=== PATIENT | male | born 1945 | race Caucasian/White ===

== ENCOUNTER → 2018-02-03 08:57 | Outpatient (CLI) | payer MEDICARE, OTHER, SELFPAY | PROVIDERS: PCP Family Medicine; Visit Provider Otolaryngology Facial Plastic Surgery | DX: H90.5 Unspecified sensorineural hearing loss (principal) ==

== ENCOUNTER → 2018-02-03 09:09 | Outpatient (CLI) | payer MEDICARE, OTHER, SELFPAY ==
[2018-02-03 10:28] LABS: Estimated Glomerular Filt Rate > 60.0 mL/min (>60)
== END ==
PROVIDERS: PCP Family Medicine; Visit Provider Otolaryngology Facial Plastic Surgery
DX: H90.5 Unspecified sensorineural hearing loss (principal); H93.13 Tinnitus, bilateral
CPT/HCPCS: 36415; 82565

== ENCOUNTER → 2018-02-14 11:40 | Outpatient (CLI) | payer MEDICARE, OTHER, SELFPAY ==
--- NOTE | 2018-02-14 | DI.MRI.S_ITS ---
PROCEDURE: MR BRAIN (IAC) WWO CON INDICATIONS: ASYMMETRICAL SENORINEURAL HEARING LOSS TECHNIQUE: Noncontrast sagittal T1 spin echo, axial FLAIR, axial gradient echo, axial diffusion and ADC through the brain. Axial thin-slice 3D CISS, coronal TruFISP, axial T1 spin echo with fat saturation through the internal auditory canals. After the administration of contrast, thin slice axial and coronal T1 spin echo with fat saturation through the internal auditory canals, and axial T1 spin echo with fat saturation through the brain. COMPARISON: None. FINDINGS: Image quality: Excellent. Cerebellopontine angles: No cerebellopontine angle masses. Inner ear structures appear normally formed. No suspicious enhancement in the internal auditory canal or along the course of the 7th cranial nerve. CSF spaces: Ventricles are normal in size and shape. No extra-axial fluid collections. Basal cisterns are patent. Brain: No intracranial bleeds or mass effects. Mcdaniel-white matter interface is intact. No abnormal intracranial enhancement. There is moderate diffuse cerebral volume loss. Diffusion weighted images demonstrate no acute ischemic insults. Brainstem appears normal. Normal intravascular flow voids are present. Skull and face: Calvarial marrow signal is normal. Orbits appear normal. Sinuses: Mucosal thickening causes near-complete opacification of the maxillary sinuses bilaterally. Mild mucosal thickening noted in the ethmoid air cells bilaterally. mastoids are clear. IMPRESSION: 1. No evidence of vestibular schwannoma. 2. Moderate, diffuse cerebral volume loss. 3. Severe bilateral maxillary sinus mucosal thickening and mild bilateral ethmoid air cell mucosal thickening. Dictated by: María Carpenter MD, PhD on 02/14/2018 at 16:09 Approved by: María Carpenter MD, PhD on 02/14/2018 at 16:14
== END ==
PROVIDERS: PCP Family Medicine; Visit Provider Otolaryngology Facial Plastic Surgery
DX: H90.3 Sensorineural hearing loss, bilateral (principal)
CPT/HCPCS: 70553; A9579

== ENCOUNTER → 2018-10-20 10:07 | Outpatient (CLI) | payer MEDICARE, OTHER, SELFPAY ==
[2018-10-20 11:58] LABS: Alanine Aminotransferase 38 IU/L (21-72); Albumin 4.4 g/dL (3.5-5.0); Albumin Globulin Ratio 1.6 (1.0-2.8); Alkaline Phosphatase 78 U/L (38-126); Aspartate Aminotransferase 32 IU/L (17-59); Bilirubin Total 0.9 mg/dL (0.2-1.3); Blood Urea Nitrogen 22 mg/dL (9-20); Calcium 9.2 mg/dL (8.4-10.2); Carbon Dioxide 28 mmol/L (22-32); Chloride 102 mmol/L (98-107); Cholesterol 195 mg/dL (140-199); Estimated Glomerular Filt Rate > 60.0 mL/min (>60); Globulin 2.8 g/dL (1.7-4.1); Glucose 94 mg/dL (80-110); HDL Cholesterol 66 mg/dL (40-60); HEMOLYSIS < 15 (0-50); LDL Cholesterol Calculated 112 mg/dL (<100); Potassium 4.7 mmol/L (3.4-5.1); Sodium 139 mmol/L (137-145); Total Protein 7.2 g/dL (6.3-8.2); Triglycerides 83 mg/dL (35-150)
[2018-10-23 17:33] LABS: Prostate Specific Antigen Scrn 0.965 ng/mL (0.1-4.0)
== END ==
PROVIDERS: PCP Family Medicine; Visit Provider Family Medicine
DX: Z00.00 Encounter for general adult medical examination without abnormal findings (principal); Z13.220 Encounter for screening for lipoid disorders; Z12.5 Encounter for screening for malignant neoplasm of prostate
CPT/HCPCS: 36415; 80053; 80061; G0103

== ENCOUNTER → 2019-01-16 09:03 | Outpatient (CLI) | payer MEDICARE, OTHER, SELFPAY ==
--- NOTE | 2019-01-16 09:10 | DI.CT.S_ITS ---
PROCEDURE: CT SINUS SCREEN WO CON INDICATIONS: chronic sinusitis TECHNIQUE: Noncontrast 3.0 mm axial images acquired from the frontal sinuses to the mid-sella, with coronal and sagittal reformats. For radiation dose reduction, the following was used: automated exposure control, adjustment of mA and/or kV according to patient size. COMPARISON: [facility], MR, MR BRAIN (IAC) WWO CON, 02/14/2018, 12:07. FINDINGS: Image quality: Excellent. Maxillary Sinuses: No bony remodeling or destruction. Mild mucosal thickening is seen within the maxillary sinuses. Ethmoid Air Cells: No bony remodeling or destruction. Minimal to mild mucosal thickening is seen within the ethmoid air cells. Sphenoid Sinuses: No bony remodeling or destruction. Sinuses are clear. Frontal Sinuses: No bony remodeling or destruction. Sinuses are clear. Ostiomeatal Complexes: Ostiomeatal complexes are patent. No Jose Elias cells. Miscellaneous: Visualized intra-orbital contents are normal. No shruthi bullosa or paradoxical turbinate curvature. There is mild rightward nasal septal deviation. IMPRESSION: Paranasal sinus disease is seen, which is most prominent within the maxillary sinuses. The degree of paranasal sinus disease has clearly improved compared to the prior MRI. Dictated by: Miguel Duckworth M.D. on 01/16/2019 at 8:56 Approved by: Miguel Duckworth M.D. on 01/16/2019 at 8:59
== END ==
PROVIDERS: PCP Family Medicine; Visit Provider Otolaryngology
DX: J32.8 Other chronic sinusitis (principal)
CPT/HCPCS: 70486

== ENCOUNTER → 2019-03-20 11:04 | Outpatient (CLI) | payer MEDICARE, OTHER, SELFPAY ==
--- NOTE | 2019-03-20 11:07 | DI.RAD.S_ITS ---
PROCEDURE: XR KNEE RT 3V INDICATIONS: pain, exam suggests DJD TECHNIQUE: 3 views of the knee were acquired. COMPARISON: [facility], , KNEE 3V RIGHT, 09/22/2015, 9:23. FINDINGS: Bones: No fractures or dislocations. No suspicious bony lesions. There is degenerative joint disease, moderate at the patellofemoral joint and medial femorotibial joint. Compared to the last exam, there is increased knee joint degeneration. Soft tissues: No joint effusion. No suspicious soft tissue calcifications. IMPRESSION: Moderate degenerative joint disease, slightly increased. Dictated by: Carlos Velasquez M.D. on 03/20/2019 at 17:11 Approved by: Carlos Velasquez M.D. on 03/20/2019 at 17:38
--- NOTE | 2019-03-20 11:07 | DI.RAD.S_ITS ---
PROCEDURE: XR KNEE LT 3V INDICATIONS: pain, exam suggests DJD with bakers cyst TECHNIQUE: 3 views of the knee were acquired. COMPARISON: [facility], , KNEE 3V LEFT, 09/22/2015, 9:23. FINDINGS: Bones: No fractures or dislocations. No suspicious bony lesions. There is increased knee joint degeneration, most pronounced in the patellofemoral joint and medial femorotibial joint. Soft tissues: No joint effusion. No suspicious soft tissue calcifications. IMPRESSION: Increased knee joint degeneration. Dictated by: Carlos Velasquez M.D. on 03/20/2019 at 17:38 Approved by: Carlos Velasquez M.D. on 03/20/2019 at 17:39
== END ==
PROVIDERS: PCP Family Medicine; Visit Provider Family Medicine
DX: M17.0 Bilateral primary osteoarthritis of knee (principal)
CPT/HCPCS: 73562

== ENCOUNTER 2019-06-21 13:29 | Outpatient (RCR) | payer MEDICARE, OTHER, SELFPAY ==
--- NOTE | 2019-06-21 15:12 | PT.OIE ---
Current Diagnoses Weakness (06/21/19) Strain of muscle and tendon of unspecified wall of thorax, initial encounter (06/21/19) Past Medical History (Last Reviewed 06/14/19 @ 09:54 by Dolores Pozo MD) Bilateral primary osteoarthritis of knee (Chronic) Visit Care Team Role Provider Type Sonia Lugo MD Attending Provider Physician Primary Care Provider Specialty: Family Practice Address: [address] [place] [address], [facility] Email: [email or web address] Physical Therapy Initial Evaluation PT-OP-A Visit Information Start: 06/21/19 08:10 Freq: Status: Active Protocol: Document 06/21/19 13:45 [facility] (Rec: 06/21/19 14:50 [facility] [id number]) Out-Patient Physical Therapy Visit Information Visit Information Visit Type Initial Evaluation Visit Start Time 13:48 Visit Stop Time 14:28 Total Visit Minutes 40 Visit Number 1 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 Pt reports his post knees have been giving him trouble since then. He has history of knee pain where he had PT and injections in the past which that helped but that was all ant. Pt reports this happened about 1 month ago and by the time he saw the MD 05/29, pain was better but still limiting Prior Treatments and Tests PT for knees but no treatment for back Treatment Goals Patient/Caregiver Goals improve stiffness, be directed on exercises; be able to get up/down from ground PT-OP-C Subjective Start: 06/21/19 08:10 Freq: Status: Active Protocol: Document 06/21/19 13:45 [facility] (Rec: 06/21/19 14:50 [facility] [id number]) OP-PT Pain Assessment Location back Pain Location Details mostly thoracolumbar junction & some lower lumber Pain Aggravating Factors Standing,Sitting,Walking Other Pain Aggravating Factors sitting and standing ext Pain Alleviating Factors Cold,Heat Other Pain Alleviating Factors yoga exercises PT-OP-F Manual Assessment Start: 06/21/19 08:10 Freq: Status: Active Protocol: Document 06/21/19 13:45 [facility] (Rec: 06/21/19 14:50 [facility] [id number]) Manual Assessments Soft Tissue Assessment Soft Tissue Mobility Assessment tightness in ES R>L thoracic and lumbar PT-OP-J Posture/Palpation/Skin Start: 06/21/19 08:10 Freq: Status: Active Protocol: Document 06/21/19 13:45 [facility] (Rec: 06/21/19 14:50 [facility] [id number]) Posture Evaluation [facility] Postural Classification System [place] Postural Classifications Posterior/Anterior Vertebral Compression Test 0 Elbow Flexion Test 4 Lumbar Protective Mechanism Left AP 2 Lumbar Protective Mechanism Right AP 1 Lumbar Protective Mechanism Left PA 0 Lumbar Protective Mechanism Right PA 0 PT-OP-K Range of Motion Start: 06/21/19 08:10 Freq: Status: Active Protocol: Document 06/21/19 13:45 [facility] (Rec: 06/21/19 14:50 [facility] [id number]) Lumbar Spine Range of Motion Lumbar Spine Active Degrees Flexion 39 Extension 20 Rotation Left 58 Rotation Right 45 Lateral Flexion Left 18 Lateral Flexion Right 8 ROM Limitations Soft Tissue Tightness PT-OP-L Special Tests Start: 06/21/19 08:10 Freq: Status: Active Protocol: Document 06/21/19 13:45 [facility] (Rec: 06/21/19 14:50 [facility] [id number]) Special Tests Lumbar Spine Special Tests Slump Test Results neg; pull in calf B Straight Leg Raise Test Results 55 deg L; 58 R Comments HS tightness PT-OP-Q Treatments Start: 06/21/19 08:10 Freq: Status: Active Protocol: Document 06/21/19 13:45 [facility] (Rec: 06/21/19 14:50 [facility] [id number]) Therapeutic Exercises Sidelying Exercises roll & reach Sidelying Exercise Name thoracic rotation Side bilateral Reps/Minutes 10 Standing Exercises gerardo pose Standing Exercise Name fwd & to sides Equipment Used sink Reps/Minutes 30 sec wall posture Standing Exercise Name w/90/90 shoulder rotation ER Side bilateral Reps/Minutes 10 Other Exercises thread the needle Side bilateral Reps/Minutes 30 sec tail wags Side bilateral Reps/Minutes 10 cat/camel Reps/Minutes 10 Manual Therapy Treatment Soft Tissue Mobilization ES Body Location B Mobilization Type Strumming Intensity/Depth Moderate Body Position Sidelying PT-OP-T Assessment and Plan Start: 06/21/19 08:10 Freq: Status: Active Protocol: Document 06/21/19 13:45 [facility] (Rec: 06/21/19 14:50 [facility] [id number]) Physical Therapy Assessment Rehab Potential Rehabilitation Potential Good Evaluation Complexity Number of Personal Factors/Comorbidities 3 or More Number of Body Systems Impaired 4 or More Clinical Presentation at Evaluation Stable Impairments Impairments Activity Tolerance,Functional Activities,Functional Mobility ,Pain,Posture,ROM,Soft Tissue Mobility,Strength Goals functional ability Penitentiary Goal (LTG) Pt will be able to get up/down from ground without pain. LTG Duration 08/21/19 mobility Short Term Goal (STG) Pt will be indep with HEP. STG Duration 07/22/19 Penitentiary Goal (LTG) Pt will have full back ROM to allow him to do typical daily activities. LTG Duration 08/21/19 Assessment Summary Assessment Pt presents with thoracic and lumbar pain after injury getting hit with door and falling to ground. His upper thoracic pain is better but still has lower thoracic and lumbar pain that is exasterbated at this time. He would benefit from skilled PT to work on his ROM, core stability, posture & overall mobility. Physical Therapy Plan Frequency and Duration Frequency of Treatment 1-2x/week Duration of Treatment 2 months Plan of Care Start Date 06/21/19 Plan of Care End Date 08/21/19 Therapeutic Interventions Therapeutic Interventions Aquatic Therapy,Balance Training,Gait Training,Home Exercise Program,Joint Mobilizations,Manual Therapy, Neuromuscular Re-education, Patient/Caregiver Education, Self-Care/Home Management,Soft Tissue Mobilization,Taping, Therapeutic Activities, Therapeutic Exercises Modalities Cold Pack/Ice Massage,Electric Stimulation,Hot Packs, Infrared Therapy,Traction- Mechanical,Ultrasound
--- NOTE | 2019-06-21 15:12 | PT.OPPOC ---
Current Diagnoses Weakness (06/21/19) Strain of muscle and tendon of unspecified wall of thorax, initial encounter (06/21/19) Visit Care Team Role Provider Type Sonia Lugo MD Attending Provider Physician Primary Care Provider Specialty: Family Practice Address: [address] [place] [address], [place], [address] Email: [email or web address] Plan Of Care PT-OP-T Assessment and Plan Start: 06/21/19 08:10 Freq: Status: Active Protocol: Document 06/21/19 13:45 [facility] (Rec: 06/21/19 14:50 [facility] [id number]) Physical Therapy Assessment Rehab Potential Rehabilitation Potential Good Evaluation Complexity Number of Personal Factors/Comorbidities 3 or More Number of Body Systems Impaired 4 or More Clinical Presentation at Evaluation Stable Impairments Impairments Activity Tolerance,Functional Activities,Functional Mobility ,Pain,Posture,ROM,Soft Tissue Mobility,Strength Goals functional ability Shelter Goal (LTG) Pt will be able to get up/down from ground without pain. LTG Duration 08/21/19 mobility Short Term Goal (STG) Pt will be indep with HEP. STG Duration 07/22/19 Shelter Goal (LTG) Pt will have full back ROM to allow him to do typical daily activities. LTG Duration 08/21/19 Assessment Summary Assessment Pt presents with thoracic and lumbar pain after injury getting hit with door and falling to ground. His upper thoracic pain is better but still has lower thoracic and lumbar pain that is exasterbated at this time. He would benefit from skilled PT to work on his ROM, core stability, posture & overall mobility. Physical Therapy Plan Frequency and Duration Frequency of Treatment 1-2x/week Duration of Treatment 2 months Plan of Care Start Date 06/21/19 Plan of Care End Date 08/21/19 Therapeutic Interventions Therapeutic Interventions Aquatic Therapy,Balance Training,Gait Training,Home Exercise Program,Joint Mobilizations,Manual Therapy, Neuromuscular Re-education, Patient/Caregiver Education, Self-Care/Home Management,Soft Tissue Mobilization,Taping, Therapeutic Activities, Therapeutic Exercises Modalities Cold Pack/Ice Massage,Electric Stimulation,Hot Packs, Infrared Therapy,Traction- Mechanical,Ultrasound Plan of Care Dates Plan of Care Start Date 06/21/19 Plan of Care End Date 08/21/19
--- NOTE | 2019-07-04 08:50 | PT.OPDS ---
Current Diagnoses Weakness (06/21/19) Strain of muscle and tendon of unspecified wall of thorax, initial encounter (06/21/19) Visit Care Team Role Provider Type Sonia Lugo MD Attending Provider Physician Primary Care Provider Specialty: Family Practice Address: [address] [place] [address], [facility] Email: [email or web address] Visit Number Visit Number 1 Discharge Summary PT-OP-B Current Condition Start: 06/21/19 08:10 Freq: Status: Active Protocol: Document 06/21/19 13:45 [facility] (Rec: 06/21/19 14:50 [facility] [id number]) Current Condition History of Current Condition Onset Date about 1 month ago Current Complaints thoracic & LBP & stiffness History of Current Condition Pt reports the door closed onto him which smashed his head against the door frame and it caused him to drop the floor and caused him to twist and injure upper back and inc LBP. Pt reports his post knees have been giving him trouble since then. He has history of knee pain where he had PT and injections in the past which that helped but that was all ant. Pt reports this happened about 1 month ago and by the time he saw the MD 05/29, pain was better but still limiting Prior Treatments and Tests PT for knees but no treatment for back Treatment Goals Patient/Caregiver Goals improve stiffness, be directed on exercises; be able to get up/down from ground PT-OP-C Subjective Start: 06/21/19 08:10 Freq: Status: Active Protocol: Document 06/21/19 13:45 [facility] (Rec: 06/21/19 14:50 [facility] [id number]) OP-PT Pain Assessment Location back Pain Location Details mostly thoracolumbar junction & some lower lumber Pain Aggravating Factors Standing,Sitting,Walking Other Pain Aggravating Factors sitting and standing ext Pain Alleviating Factors Cold,Heat Other Pain Alleviating Factors yoga exercises PT-OP-F Manual Assessment Start: 06/21/19 08:10 Freq: Status: Active Protocol: Document 06/21/19 13:45 [facility] (Rec: 06/21/19 14:50 [facility] [id number]) Manual Assessments Soft Tissue Assessment Soft Tissue Mobility Assessment tightness in ES R>L thoracic and lumbar PT-OP-J Posture/Palpation/Skin Start: 06/21/19 08:10 Freq: Status: Active Protocol: Document 06/21/19 13:45 [facility] (Rec: 06/21/19 14:50 [facility] [id number]) Posture Evaluation [place] Postural Classification System [place] Postural Classifications Posterior/Anterior Vertebral Compression Test 0 Elbow Flexion Test 4 Lumbar Protective Mechanism Left AP 2 Lumbar Protective Mechanism Right AP 1 Lumbar Protective Mechanism Left PA 0 Lumbar Protective Mechanism Right PA 0 PT-OP-K Range of Motion Start: 06/21/19 08:10 Freq: Status: Active Protocol: Document 06/21/19 13:45 [facility] (Rec: 06/21/19 14:50 [facility] [id number]) Lumbar Spine Range of Motion Lumbar Spine Active Degrees Flexion 39 Extension 20 Rotation Left 58 Rotation Right 45 Lateral Flexion Left 18 Lateral Flexion Right 8 ROM Limitations Soft Tissue Tightness PT-OP-L Special Tests Start: 06/21/19 08:10 Freq: Status: Active Protocol: Document 06/21/19 13:45 [facility] (Rec: 06/21/19 14:50 [facility] [id number]) Special Tests Lumbar Spine Special Tests Slump Test Results neg; pull in calf B Straight Leg Raise Test Results 55 deg L; 58 R Comments HS tightness PT-OP-T Assessment and Plan Start: 06/21/19 08:10 Freq: Status: Active Protocol: Document 07/04/19 08:47 [facility] (Rec: 07/04/19 08:49 [facility] [id number]) Physical Therapy Assessment Assessment Summary Assessment Pt given HEP for back and feels good with it to address his concerns. He is most concerned about his knee and got a new referal and plans to come for knee pain instead. Physical Therapy Plan Discharge Physical Therapy Discharge Reasons Patient Request Discharge Comments Pt reports he no longer needs back PT per call and has new referal for knee which he wants to pursue instead.
== END 2019-06-21 14:29 ==
LOC: PHYS 13:29
PROVIDERS: PCP Family Medicine; Visit Provider Family Medicine
DX: S29.019A Strain of muscle and tendon of unspecified wall of thorax, initial encounter (principal); R53.1 Weakness
CPT/HCPCS: 97110; 97161

== ENCOUNTER 2019-09-19 14:30 | Outpatient (RCR) | payer MEDICARE, OTHER, SELFPAY ==
--- NOTE | 2019-07-05 14:28 | PT.OIE ---
Current Diagnoses Bilateral primary osteoarthritis of knee (07/05/19) Other specified enthesopathies of unspecified lower limb, excluding foot (07/05/19) Difficulty in walking, not elsewhere classified (07/05/19) Weakness (07/05/19) Past Medical History (Last Reviewed 06/14/19 @ 09:54 by Dolores Pozo MD) Bilateral primary osteoarthritis of knee (Chronic) Visit Care Team Role Provider Type Sonia Lugo MD Primary Care Provider Physician Specialty: Family Practice Address: [address] [place] [address], [place], [address] Email: [email or web address] Danny Michael MD Attending Provider Physician Specialty: Orthopedic Surgery Address: [address] [place] [address], [id number] Email: [email or web address] Initial Evaluation PT-OP-A Visit Information Start: 07/05/19 13:03 Freq: Status: Active Protocol: Document 07/05/19 13:03 [facility] (Rec: 07/05/19 14:28 [facility] [id number]) Out-Patient Physical Therapy Visit Information Visit Information Visit Type Initial Evaluation Visit Start Time 13:05 Visit Stop Time 14:05 Total Visit Minutes 60 Visit Number 1 Number of CLINICAL DATA MANAGER Visits 0 PT-OP-B Current Condition Start: 07/05/19 13:03 Freq: Status: Active Protocol: Document 07/05/19 13:03 [facility] (Rec: 07/05/19 14:28 [facility] [id number]) Current Condition History of Current Condition Onset Date 1.5 months ago Current Complaints B post knee pain History of Current Condition Pt reports the door closed onto him which smashed his head against the door frame and it caused him to drop the floor and caused him to twist and injure upper back and inc LBP. Pt reports his post knees have been giving him trouble since then. He has history of knee pain where he had PT and injections in the past which that helped but that was all ant. Pt reports this happened about 1 month ago and by the time he saw the MD 05/29, pain was better but still limiting. Thorax pain improved but knee pain still limiting. Pt reports sitting is hard to get comfortable and is uncomfortable when getting up. Pt reports he has been done fine with dump runs. Pt reports it is sore getting up/ down from the ground. He can do his squat exercises without issue. Pt reports he had this issue earlier this year and he was doing well before this fall where it had stopped. Prior Treatments and Tests PT (1-2 years ago) and cortizone shots (3 months ago) Treatment Goals Patient/Caregiver Goals Get up/down from ground & from chair; inc walking distance again PT-OP-C Subjective Start: 07/05/19 13:03 Freq: Status: Active Protocol: Document 07/05/19 13:03 [facility] (Rec: 07/05/19 14:28 [facility] [id number]) Patient Questionnaires Lower Extremity Functional Scale LEFS Score 37 LEFS Impairment 40 to 59% Impaired (Score 32- 47) OP-PT Pain Assessment Location post knees Pain Location Details L>R post knees Intensity 7 Scale Used Numeric (1 - 10) Description Sharp,Tightness Description- Other weakness Frequency Daily Pain Duration lasts about 5-10 min after exasterbation Pain Aggravating Factors Sitting,Walking,Bending Other Pain Aggravating Factors getting up from sitting, bending knee to get socks on Pain Alleviating Factors Heat PT-OP-D Balance Start: 07/05/19 13:03 Freq: Status: Active Protocol: Document 07/05/19 13:03 [facility] (Rec: 07/05/19 14:28 [facility] [id number]) Balance Tests Single Limb Standing Single Limb- Right 16 sec Single Limb- Left 17 sec PT-OP-F Manual Assessment Start: 07/05/19 13:03 Freq: Status: Active Protocol: Document 07/05/19 13:03 [facility] (Rec: 07/05/19 14:28 [facility] [id number]) Manual Assessments Soft Tissue Assessment Soft Tissue Mobility Assessment tightness in calf and HS mm & ITB PT-OP-G Mobility & Gait Start: 07/05/19 13:03 Freq: Status: Active Protocol: Document 07/05/19 13:03 [facility] (Rec: 07/05/19 14:28 [facility] [id number]) OP Gait Assessment Comments Gait Comments Dec push off and inc lat lean PT-OP-K Range of Motion Start: 07/05/19 13:03 Freq: Status: Active Protocol: Document 07/05/19 13:03 [facility] (Rec: 07/05/19 14:28 [facility] [id number]) Knee Goniometric Range of Motion Knee Left Flexion Active (degrees) 107 Extension Active (degrees) 8 Right Flexion Active (degrees) 104 Extension Active (degrees) 10 PT-OP-L Special Tests Start: 07/05/19 13:03 Freq: Status: Active Protocol: Document 07/05/19 13:03 [facility] (Rec: 07/05/19 14:28 [facility] [id number]) Special Tests Knee Special Tests Evette's Test Results positive for tightness B Jeff Test Test Results positive L post drawer Test Results neg B vagus/valgus Test Results B neg ea lachmans Test Results positive L; R neg caryl test Test Results mild tightness B hamstring Test Results R 40 deg hip flex, L 41 deg PT-OP-M Strength Start: 07/05/19 13:03 Freq: Status: Active Protocol: Document 07/05/19 13:03 [facility] (Rec: 07/05/19 14:28 [facility] [id number]) Hip Strength Hip Manual Muscle Testing Left Flexion (L2) 4 Good Extension (S1) 4- Good- Abduction 4 Good Adduction 3+ Fair+ External Rotation 4- Good- Internal Rotation 3+ Fair+ Right Flexion (L2) 4+ Good+ Extension (S1) 4- Good- Abduction 4 Good Adduction 4 Good External Rotation 4- Good- Internal Rotation 3+ Fair+ Comments pain w/ER Knee Strength Knee Manual Muscle Testing Left Flexion (S2) 4 Good Extension (L3) 4 Good Right Flexion (S2) 4 Good Extension (L3) 4 Good Ankle/Foot Strength Ankle and Foot Manual Muscle Testing Left Dorsiflexion (L4) 5 Normal Plantarflexion (S1) 5 Normal Right Dorsiflexion (L4) 5 Normal Plantarflexion (S1) 5 Normal PT-OP-Q Treatments Start: 07/05/19 13:03 Freq: Status: Active Protocol: Document 07/05/19 13:03 [facility] (Rec: 07/05/19 14:28 [facility] [id number]) Therapeutic Exercises Supine Exercises heel slides Supine Exercise Name w/quad set Side bilateral Reps/Minutes 10 Prone Exercises hip ext Prone Exercise Name alt Side bilateral Reps/Minutes 12 Sitting Exercises HS stretch Side bilateral Reps/Minutes 30 sec Standing Exercises bottoms up stretch Standing Exercise Name forearms on knees with knee ext Side bilateral Reps/Minutes 10 calf stretch Standing Exercise Name stairs Side bilateral Reps/Minutes 30 sec PT-OP-R Modalities Start: 07/05/19 13:03 Freq: Status: Active Protocol: Document 07/05/19 13:03 [facility] (Rec: 07/05/19 14:28 [facility] [id number]) Hot Pack/Cold Pack Treatment Hot Pack Location post knees B Patient Position Supine Treatment Duration (minutes) 15 PT-OP-T Assessment and Plan Start: 07/05/19 13:03 Freq: Status: Active Protocol: Document 07/05/19 13:03 [facility] (Rec: 07/05/19 14:28 [facility] [id number]) Physical Therapy Assessment Rehab Potential Rehabilitation Potential Excellent Evaluation Complexity Number of Personal Factors/Comorbidities 1-2 Number of Body Systems Impaired 4 or More Clinical Presentation at Evaluation Stable Impairments Impairments Activity Tolerance,Functional Activities,Functional Mobility ,Gait,Pain,Posture,ROM,Soft Tissue Mobility,Strength, Transfers Goals walking V Belt Curer Goal (LTG) Pt will be able to return to walking 1 mile or more as needed without inc pain. LTG Duration 09/04/19 functional ability Short Term Goal (STG) Pt will be able to stand and sit down into chair without inc pain. STG Duration 08/04/19 Residential Goal (LTG) Pt will score 5/5 on LE strength B in order to allow him to return to all typical activities without pain LTG Duration 09/04/19 mobility Short Term Goal (STG) Pt will have 5-120 deg knee ROM B STG Duration 08/04/19 Residential Goal (LTG) Pt will be able to get up/down from the ground without inc pain. LTG Duration 09/04/19 Assessment Summary Assessment Pt presents with B post knee pain that is exasterbated with knee flex activities after falling d/t an incident about 1.5 months ago. He is typically quite active and since having injections in knees has not had issues with B knees until this incident. Pt has significant tightness of HS & calves and does have weakness of hip stabilizers and would benefit from PT to address these issues and return pt to his typical active lifestyle. Physical Therapy Plan Frequency and Duration Frequency of Treatment 2x/Week Duration of Treatment 2 months Plan of Care Start Date 07/05/19 Plan of Care End Date 09/04/19 Therapeutic Interventions Therapeutic Interventions Aquatic Therapy,Balance Training,Gait Training,Home Exercise Program,Joint Mobilizations,Manual Therapy, Neuromuscular Re-education, Patient/Caregiver Education, Self-Care/Home Management,Soft Tissue Mobilization,Taping, Therapeutic Activities, Therapeutic Exercises Next Visit Focus/Plan Next Note Type Treatment Note Next Visit Plan review stretches, squat & lunge in comfortable range with focus on form, start HS and calf strengthening that does not inc pain, STM to HS, ITB and calves B
--- NOTE | 2019-07-05 14:28 | PT.OPPOC ---
Current Diagnoses Bilateral primary osteoarthritis of knee (07/05/19) Other specified enthesopathies of unspecified lower limb, excluding foot (07/05/19) Difficulty in walking, not elsewhere classified (07/05/19) Weakness (07/05/19) Visit Care Team Role Provider Type Sonia Lugo MD Primary Care Provider Physician Specialty: Family Practice Address: [address] [place] [address], [place], [address] Email: [email or web address] Danny Michael MD Attending Provider Physician Specialty: Orthopedic Surgery Address: [address] [place] [address], [place], [address] Email: [email or web address] Plan Of Care PT-OP-T Assessment and Plan Start: 07/05/19 13:03 Freq: Status: Active Protocol: Document 07/05/19 13:03 [facility] (Rec: 07/05/19 14:28 [facility] [id number]) Physical Therapy Assessment Rehab Potential Rehabilitation Potential Excellent Evaluation Complexity Number of Personal Factors/Comorbidities 1-2 Number of Body Systems Impaired 4 or More Clinical Presentation at Evaluation Stable Impairments Impairments Activity Tolerance,Functional Activities,Functional Mobility ,Gait,Pain,Posture,ROM,Soft Tissue Mobility,Strength, Transfers Goals walking Kick Press Setter Goal (LTG) Pt will be able to return to walking 1 mile or more as needed without inc pain. LTG Duration 09/04/19 functional ability Short Term Goal (STG) Pt will be able to stand and sit down into chair without inc pain. STG Duration 08/04/19 Halfway Goal (LTG) Pt will score 5/5 on LE strength B in order to allow him to return to all typical activities without pain LTG Duration 09/04/19 mobility Short Term Goal (STG) Pt will have 5-120 deg knee ROM B STG Duration 08/04/19 Kick Press Setter Goal (LTG) Pt will be able to get up/down from the ground without inc pain. LTG Duration 09/04/19 Assessment Summary Assessment Pt presents with B post knee pain that is exasterbated with knee flex activities after falling d/t an incident about 1.5 months ago. He is typically quite active and since having injections in knees has not had issues with B knees until this incident. Pt has significant tightness of HS & calves and does have weakness of hip stabilizers and would benefit from PT to address these issues and return pt to his typical active lifestyle. Physical Therapy Plan Frequency and Duration Frequency of Treatment 2x/Week Duration of Treatment 2 months Plan of Care Start Date 07/05/19 Plan of Care End Date 09/04/19 Therapeutic Interventions Therapeutic Interventions Aquatic Therapy,Balance Training,Gait Training,Home Exercise Program,Joint Mobilizations,Manual Therapy, Neuromuscular Re-education, Patient/Caregiver Education, Self-Care/Home Management,Soft Tissue Mobilization,Taping, Therapeutic Activities, Therapeutic Exercises Next Visit Focus/Plan Next Note Type Treatment Note Next Visit Plan review stretches, squat & lunge in comfortable range with focus on form, start HS and calf strengthening that does not inc pain, STM to HS, ITB and calves B Plan of Care Dates Plan of Care Start Date 07/05/19 Plan of Care End Date 09/04/19
--- NOTE | 2019-07-14 13:11 | PT.OTN ---
Current Diagnoses Bilateral primary osteoarthritis of knee (07/12/19) Other specified enthesopathies of unspecified lower limb, excluding foot (07/12/19) Difficulty in walking, not elsewhere classified (07/12/19) Weakness (07/12/19) Physical Therapy Treatment Note PT-OP-A Visit Information Start: 07/05/19 13:03 Freq: Status: Active Protocol: Document 07/12/19 12:49 [facility] (Rec: 07/12/19 12:58 [facility] [id number]) Out-Patient Physical Therapy Visit Information Visit Information Visit Type Treatment Note Visit Start Time 11:15 Visit Stop Time 12:15 Total Visit Minutes 60 Visit Number 2 PT-OP-B Current Condition Start: 07/05/19 13:03 Freq: Status: Active Protocol: Document 07/05/19 13:03 [facility] (Rec: 07/05/19 14:28 [facility] [id number]) Current Condition History of Current Condition Onset Date 1.5 months ago Current Complaints B post knee pain History of Current Condition Pt reports the door closed onto him which smashed his head against the door frame and it caused him to drop the floor and caused him to twist and injure upper back and inc LBP. Pt reports his post knees have been giving him trouble since then. He has history of knee pain where he had PT and injections in the past which that helped but that was all ant. Pt reports this happened about 1 month ago and by the time he saw the MD 05/29, pain was better but still limiting. Thorax pain improved but knee pain still limiting. Pt reports sitting is hard to get comfortable and is uncomfortable when getting up. Pt reports he has been done fine with dump runs. Pt reports it is sore getting up/ down from the ground. He can do his squat exercises without issue. Pt reports he had this issue earlier this year and he was doing well before this fall where it had stopped. Prior Treatments and Tests PT (1-2 years ago) and cortizone shots (3 months ago) Treatment Goals Patient/Caregiver Goals Get up/down from ground & from chair; inc walking distance again PT-OP-C Subjective Start: 07/05/19 13:03 Freq: Status: Active Protocol: Document 07/12/19 12:49 [facility] (Rec: 07/12/19 12:58 [facility] [id number]) OP-PT Subjective Patient Comments Patient Comments pt reports he went to sleep with hot packs on his knees and his knees over a pillow and this helped him at night PT-OP-D Balance Start: 07/05/19 13:03 Freq: Status: Active Protocol: Document 07/05/19 13:03 [facility] (Rec: 07/05/19 14:28 [facility] [id number]) Balance Tests Single Limb Standing Single Limb- Right 16 sec Single Limb- Left 17 sec PT-OP-F Manual Assessment Start: 07/05/19 13:03 Freq: Status: Active Protocol: Document 07/05/19 13:03 [facility] (Rec: 07/05/19 14:28 [facility] [id number]) Manual Assessments Soft Tissue Assessment Soft Tissue Mobility Assessment tightness in calf and HS mm & ITB PT-OP-G Mobility & Gait Start: 07/05/19 13:03 Freq: Status: Active Protocol: Document 07/05/19 13:03 [facility] (Rec: 07/05/19 14:28 [facility] [id number]) OP Gait Assessment Comments Gait Comments Dec push off and inc lat lean PT-OP-K Range of Motion Start: 07/05/19 13:03 Freq: Status: Active Protocol: Document 07/05/19 13:03 [facility] (Rec: 07/05/19 14:28 [facility] [id number]) Knee Goniometric Range of Motion Knee Left Flexion Active (degrees) 107 Extension Active (degrees) 8 Right Flexion Active (degrees) 104 Extension Active (degrees) 10 PT-OP-L Special Tests Start: 07/05/19 13:03 Freq: Status: Active Protocol: Document 07/05/19 13:03 [facility] (Rec: 07/05/19 14:28 [facility] [id number]) Special Tests Knee Special Tests Evette's Test Results positive for tightness B Jeff Test Test Results positive L post drawer Test Results neg B vagus/valgus Test Results B neg ea lachmans Test Results positive L; R neg caryl test Test Results mild tightness B hamstring Test Results R 40 deg hip flex, L 41 deg PT-OP-M Strength Start: 07/05/19 13:03 Freq: Status: Active Protocol: Document 07/05/19 13:03 [facility] (Rec: 07/05/19 14:28 [facility] [id number]) Hip Strength Hip Manual Muscle Testing Left Flexion (L2) 4 Good Extension (S1) 4- Good- Abduction 4 Good Adduction 3+ Fair+ External Rotation 4- Good- Internal Rotation 3+ Fair+ Right Flexion (L2) 4+ Good+ Extension (S1) 4- Good- Abduction 4 Good Adduction 4 Good External Rotation 4- Good- Internal Rotation 3+ Fair+ Comments pain w/ER Knee Strength Knee Manual Muscle Testing Left Flexion (S2) 4 Good Extension (L3) 4 Good Right Flexion (S2) 4 Good Extension (L3) 4 Good Ankle/Foot Strength Ankle and Foot Manual Muscle Testing Left Dorsiflexion (L4) 5 Normal Plantarflexion (S1) 5 Normal Right Dorsiflexion (L4) 5 Normal Plantarflexion (S1) 5 Normal PT-OP-Q Treatments Start: 07/05/19 13:03 Freq: Status: Active Protocol: Document 07/12/19 12:49 [facility] (Rec: 07/12/19 12:58 [facility] [id number]) Cardio Equipment Recumbent Elliptical ([employer]) Duration (Minutes) 6 Gym Equipment Shuttle Recovery Bilateral Squats Details shuttle squats Resistance 75# Reps/Time 3 x 10 reps Therapeutic Exercises Supine Exercises heel slides Supine Exercise Name w/quad set Side bilateral Reps/Minutes 10 Prone Exercises hip ext Prone Exercise Name alt Side bilateral Reps/Minutes 12 Sitting Exercises HS stretch Side bilateral Reps/Minutes 30 sec Standing Exercises 3 Standing Exercise Name standing squat Reps/Minutes x 10 reps 2 Standing Exercise Name standing calf raises with the DEREK 1 Standing Exercise Name standing quad stretch with foot on chair Reps/Minutes 30 sec bottoms up stretch Standing Exercise Name forearms on knees with knee ext Side bilateral Reps/Minutes 10 calf stretch Standing Exercise Name stairs Side bilateral Reps/Minutes 30 sec Manual Therapy Treatment Soft Tissue Mobilization 1 Body Location manual ITB release on the right Body Position Supine Manual Techniques 1 Type prone manual quad stretch Comments bilaterall PT-OP-R Modalities Start: 07/05/19 13:03 Freq: Status: Active Protocol: Document 07/12/19 12:49 [facility] (Rec: 07/12/19 12:58 [facility] [id number]) Hot Pack/Cold Pack Treatment Hot Pack Location post knees B Patient Position Supine Treatment Duration (minutes) 15 PT-OP-T Assessment and Plan Start: 07/05/19 13:03 Freq: Status: Active Protocol: Document 07/12/19 12:49 [facility] (Rec: 07/12/19 12:58 [facility] [email or web address]) Physical Therapy Assessment Assessment Summary Assessment good tolerance for stretches today, hamstrings tight B with ITB tightness greater on the left. He would benefit from adding in lateral hip stabilization. Physical Therapy Plan Frequency and Duration Frequency of Treatment 2x/Week Duration of Treatment 2 months Plan of Care Start Date 07/05/19 Plan of Care End Date 09/04/19 Next Visit Focus/Plan Next Note Type Treatment Note Next Visit Plan Continue with reviewing stretches,Manual work to the ITB and hamstrings, calves, strengthening program including lateral hip stabilizers
--- NOTE | 2019-07-16 15:15 | PT.OTN ---
Current Diagnoses Bilateral primary osteoarthritis of knee (07/16/19) Other specified enthesopathies of unspecified lower limb, excluding foot (07/16/19) Difficulty in walking, not elsewhere classified (07/16/19) Weakness (07/16/19) Physical Therapy Treatment Note PT-OP-A Visit Information Start: 07/05/19 13:03 Freq: Status: Active Protocol: Document 07/16/19 14:31 SP (Rec: 07/16/19 15:37 SP [id number]) Out-Patient Physical Therapy Visit Information Visit Information Visit Type Treatment Note Visit Start Time 14:32 Visit Stop Time 15:15 Total Visit Minutes 43 Visit Number 3 Number of COMPUTER FORENSICS EXAMINER Visits 1 PT-OP-B Current Condition Start: 07/05/19 13:03 Freq: Status: Active Protocol: Document 07/05/19 13:03 [facility] (Rec: 07/05/19 14:28 [facility] [id number]) Current Condition History of Current Condition Onset Date 1.5 months ago Current Complaints B post knee pain History of Current Condition Pt reports the door closed onto him which smashed his head against the door frame and it caused him to drop the floor and caused him to twist and injure upper back and inc LBP. Pt reports his post knees have been giving him trouble since then. He has history of knee pain where he had PT and injections in the past which that helped but that was all ant. Pt reports this happened about 1 month ago and by the time he saw the MD 05/29, pain was better but still limiting. Thorax pain improved but knee pain still limiting. Pt reports sitting is hard to get comfortable and is uncomfortable when getting up. Pt reports he has been done fine with dump runs. Pt reports it is sore getting up/ down from the ground. He can do his squat exercises without issue. Pt reports he had this issue earlier this year and he was doing well before this fall where it had stopped. Prior Treatments and Tests PT (1-2 years ago) and cortizone shots (3 months ago) Treatment Goals Patient/Caregiver Goals Get up/down from ground & from chair; inc walking distance again PT-OP-C Subjective Start: 07/05/19 13:03 Freq: Status: Active Protocol: Document 07/16/19 14:31 SP (Rec: 07/16/19 15:37 SP [id number]) OP-PT Subjective Patient Comments Patient Comments Pt stated felt pretty good, loosened up after last tx until later in the evening, B knees started hurting and had hard time sleeping, lasted through the weekend. Helped to prop legs up while seated in the chair and slept with a heating pad behind his knees. Might adjust exercises today. PT-OP-D Balance Start: 07/05/19 13:03 Freq: Status: Active Protocol: Document 07/05/19 13:03 [facility] (Rec: 07/05/19 14:28 [facility] [id number]) Balance Tests Single Limb Standing Single Limb- Right 16 sec Single Limb- Left 17 sec PT-OP-F Manual Assessment Start: 07/05/19 13:03 Freq: Status: Active Protocol: Document 07/05/19 13:03 [facility] (Rec: 07/05/19 14:28 [facility] [id number]) Manual Assessments Soft Tissue Assessment Soft Tissue Mobility Assessment tightness in calf and HS mm & ITB PT-OP-G Mobility & Gait Start: 07/05/19 13:03 Freq: Status: Active Protocol: Document 07/05/19 13:03 [facility] (Rec: 07/05/19 14:28 [facility] [id number]) OP Gait Assessment Comments Gait Comments Dec push off and inc lat lean PT-OP-K Range of Motion Start: 07/05/19 13:03 Freq: Status: Active Protocol: Document 07/05/19 13:03 [facility] (Rec: 07/05/19 14:28 [facility] [id number]) Knee Goniometric Range of Motion Knee Left Flexion Active (degrees) 107 Extension Active (degrees) 8 Right Flexion Active (degrees) 104 Extension Active (degrees) 10 PT-OP-L Special Tests Start: 07/05/19 13:03 Freq: Status: Active Protocol: Document 07/05/19 13:03 [facility] (Rec: 07/05/19 14:28 [facility] [id number]) Special Tests Knee Special Tests Evette's Test Results positive for tightness B Jeff Test Test Results positive L post drawer Test Results neg B vagus/valgus Test Results B neg ea lachmans Test Results positive L; R neg caryl test Test Results mild tightness B hamstring Test Results R 40 deg hip flex, L 41 deg PT-OP-M Strength Start: 07/05/19 13:03 Freq: Status: Active Protocol: Document 07/05/19 13:03 [facility] (Rec: 07/05/19 14:28 [facility] [id number]) Hip Strength Hip Manual Muscle Testing Left Flexion (L2) 4 Good Extension (S1) 4- Good- Abduction 4 Good Adduction 3+ Fair+ External Rotation 4- Good- Internal Rotation 3+ Fair+ Right Flexion (L2) 4+ Good+ Extension (S1) 4- Good- Abduction 4 Good Adduction 4 Good External Rotation 4- Good- Internal Rotation 3+ Fair+ Comments pain w/ER Knee Strength Knee Manual Muscle Testing Left Flexion (S2) 4 Good Extension (L3) 4 Good Right Flexion (S2) 4 Good Extension (L3) 4 Good Ankle/Foot Strength Ankle and Foot Manual Muscle Testing Left Dorsiflexion (L4) 5 Normal Plantarflexion (S1) 5 Normal Right Dorsiflexion (L4) 5 Normal Plantarflexion (S1) 5 Normal PT-OP-Q Treatments Start: 07/05/19 13:03 Freq: Status: Active Protocol: Document 07/16/19 14:31 SP (Rec: 07/16/19 15:37 SP [id number]) Cardio Equipment Recumbent Elliptical (Biodex) Duration (Minutes) 3 Resistance 2 Seat Position 8 Therapeutic Exercises Supine Exercises SLR Side bilateral Reps/Minutes 3x5 Comments no higher than other leg quad set Side bilateral Reps/Minutes 10 sec x10 bridge Side bilateral Resistance AROM Reps/Minutes 2x10 Comments slow pacing, glut activation with lift Hs stretch strap Side bilateral Equipment Used strap Reps/Minutes 30 x3 Prone Exercises eccentric HS Side bilateral Equipment Used table Reps/Minutes 2x5, 5 sec hold into extension quad set Sitting Exercises HS stretch Side bilateral Reps/Minutes 30 sec Standing Exercises calf stretch Standing Exercise Name stairs Side bilateral Reps/Minutes 30 sec Manual Therapy Treatment Soft Tissue Mobilization HS Mobilization Type Rolling,Strumming Intensity/Depth Moderate Body Position Prone Comments manual and rolling pin mid to distal Joint Mobilizations Tibial femoral Direction AP, PA Grade II Body Position Hooklying Reps/Duration x5 reps Comments assist concave on convex in 50 * knee flexion Femi patella mob Joint PF Direction med/lat/sup/inf Grade II Body Position Supine Reps/Duration x5 each direction Femi PT-OP-R Modalities Start: 07/05/19 13:03 Freq: Status: Active Protocol: Document 07/12/19 12:49 [facility] (Rec: 07/12/19 12:58 [facility] [email or web address]) Hot Pack/Cold Pack Treatment Hot Pack Location post knees B Patient Position Supine Treatment Duration (minutes) 15 PT-OP-T Assessment and Plan Start: 07/05/19 13:03 Freq: Status: Active Protocol: Document 07/16/19 14:31 SP (Rec: 07/16/19 15:37 SP [id number]) Physical Therapy Assessment Goals walking Mcc Goal (LTG) Pt will be able to return to walking 1 mile or more as needed without inc pain. LTG Duration 09/04/19 functional ability Short Term Goal (STG) Pt will be able to stand and sit down into chair without inc pain. STG Duration 08/04/19 Mcc Goal (LTG) Pt will score 5/5 on LE strength B in order to allow him to return to all typical activities without pain LTG Duration 09/04/19 mobility Short Term Goal (STG) Pt will have 5-120 deg knee ROM B STG Duration 08/04/19 Collar Cutter Goal (LTG) Pt will be able to get up/down from the ground without inc pain. LTG Duration 09/04/19 Assessment Summary Assessment Pt reported posterior knee pain during any knee flexion movement, held off on sit back quad stretch due to hurting, modified to eccentric HS curl/ prone hang with positive feedback. Good response to STMs HS manual and rolling pin performs self at home while watching TV. No adverse response to bridge today to work into squats for transfers with less discomfort. Hold off on resistance with Biodex, didnt' responded well, irritated knees with 2-3 resistance. Physical Therapy Plan Frequency and Duration Frequency of Treatment 2x/Week Duration of Treatment 2 months Plan of Care Start Date 07/05/19 Plan of Care End Date 09/04/19 Therapeutic Interventions Therapeutic Interventions Aquatic Therapy,Balance Training,Gait Training,Home Exercise Program,Joint Mobilizations,Manual Therapy, Neuromuscular Re-education, Patient/Caregiver Education, Self-Care/Home Management,Soft Tissue Mobilization,Taping, Therapeutic Activities, Therapeutic Exercises Next Visit Focus/Plan Next Note Type Treatment Note Next Visit Plan Review HEP: stretching: ITB, HS, calves and added bridge, eccentric HS curl, quad set, SLR. Add squat/lunges/HS /calf strengtheningContinue with reviewing stretches,Manual work to the ITB and hamstrings , calves, strengthening program including lateral hip stabilizers.
--- NOTE | 2019-07-19 11:30 | PT.OTN ---
Current Diagnoses Bilateral primary osteoarthritis of knee (07/19/19) Other specified enthesopathies of unspecified lower limb, excluding foot (07/19/19) Difficulty in walking, not elsewhere classified (07/19/19) Weakness (07/19/19) Physical Therapy Treatment Note PT-OP-A Visit Information Start: 07/05/19 13:03 Freq: Status: Active Protocol: Document 07/19/19 11:26 [facility] (Rec: 07/19/19 11:30 [facility] [id number]) Out-Patient Physical Therapy Visit Information Visit Information Visit Type Treatment Note Visit Start Time 09:45 Visit Stop Time 10:30 Total Visit Minutes 45 Visit Number 4 Number of CORPORATE STRATEGIST Visits 0 PT-OP-B Current Condition Start: 07/05/19 13:03 Freq: Status: Active Protocol: Document 07/05/19 13:03 [facility] (Rec: 07/05/19 14:28 [facility] [id number]) Current Condition History of Current Condition Onset Date 1.5 months ago Current Complaints B post knee pain History of Current Condition Pt reports the door closed onto him which smashed his head against the door frame and it caused him to drop the floor and caused him to twist and injure upper back and inc LBP. Pt reports his post knees have been giving him trouble since then. He has history of knee pain where he had PT and injections in the past which that helped but that was all ant. Pt reports this happened about 1 month ago and by the time he saw the MD 05/29, pain was better but still limiting. Thorax pain improved but knee pain still limiting. Pt reports sitting is hard to get comfortable and is uncomfortable when getting up. Pt reports he has been done fine with dump runs. Pt reports it is sore getting up/ down from the ground. He can do his squat exercises without issue. Pt reports he had this issue earlier this year and he was doing well before this fall where it had stopped. Prior Treatments and Tests PT (1-2 years ago) and cortizone shots (3 months ago) Treatment Goals Patient/Caregiver Goals Get up/down from ground & from chair; inc walking distance again PT-OP-C Subjective Start: 07/05/19 13:03 Freq: Status: Active Protocol: Document 07/19/19 11:26 [facility] (Rec: 07/19/19 11:30 [facility] [id number]) OP-PT Subjective Patient Comments Patient Comments pt reports the soft tissue massage is helping and he is feeling looser with his quad stretches PT-OP-D Balance Start: 07/05/19 13:03 Freq: Status: Active Protocol: Document 07/05/19 13:03 [facility] (Rec: 07/05/19 14:28 [facility] [id number]) Balance Tests Single Limb Standing Single Limb- Right 16 sec Single Limb- Left 17 sec PT-OP-F Manual Assessment Start: 07/05/19 13:03 Freq: Status: Active Protocol: Document 07/05/19 13:03 [facility] (Rec: 07/05/19 14:28 [facility] [id number]) Manual Assessments Soft Tissue Assessment Soft Tissue Mobility Assessment tightness in calf and HS mm & ITB PT-OP-G Mobility & Gait Start: 07/05/19 13:03 Freq: Status: Active Protocol: Document 07/05/19 13:03 [facility] (Rec: 07/05/19 14:28 [facility] [id number]) OP Gait Assessment Comments Gait Comments Dec push off and inc lat lean PT-OP-K Range of Motion Start: 07/05/19 13:03 Freq: Status: Active Protocol: Document 07/05/19 13:03 [facility] (Rec: 07/05/19 14:28 [facility] [id number]) Knee Goniometric Range of Motion Knee Left Flexion Active (degrees) 107 Extension Active (degrees) 8 Right Flexion Active (degrees) 104 Extension Active (degrees) 10 PT-OP-L Special Tests Start: 07/05/19 13:03 Freq: Status: Active Protocol: Document 07/05/19 13:03 [facility] (Rec: 07/05/19 14:28 [facility] [id number]) Special Tests Knee Special Tests Evette's Test Results positive for tightness B Jeff Test Test Results positive L post drawer Test Results neg B vagus/valgus Test Results B neg ea lachmans Test Results positive L; R neg caryl test Test Results mild tightness B hamstring Test Results R 40 deg hip flex, L 41 deg PT-OP-M Strength Start: 07/05/19 13:03 Freq: Status: Active Protocol: Document 07/05/19 13:03 [facility] (Rec: 07/05/19 14:28 [facility] [id number]) Hip Strength Hip Manual Muscle Testing Left Flexion (L2) 4 Good Extension (S1) 4- Good- Abduction 4 Good Adduction 3+ Fair+ External Rotation 4- Good- Internal Rotation 3+ Fair+ Right Flexion (L2) 4+ Good+ Extension (S1) 4- Good- Abduction 4 Good Adduction 4 Good External Rotation 4- Good- Internal Rotation 3+ Fair+ Comments pain w/ER Knee Strength Knee Manual Muscle Testing Left Flexion (S2) 4 Good Extension (L3) 4 Good Right Flexion (S2) 4 Good Extension (L3) 4 Good Ankle/Foot Strength Ankle and Foot Manual Muscle Testing Left Dorsiflexion (L4) 5 Normal Plantarflexion (S1) 5 Normal Right Dorsiflexion (L4) 5 Normal Plantarflexion (S1) 5 Normal PT-OP-Q Treatments Start: 07/05/19 13:03 Freq: Status: Active Protocol: Document 07/19/19 11:26 [facility] (Rec: 07/19/19 11:30 [facility] [email or web address]) Cardio Equipment Recumbent Bicycle Duration (Minutes) 7 Resistance 1 Seat Position 5 Gym Equipment Shuttle Recovery Bilateral Squats Details shuttle squats Resistance 50# Reps/Time 3 x 10 reps Therapeutic Exercises Supine Exercises Hs stretch strap Side bilateral Equipment Used strap Reps/Minutes 30 x3 Sitting Exercises HS stretch Side bilateral Reps/Minutes 30 sec Standing Exercises 1 Standing Exercise Name standing quad stretch with foot on ball Reps/Minutes 30 sec Comments active ball roll for knee flexion ROM and quad stretch bottoms up stretch Standing Exercise Name forearms on knees with knee ext Side bilateral Reps/Minutes 10 calf stretch Standing Exercise Name stairs Side bilateral Reps/Minutes 30 sec Manual Therapy Treatment Soft Tissue Mobilization HS Mobilization Type Rolling,Strumming Intensity/Depth Moderate Body Position Prone Comments manual and rolling pin mid to distal 1 Body Location manual ITB release on the right Body Position Supine Manual Techniques 1 Type prone manual quad stretch Comments bilaterall PT-OP-R Modalities Start: 07/05/19 13:03 Freq: Status: Active Protocol: Document 07/12/19 12:49 [facility] (Rec: 07/12/19 12:58 [facility] [email or web address]) Hot Pack/Cold Pack Treatment Hot Pack Location post knees B Patient Position Supine Treatment Duration (minutes) 15 PT-OP-T Assessment and Plan Start: 07/05/19 13:03 Freq: Status: Active Protocol: Document 07/19/19 11:26 [facility] (Rec: 07/19/19 11:30 [facility] [email or web address]) Physical Therapy Assessment Assessment Summary Assessment pt better today and feels as if he has gained ROM in his right knee with flexion. No c /o pain today with treatment. Physical Therapy Plan Frequency and Duration Frequency of Treatment 2x/Week Duration of Treatment 2 months Plan of Care Start Date 07/05/19 Plan of Care End Date 09/04/19 Next Visit Focus/Plan Next Note Type Treatment Note Next Visit Plan continue to focus on hamstring and calf flexibility and manual STM/MFR for the hamstring musculature
--- NOTE | 2019-07-30 15:02 | PT.OTN ---
Current Diagnoses Bilateral primary osteoarthritis of knee (07/30/19) Other specified enthesopathies of unspecified lower limb, excluding foot (07/30/19) Difficulty in walking, not elsewhere classified (07/30/19) Weakness (07/30/19) Physical Therapy Treatment Note PT-OP-A Visit Information Start: 07/05/19 13:03 Freq: Status: Active Protocol: Document 07/30/19 09:51 [facility] (Rec: 07/30/19 15:02 [facility] [id number]) Out-Patient Physical Therapy Visit Information Visit Information Visit Type Treatment Note Visit Start Time 09:47 Visit Stop Time 10:37 Total Visit Minutes 50 Visit Number 5 Number of FOUR SLIDE MACHINE SETTER Visits 0 PT-OP-B Current Condition Start: 07/05/19 13:03 Freq: Status: Active Protocol: Document 07/05/19 13:03 [facility] (Rec: 07/05/19 14:28 [facility] [id number]) Current Condition History of Current Condition Onset Date 1.5 months ago Current Complaints B post knee pain History of Current Condition Pt reports the door closed onto him which smashed his head against the door frame and it caused him to drop the floor and caused him to twist and injure upper back and inc LBP. Pt reports his post knees have been giving him trouble since then. He has history of knee pain where he had PT and injections in the past which that helped but that was all ant. Pt reports this happened about 1 month ago and by the time he saw the MD 05/29, pain was better but still limiting. Thorax pain improved but knee pain still limiting. Pt reports sitting is hard to get comfortable and is uncomfortable when getting up. Pt reports he has been done fine with dump runs. Pt reports it is sore getting up/ down from the ground. He can do his squat exercises without issue. Pt reports he had this issue earlier this year and he was doing well before this fall where it had stopped. Prior Treatments and Tests PT (1-2 years ago) and cortizone shots (3 months ago) Treatment Goals Patient/Caregiver Goals Get up/down from ground & from chair; inc walking distance again PT-OP-C Subjective Start: 07/05/19 13:03 Freq: Status: Active Protocol: Document 07/30/19 09:51 [facility] (Rec: 07/30/19 15:02 [facility] [id number]) OP-PT Subjective Patient Comments Patient Comments Pt unsure what made him feel worse but after this weekend he feels tighter R>L. NOtes he stretched but did a lot of walking and went down some water slides with grandkids this weekend. Patient Reported Progress Worse PT-OP-D Balance Start: 07/05/19 13:03 Freq: Status: Active Protocol: Document 07/05/19 13:03 [facility] (Rec: 07/05/19 14:28 [facility] [id number]) Balance Tests Single Limb Standing Single Limb- Right 16 sec Single Limb- Left 17 sec PT-OP-F Manual Assessment Start: 07/05/19 13:03 Freq: Status: Active Protocol: Document 07/05/19 13:03 [facility] (Rec: 07/05/19 14:28 [facility] [id number]) Manual Assessments Soft Tissue Assessment Soft Tissue Mobility Assessment tightness in calf and HS mm & ITB PT-OP-G Mobility & Gait Start: 07/05/19 13:03 Freq: Status: Active Protocol: Document 07/05/19 13:03 [facility] (Rec: 07/05/19 14:28 [facility] [id number]) OP Gait Assessment Comments Gait Comments Dec push off and inc lat lean PT-OP-K Range of Motion Start: 07/05/19 13:03 Freq: Status: Active Protocol: Document 07/05/19 13:03 [facility] (Rec: 07/05/19 14:28 [facility] [id number]) Knee Goniometric Range of Motion Knee Left Flexion Active (degrees) 107 Extension Active (degrees) 8 Right Flexion Active (degrees) 104 Extension Active (degrees) 10 PT-OP-L Special Tests Start: 07/05/19 13:03 Freq: Status: Active Protocol: Document 07/05/19 13:03 [facility] (Rec: 07/05/19 14:28 [facility] [id number]) Special Tests Knee Special Tests Evette's Test Results positive for tightness B Jeff Test Test Results positive L post drawer Test Results neg B vagus/valgus Test Results B neg ea lachmans Test Results positive L; R neg caryl test Test Results mild tightness B hamstring Test Results R 40 deg hip flex, L 41 deg PT-OP-M Strength Start: 07/05/19 13:03 Freq: Status: Active Protocol: Document 07/05/19 13:03 [facility] (Rec: 07/05/19 14:28 [facility] [id number]) Hip Strength Hip Manual Muscle Testing Left Flexion (L2) 4 Good Extension (S1) 4- Good- Abduction 4 Good Adduction 3+ Fair+ External Rotation 4- Good- Internal Rotation 3+ Fair+ Right Flexion (L2) 4+ Good+ Extension (S1) 4- Good- Abduction 4 Good Adduction 4 Good External Rotation 4- Good- Internal Rotation 3+ Fair+ Comments pain w/ER Knee Strength Knee Manual Muscle Testing Left Flexion (S2) 4 Good Extension (L3) 4 Good Right Flexion (S2) 4 Good Extension (L3) 4 Good Ankle/Foot Strength Ankle and Foot Manual Muscle Testing Left Dorsiflexion (L4) 5 Normal Plantarflexion (S1) 5 Normal Right Dorsiflexion (L4) 5 Normal Plantarflexion (S1) 5 Normal PT-OP-Q Treatments Start: 07/05/19 13:03 Freq: Status: Active Protocol: Document 07/30/19 09:51 [facility] (Rec: 07/30/19 15:02 [facility] [id number]) Cardio Equipment Recumbent Bicycle Duration (Minutes) 6 Resistance 5 Seat Position 8 Therapeutic Exercises Standing Exercises 3 Standing Exercise Name heel raises Side bilateral Reps/Minutes 20 2 Standing Exercise Name lunges Side bilateral Reps/Minutes 15 Comments focus on both knees bending Manual Therapy Treatment Soft Tissue Mobilization calf Body Location L med gastroc Mobilization Type Rolling,Strumming HS Mobilization Type Rolling,Strumming Intensity/Depth Moderate Body Position Prone Comments med HS R & lat L w/FM of knee flex/ext & APs 1 Body Location ITB L Mobilization Type Strumming PT-OP-R Modalities Start: 07/05/19 13:03 Freq: Status: Active Protocol: Document 07/30/19 09:51 [facility] (Rec: 07/30/19 15:02 [facility] [id number]) Hot Pack/Cold Pack Treatment Hot Pack Location B post knees Patient Position Hooklying Treatment Duration (minutes) 10 PT-OP-T Assessment and Plan Start: 07/05/19 13:03 Freq: Status: Active Protocol: Document 07/30/19 09:51 [facility] (Rec: 07/30/19 15:02 [facility] [id number]) Physical Therapy Assessment Goals walking Apprenticeship Representative Goal (LTG) Pt will be able to return to walking 1 mile or more as needed without inc pain. LTG Duration 09/04/19 functional ability Short Term Goal (STG) Pt will be able to stand and sit down into chair without inc pain. STG Duration 08/04/19 Alf Goal (LTG) Pt will score 5/5 on LE strength B in order to allow him to return to all typical activities without pain LTG Duration 09/04/19 mobility Short Term Goal (STG) Pt will have 5-120 deg knee ROM B STG Duration 08/04/19 Alf Goal (LTG) Pt will be able to get up/down from the ground without inc pain. LTG Duration 09/04/19 Assessment Summary Assessment Pt required cueing for lunges in order to improve his ability to lunge with improved mechanics without front knee going past toes. He had significant quad stretch with back leg with lunging activty. Aftter manual therapy, pt improved iwth ability to knee extend. Physical Therapy Plan Frequency and Duration Frequency of Treatment 2x/Week Duration of Treatment 2 months Plan of Care Start Date 07/05/19 Plan of Care End Date 09/04/19 Next Visit Focus/Plan Next Note Type Treatment Note Next Visit Plan manual mobility of HS & Calves & review squat mechanics, work on tib fib & tibfem mobility
--- NOTE | 2019-08-16 16:48 | PT.OTN ---
Current Diagnoses Bilateral primary osteoarthritis of knee (08/16/19) Other specified enthesopathies of unspecified lower limb, excluding foot (08/16/19) Difficulty in walking, not elsewhere classified (08/16/19) Weakness (08/16/19) Physical Therapy Treatment Note PT-OP-A Visit Information Start: 07/05/19 13:03 Freq: Status: Active Protocol: Document 08/16/19 15:58 [facility] (Rec: 08/16/19 16:48 [facility] [id number]) Out-Patient Physical Therapy Visit Information Visit Information Visit Type Treatment Note Visit Start Time 16:00 Visit Stop Time 16:57 Total Visit Minutes 57 Visit Number 6 Number of SPACE BUYER Visits 0 PT-OP-B Current Condition Start: 07/05/19 13:03 Freq: Status: Active Protocol: Document 07/05/19 13:03 [facility] (Rec: 07/05/19 14:28 [facility] [id number]) Current Condition History of Current Condition Onset Date 1.5 months ago Current Complaints B post knee pain History of Current Condition Pt reports the door closed onto him which smashed his head against the door frame and it caused him to drop the floor and caused him to twist and injure upper back and inc LBP. Pt reports his post knees have been giving him trouble since then. He has history of knee pain where he had PT and injections in the past which that helped but that was all ant. Pt reports this happened about 1 month ago and by the time he saw the MD 05/29, pain was better but still limiting. Thorax pain improved but knee pain still limiting. Pt reports sitting is hard to get comfortable and is uncomfortable when getting up. Pt reports he has been done fine with dump runs. Pt reports it is sore getting up/ down from the ground. He can do his squat exercises without issue. Pt reports he had this issue earlier this year and he was doing well before this fall where it had stopped. Prior Treatments and Tests PT (1-2 years ago) and cortizone shots (3 months ago) Treatment Goals Patient/Caregiver Goals Get up/down from ground & from chair; inc walking distance again PT-OP-C Subjective Start: 07/05/19 13:03 Freq: Status: Active Protocol: Document 08/16/19 15:58 [facility] (Rec: 08/16/19 16:48 [facility] [id number]) OP-PT Subjective Patient Comments Patient Comments Pt reports AMs are best and through the day it gets worse. Notes he replaced a toilet seat todaya nd had to get down to the ground and backs of his knees were uncomfortalbe. Reports putting HP on buttock area, dec pain in knees. Patient Reported Progress Improving PT-OP-D Balance Start: 07/05/19 13:03 Freq: Status: Active Protocol: Document 07/05/19 13:03 [facility] (Rec: 07/05/19 14:28 [facility] [id number]) Balance Tests Single Limb Standing Single Limb- Right 16 sec Single Limb- Left 17 sec PT-OP-F Manual Assessment Start: 07/05/19 13:03 Freq: Status: Active Protocol: Document 07/05/19 13:03 [facility] (Rec: 07/05/19 14:28 [facility] [id number]) Manual Assessments Soft Tissue Assessment Soft Tissue Mobility Assessment tightness in calf and HS mm & ITB PT-OP-G Mobility & Gait Start: 07/05/19 13:03 Freq: Status: Active Protocol: Document 07/05/19 13:03 [facility] (Rec: 07/05/19 14:28 [facility] [id number]) OP Gait Assessment Comments Gait Comments Dec push off and inc lat lean PT-OP-K Range of Motion Start: 07/05/19 13:03 Freq: Status: Active Protocol: Document 07/05/19 13:03 [facility] (Rec: 07/05/19 14:28 [facility] [id number]) Knee Goniometric Range of Motion Knee Left Flexion Active (degrees) 107 Extension Active (degrees) 8 Right Flexion Active (degrees) 104 Extension Active (degrees) 10 PT-OP-L Special Tests Start: 07/05/19 13:03 Freq: Status: Active Protocol: Document 07/05/19 13:03 [facility] (Rec: 07/05/19 14:28 [facility] [id number]) Special Tests Knee Special Tests Evette's Test Results positive for tightness B Jeff Test Test Results positive L post drawer Test Results neg B vagus/valgus Test Results B neg ea lachmans Test Results positive L; R neg caryl test Test Results mild tightness B hamstring Test Results R 40 deg hip flex, L 41 deg PT-OP-M Strength Start: 07/05/19 13:03 Freq: Status: Active Protocol: Document 07/05/19 13:03 [facility] (Rec: 07/05/19 14:28 [facility] [id number]) Hip Strength Hip Manual Muscle Testing Left Flexion (L2) 4 Good Extension (S1) 4- Good- Abduction 4 Good Adduction 3+ Fair+ External Rotation 4- Good- Internal Rotation 3+ Fair+ Right Flexion (L2) 4+ Good+ Extension (S1) 4- Good- Abduction 4 Good Adduction 4 Good External Rotation 4- Good- Internal Rotation 3+ Fair+ Comments pain w/ER Knee Strength Knee Manual Muscle Testing Left Flexion (S2) 4 Good Extension (L3) 4 Good Right Flexion (S2) 4 Good Extension (L3) 4 Good Ankle/Foot Strength Ankle and Foot Manual Muscle Testing Left Dorsiflexion (L4) 5 Normal Plantarflexion (S1) 5 Normal Right Dorsiflexion (L4) 5 Normal Plantarflexion (S1) 5 Normal PT-OP-Q Treatments Start: 07/05/19 13:03 Freq: Status: Active Protocol: Document 08/16/19 15:58 [facility] (Rec: 08/16/19 16:48 [facility] [id number]) Cardio Equipment Recumbent Bicycle Duration (Minutes) 6 Resistance 5 Seat Position 8 Therapeutic Exercises Standing Exercises 2 Standing Exercise Name lunges Side bilateral Reps/Minutes 15 Comments focus on both knees bending Manual Therapy Treatment Soft Tissue Mobilization calf Body Location R lat gastroc Mobilization Type Rolling,Strumming HS Mobilization Type Rolling,Strumming Intensity/Depth Moderate Body Position Prone Comments 1. R distal HS FM w/knee flex 2. B proximal HS Joint Mobilizations tibfib Joint proximal R Direction PA FM Tibial femoral Joint R Direction PA FM PT-OP-R Modalities Start: 07/05/19 13:03 Freq: Status: Active Protocol: Document 08/16/19 15:58 [facility] (Rec: 08/16/19 16:48 [facility] [id number]) Hot Pack/Cold Pack Treatment Hot Pack Location B post knees Patient Position Hooklying Treatment Duration (minutes) 15 PT-OP-T Assessment and Plan Start: 07/05/19 13:03 Freq: Status: Active Protocol: Document 08/16/19 15:58 [facility] (Rec: 08/16/19 16:48 [facility] [id number]) Physical Therapy Assessment Goals walking Senior Living Goal (LTG) Pt will be able to return to walking 1 mile or more as needed without inc pain. LTG Duration 09/04/19 functional ability Short Term Goal (STG) Pt will be able to stand and sit down into chair without inc pain. STG Duration 08/04/19 Senior Living Goal (LTG) Pt will score 5/5 on LE strength B in order to allow him to return to all typical activities without pain LTG Duration 09/04/19 mobility Short Term Goal (STG) Pt will have 5-120 deg knee ROM B STG Duration 08/04/19 Head Stock Operator Goal (LTG) Pt will be able to get up/down from the ground without inc pain. LTG Duration 09/04/19 Assessment Summary Assessment Pt cont to require cueing for lunges re: avoiding too far fwd movement of front knee. Pt improved R knee flex with mobilizations and with tibfib mob, pt no longer had pain w/ DF when in knee flexed position Physical Therapy Plan Frequency and Duration Frequency of Treatment 2x/Week Duration of Treatment 2 months Plan of Care Start Date 07/05/19 Plan of Care End Date 09/04/19 Next Visit Focus/Plan Next Note Type Treatment Note Next Visit Plan manual mobility of HS & Calves & review squat mechanics, work on tib fib & tibfem mobility
--- NOTE | 2019-08-21 09:00 | PT.OTN ---
Current Diagnoses Bilateral primary osteoarthritis of knee (08/21/19) Other specified enthesopathies of unspecified lower limb, excluding foot (08/21/19) Difficulty in walking, not elsewhere classified (08/21/19) Weakness (08/21/19) Physical Therapy Treatment Note PT-OP-A Visit Information Start: 07/05/19 13:03 Freq: Status: Active Protocol: Document 08/21/19 08:20 [facility] (Rec: 08/21/19 09:13 [facility] [id number]) Out-Patient Physical Therapy Visit Information Visit Information Visit Type Treatment Note Visit Start Time 08:20 Visit Stop Time 09:00 Total Visit Minutes 40 Visit Number 7 Number of [facility] ASSOCIATE Visits 1 PT-OP-B Current Condition Start: 07/05/19 13:03 Freq: Status: Active Protocol: Document 08/21/19 08:20 [facility] (Rec: 08/21/19 09:13 [facility] [id number]) Current Condition History of Current Condition Onset Date 1.5 months ago Current Complaints B post knee pain History of Current Condition Pt reports the door closed onto him which smashed his head against the door frame and it caused him to drop the floor and caused him to twist and injure upper back and inc LBP. Pt reports his post knees have been giving him trouble since then. He has history of knee pain where he had PT and injections in the past which that helped but that was all ant. Pt reports this happened about 1 month ago and by the time he saw the MD 05/29, pain was better but still limiting. Thorax pain improved but knee pain still limiting. Pt reports sitting is hard to get comfortable and is uncomfortable when getting up. Pt reports he has been done fine with dump runs. Pt reports it is sore getting up/ down from the ground. He can do his squat exercises without issue. Pt reports he had this issue earlier this year and he was doing well before this fall where it had stopped. Prior Treatments and Tests PT (1-2 years ago) and cortizone shots (3 months ago) Treatment Goals Patient/Caregiver Goals Get up/down from ground & from chair; inc walking distance again PT-OP-C Subjective Start: 07/05/19 13:03 Freq: Status: Active Protocol: Document 08/21/19 08:20 [facility] (Rec: 08/21/19 09:13 [facility] [id number]) OP-PT Subjective Patient Comments Patient Comments Pt reports R posterior knee really stiff and anterolateral R allen soreness pre PT and yesterday. He states is compliant with stretching but is worse as day progresses. PT-OP-D Balance Start: 07/05/19 13:03 Freq: Status: Active Protocol: Document 07/05/19 13:03 [facility] (Rec: 07/05/19 14:28 [facility] [id number]) Balance Tests Single Limb Standing Single Limb- Right 16 sec Single Limb- Left 17 sec PT-OP-F Manual Assessment Start: 07/05/19 13:03 Freq: Status: Active Protocol: Document 07/05/19 13:03 [facility] (Rec: 07/05/19 14:28 [facility] [id number]) Manual Assessments Soft Tissue Assessment Soft Tissue Mobility Assessment tightness in calf and HS mm & ITB PT-OP-G Mobility & Gait Start: 07/05/19 13:03 Freq: Status: Active Protocol: Document 07/05/19 13:03 [facility] (Rec: 07/05/19 14:28 [facility] [id number]) OP Gait Assessment Comments Gait Comments Dec push off and inc lat lean PT-OP-K Range of Motion Start: 07/05/19 13:03 Freq: Status: Active Protocol: Document 07/05/19 13:03 [facility] (Rec: 07/05/19 14:28 [facility] [id number]) Knee Goniometric Range of Motion Knee Left Flexion Active (degrees) 107 Extension Active (degrees) 8 Right Flexion Active (degrees) 104 Extension Active (degrees) 10 PT-OP-L Special Tests Start: 07/05/19 13:03 Freq: Status: Active Protocol: Document 07/05/19 13:03 [facility] (Rec: 07/05/19 14:28 [facility] [id number]) Special Tests Knee Special Tests Evette's Test Results positive for tightness B Jeff Test Test Results positive L post drawer Test Results neg B vagus/valgus Test Results B neg ea lachmans Test Results positive L; R neg caryl test Test Results mild tightness B hamstring Test Results R 40 deg hip flex, L 41 deg PT-OP-M Strength Start: 07/05/19 13:03 Freq: Status: Active Protocol: Document 07/05/19 13:03 [facility] (Rec: 07/05/19 14:28 [facility] [id number]) Hip Strength Hip Manual Muscle Testing Left Flexion (L2) 4 Good Extension (S1) 4- Good- Abduction 4 Good Adduction 3+ Fair+ External Rotation 4- Good- Internal Rotation 3+ Fair+ Right Flexion (L2) 4+ Good+ Extension (S1) 4- Good- Abduction 4 Good Adduction 4 Good External Rotation 4- Good- Internal Rotation 3+ Fair+ Comments pain w/ER Knee Strength Knee Manual Muscle Testing Left Flexion (S2) 4 Good Extension (L3) 4 Good Right Flexion (S2) 4 Good Extension (L3) 4 Good Ankle/Foot Strength Ankle and Foot Manual Muscle Testing Left Dorsiflexion (L4) 5 Normal Plantarflexion (S1) 5 Normal Right Dorsiflexion (L4) 5 Normal Plantarflexion (S1) 5 Normal PT-OP-Q Treatments Start: 07/05/19 13:03 Freq: Status: Active Protocol: Document 08/21/19 08:20 [facility] (Rec: 08/21/19 09:13 [facility] [id number]) Cardio Equipment Recumbent Bicycle Duration (Minutes) 6 Resistance 6 Seat Position 8 Therapeutic Exercises Sitting Exercises glut stretch Side bilateral Reps/Minutes 30 HS stretch Sitting Exercise Name whole, med, lat Side bilateral Reps/Minutes 20 sec each position Standing Exercises eccentric step down Side bilateral Equipment Used 6 step Reps/Minutes 2x5 Comments cued for posterior chain (knee behind toe and midline with toes) eccentric calf raise Side bilateral Reps/Minutes 3 sec hold x5 Comments slow controlled movement eccentric squat Equipment Used 18 chair Reps/Minutes 2x5 Comments cued slow descent with good hip hinge 3 Standing Exercise Name eccentric heel raises Side bilateral Equipment Used step Reps/Minutes 20 2 Standing Exercise Name lunges Side bilateral Reps/Minutes 15 Comments focus on both knees bending calf stretch Side bilateral Equipment Used off step Reps/Minutes 3 sec hold x10 Comments foot forward and toe turned out (lateral gastroc) Manual Therapy Treatment Soft Tissue Mobilization Self stick rolling Body Location HS, lateral calf, Tib anterior , distal quad, distal ITB Mobilization Type Instrument Assisted Intensity/Depth Moderate Body Position Sitting PT-OP-R Modalities Start: 07/05/19 13:03 Freq: Status: Active Protocol: Document 08/16/19 15:58 [facility] (Rec: 08/16/19 16:48 [facility] [id number]) Hot Pack/Cold Pack Treatment Hot Pack Location B post knees Patient Position Hooklying Treatment Duration (minutes) 15 PT-OP-T Assessment and Plan Start: 07/05/19 13:03 Freq: Status: Active Protocol: Document 08/21/19 08:20 [facility] (Rec: 08/21/19 09:13 [facility] [id number]) Physical Therapy Assessment Goals walking Upper Marker Goal (LTG) Pt will be able to return to walking 1 mile or more as needed without inc pain. LTG Duration 09/04/19 functional ability Short Term Goal (STG) Pt will be able to stand and sit down into chair without inc pain. STG Duration 08/04/19 Upper Marker Goal (LTG) Pt will score 5/5 on LE strength B in order to allow him to return to all typical activities without pain LTG Duration 09/04/19 mobility Short Term Goal (STG) Pt will have 5-120 deg knee ROM B STG Duration 08/04/19 Mcfp Goal (LTG) Pt will be able to get up/down from the ground without inc pain. LTG Duration 09/04/19 Assessment Summary Assessment Tx focused on self STMs to assist decrease tightness at home using rolling pin to musculature around R>L knee today seated with positive feedback. THer ex eccentric knee flexion to decrease tightness in mobility with report of muscle tiring not pain(squats calf raises), little irritation during step downs R knee but stated helpful and tolerable. Physical Therapy Plan Frequency and Duration Frequency of Treatment 2x/Week Duration of Treatment 2 months Plan of Care Start Date 07/05/19 Plan of Care End Date 09/04/19 Therapeutic Interventions Therapeutic Interventions Aquatic Therapy,Balance Training,Gait Training,Home Exercise Program,Joint Mobilizations,Manual Therapy, Neuromuscular Re-education, Patient/Caregiver Education, Self-Care/Home Management,Soft Tissue Mobilization,Taping, Therapeutic Activities, Therapeutic Exercises Next Visit Focus/Plan Next Note Type Treatment Note Next Visit Plan assess eccentric knee flexion and calf raises and self rolling pin ITB, quad, HS, calves last tx. COntinue per PT POC: manual mobility of HS & Calves & review squat mechanics, work on tib fib & tibfem mobility
--- NOTE | 2019-08-27 14:36 | PT.OTN ---
Current Diagnoses Bilateral primary osteoarthritis of knee (08/27/19) Other specified enthesopathies of unspecified lower limb, excluding foot (08/27/19) Difficulty in walking, not elsewhere classified (08/27/19) Weakness (08/27/19) Physical Therapy Treatment Note PT-OP-A Visit Information Start: 07/05/19 13:03 Freq: Status: Active Protocol: Document 08/27/19 13:51 SP (Rec: 08/27/19 16:30 SP [email or web address]) Out-Patient Physical Therapy Visit Information Visit Information Visit Type Treatment Note Visit Start Time 13:51 Visit Stop Time 14:36 Total Visit Minutes 45 Visit Number 8 Number of FORESTRY AID Visits 2 PT-OP-B Current Condition Start: 07/05/19 13:03 Freq: Status: Active Protocol: Document 08/21/19 08:20 SP (Rec: 08/21/19 09:13 SP [id number]) Current Condition History of Current Condition Onset Date 1.5 months ago Current Complaints B post knee pain History of Current Condition Pt reports the door closed onto him which smashed his head against the door frame and it caused him to drop the floor and caused him to twist and injure upper back and inc LBP. Pt reports his post knees have been giving him trouble since then. He has history of knee pain where he had PT and injections in the past which that helped but that was all ant. Pt reports this happened about 1 month ago and by the time he saw the MD 05/29, pain was better but still limiting. Thorax pain improved but knee pain still limiting. Pt reports sitting is hard to get comfortable and is uncomfortable when getting up. Pt reports he has been done fine with dump runs. Pt reports it is sore getting up/ down from the ground. He can do his squat exercises without issue. Pt reports he had this issue earlier this year and he was doing well before this fall where it had stopped. Prior Treatments and Tests PT (1-2 years ago) and cortizone shots (3 months ago) Treatment Goals Patient/Caregiver Goals Get up/down from ground & from chair; inc walking distance again PT-OP-C Subjective Start: 07/05/19 13:03 Freq: Status: Active Protocol: Document 08/27/19 13:51 SP (Rec: 08/27/19 16:30 SP [id number]) OP-PT Subjective Patient Comments Patient Comments Pt reported he had progressively increased pain behind his R>L knees and R lower allen and ankle after last tx and into the next day . He states putting a heating pad on posterior knees does help feel better but it's not letting up. PT-OP-D Balance Start: 07/05/19 13:03 Freq: Status: Active Protocol: Document 07/05/19 13:03 [facility] (Rec: 07/05/19 14:28 [facility] [id number]) Balance Tests Single Limb Standing Single Limb- Right 16 sec Single Limb- Left 17 sec PT-OP-F Manual Assessment Start: 07/05/19 13:03 Freq: Status: Active Protocol: Document 07/05/19 13:03 [facility] (Rec: 07/05/19 14:28 [facility] [id number]) Manual Assessments Soft Tissue Assessment Soft Tissue Mobility Assessment tightness in calf and HS mm & ITB PT-OP-G Mobility & Gait Start: 07/05/19 13:03 Freq: Status: Active Protocol: Document 07/05/19 13:03 [facility] (Rec: 07/05/19 14:28 [facility] [id number]) OP Gait Assessment Comments Gait Comments Dec push off and inc lat lean PT-OP-K Range of Motion Start: 07/05/19 13:03 Freq: Status: Active Protocol: Document 07/05/19 13:03 [facility] (Rec: 07/05/19 14:28 [facility] [id number]) Knee Goniometric Range of Motion Knee Left Flexion Active (degrees) 107 Extension Active (degrees) 8 Right Flexion Active (degrees) 104 Extension Active (degrees) 10 PT-OP-L Special Tests Start: 07/05/19 13:03 Freq: Status: Active Protocol: Document 07/05/19 13:03 [facility] (Rec: 07/05/19 14:28 [facility] [id number]) Special Tests Knee Special Tests Evette's Test Results positive for tightness B Jeff Test Test Results positive L post drawer Test Results neg B vagus/valgus Test Results B neg ea lachmans Test Results positive L; R neg caryl test Test Results mild tightness B hamstring Test Results R 40 deg hip flex, L 41 deg PT-OP-M Strength Start: 07/05/19 13:03 Freq: Status: Active Protocol: Document 07/05/19 13:03 [facility] (Rec: 07/05/19 14:28 [facility] [id number]) Hip Strength Hip Manual Muscle Testing Left Flexion (L2) 4 Good Extension (S1) 4- Good- Abduction 4 Good Adduction 3+ Fair+ External Rotation 4- Good- Internal Rotation 3+ Fair+ Right Flexion (L2) 4+ Good+ Extension (S1) 4- Good- Abduction 4 Good Adduction 4 Good External Rotation 4- Good- Internal Rotation 3+ Fair+ Comments pain w/ER Knee Strength Knee Manual Muscle Testing Left Flexion (S2) 4 Good Extension (L3) 4 Good Right Flexion (S2) 4 Good Extension (L3) 4 Good Ankle/Foot Strength Ankle and Foot Manual Muscle Testing Left Dorsiflexion (L4) 5 Normal Plantarflexion (S1) 5 Normal Right Dorsiflexion (L4) 5 Normal Plantarflexion (S1) 5 Normal PT-OP-Q Treatments Start: 07/05/19 13:03 Freq: Status: Active Protocol: Document 08/27/19 13:51 SP (Rec: 08/27/19 16:30 SP [id number]) Therapeutic Exercises Sitting Exercises glut stretch Side bilateral Reps/Minutes 30 HS stretch Sitting Exercise Name whole, med, lat Side bilateral Reps/Minutes 20 sec each position Standing Exercises calf stretch Side bilateral Equipment Used off step Reps/Minutes 3 sec hold x10 Comments foot forward and toe turned out (lateral gastroc) Manual Therapy Treatment Soft Tissue Mobilization calf Body Location R lat gastroc Mobilization Type Cross-Friction,Myofascial Release Intensity/Depth Moderate Body Position Prone HS Mobilization Type Cross-Friction,Myofascial Release Intensity/Depth Moderate Body Position Prone Comments 1. R distal HS FM w/knee flex 2. B proximal HS Joint Mobilizations tibfib Joint proximal R Direction PA FM PT-OP-R Modalities Start: 07/05/19 13:03 Freq: Status: Active Protocol: Document 08/27/19 13:51 SP (Rec: 08/27/19 16:30 SP [email or web address]) Hot Pack/Cold Pack Treatment CP Location distal HS/prox calf Patient Position Hooklying Treatment Duration (minutes) 8 Patient Tolerance Fair Comments not as much pain and ankle feels good PT-OP-T Assessment and Plan Start: 07/05/19 13:03 Freq: Status: Active Protocol: Document 08/27/19 13:51 SP (Rec: 08/27/19 16:30 SP [email or web address]) Physical Therapy Assessment Goals walking Fci Goal (LTG) Pt will be able to return to walking 1 mile or more as needed without inc pain. LTG Duration 09/04/19 functional ability Short Term Goal (STG) Pt will be able to stand and sit down into chair without inc pain. STG Duration 08/04/19 Cake Washer Goal (LTG) Pt will score 5/5 on LE strength B in order to allow him to return to all typical activities without pain LTG Duration 09/04/19 mobility Short Term Goal (STG) Pt will have 5-120 deg knee ROM B STG Duration 08/04/19 Fci Goal (LTG) Pt will be able to get up/down from the ground without inc pain. LTG Duration 09/04/19 Assessment Summary Assessment Tx focused on manual STMs to proximal R calf and distal R HS lat> med and tibialis ant reporting more pain pre PT. Adjusted pressure to tolerance and mobs then followed up with review stretching and applied CP due to report of looser muscles but little irritated swollen bump with positive results end of tx, ankle feels better than when arrived, R knee little stiff from cold,usually uses heat at home which works well. FORESTRY AID instructed patient to told off on lunges until next tx to see if helps posterior knee, verbally reviewed continue HEP : bridges, sit to stands, SLR, prone hip ext, heel slides until next tx. Physical Therapy Plan Frequency and Duration Frequency of Treatment 2x/Week Duration of Treatment 2 months Plan of Care Start Date 07/05/19 Plan of Care End Date 09/04/19 Therapeutic Interventions Therapeutic Interventions Aquatic Therapy,Balance Training,Gait Training,Home Exercise Program,Joint Mobilizations,Manual Therapy, Neuromuscular Re-education, Patient/Caregiver Education, Self-Care/Home Management,Soft Tissue Mobilization,Taping, Therapeutic Activities, Therapeutic Exercises Next Visit Focus/Plan Next Note Type Treatment Note Next Visit Plan Assess ROM, goals, for PT to update POC next tx. Assess response to more manual tx last visit. Continue per PT POC: manual mobility of HS & Calves & review squat mechanics, work on tib fib & tibfem mobility
--- NOTE | 2019-09-05 18:16 | PT.OTN ---
Current Diagnoses Bilateral primary osteoarthritis of knee (08/27/19) Other specified enthesopathies of unspecified lower limb, excluding foot (08/27/19) Difficulty in walking, not elsewhere classified (08/27/19) Weakness (08/27/19) Physical Therapy Treatment Note PT-OP-A Visit Information Start: 07/05/19 13:03 Freq: Status: Active Protocol: Document 09/05/19 16:49 [facility] (Rec: 09/05/19 18:16 [facility] [id number]) Out-Patient Physical Therapy Visit Information Visit Information Visit Type Treatment Note Visit Start Time 16:49 Visit Stop Time 17:30 Total Visit Minutes 41 Visit Number 9 Number of SHEET METAL ROOFER Visits 0 PT-OP-B Current Condition Start: 07/05/19 13:03 Freq: Status: Active Protocol: Document 08/21/19 08:20 SP (Rec: 08/21/19 09:13 SP [id number]) Current Condition History of Current Condition Onset Date 1.5 months ago Current Complaints B post knee pain History of Current Condition Pt reports the door closed onto him which smashed his head against the door frame and it caused him to drop the floor and caused him to twist and injure upper back and inc LBP. Pt reports his post knees have been giving him trouble since then. He has history of knee pain where he had PT and injections in the past which that helped but that was all ant. Pt reports this happened about 1 month ago and by the time he saw the MD 05/29, pain was better but still limiting. Thorax pain improved but knee pain still limiting. Pt reports sitting is hard to get comfortable and is uncomfortable when getting up. Pt reports he has been done fine with dump runs. Pt reports it is sore getting up/ down from the ground. He can do his squat exercises without issue. Pt reports he had this issue earlier this year and he was doing well before this fall where it had stopped. Prior Treatments and Tests PT (1-2 years ago) and cortizone shots (3 months ago) Treatment Goals Patient/Caregiver Goals Get up/down from ground & from chair; inc walking distance again PT-OP-C Subjective Start: 07/05/19 13:03 Freq: Status: Active Protocol: Document 09/05/19 16:49 [facility] (Rec: 09/05/19 18:16 [facility] [id number]) OP-PT Subjective Patient Comments Patient Comments Today was a good day but is sore even with just STM. Pt reports he has been having some pain in lat thigh and into lower leg. Reports he had a fall several months ago where he tripped on a toy by the pool and feel in. It was bruised. Pt reports feelin of tight sock on R side, but its not where his sock is. Pt reports about 2 weeks ago he started methocarbonol & heating pad & ibuprofen at night. PT-OP-D Balance Start: 07/05/19 13:03 Freq: Status: Active Protocol: Document 07/05/19 13:03 [facility] (Rec: 07/05/19 14:28 [facility] [id number]) Balance Tests Single Limb Standing Single Limb- Right 16 sec Single Limb- Left 17 sec PT-OP-F Manual Assessment Start: 07/05/19 13:03 Freq: Status: Active Protocol: Document 07/05/19 13:03 [facility] (Rec: 07/05/19 14:28 [facility] [id number]) Manual Assessments Soft Tissue Assessment Soft Tissue Mobility Assessment tightness in calf and HS mm & ITB PT-OP-G Mobility & Gait Start: 07/05/19 13:03 Freq: Status: Active Protocol: Document 07/05/19 13:03 [facility] (Rec: 07/05/19 14:28 [facility] [id number]) OP Gait Assessment Comments Gait Comments Dec push off and inc lat lean PT-OP-K Range of Motion Start: 07/05/19 13:03 Freq: Status: Active Protocol: Document 09/05/19 16:49 [facility] (Rec: 09/05/19 18:16 [facility] [id number]) Knee Goniometric Range of Motion Knee Left Flexion Active (degrees) 100 Extension Active (degrees) 15 Right Flexion Active (degrees) 87 Extension Active (degrees) 12 PT-OP-L Special Tests Start: 07/05/19 13:03 Freq: Status: Active Protocol: Document 07/05/19 13:03 [facility] (Rec: 07/05/19 14:28 [facility] [id number]) Special Tests Knee Special Tests Evette's Test Results positive for tightness B Jeff Test Test Results positive L post drawer Test Results neg B vagus/valgus Test Results B neg ea lachmans Test Results positive L; R neg caryl test Test Results mild tightness B hamstring Test Results R 40 deg hip flex, L 41 deg PT-OP-M Strength Start: 07/05/19 13:03 Freq: Status: Active Protocol: Document 09/05/19 16:49 [facility] (Rec: 09/05/19 18:16 [facility] [id number]) Hip Strength Hip Manual Muscle Testing Left Flexion (L2) 5 Normal Extension (S1) 4- Good- Abduction 4+ Good+ Adduction 5 Normal External Rotation 4+ Good+ Internal Rotation 4 Good Right Flexion (L2) 5 Normal Extension (S1) 4- Good- Abduction 4+ Good+ Adduction 5 Normal External Rotation 4+ Good+ Internal Rotation 4 Good Comments pain w/ER Knee Strength Knee Manual Muscle Testing Left Flexion (S2) 5 Normal Extension (L3) 5 Normal Right Flexion (S2) 4+ Good+ Extension (L3) 5 Normal Ankle/Foot Strength Ankle and Foot Manual Muscle Testing Left Dorsiflexion (L4) 5 Normal Plantarflexion (S1) 5 Normal Right Dorsiflexion (L4) 5 Normal Plantarflexion (S1) 5 Normal PT-OP-Q Treatments Start: 07/05/19 13:03 Freq: Status: Active Protocol: Document 09/05/19 16:49 [facility] (Rec: 09/05/19 18:16 [facility] [id number]) Therapeutic Exercises Standing Exercises eccentric squat Standing Exercise Name squat at counter Reps/Minutes 10 3 Standing Exercise Name calf stretch Side bilateral Reps/Minutes 30 sec 2 Standing Exercise Name hs stretch on stairs Side bilateral Reps/Minutes 30 sec bottoms up stretch Standing Exercise Name forearms on knees with knee ext Side bilateral Reps/Minutes 10 Manual Therapy Treatment Soft Tissue Mobilization calf Mobilization Type Myofascial Release Intensity/Depth Superficial Comments circumfrential MFR to B lower leg R>L w/APs HS Intensity/Depth Superficial Body Position Hooklying Comments circumfrential MFR to B thigh R>L w/APs PT-OP-R Modalities Start: 07/05/19 13:03 Freq: Status: Active Protocol: Document 08/27/19 13:51 SP (Rec: 08/27/19 16:30 SP [id number]) Hot Pack/Cold Pack Treatment CP Location distal HS/prox calf Patient Position Hooklying Treatment Duration (minutes) 8 Patient Tolerance Fair Comments not as much pain and ankle feels good PT-OP-T Assessment and Plan Start: 07/05/19 13:03 Freq: Status: Active Protocol: Document 09/05/19 16:49 [facility] (Rec: 09/05/19 18:16 [facility] [id number]) Physical Therapy Assessment Goals walking Fpc Goal (LTG) Pt will be able to return to walking 1 mile or more as needed without inc pain. 09/05-good and bad days LTG Duration 11/04/19 functional ability Short Term Goal (STG) Pt will be able to stand and sit down into chair without inc pain. 09/05-L improving, R still a problem STG Duration 10/06/19 Soil Science Teacher Goal (LTG) Pt will score 5/5 on LE strength B in order to allow him to return to all typical activities without pain 09/05-improved signfiicantly LTG Duration 11/04/19 mobility Short Term Goal (STG) Pt will have 5-120 deg knee ROM B STG Duration 10/06/19 Soil Science Teacher Goal (LTG) Pt will be able to get up/down from the ground without inc pain. 09/05-able to get up/down but R knee still bothers him LTG Duration 11/04/19 Assessment Summary Assessment Pt has improved significantly with his strength, but cont to be limited with his ROM and flexiblity which limits his functional ability. He has significant superficial fascial tightness which was found today when pt was asked to put on shorts. w/ circumfrential MFR of R thigh, pt had pull into lower leg. He reported no inc pain after session today. Physical Therapy Plan Frequency and Duration Frequency of Treatment 2x/Week Duration of Treatment 2 months Plan of Care Start Date 09/05/19 Plan of Care End Date 11/04/19 Therapeutic Interventions Therapeutic Interventions Aquatic Therapy,Balance Training,Gait Training,Home Exercise Program,Joint Mobilizations,Manual Therapy, Neuromuscular Re-education, Patient/Caregiver Education, Self-Care/Home Management,Soft Tissue Mobilization,Taping, Therapeutic Activities, Therapeutic Exercises Modalities Cold Pack/Ice Massage,Electric Stimulation,Hot Packs, Infrared Therapy,Traction- Mechanical,Ultrasound Next Visit Focus/Plan Next Note Type Treatment Note Next Visit Plan Try superficial MRF and assess patients response to last treatment. Progress quad strength and HS flexibility
--- NOTE | 2019-09-05 18:17 | PT.OPPOC ---
Physical, Occupational & Speech Therapy At [facility] Current Diagnoses Bilateral primary osteoarthritis of knee (08/27/19) Other specified enthesopathies of unspecified lower limb, excluding foot (08/27/19) Difficulty in walking, not elsewhere classified (08/27/19) Weakness (08/27/19) Visit Care Team Role Provider Type Sonia Lugo MD Primary Care Provider Physician Specialty: Family Practice Address: [address] [place] [address], [facility] [place], [address] Email: [email or web address] Danny Michael MD Attending Provider Physician Specialty: Orthopedic Surgery Address: [address] [place] [address], [id number] Email: [email or web address] Plan Of Care PT-OP-T Assessment and Plan Start: 07/05/19 13:03 Freq: Status: Active Protocol: Document 09/05/19 16:49 [facility] (Rec: 09/05/19 18:16 [facility] [id number]) Physical Therapy Assessment Goals walking Correction Goal (LTG) Pt will be able to return to walking 1 mile or more as needed without inc pain. 09/05-good and bad days LTG Duration 11/04/19 functional ability Short Term Goal (STG) Pt will be able to stand and sit down into chair without inc pain. 09/05-L improving, R still a problem STG Duration 10/06/19 Correction Goal (LTG) Pt will score 5/5 on LE strength B in order to allow him to return to all typical activities without pain 09/05-improved signfiicantly LTG Duration 11/04/19 mobility Short Term Goal (STG) Pt will have 5-120 deg knee ROM B STG Duration 10/06/19 Correction Goal (LTG) Pt will be able to get up/down from the ground without inc pain. 09/05-able to get up/down but R knee still bothers him LTG Duration 11/04/19 Assessment Summary Assessment Pt has improved significantly with his strength, but cont to be limited with his ROM and flexiblity which limits his functional ability. He has significant superficial fascial tightness which was found today when pt was asked to put on shorts. w/ circumfrential MFR of R thigh, pt had pull into lower leg. He reported no inc pain after session today. Physical Therapy Plan Frequency and Duration Frequency of Treatment 2x/Week Duration of Treatment 2 months Plan of Care Start Date 09/05/19 Plan of Care End Date 11/04/19 Therapeutic Interventions Therapeutic Interventions Aquatic Therapy,Balance Training,Gait Training,Home Exercise Program,Joint Mobilizations,Manual Therapy, Neuromuscular Re-education, Patient/Caregiver Education, Self-Care/Home Management,Soft Tissue Mobilization,Taping, Therapeutic Activities, Therapeutic Exercises Modalities Cold Pack/Ice Massage,Electric Stimulation,Hot Packs, Infrared Therapy,Traction- Mechanical,Ultrasound Next Visit Focus/Plan Next Note Type Treatment Note Next Visit Plan Try superficial MRF and assess patients response to last treatment. Progress quad strength and HS flexibility Plan of Care Dates Plan of Care Start Date 09/05/19 Plan of Care End Date 11/04/19 Electronically Signed by: Sonia Rodarte, PT 09/05/19 1989 Please Sign and Return: I have reviewed this Plan of Care and certify that the skilled therapy services above are required to meet the patient?s needs. Physician Signature Date Printed Name and Credentials Clinical Instructor Signature Printed Name and Credentials
--- NOTE | 2019-09-19 16:05 | PT.OTN ---
Current Diagnoses Bilateral primary osteoarthritis of knee (09/19/19) Other specified enthesopathies of unspecified lower limb, excluding foot (09/19/19) Difficulty in walking, not elsewhere classified (09/19/19) Weakness (09/19/19) Physical Therapy Treatment Note PT-OP-A Visit Information Start: 07/05/19 13:03 Freq: Status: Active Protocol: Document 09/19/19 14:30 [facility] (Rec: 09/19/19 15:15 [facility] [id number]) Out-Patient Physical Therapy Visit Information Visit Information Visit Type Treatment Note Visit Note 10/08 Visit Start Time 14:30 Visit Stop Time 15:10 Total Visit Minutes 40 Visit Number 10 Number of BRAKE RELINER Visits 0 PT-OP-B Current Condition Start: 07/05/19 13:03 Freq: Status: Active Protocol: Document 08/21/19 08:20 SP (Rec: 08/21/19 09:13 SP [id number]) Current Condition History of Current Condition Onset Date 1.5 months ago Current Complaints B post knee pain History of Current Condition Pt reports the door closed onto him which smashed his head against the door frame and it caused him to drop the floor and caused him to twist and injure upper back and inc LBP. Pt reports his post knees have been giving him trouble since then. He has history of knee pain where he had PT and injections in the past which that helped but that was all ant. Pt reports this happened about 1 month ago and by the time he saw the MD 05/29, pain was better but still limiting. Thorax pain improved but knee pain still limiting. Pt reports sitting is hard to get comfortable and is uncomfortable when getting up. Pt reports he has been done fine with dump runs. Pt reports it is sore getting up/ down from the ground. He can do his squat exercises without issue. Pt reports he had this issue earlier this year and he was doing well before this fall where it had stopped. Prior Treatments and Tests PT (1-2 years ago) and cortizone shots (3 months ago) Treatment Goals Patient/Caregiver Goals Get up/down from ground & from chair; inc walking distance again PT-OP-C Subjective Start: 07/05/19 13:03 Freq: Status: Active Protocol: Document 09/19/19 14:30 [facility] (Rec: 09/19/19 15:15 [facility] [id number]) OP-PT Subjective Patient Comments Patient Comments Pt reports post knees are improving but his R ant lat ankle has bothered him some. PT-OP-D Balance Start: 07/05/19 13:03 Freq: Status: Active Protocol: Document 07/05/19 13:03 [facility] (Rec: 07/05/19 14:28 [facility] [id number]) Balance Tests Single Limb Standing Single Limb- Right 16 sec Single Limb- Left 17 sec PT-OP-F Manual Assessment Start: 07/05/19 13:03 Freq: Status: Active Protocol: Document 07/05/19 13:03 [facility] (Rec: 07/05/19 14:28 [facility] [id number]) Manual Assessments Soft Tissue Assessment Soft Tissue Mobility Assessment tightness in calf and HS mm & ITB PT-OP-G Mobility & Gait Start: 07/05/19 13:03 Freq: Status: Active Protocol: Document 07/05/19 13:03 [facility] (Rec: 07/05/19 14:28 [facility] [id number]) OP Gait Assessment Comments Gait Comments Dec push off and inc lat lean PT-OP-K Range of Motion Start: 07/05/19 13:03 Freq: Status: Active Protocol: Document 09/05/19 16:49 [facility] (Rec: 09/05/19 18:16 [facility] [id number]) Knee Goniometric Range of Motion Knee Left Flexion Active (degrees) 100 Extension Active (degrees) 15 Right Flexion Active (degrees) 87 Extension Active (degrees) 12 PT-OP-L Special Tests Start: 07/05/19 13:03 Freq: Status: Active Protocol: Document 07/05/19 13:03 [facility] (Rec: 07/05/19 14:28 [facility] [id number]) Special Tests Knee Special Tests Evette's Test Results positive for tightness B Jeff Test Test Results positive L post drawer Test Results neg B vagus/valgus Test Results B neg ea lachmans Test Results positive L; R neg caryl test Test Results mild tightness B hamstring Test Results R 40 deg hip flex, L 41 deg PT-OP-M Strength Start: 07/05/19 13:03 Freq: Status: Active Protocol: Document 09/05/19 16:49 [facility] (Rec: 09/05/19 18:16 [facility] [id number]) Hip Strength Hip Manual Muscle Testing Left Flexion (L2) 5 Normal Extension (S1) 4- Good- Abduction 4+ Good+ Adduction 5 Normal External Rotation 4+ Good+ Internal Rotation 4 Good Right Flexion (L2) 5 Normal Extension (S1) 4- Good- Abduction 4+ Good+ Adduction 5 Normal External Rotation 4+ Good+ Internal Rotation 4 Good Comments pain w/ER Knee Strength Knee Manual Muscle Testing Left Flexion (S2) 5 Normal Extension (L3) 5 Normal Right Flexion (S2) 4+ Good+ Extension (L3) 5 Normal Ankle/Foot Strength Ankle and Foot Manual Muscle Testing Left Dorsiflexion (L4) 5 Normal Plantarflexion (S1) 5 Normal Right Dorsiflexion (L4) 5 Normal Plantarflexion (S1) 5 Normal PT-OP-Q Treatments Start: 07/05/19 13:03 Freq: Status: Active Protocol: Document 09/19/19 14:30 [facility] (Rec: 09/19/19 15:15 [facility] [id number]) Manual Therapy Treatment Soft Tissue Mobilization calf Mobilization Type Myofascial Release Intensity/Depth Superficial Comments circumfrential MFR to R lower leg HS Body Location HS & knee Intensity/Depth Superficial Body Position Hooklying Comments circumfrential MFR to R thigh 1 Body Location proximal peroneals R Mobilization Type Rolling,Strumming Intensity/Depth Moderate Body Position Hooklying Joint Mobilizations tibfib Joint R Direction PA PT-OP-R Modalities Start: 07/05/19 13:03 Freq: Status: Active Protocol: Document 08/27/19 13:51 SP (Rec: 08/27/19 16:30 SP [id number]) Hot Pack/Cold Pack Treatment CP Location distal HS/prox calf Patient Position Hooklying Treatment Duration (minutes) 8 Patient Tolerance Fair Comments not as much pain and ankle feels good PT-OP-T Assessment and Plan Start: 07/05/19 13:03 Freq: Status: Active Protocol: Document 09/19/19 14:30 [facility] (Rec: 09/19/19 15:15 [facility] [id number]) Physical Therapy Assessment Goals walking Fci Goal (LTG) Pt will be able to return to walking 1 mile or more as needed without inc pain. 09/05-good and bad days LTG Duration 11/04/19 functional ability Short Term Goal (STG) Pt will be able to stand and sit down into chair without inc pain. 09/05-L improving, R still a problem STG Duration 10/06/19 [employer]ding [employer] Operator Goal (LTG) Pt will score 5/5 on LE strength B in order to allow him to return to all typical activities without pain 09/05-improved signfiicantly LTG Duration 11/04/19 mobility Short Term Goal (STG) Pt will have 5-120 deg knee ROM B STG Duration 10/06/19 [employer]ding [employer] Operator Goal (LTG) Pt will be able to get up/down from the ground without inc pain. 09/05-able to get up/down but R knee still bothers him LTG Duration 11/04/19 Assessment Summary Assessment Pt felt MFR at knee and STM to peroneals proximally, distally by ankle. He had improved circumfrential mobility of femur today but still has significant restriction that improved with MFR. Physical Therapy Plan Frequency and Duration Frequency of Treatment 2x/Week Duration of Treatment 2 months Plan of Care Start Date 09/05/19 Plan of Care End Date 11/04/19 Next Visit Focus/Plan Next Note Type Treatment Note Next Visit Plan cont to work on superficial fascia release &progress quad strength as tolerated
--- NOTE | 2019-09-28 09:15 | PT-OP ANOTE ---
Pt did not show for today's appt, called and left a message regarding missing today's appt and stated no further appts scheduled at this time. Please call back to set up more appts with PT Sonia or Love HENDRICKS 2x/wk for 2 months and if considering not continuing PT to let us know so we may complete discharge.
--- NOTE | 2020-02-20 11:03 | PT.OPDS ---
Current Diagnoses Bilateral primary osteoarthritis of knee (09/19/19) Other specified enthesopathies of unspecified lower limb, excluding foot (09/19/19) Difficulty in walking, not elsewhere classified (09/19/19) Weakness (09/19/19) Visit Care Team Role Provider Type Sonia Lugo MD Primary Care Provider Physician Specialty: Family Practice Address: [address] [place] [address], [id number] Email: [email or web address] Danny Michael MD Attending Provider Physician Specialty: Orthopedic Surgery Address: [address] [place] [address], [id number] Email: [email or web address] Visit Number Visit Number 10 Discharge Summary PT-OP-T Assessment and Plan Start: 07/05/19 13:03 Freq: Status: Active Protocol: Document 02/20/20 11:02 [facility] (Rec: 02/20/20 11:03 [facility] [id number]) Physical Therapy Plan Discharge Physical Therapy Discharge Reasons No Longer Attending PT Discharge Comments Pt did not schedule further visits when called or when given slip to give to front. Pt has not been seen for 5 months so dc at this time
== END 2020-02-21 07:39 ==
LOC: PHYS 14:30
PROVIDERS: PCP Family Medicine; Visit Provider Orthopaedic Surgery
DX: M17.0 Bilateral primary osteoarthritis of knee (principal); M76.899 Other specified enthesopathies of unspecified lower limb, excluding foot; R53.1 Weakness; R26.2 Difficulty in walking, not elsewhere classified
CPT/HCPCS: 97010; 97110; 97140; 97161

== ENCOUNTER → 2020-02-20 08:48 | Outpatient (CLI) | payer MEDICARE, OTHER, SELFPAY ==
[2020-02-22 21:36] LABS: COVID19 Sendout Not Detected (Not Detected)
== END ==
PROVIDERS: PCP Family Medicine; Visit Provider Physician Assistant
DX: Z11.59 Encounter for screening for other viral diseases (principal)
CPT/HCPCS: 87635

== ENCOUNTER → 2020-07-18 08:38 | Outpatient (CLI) | payer MEDICARE, OTHER, SELFPAY ==
[2020-07-18 09:50] LABS: Alanine Aminotransferase 19 IU/L (<50); Albumin Globulin Ratio 1.4 (1.0-2.8); Alkaline Phosphatase 65 U/L (38-126); Aspartate Aminotransferase 27 IU/L (17-59); BUN Creatinine Ratio 18.8 (6-22); Bilirubin Total 0.7 mg/dL (0.2-1.3); Blood Urea Nitrogen 19 mg/dL (9-20); Carbon Dioxide 31 mmol/L (22-32); Chloride 107 mmol/L (98-107); Cholesterol 181 mg/dL (140-199); Estimated Glomerular Filt Rate > 60.0 mL/min (>60); Globulin 2.8 g/dL (1.7-4.1); Glucose 102 mg/dL (80-110); HDL Cholesterol 65 mg/dL (40-60); HEMOLYSIS < 15 (0-50); LDL Cholesterol Calculated 105 mg/dL (<100); Potassium 4.5 mmol/L (3.4-5.1); Sodium 140 mmol/L (137-145); Total Protein 6.8 g/dL (6.3-8.2); Triglycerides 53 mg/dL (35-150)
[2020-07-19 07:49] LABS: PSA, Total 0.8 ng/mL (0.0-4.0)
== END ==
PROVIDERS: PCP Internal Medicine; Referring Provider Internal Medicine; Visit Provider Internal Medicine
DX: M85.80 Other specified disorders of bone density and structure, unspecified site (principal); Z13.220 Encounter for screening for lipoid disorders; Z12.5 Encounter for screening for malignant neoplasm of prostate
CPT/HCPCS: 36415; 80053; 80061; 84153; 84154

== ENCOUNTER → 2020-09-19 09:15 | Outpatient (CLI) | payer MEDICARE, OTHER, SELFPAY ==
--- NOTE | 2020-09-19 | DI.RAD.S_ITS ---
PROCEDURE: XR CHEST 2V INDICATIONS: COUGH TECHNIQUE: 2 views of the chest were acquired. COMPARISON: [facility], , CHEST 2 VIEW, 07/15/2017, 12:16. FINDINGS: Surgical changes and devices: None. Lungs and pleura: Minimal platelike hazy opacity at the left costophrenic angle. No consolidation identified. No pleural effusions or pneumothorax. Mediastinum: Mediastinal contours are normal. Heart size is normal. Bones and chest wall: No suspicious bony abnormalities. Soft tissues appear unremarkable. IMPRESSION: Suspect minimal left lung base atelectasis. No consolidative opacity. Dictated by: César Cross M.D. on 09/19/2020 at 10:02 Approved by: César Cross M.D. on 09/19/2020 at 10:04
== END ==
PROVIDERS: PCP Internal Medicine; Referring Provider Internal Medicine; Visit Provider Internal Medicine
DX: R05 Cough (principal)
CPT/HCPCS: 71046

== ENCOUNTER → 2021-02-02 13:12 | Outpatient (CLI) | payer MEDICARE, OTHER, SELFPAY ==
--- NOTE | 2021-02-02 13:16 | DI.RAD.S_ITS ---
PROCEDURE: XR KNEE LT 3V INDICATIONS: PAIN TECHNIQUE: 3 views of the knee were acquired. COMPARISON: [facility], , XR KNEE LT 3V, 03/20/2019, 11:09. [facility], , KNEE 3V LEFT, 09/22/2015, 9:23. FINDINGS: Bones: Three views of the left knee demonstrate tricompartmental degenerative changes with medial joint space narrowing. No focal osseous lesions. There are tricompartmental osteophytes. Soft tissues: No joint effusion. No suspicious soft tissue calcifications. IMPRESSION: Tricompartmental degenerative changes consistent with osteoarthritis. Dictated by: Ellis Puckett M.D. on 02/02/2021 at 14:55 Approved by: Ellis Puckett M.D. on 02/02/2021 at 14:56
--- NOTE | 2021-02-02 13:16 | DI.RAD.S_ITS ---
PROCEDURE: XR HIP W PEL IF DONE FARZAD MIN 4V INDICATIONS: PAIN TECHNIQUE: AP pelvis with lateral view(s) of the bilateral hip(s). COMPARISON: None. FINDINGS: Bones: No fractures or dislocations. Pelvic ring appears intact. No suspicious bony lesions. There are degenerative changes of both hips. The symphysis pubis has degenerative changes. Soft tissues: The visualized bowel gas pattern is normal. No suspicious soft tissue calcifications. 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 Dictated by: Ellis Puckett M.D. on 02/02/2021 at 14:50 Approved by: Ellis Puckett M.D. on 02/02/2021 at 14:52
--- NOTE | 2021-02-02 13:16 | DI.RAD.S_ITS ---
PROCEDURE: XR KNEE RT 3V INDICATIONS: PAIN TECHNIQUE: 3 views of the knee were acquired. COMPARISON: [facility], , XR KNEE LT 3V, 03/20/2019, 11:09. [facility], , KNEE 3V LEFT, 09/22/2015, 9:23. FINDINGS: Bones: No fracture or dislocation. There is medial joint space narrowing. The patella has degenerative changes. There are tricompartmental osteophytes. Chondrocalcinosis is seen in the lateral joint space. Soft tissues: No joint effusion. No suspicious soft tissue calcifications. IMPRESSION: Tricompartmental degenerative changes consistent with osteoarthritis. Dictated by: Ellis Puckett M.D. on 02/02/2021 at 14:49 Approved by: Ellis Puckett M.D. on 02/02/2021 at 14:50
== END ==
PROVIDERS: PCP Internal Medicine; Referring Provider Internal Medicine; Visit Provider Internal Medicine
DX: M25.552 Pain in left hip (principal); M25.551 Pain in right hip; M25.562 Pain in left knee; M25.561 Pain in right knee
CPT/HCPCS: 73522; 73562

== ENCOUNTER → 2021-11-09 15:41 | Outpatient (CLI) | payer MEDICARE, OTHER, SELFPAY ==
--- NOTE | 2021-11-09 15:44 | DI.MRI.S_ITS ---
PROCEDURE: MR LUMBAR SPINE WO CON INDICATIONS: Strain of muscle, fascia and tendon of lower back TECHNIQUE: Noncontrast sagittal T1 spin echo and T2 fast echo, sagittal STIR, axial T1 and T2 fast spin echo through the lumbar spine. In cases with scoliosis, additional coronal T2 fast spin echo may be performed. COMPARISON: [facility], CR, XR LUMBAR SPINE WITH FLEXION EXTENSION 5 VIEWS, 10/09/2021, 16:09. FINDINGS: Image quality: Excellent. Alignment and Curvature: 5 lumbar type vertebral bodies are present by plain film. There is loss of normal lumbar lordosis. Mild grade 1 retrolisthesis of L2 on L3, L3 on L4, L4 on L5, and L5 on S1. Bone Marrow: Marrow is of normal overall signal. No acute vertebral body compression fractures. Mild reactive signal throughout the endplates of the lumbar and lower thoracic spine. Spinal Cord: Conus medullaris terminates at the lower L2 level. Visualized cord demonstrates normal signal and size. Paraspinous Soft Tissues: No paravertebral masses. T12-L1: Mild disc height loss and desiccation. Mild diffuse disc bulge. Mild facet and ligamentum flavum hypertrophy. Mild canal stenosis. No foraminal stenosis. L1-L2: Severe disc height loss and desiccation. Mild diffuse disc bulge/osteophyte. Mild facet and ligamentum flavum hypertrophy. Mild canal stenosis. Mild bilateral foraminal stenosis. L2-L3: Severe disc height loss and desiccation. Mild diffuse disc bulge/osteophyte. Mild bilateral facet and ligamentum flavum hypertrophy. Mild canal stenosis. Mild bilateral foraminal stenosis. L3-L4: Moderate disc height loss and desiccation. Mild diffuse disc bulge. Mild facet and ligamentum flavum hypertrophy. Mild epidural lipomatosis. Mild canal stenosis. Moderate right and moderate to severe left foraminal stenosis. Mild left L3 nerve root compression. L4-L5: Moderate disc height loss and desiccation. Mild diffuse disc bulge/osteophyte. Mild facet and ligamentum flavum hypertrophy. Mild epidural lipomatosis. Moderate canal stenosis. Moderate to severe bilateral foraminal stenosis with bilateral mild L4 nerve root compression. L5-S1: Mild disc height loss. Moderate disc desiccation. Mild diffuse disc bulge with superimposed left posterolateral disc extrusion, which extends superiorly within the left lateral recess. Mild bilateral facet hypertrophy. Mild canal stenosis. Moderate to severe right and severe left foraminal stenosis. Left L5 intraforaminal nerve root compression. There is compression of the left L5 nerve root within the lateral recess as well. IMPRESSION: 1. Multilevel degenerative disc and facet disease, as well as ligamentum flavum hypertrophy and epidural lipomatosis. 2. Multilevel canal stenoses, worst at L4-L5, where there is moderate canal stenosis. 3. Multilevel foraminal stenoses, worst at L3-L4, L4-L5, and L5-S1, where there is associated intraforaminal nerve root compression. 4. L5-S1 disc extrusion, causing left L5 nerve root compression within the lateral recess. Dictated by: Margaret Rodríguez M.D. on 11/09/2021 at 16:31 Approved by: Margaret Rodríguez M.D. on 11/09/2021 at 16:36
== END ==
PROVIDERS: PCP Internal Medicine; Referring Provider Physician Assistant Surgical; Visit Provider Physician Assistant Surgical
DX: M51.16 Intervertebral disc disorders with radiculopathy, lumbar region (principal); S39.012A Strain of muscle, fascia and tendon of lower back, initial encounter; M51.17 Intervertebral disc disorders with radiculopathy, lumbosacral region; M47.26 Other spondylosis with radiculopathy, lumbar region; M47.27 Other spondylosis with radiculopathy, lumbosacral region
CPT/HCPCS: 72148

== ENCOUNTER → 2021-12-18 09:13 | Outpatient (CLI) | payer MEDICARE, OTHER, SELFPAY ==
--- NOTE | 2021-12-18 | DI.RAD.S_ITS ---
PROCEDURE: XR CHEST 2V INDICATIONS: cough, chest congestion, wheezing TECHNIQUE: 2 views of the chest were acquired. COMPARISON: [facility], CR, XR CHEST 2V, 09/19/2020, 9:19. FINDINGS: Surgical changes and devices: None. Lungs and pleura: No consolidation, pleural effusions or pneumothorax. Mediastinum: Mediastinal contours are normal. Heart size is normal. Bones and chest wall: No suspicious bony abnormalities. Soft tissues appear unremarkable. IMPRESSION: No acute cardiopulmonary abnormality. Dictated by: Torres Prieto M.D. on 12/18/2021 at 9:57 Approved by: Torres Prieto M.D. on 12/18/2021 at 9:57
== END ==
PROVIDERS: PCP Internal Medicine; Referring Provider Internal Medicine; Visit Provider Internal Medicine
DX: R05.9 Cough, unspecified (principal); R09.89 Other specified symptoms and signs involving the circulatory and respiratory systems; R06.2 Wheezing
CPT/HCPCS: 71046

== ENCOUNTER 2023-12-05 11:15 | Outpatient (RCR) | payer MEDICARE, OTHER, SELFPAY ==
--- NOTE | 2023-09-08 16:14 | PT.OIE ---
Current Diagnoses Other chronic pain (09/08/23) Pain in right shoulder (09/08/23) Past Medical History (Last Updated 12/14/21 @ 17:14 by Shaq Gross DO) Bilateral primary osteoarthritis of knee Herniated nucleus pulposus, L5-S1, left Visit Care Team Role Provider Type Lili Pozo MD Attending Provider Physician Family Provider Primary Care Provider Referring Provider Specialty: Internal Medicine Address: [place], [place], [facility] Email: Physical Therapy Initial Evaluation PT-OP-A Visit Information Start: 09/08/23 08:14 Freq: Status: Active Protocol: Document 09/08/23 08:15 NM (Rec: 09/08/23 09:05 NM [id number]) Out-Patient Physical Therapy Visit Information Visit Information Visit Type Initial Evaluation Visit Start Time 08:15 Visit Stop Time 09:00 Total Visit Minutes 45 Visit Number 1 Evaluation Information Evaluation Date 09/08/23 PT-OP-B Current Condition Start: 09/08/23 08:14 Freq: Status: Active Protocol: Document 09/08/23 08:15 NM (Rec: 09/08/23 09:05 NM [id number]) Current Condition History of Current Condition Onset Date several years History of Current Condition Pt presents with R shoulder pain. He reports that he has difficulty with sleeping on R shoulder, unable to sleep on it. He reports no known SOCO. He reports tingling at the R neck near upper trapezius, resulting in sore muscles. No numbness/tingling to fingers. Pain feels like it is deep inside the joint. No imaging has been performed. Pt reports that he has difficulty with lifting (about a gallon of milk) and reaching to the side (abd/ER) is painful. No difficulty with dressing of ADLs. No falls but reports that he thinks his balance is worse which he attributes to his sinus. No hx of shoulder injuries, no surgeries. No joint catching or clicking. 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 Pain is worse in morning. 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 Current Functional Impairments (Reported) Functional Limitations- Recreation/ Reports difficulty with Hobbies holding a hammer PT-OP-C Subjective Start: 09/08/23 08:14 Freq: Status: Active Protocol: Document 09/08/23 08:15 NM (Rec: 09/08/23 09:05 NM [id number]) OP-PT Subjective Patient Comments Patient Comments see hx above for pt report Patient Questionnaires Quick Dash- Upper Extremity Quick Dash UE Score 22, 25% OP-PT Pain Assessment Location R shoulder Pain Location Details lateral humerus muscles, deep within joint Intensity 5 Scale Used Numeric (0 - 10) Description Dull Description- Other worst 5-7, best-4 Frequency night>day, daily Pain Aggravating Factors Activity,Lifting Pain Alleviating Factors Medication,Position,Rest Other Pain Alleviating Factors Heat not helpful Home Pain Medication Use Pain Medications Used Yes: tylenol Home Pain Medication Frequency at night PT-OP-E Functional Tests Start: 09/08/23 08:14 Freq: Status: Active Protocol: Document 09/08/23 08:15 NM (Rec: 09/08/23 09:05 NM [id number]) Functional Tests Apley's Scratch Test Action 1- Left posterior scapula Action 1- Right L clavicle, painful Action 2- Left T4 Action 2- Right C7, painful Action 3- Left T7 Action 3- Right T12, painful PT-OP-F Manual Assessment Start: 09/08/23 08:14 Freq: Status: Active Protocol: Document 09/08/23 08:15 NM (Rec: 09/08/23 09:05 NM [id number]) Manual Assessments Soft Tissue Assessment Soft Tissue Mobility Assessment Soft tissue restrictions of cervical spine paraspinals, especially R upper trapezius and levator scapula. Tenderness to palpation along superlateral humerus near rotator cuff muscle insertion. Pt has a lump on his posterior neck (he reports has been there for years and he gets tests on them every year) Joint Mobility Assessment Joint Mobility Assessment R shoulder AROM more limited in standing and supine. R shoulder AROM more limited than PROM, with nearly full PROM for ER. PROM is still limited for R flex and abd. No clicking or popping of joint with PROM. PT-OP-H Neuro Start: 09/08/23 08:14 Freq: Status: Active Protocol: Document 09/08/23 08:15 NM (Rec: 09/08/23 09:05 NM [id number]) Sensation Evaluation Gross Sensation Gross Sensation WNL Comments Summary Comments BUE dermatomes intact to light touch sensation PT-OP-J Posture/Palpation/Skin Start: 09/08/23 08:14 Freq: Status: Active Protocol: Document 09/08/23 08:15 NM (Rec: 09/08/23 12:13 NM [id number]) Posture Evaluation Position Standing Evaluation View Lateral Head/C-Spine Posture Forward Head T-Spine Posture Increased Kyphosis Shoulder Posture (L) Rounded,(R) Rounded,(L) Elevated Scapula Posture (L) Protracted,(R) Protracted, (L) Elevated,(R) Depressed Arm Posture (L) Internally Rotated,(R) Internally Rotated Pelvis Posture Anteriorly Tilted Weight Distribution Balanced Palpation Assessment Location R shoulder Palpation Location lateral shoulder, AC joint, clavicle, rotator cuff, trapezius Palpation Findings Tenderness Palpation Details Tenderness at lateral R shoulder near rotator cuff insertions and R upper trapezius. No tenderness at LH biceps tendon, AC joint, clavicle. PT-OP-K Range of Motion Start: 09/08/23 08:14 Freq: Status: Active Protocol: Document 09/08/23 08:15 NM (Rec: 09/08/23 09:05 NM [id number]) Shoulder Goniometric Range of Motion Shoulder R PROM Testing Position Supine Flexion 140 Abduction 135 External Rotation at 90 degrees 80 Abduction External Rotation at 45 degrees 80 Abduction External Rotation at 0 degrees Abduction 70 L AROM Testing Position Sitting Flexion 156 Extension 60 Abduction 160 External Rotation at 0 degrees Abduction 55 Internal Rotation 80 Internal Rotation Behind Back (text) T7 R AROM Flexion 127 Extension 60 Abduction 100 External Rotation at 0 degrees Abduction 30 Internal Rotation 65 Internal Rotation Behind Back (text) T12 Comments pain with flex (end range), ext, abd, ER (worse, tingle in upper trap), IR at end range PT-OP-L Special Tests Start: 09/08/23 08:14 Freq: Status: Active Protocol: Document 09/08/23 08:15 NM (Rec: 09/08/23 09:05 NM [id number]) Special Tests Cervical Spine Special Tests Spurling's Test Test Results negative Shoulder Special Tests IR/Horizontal ADD Impingement Test Results positive Lift-Off Rotator Cuff Test Results painful but able to lift off completely Isaacs Jovani Impingement Test Results positive Neer Impingement Test Results positive [place] Test Test Results positive Comments reports worse pain with IR than ER Yergason's Biceps Test Results negative Empty Can Test Results positive Comments reports worse pain with IR than ER External Rotation Lag Sign Test Results negative Elevation Impingement Test Results positive Drop Arm Rotator Cuff Test Results negative Clunk Test Test Results negative Biceps Load II Test Test Results negative AC Joint Compression Test Results negative PT-OP-M Strength Start: 09/08/23 08:14 Freq: Status: Active Protocol: Document 09/08/23 08:15 NM (Rec: 09/08/23 09:05 NM [id number]) Scapula Strength Scapula Manual Muscle Testing Left Elevation (C4) 5 Normal Adduction 5 Normal Abduction 5 Normal Depression 5 Normal Right Elevation (C4) 4 Good Adduction 4 Good Abduction 4 Good Depression 4 Good Comments Serratus anterior 4/5, but painful resisted motion Shoulder Strength Shoulder Manual Muscle Testing Left Flexion 5 Normal Extension 5 Normal Abduction (C5) 5 Normal Adduction 5 Normal External Rotation 5 Normal Internal Rotation 5 Normal Horizontal Abduction 5 Normal Horizontal Adduction 5 Normal Right Flexion 4+ Good+ Extension 4 Good Abduction (C5) 4- Good- Adduction 5 Normal External Rotation 4- Good- Internal Rotation 4 Good Horizontal Abduction 4 Good Horizontal Adduction 4 Good Comments Pain with ER and abduction Elbow/Forearm Strength Elbow and Forearm Manual Muscle Testing Left Flexion (C6) 5 Normal Extension (C7) 5 Normal Right Flexion (C6) 4+ Good+ Extension (C7) 4+ Good+ PT-OP-T Assessment and Plan Start: 09/08/23 08:14 Freq: Status: Active Protocol: Document 09/08/23 08:15 NM (Rec: 09/08/23 09:05 NM [id number]) Physical Therapy Assessment Goals Six Impairment ROM Impairment R flex AROM 127 deg, R abd AROM 100 deg Short Term Goal (STG) Pt will improve R flex and abd AROM by at least 10 deg without compensation for improved reaching during ADLs. STG Duration 4 weeks Hoop Coiling Machine Operator Goal (LTG) Pt will improve R flex and abd AROM by at least 20 deg without compensation for improved reaching during ADLs. LTG Duration 8 weeks Five Impairment function Impairment Pt reports pain with sleeping Senior Care Goal (LTG) Pt will report that he is able to sleep at least 60% of the night without waking due to R shoulder pain. LTG Duration 8 weeks Four Impairment ROM Impairment R apley scratch IR T12 Hoop Coiling Machine Operator Goal (LTG) Pt will improve R shoulder apley scratch test IR to at least T8 in order to demonstrate improved ability to reach backward during dressing and grooming. LTG Duration 8 weeks Three Impairment strength Short Term Goal (STG) Pt will improve R shoulder abd /ER/IR strength to at least 4/ 5 within available ROM in order to demonstrate improved strength required for lifting objects. Hoop Coiling Machine Operator Goal (LTG) Pt will improve R shoulder abd /ER/IR strength to at least 4+ /5 within available ROM in order to demonstrate improved strength required for lifting objects. LTG Duration 8 weeks Two Impairment ROM Impairment R apley scratch ER C7 Senior Care Goal (LTG) Pt will improve R apley scratch test ER to at least T3 in order to demonstrate improved ability to reach and for dressing. LTG Duration 8 weeks One Impairment function Impairment Quickdash 22 or 25% Senior Care Goal (LTG) Pt will decrease quickdash score by at least 11.2% (1MCD) in order to demonstrate improved activity tolerance. LTG Duration 8 weeks Assessment Summary Assessment Pt is a 78 y.o. male presenting with chronic R shoulder pain. Pt reports most pain with active R shoulder abduction and external rotation; however, he also has pain with cross-body adduction and internal rotation. Pt has pain with active resisted flexion, abduction, internal, and external rotation. R shoulder PROM is greater than R shoulder AROM, but still limited except in external rotation, which has full PROM. He demonstrates positive impingement signs with some AC joint involvement, possibly due to pt's arthritis. Although pt is not positive for a rotator cuff tear, there is likely rotator cuff involvement as all resisted motions are painful and due to differences in PROM/AROM. Pt' s chief complaint is waking at night due to R shoulder pain, which is also a sign of rotator cuff involvement. Pt also reports tingling at R upper trapezius but not in his neck or radiating down his R arm that does not worsen and is not replicated with cervical spine compression. If symptoms change or worsen, pt will be referred back to PCP. Pt would benefit from skilled PT to improve R shoulder strength and ROM, periscapular strengthening and scapular retraining, postural education /body mechanics education in order to improve symptom management, improve activity tolerance, and return to PLOF. Physical Therapy Plan Frequency and Duration Frequency of Treatment 2x/Week Duration of treatment (weeks) 8 Plan of Care Start Date 09/08/23 Plan of Care End Date 11/04/23 Therapeutic Interventions Therapeutic Interventions Balance Training,Coordination Training,Gait Training,Home Exercise Program,Joint Mobilizations,Manual Therapy, Neuromuscular Re-education, Orthotic/Prosthetic Management ,Patient/Caregiver Education, Self-Care/Home Management, Sensory Integration,Soft Tissue Mobilization,Taping, Therapeutic Activities, Therapeutic Exercises Modalities Biofeedback,Cold Pack/Ice Massage,Electric Stimulation, Hot Packs,Infrared Therapy, Traction- Mechanical, Ultrasound,Vasopneumatic Devices Next Visit Focus/Plan Next Note Type Treatment Note Next Visit Plan prone periscapular strengthening, gentle RTC strengthening, AAROM into ER
--- NOTE | 2023-09-08 16:16 | PT.OPPOC ---
Physical, Occupational & Speech Therapy At [facility] Current Diagnoses Other chronic pain (09/08/23) Pain in right shoulder (09/08/23) Visit Care Team Role Provider Type Lili Pozo MD Attending Provider Physician Family Provider Primary Care Provider Referring Provider Specialty: Internal Medicine Address: [place], [place], [facility] Email: Plan Of Care PT-OP-T Assessment and Plan Start: 09/08/23 08:14 Freq: Status: Active Protocol: Document 09/08/23 08:15 NM (Rec: 09/08/23 09:05 NM [id number]) Physical Therapy Assessment Goals Six Impairment ROM Impairment R flex AROM 127 deg, R abd AROM 100 deg Short Term Goal (STG) Pt will improve R flex and abd AROM by at least 10 deg without compensation for improved reaching during ADLs. STG Duration 4 weeks Mcc Goal (LTG) Pt will improve R flex and abd AROM by at least 20 deg without compensation for improved reaching during ADLs. LTG Duration 8 weeks Five Impairment function Impairment Pt reports pain with sleeping Director Of Nursing Goal (LTG) Pt will report that he is able to sleep at least 60% of the night without waking due to R shoulder pain. LTG Duration 8 weeks Four Impairment ROM Impairment R apley scratch IR T12 Mcc Goal (LTG) Pt will improve R shoulder apley scratch test IR to at least T8 in order to demonstrate improved ability to reach backward during dressing and grooming. LTG Duration 8 weeks Three Impairment strength Short Term Goal (STG) Pt will improve R shoulder abd /ER/IR strength to at least 4/ 5 within available ROM in order to demonstrate improved strength required for lifting objects. Mcc Goal (LTG) Pt will improve R shoulder abd /ER/IR strength to at least 4+ /5 within available ROM in order to demonstrate improved strength required for lifting objects. LTG Duration 8 weeks Two Impairment ROM Impairment R apley scratch ER C7 Director Of Nursing Goal (LTG) Pt will improve R apley scratch test ER to at least T3 in order to demonstrate improved ability to reach and for dressing. LTG Duration 8 weeks One Impairment function Impairment Quickdash 22 or 25% Director Of Nursing Goal (LTG) Pt will decrease quickdash score by at least 11.2% (1MCD) in order to demonstrate improved activity tolerance. LTG Duration 8 weeks Assessment Summary Assessment Pt is a 78 y.o. male presenting with chronic R shoulder pain. Pt reports most pain with active R shoulder abduction and external rotation; however, he also has pain with cross-body adduction and internal rotation. Pt has pain with active resisted flexion, abduction, internal, and external rotation. R shoulder PROM is greater than R shoulder AROM, but still limited except in external rotation, which has full PROM. He demonstrates positive impingement signs with some AC joint involvement, possibly due to pt's arthritis. Although pt is not positive for a rotator cuff tear, there is likely rotator cuff involvement as all resisted motions are painful and due to differences in PROM/AROM. Pt' s chief complaint is waking at night due to R shoulder pain, which is also a sign of rotator cuff involvement. Pt also reports tingling at R upper trapezius but not in his neck or radiating down his R arm that does not worsen and is not replicated with cervical spine compression. If symptoms change or worsen, pt will be referred back to PCP. Pt would benefit from skilled PT to improve R shoulder strength and ROM, periscapular strengthening and scapular retraining, postural education /body mechanics education in order to improve symptom management, improve activity tolerance, and return to PLOF. Physical Therapy Plan Frequency and Duration Frequency of Treatment 2x/Week Duration of treatment (weeks) 8 Plan of Care Start Date 09/08/23 Plan of Care End Date 11/04/23 Therapeutic Interventions Therapeutic Interventions Balance Training,Coordination Training,Gait Training,Home Exercise Program,Joint Mobilizations,Manual Therapy, Neuromuscular Re-education, Orthotic/Prosthetic Management ,Patient/Caregiver Education, Self-Care/Home Management, Sensory Integration,Soft Tissue Mobilization,Taping, Therapeutic Activities, Therapeutic Exercises Modalities Biofeedback,Cold Pack/Ice Massage,Electric Stimulation, Hot Packs,Infrared Therapy, Traction- Mechanical, Ultrasound,Vasopneumatic Devices Next Visit Focus/Plan Next Note Type Treatment Note Next Visit Plan prone periscapular strengthening, gentle RTC strengthening, AAROM into ER Plan of Care Dates Plan of Care Start Date 09/08/23 Plan of Care End Date 11/04/23 Electronically Signed by: Lynn Bonilla, PT 09/08/23 4017 If you are in agreement with this Plan of Care, please return a signed and dated copy. I have reviewed this Plan of Care and certify that the skilled therapy services above are required to meet the patient?s needs. Physician Signature Date Printed Name and Credentials Clinical Instructor Signature Printed Name and Credentials
--- NOTE | 2023-09-21 15:45 | PT.OTN ---
Current Diagnoses Other chronic pain (09/21/23) Pain in right shoulder (09/21/23) Physical Therapy Treatment Note PT-OP-A Visit Information Start: 09/08/23 08:14 Freq: Status: Active Protocol: Document 09/21/23 14:33 NM (Rec: 09/21/23 15:45 NM [id number]) Out-Patient Physical Therapy Visit Information Visit Information Visit Type Treatment Note Visit Start Time 14:33 Visit Stop Time 15:15 Visit Number 2 Evaluation Information Evaluation Date 09/08/23 PT-OP-B Current Condition Start: 09/08/23 08:14 Freq: Status: Active Protocol: Document 09/08/23 08:15 NM (Rec: 09/08/23 09:05 NM [id number]) Current Condition History of Current Condition Onset Date several years History of Current Condition Pt presents with R shoulder pain. He reports that he has difficulty with sleeping on R shoulder, unable to sleep on it. He reports no known SOCO. He reports tingling at the R neck near upper trapezius, resulting in sore muscles. No numbness/tingling to fingers. Pain feels like it is deep inside the joint. No imaging has been performed. Pt reports that he has difficulty with lifting (about a gallon of milk) and reaching to the side (abd/ER) is painful. No difficulty with dressing of ADLs. No falls but reports that he thinks his balance is worse which he attributes to his sinus. No hx of shoulder injuries, no surgeries. No joint catching or clicking. 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 Pain is worse in morning. 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 Current Functional Impairments (Reported) Functional Limitations- Recreation/ Reports difficulty with Hobbies holding a hammer PT-OP-C Subjective Start: 09/08/23 08:14 Freq: Status: Active Protocol: Document 09/21/23 14:33 NM (Rec: 09/21/23 15:45 NM [id number]) OP-PT Subjective Patient Comments Patient Comments Pt reports no change in R shoulder pain since IE, currently 5/10. He also reports 5/10 neck pain near his upper trap, worse with driving. PT-OP-E Functional Tests Start: 09/08/23 08:14 Freq: Status: Active Protocol: Document 09/08/23 08:15 NM (Rec: 09/08/23 09:05 NM [id number]) Functional Tests Apley's Scratch Test Action 1- Left posterior scapula Action 1- Right L clavicle, painful Action 2- Left T4 Action 2- Right C7, painful Action 3- Left T7 Action 3- Right T12, painful PT-OP-F Manual Assessment Start: 09/08/23 08:14 Freq: Status: Active Protocol: Document 09/08/23 08:15 NM (Rec: 09/08/23 09:05 NM [id number]) Manual Assessments Soft Tissue Assessment Soft Tissue Mobility Assessment Soft tissue restrictions of cervical spine paraspinals, especially R upper trapezius and levator scapula. Tenderness to palpation along superlateral humerus near rotator cuff muscle insertion. Pt has a lump on his posterior neck (he reports has been there for years and he gets tests on them every year) Joint Mobility Assessment Joint Mobility Assessment R shoulder AROM more limited in standing and supine. R shoulder AROM more limited than PROM, with nearly full PROM for ER. PROM is still limited for R flex and abd. No clicking or popping of joint with PROM. PT-OP-H Neuro Start: 09/08/23 08:14 Freq: Status: Active Protocol: Document 09/08/23 08:15 NM (Rec: 09/08/23 09:05 NM [id number]) Sensation Evaluation Gross Sensation Gross Sensation WNL Comments Summary Comments BUE dermatomes intact to light touch sensation PT-OP-J Posture/Palpation/Skin Start: 09/08/23 08:14 Freq: Status: Active Protocol: Document 09/08/23 08:15 NM (Rec: 09/08/23 12:13 NM [id number]) Posture Evaluation Position Standing Evaluation View Lateral Head/C-Spine Posture Forward Head T-Spine Posture Increased Kyphosis Shoulder Posture (L) Rounded,(R) Rounded,(L) Elevated Scapula Posture (L) Protracted,(R) Protracted, (L) Elevated,(R) Depressed Arm Posture (L) Internally Rotated,(R) Internally Rotated Pelvis Posture Anteriorly Tilted Weight Distribution Balanced Palpation Assessment Location R shoulder Palpation Location lateral shoulder, AC joint, clavicle, rotator cuff, trapezius Palpation Findings Tenderness Palpation Details Tenderness at lateral R shoulder near rotator cuff insertions and R upper trapezius. No tenderness at LH biceps tendon, AC joint, clavicle. PT-OP-K Range of Motion Start: 09/08/23 08:14 Freq: Status: Active Protocol: Document 09/08/23 08:15 NM (Rec: 09/08/23 09:05 NM [id number]) Shoulder Goniometric Range of Motion Shoulder R PROM Testing Position Supine Flexion 140 Abduction 135 External Rotation at 90 degrees 80 Abduction External Rotation at 45 degrees 80 Abduction External Rotation at 0 degrees Abduction 70 L AROM Testing Position Sitting Flexion 156 Extension 60 Abduction 160 External Rotation at 0 degrees Abduction 55 Internal Rotation 80 Internal Rotation Behind Back (text) T7 R AROM Flexion 127 Extension 60 Abduction 100 External Rotation at 0 degrees Abduction 30 Internal Rotation 65 Internal Rotation Behind Back (text) T12 Comments pain with flex (end range), ext, abd, ER (worse, tingle in upper trap), IR at end range PT-OP-L Special Tests Start: 09/08/23 08:14 Freq: Status: Active Protocol: Document 09/08/23 08:15 NM (Rec: 09/08/23 09:05 NM [id number]) Special Tests Cervical Spine Special Tests Spurling's Test Test Results negative Shoulder Special Tests IR/Horizontal ADD Impingement Test Results positive Lift-Off Rotator Cuff Test Results painful but able to lift off completely Isaacs Jovani Impingement Test Results positive Neer Impingement Test Results positive Haywood Test Test Results positive Comments reports worse pain with IR than ER Yergason's Biceps Test Results negative Empty Can Test Results positive Comments reports worse pain with IR than ER External Rotation Lag Sign Test Results negative Elevation Impingement Test Results positive Drop Arm Rotator Cuff Test Results negative Clunk Test Test Results negative Biceps Load II Test Test Results negative AC Joint Compression Test Results negative PT-OP-M Strength Start: 09/08/23 08:14 Freq: Status: Active Protocol: Document 09/08/23 08:15 NM (Rec: 09/08/23 09:05 NM [id number]) Scapula Strength Scapula Manual Muscle Testing Left Elevation (C4) 5 Normal Adduction 5 Normal Abduction 5 Normal Depression 5 Normal Right Elevation (C4) 4 Good Adduction 4 Good Abduction 4 Good Depression 4 Good Comments Serratus anterior 4/5, but painful resisted motion Shoulder Strength Shoulder Manual Muscle Testing Left Flexion 5 Normal Extension 5 Normal Abduction (C5) 5 Normal Adduction 5 Normal External Rotation 5 Normal Internal Rotation 5 Normal Horizontal Abduction 5 Normal Horizontal Adduction 5 Normal Right Flexion 4+ Good+ Extension 4 Good Abduction (C5) 4- Good- Adduction 5 Normal External Rotation 4- Good- Internal Rotation 4 Good Horizontal Abduction 4 Good Horizontal Adduction 4 Good Comments Pain with ER and abduction Elbow/Forearm Strength Elbow and Forearm Manual Muscle Testing Left Flexion (C6) 5 Normal Extension (C7) 5 Normal Right Flexion (C6) 4+ Good+ Extension (C7) 4+ Good+ PT-OP-Q Treatments Start: 09/08/23 08:14 Freq: Status: Active Protocol: Document 09/21/23 14:33 NM (Rec: 09/21/23 15:45 NM [id number]) Therapeutic Exercises Supine Exercises shldr flexion Supine Exercise Name AROM>AAROM Side bilateral Equipment Used AductionsE assisting R at end ROM Reps/Minutes 1x12 with brief hold at top Comments cue to remain in pain free ROM , eyes to follow hands for mobilization Pectoralis stretch Supine Exercise Name to open chest- arms to side Side bilateral Reps/Minutes 1x60 Comments reports good stretch, no pain in shoulder or neck Sidelying Exercises abduction Side right Resistance AROM Equipment Used manual assist with scap rotation, control Reps/Minutes 1x10 Comments reports no neck or shldr pain with activity, no UT compensation; 115 deg fwd flexion Side right Resistance AROM Equipment Used up to 120 deg flex AROM Reps/Minutes 1x10 Comments reports no neck or shldr pain with activity, minimal UT compensation Sitting Exercises Cervical spine stretches Sitting Exercise Name UT, LS Side bilateral Equipment Used no hand over pressure Reps/Minutes 2x30 ea Comments R>L; reports LS stretch very helpful, feels more worked out Scapular retraction Side bilateral Resistance AROM Reps/Minutes 1x10 Comments reports upper trap pain with retraction, no shoulder pain; good retract Standing Exercises self mobilization Standing Exercise Name LS/UT muscle mobilization Side right Equipment Used ball in pillow case Reps/Minutes 60 Comments reports feeling a ball at LS Manual Therapy Treatment Soft Tissue Mobilization cervical spine Body Location R paraspinals Mobilization Type Rolling Intensity/Depth Superficial Body Position Supine Comments Rolling of R paraspinals to decrease R neck tightness Periscapular Body Location UT, LS, rhomboids, RTC Mobilization Type Rolling,Strumming,Sustained Pressure,Trigger Point Release Intensity/Depth Moderate Body Position Hooklying Comments Trigger point and spasms at R LS at superior angle of scapula, reported tenderness. Rolling, trigger point release and sustained pressure. Reports some relief following STM. Followed by self mobilization using small ball in pillow case, reports more relief afterward. Additional less sensitive trigger point at R UT Joint Mobilizations R scapulothoracic Direction upwd/dwd rotation Grade II Body Position Sidelying Reps/Duration 1x10 Comments PT supporting arm and facilitating scapular upward and downward rotation during arm elevation (fwd flex and abd) into pt end range Manual Techniques Mobilization with Movement Type shrug with elevation and depression Body Location R UT Body Position Sidelying Reps/Duration 1x5 with brief hold Comments MWM with contract/relax into PT hand to create greater muscle relaxation of R UT, LS Self-Care/Home Management Treatment Education Patient Education Home Exercise Program Other Education HEP: rhomboid/trap/LS mobilization, upper trap/LS stretches, sidelying shoulder flex and abd PT-OP-T Assessment and Plan Start: 09/08/23 08:14 Freq: Status: Active Protocol: Document 09/21/23 14:33 NM (Rec: 09/21/23 15:45 NM [id number]) Physical Therapy Assessment Goals Six Impairment ROM Impairment R flex AROM 127 deg, R abd AROM 100 deg Short Term Goal (STG) Pt will improve R flex and abd AROM by at least 10 deg without compensation for improved reaching during ADLs. STG Duration 4 weeks Touch Up Carver Goal (LTG) Pt will improve R flex and abd AROM by at least 20 deg without compensation for improved reaching during ADLs. LTG Duration 8 weeks Five Impairment function Impairment Pt reports pain with sleeping Touch Up Carver Goal (LTG) Pt will report that he is able to sleep at least 60% of the night without waking due to R shoulder pain. LTG Duration 8 weeks Four Impairment ROM Impairment R apley scratch IR T12 Jail Goal (LTG) Pt will improve R shoulder apley scratch test IR to at least T8 in order to demonstrate improved ability to reach backward during dressing and grooming. LTG Duration 8 weeks Three Impairment strength Short Term Goal (STG) Pt will improve R shoulder abd /ER/IR strength to at least 4/ 5 within available ROM in order to demonstrate improved strength required for lifting objects. Touch Up Carver Goal (LTG) Pt will improve R shoulder abd /ER/IR strength to at least 4+ /5 within available ROM in order to demonstrate improved strength required for lifting objects. LTG Duration 8 weeks Two Impairment ROM Impairment R apley scratch ER C7 Touch Up Carver Goal (LTG) Pt will improve R apley scratch test ER to at least T3 in order to demonstrate improved ability to reach and for dressing. LTG Duration 8 weeks One Impairment function Impairment Quickdash 22 or 25% Jail Goal (LTG) Pt will decrease quickdash score by at least 11.2% (1MCD) in order to demonstrate improved activity tolerance. LTG Duration 8 weeks Assessment Summary Assessment Pt continues to have R shoulder pain; however, reports increased pain and tightness in the R neck muscles. Treatment focus on initiating R shoulder ROM within pain free range, scapular mechanics, and periscapular/cervical spine muscle tightness. Due to reports of pt stiffness in neck muscles, performed soft tissue mobilization and scapulothoracic mobilization first to promote muscle relaxation and increase mobility along the kinetic chain. Pt has spasming and trigger point at R levator scapula and upper trap; able to promote relaxation with soft tissue mobilization and stretching. Educated pt on self soft tissue mobilization and initating upper trap/ levator scap stretches, which pt reports relief. Initiated sidelying shoulder flex and abd to begin retraining R scapular movement during elevation. Demos decreased upper trap compensation in sidelying and cued to remain within pain free range. HEP issued. Pt would benefit from skilled PT to address R shoulder mobility and periscapular strength in order to retrain scapular mechanics for improved pain management and ADL tolerance. Physical Therapy Plan Frequency and Duration Frequency of Treatment 2x/Week Duration of treatment (weeks) 8 Plan of Care Start Date 09/08/23 Plan of Care End Date 11/04/23 Therapeutic Interventions Therapeutic Interventions Balance Training,Coordination Training,Gait Training,Home Exercise Program,Joint Mobilizations,Manual Therapy, Neuromuscular Re-education, Orthotic/Prosthetic Management ,Patient/Caregiver Education, Self-Care/Home Management, Sensory Integration,Soft Tissue Mobilization,Taping, Therapeutic Activities, Therapeutic Exercises Modalities Biofeedback,Cold Pack/Ice Massage,Electric Stimulation, Hot Packs,Infrared Therapy, Traction- Mechanical, Ultrasound,Vasopneumatic Devices Next Visit Focus/Plan Next Note Type Treatment Note Next Visit Plan Check tolerance to CS stretching, HEP Trial prone periscapular strengthening; sidelying flex/ abd/ER; AAROM Manual: CS STM, scapthoracic, MWM
--- NOTE | 2023-09-23 15:03 | PT.OTN ---
Current Diagnoses Other chronic pain (09/23/23) Pain in right shoulder (09/23/23) Physical Therapy Treatment Note PT-OP-A Visit Information Start: 09/08/23 08:14 Freq: Status: Active Protocol: Document 09/23/23 13:51 NM (Rec: 09/23/23 15:03 NM [id number]) Out-Patient Physical Therapy Visit Information Visit Information Visit Type Treatment Note Visit Start Time 13:50 Visit Stop Time 14:30 Visit Number 3 Evaluation Information Evaluation Date 09/08/23 PT-OP-B Current Condition Start: 09/08/23 08:14 Freq: Status: Active Protocol: Document 09/08/23 08:15 NM (Rec: 09/08/23 09:05 NM [id number]) Current Condition History of Current Condition Onset Date several years History of Current Condition Pt presents with R shoulder pain. He reports that he has difficulty with sleeping on R shoulder, unable to sleep on it. He reports no known SOCO. He reports tingling at the R neck near upper trapezius, resulting in sore muscles. No numbness/tingling to fingers. Pain feels like it is deep inside the joint. No imaging has been performed. Pt reports that he has difficulty with lifting (about a gallon of milk) and reaching to the side (abd/ER) is painful. No difficulty with dressing of ADLs. No falls but reports that he thinks his balance is worse which he attributes to his sinus. No hx of shoulder injuries, no surgeries. No joint catching or clicking. 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 Pain is worse in morning. 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 Current Functional Impairments (Reported) Functional Limitations- Recreation/ Reports difficulty with Hobbies holding a hammer PT-OP-C Subjective Start: 09/08/23 08:14 Freq: Status: Active Protocol: Document 09/23/23 13:51 NM (Rec: 09/23/23 15:03 NM [id number]) OP-PT Subjective Patient Comments Patient Comments Pt reports 4/10 neck pain, an improvement. Same with shoulder pain. He is having decreased nervy symptom in R upper trap. He reports that the self mobilization and cervical spine stretches are the most helpful. PT-OP-E Functional Tests Start: 09/08/23 08:14 Freq: Status: Active Protocol: Document 09/08/23 08:15 NM (Rec: 09/08/23 09:05 NM [id number]) Functional Tests Apley's Scratch Test Action 1- Left posterior scapula Action 1- Right L clavicle, painful Action 2- Left T4 Action 2- Right C7, painful Action 3- Left T7 Action 3- Right T12, painful PT-OP-F Manual Assessment Start: 09/08/23 08:14 Freq: Status: Active Protocol: Document 09/08/23 08:15 NM (Rec: 09/08/23 09:05 NM [id number]) Manual Assessments Soft Tissue Assessment Soft Tissue Mobility Assessment Soft tissue restrictions of cervical spine paraspinals, especially R upper trapezius and levator scapula. Tenderness to palpation along superlateral humerus near rotator cuff muscle insertion. Pt has a lump on his posterior neck (he reports has been there for years and he gets tests on them every year) Joint Mobility Assessment Joint Mobility Assessment R shoulder AROM more limited in standing and supine. R shoulder AROM more limited than PROM, with nearly full PROM for ER. PROM is still limited for R flex and abd. No clicking or popping of joint with PROM. PT-OP-H Neuro Start: 09/08/23 08:14 Freq: Status: Active Protocol: Document 09/08/23 08:15 NM (Rec: 09/08/23 09:05 NM [id number]) Sensation Evaluation Gross Sensation Gross Sensation WNL Comments Summary Comments BUE dermatomes intact to light touch sensation PT-OP-J Posture/Palpation/Skin Start: 09/08/23 08:14 Freq: Status: Active Protocol: Document 09/08/23 08:15 NM (Rec: 09/08/23 12:13 NM [id number]) Posture Evaluation Position Standing Evaluation View Lateral Head/C-Spine Posture Forward Head T-Spine Posture Increased Kyphosis Shoulder Posture (L) Rounded,(R) Rounded,(L) Elevated Scapula Posture (L) Protracted,(R) Protracted, (L) Elevated,(R) Depressed Arm Posture (L) Internally Rotated,(R) Internally Rotated Pelvis Posture Anteriorly Tilted Weight Distribution Balanced Palpation Assessment Location R shoulder Palpation Location lateral shoulder, AC joint, clavicle, rotator cuff, trapezius Palpation Findings Tenderness Palpation Details Tenderness at lateral R shoulder near rotator cuff insertions and R upper trapezius. No tenderness at LH biceps tendon, AC joint, clavicle. PT-OP-K Range of Motion Start: 09/08/23 08:14 Freq: Status: Active Protocol: Document 09/08/23 08:15 NM (Rec: 09/08/23 09:05 NM [id number]) Shoulder Goniometric Range of Motion Shoulder R PROM Testing Position Supine Flexion 140 Abduction 135 External Rotation at 90 degrees 80 Abduction External Rotation at 45 degrees 80 Abduction External Rotation at 0 degrees Abduction 70 L AROM Testing Position Sitting Flexion 156 Extension 60 Abduction 160 External Rotation at 0 degrees Abduction 55 Internal Rotation 80 Internal Rotation Behind Back (text) T7 R AROM Flexion 127 Extension 60 Abduction 100 External Rotation at 0 degrees Abduction 30 Internal Rotation 65 Internal Rotation Behind Back (text) T12 Comments pain with flex (end range), ext, abd, ER (worse, tingle in upper trap), IR at end range PT-OP-L Special Tests Start: 09/08/23 08:14 Freq: Status: Active Protocol: Document 09/08/23 08:15 NM (Rec: 09/08/23 09:05 NM [id number]) Special Tests Cervical Spine Special Tests Spurling's Test Test Results negative Shoulder Special Tests IR/Horizontal ADD Impingement Test Results positive Lift-Off Rotator Cuff Test Results painful but able to lift off completely Isaacs Jovani Impingement Test Results positive Neer Impingement Test Results positive Mayes Test Test Results positive Comments reports worse pain with IR than ER Yergason's Biceps Test Results negative Empty Can Test Results positive Comments reports worse pain with IR than ER External Rotation Lag Sign Test Results negative Elevation Impingement Test Results positive Drop Arm Rotator Cuff Test Results negative Clunk Test Test Results negative Biceps Load II Test Test Results negative AC Joint Compression Test Results negative PT-OP-M Strength Start: 09/08/23 08:14 Freq: Status: Active Protocol: Document 09/08/23 08:15 NM (Rec: 09/08/23 09:05 NM [id number]) Scapula Strength Scapula Manual Muscle Testing Left Elevation (C4) 5 Normal Adduction 5 Normal Abduction 5 Normal Depression 5 Normal Right Elevation (C4) 4 Good Adduction 4 Good Abduction 4 Good Depression 4 Good Comments Serratus anterior 4/5, but painful resisted motion Shoulder Strength Shoulder Manual Muscle Testing Left Flexion 5 Normal Extension 5 Normal Abduction (C5) 5 Normal Adduction 5 Normal External Rotation 5 Normal Internal Rotation 5 Normal Horizontal Abduction 5 Normal Horizontal Adduction 5 Normal Right Flexion 4+ Good+ Extension 4 Good Abduction (C5) 4- Good- Adduction 5 Normal External Rotation 4- Good- Internal Rotation 4 Good Horizontal Abduction 4 Good Horizontal Adduction 4 Good Comments Pain with ER and abduction Elbow/Forearm Strength Elbow and Forearm Manual Muscle Testing Left Flexion (C6) 5 Normal Extension (C7) 5 Normal Right Flexion (C6) 4+ Good+ Extension (C7) 4+ Good+ PT-OP-Q Treatments Start: 09/08/23 08:14 Freq: Status: Active Protocol: Document 09/23/23 13:51 NM (Rec: 09/23/23 15:03 NM [id number]) Therapeutic Exercises Prone Exercises I, Y, W, T Prone Exercise Name T palm down (trial thumb up) Side bilateral Resistance AROM Equipment Used large green surinamese ball; prn tactile cues at scap for movement/control Reps/Minutes 1x10 ea Comments cue for scap retract/set 1st then lift; reports no pain, feels good Sidelying Exercises open book Side bilateral Resistance AROM Reps/Minutes 1x10 with brief hold Comments cue eyes follow hands; no pain abduction Side right Resistance AROM Equipment Used PT perform inf glide Reps/Minutes 1x10 Comments reports no neck or shldr pain with activity, no UT compensation; 140 deg fwd flexion Side right Resistance AROM Equipment Used up to 130 deg flex AROM; manual scap upwd rotation Reps/Minutes 1x10 Comments reports no neck or shldr pain with activity, minimal UT comp Sitting Exercises shldr inferior glide Side right Equipment Used L hand mobilizing at humerus, R hand supported on blue ball on table Reps/Minutes 10x2 Comments reports small mobilization, not painful Cervical spine stretches Sitting Exercise Name UT, LS (reviewed HEP) Side bilateral Equipment Used no hand over pressure Reps/Minutes 2x30 ea Comments reports best relief Scapular retraction Side bilateral Resistance AROM Reps/Minutes 1x10 Comments reports upper trap pain with retraction, no shoulder pain; good retract Manual Therapy Treatment Soft Tissue Mobilization cervical spine Body Location R paraspinals Mobilization Type Rolling Intensity/Depth Superficial Body Position Supine Comments Rolling of R paraspinals to decrease R neck tightness. Improved since last session Periscapular Body Location UT, LS, rhomboids, RTC Mobilization Type Rolling,Strumming,Sustained Pressure,Trigger Point Release Intensity/Depth Moderate Body Position Hooklying Comments Trigger point and spasms at R LS at superior angle of scapula, reported tenderness. Rolling, trigger point release and sustained pressure. Additional less sensitive trigger point at R UT. Decreases tension since last session Joint Mobilizations R glenohumeral Direction Inf, post glides Grade II Body Position Supine Reps/Duration 4x30 Comments Began grade II glides then progressed to grade III mobilizations to increase R shoulder flex, abd ROM. Shldr elevated on towel. Tolerates well. up to 145 deg abd, 140 deg flex before pt reports pain Self-Care/Home Management Treatment Education Patient Education Home Exercise Program Other Education HEP: Reissued last HEP at pt request. Added prone T, Y, W, Y, I PT-OP-T Assessment and Plan Start: 09/08/23 08:14 Freq: Status: Active Protocol: Document 09/23/23 13:51 NM (Rec: 09/23/23 15:03 NM [id number]) Physical Therapy Assessment Goals Six Impairment ROM Impairment R flex AROM 127 deg, R abd AROM 100 deg Short Term Goal (STG) Pt will improve R flex and abd AROM by at least 10 deg without compensation for improved reaching during ADLs. STG Duration 4 weeks Care Home Goal (LTG) Pt will improve R flex and abd AROM by at least 20 deg without compensation for improved reaching during ADLs. LTG Duration 8 weeks Five Impairment function Impairment Pt reports pain with sleeping Care Home Goal (LTG) Pt will report that he is able to sleep at least 60% of the night without waking due to R shoulder pain. LTG Duration 8 weeks Four Impairment ROM Impairment R apley scratch IR T12 Electrical Installer Goal (LTG) Pt will improve R shoulder apley scratch test IR to at least T8 in order to demonstrate improved ability to reach backward during dressing and grooming. LTG Duration 8 weeks Three Impairment strength Short Term Goal (STG) Pt will improve R shoulder abd /ER/IR strength to at least 4/ 5 within available ROM in order to demonstrate improved strength required for lifting objects. Electrical Installer Goal (LTG) Pt will improve R shoulder abd /ER/IR strength to at least 4+ /5 within available ROM in order to demonstrate improved strength required for lifting objects. LTG Duration 8 weeks Two Impairment ROM Impairment R apley scratch ER C7 Electrical Installer Goal (LTG) Pt will improve R apley scratch test ER to at least T3 in order to demonstrate improved ability to reach and for dressing. LTG Duration 8 weeks One Impairment function Impairment Quickdash 22 or 25% Electrical Installer Goal (LTG) Pt will decrease quickdash score by at least 11.2% (1MCD) in order to demonstrate improved activity tolerance. LTG Duration 8 weeks Assessment Summary Assessment Pt tolerated session well and reports decreased R shoulder/ neck pain post session (10/08). Trialed open books to improve spinal and shoulder mobility along the kinetic chain, pt has good feedback. Initiated sitting self-inferior glide to increase R shoulder abd ROM, which performs well and with good feedback for glide; increased ROM up to 140 deg abd before painful, shldr fwd flex up to 130 deg. Initiated prone periscapular strengthening and control exercises on surinamese ball; added to HEP. Pt verbally and prn tactilely cued for scapular retraction/setting prior to arm movement in order to promote better activation and offload stress on rotator cuff . During manual tx, pt demos fewer muscles spasms and tender points along the cervical paraspinals and periscapular muscles. Trialed grade II glenohumeral mobilizations for pain relief, then progressed to grade III as pt tolerated well in order to increase R shoulder ROM. Pt would benefit from skilled PT for progressive periscapular and rotator cuff strengthening , increased shoulder and spine mobility activities in order to decrease pain symptoms, improve QOL, and return to PLOF. Physical Therapy Plan Frequency and Duration Frequency of Treatment 2x/Week Duration of treatment (weeks) 8 Plan of Care Start Date 09/08/23 Plan of Care End Date 11/04/23 Therapeutic Interventions Therapeutic Interventions Balance Training,Coordination Training,Gait Training,Home Exercise Program,Joint Mobilizations,Manual Therapy, Neuromuscular Re-education, Orthotic/Prosthetic Management ,Patient/Caregiver Education, Self-Care/Home Management, Sensory Integration,Soft Tissue Mobilization,Taping, Therapeutic Activities, Therapeutic Exercises Modalities Biofeedback,Cold Pack/Ice Massage,Electric Stimulation, Hot Packs,Infrared Therapy, Traction- Mechanical, Ultrasound,Vasopneumatic Devices Next Visit Focus/Plan Next Note Type Treatment Note Next Visit Plan Progress prone periscapular strengthening as tolerated; sidelying flex/abd/ER; Trial AAROM flex/abd with dowel supine vs standing, eccentric abd/add and eccentric flex/ext for ROM Manual: CS STM, scapthoracic, MWM, GHJ negar abd/flex
--- NOTE | 2023-09-27 18:08 | PT.OTN ---
Current Diagnoses Other chronic pain (09/27/23) Pain in right shoulder (09/27/23) Physical Therapy Treatment Note PT-OP-A Visit Information Start: 09/08/23 08:14 Freq: Status: Active Protocol: Document 09/27/23 13:53 NBM (Rec: 09/27/23 14:35 [facility] [id number]) Out-Patient Physical Therapy Visit Information Visit Information Visit Type Treatment Note Visit Start Time 13:53 Visit Stop Time 14:33 Visit Number 4 Number of [place]OWN [facility] Visits 1 PT-OP-B Current Condition Start: 09/08/23 08:14 Freq: Status: Active Protocol: Document 09/08/23 08:15 NM (Rec: 09/08/23 09:05 NM [id number]) Current Condition History of Current Condition Onset Date several years History of Current Condition Pt presents with R shoulder pain. He reports that he has difficulty with sleeping on R shoulder, unable to sleep on it. He reports no known SOCO. He reports tingling at the R neck near upper trapezius, resulting in sore muscles. No numbness/tingling to fingers. Pain feels like it is deep inside the joint. No imaging has been performed. Pt reports that he has difficulty with lifting (about a gallon of milk) and reaching to the side (abd/ER) is painful. No difficulty with dressing of ADLs. No falls but reports that he thinks his balance is worse which he attributes to his sinus. No hx of shoulder injuries, no surgeries. No joint catching or clicking. 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 Pain is worse in morning. 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 Current Functional Impairments (Reported) Functional Limitations- Recreation/ Reports difficulty with Hobbies holding a hammer PT-OP-C Subjective Start: 09/08/23 08:14 Freq: Status: Active Protocol: Document 09/27/23 13:53 NBM (Rec: 09/27/23 14:35 [facility] [id number]) OP-PT Subjective Patient Comments Patient Comments Clive reports feeling improvement since last visit. Patient Reported Progress Improving PT-OP-E Functional Tests Start: 09/08/23 08:14 Freq: Status: Active Protocol: Document 09/08/23 08:15 NM (Rec: 09/08/23 09:05 NM [id number]) Functional Tests Apley's Scratch Test Action 1- Left posterior scapula Action 1- Right L clavicle, painful Action 2- Left T4 Action 2- Right C7, painful Action 3- Left T7 Action 3- Right T12, painful PT-OP-F Manual Assessment Start: 09/08/23 08:14 Freq: Status: Active Protocol: Document 09/08/23 08:15 NM (Rec: 09/08/23 09:05 NM [id number]) Manual Assessments Soft Tissue Assessment Soft Tissue Mobility Assessment Soft tissue restrictions of cervical spine paraspinals, especially R upper trapezius and levator scapula. Tenderness to palpation along superlateral humerus near rotator cuff muscle insertion. Pt has a lump on his posterior neck (he reports has been there for years and he gets tests on them every year) Joint Mobility Assessment Joint Mobility Assessment R shoulder AROM more limited in standing and supine. R shoulder AROM more limited than PROM, with nearly full PROM for ER. PROM is still limited for R flex and abd. No clicking or popping of joint with PROM. PT-OP-H Neuro Start: 09/08/23 08:14 Freq: Status: Active Protocol: Document 09/08/23 08:15 NM (Rec: 09/08/23 09:05 NM [id number]) Sensation Evaluation Gross Sensation Gross Sensation WNL Comments Summary Comments BUE dermatomes intact to light touch sensation PT-OP-J Posture/Palpation/Skin Start: 09/08/23 08:14 Freq: Status: Active Protocol: Document 09/08/23 08:15 NM (Rec: 09/08/23 12:13 NM [id number]) Posture Evaluation Position Standing Evaluation View Lateral Head/C-Spine Posture Forward Head T-Spine Posture Increased Kyphosis Shoulder Posture (L) Rounded,(R) Rounded,(L) Elevated Scapula Posture (L) Protracted,(R) Protracted, (L) Elevated,(R) Depressed Arm Posture (L) Internally Rotated,(R) Internally Rotated Pelvis Posture Anteriorly Tilted Weight Distribution Balanced Palpation Assessment Location R shoulder Palpation Location lateral shoulder, AC joint, clavicle, rotator cuff, trapezius Palpation Findings Tenderness Palpation Details Tenderness at lateral R shoulder near rotator cuff insertions and R upper trapezius. No tenderness at LH biceps tendon, AC joint, clavicle. PT-OP-K Range of Motion Start: 09/08/23 08:14 Freq: Status: Active Protocol: Document 09/08/23 08:15 NM (Rec: 09/08/23 09:05 NM [id number]) Shoulder Goniometric Range of Motion Shoulder R PROM Testing Position Supine Flexion 140 Abduction 135 External Rotation at 90 degrees 80 Abduction External Rotation at 45 degrees 80 Abduction External Rotation at 0 degrees Abduction 70 L AROM Testing Position Sitting Flexion 156 Extension 60 Abduction 160 External Rotation at 0 degrees Abduction 55 Internal Rotation 80 Internal Rotation Behind Back (text) T7 R AROM Flexion 127 Extension 60 Abduction 100 External Rotation at 0 degrees Abduction 30 Internal Rotation 65 Internal Rotation Behind Back (text) T12 Comments pain with flex (end range), ext, abd, ER (worse, tingle in upper trap), IR at end range PT-OP-L Special Tests Start: 09/08/23 08:14 Freq: Status: Active Protocol: Document 09/08/23 08:15 NM (Rec: 09/08/23 09:05 NM [id number]) Special Tests Cervical Spine Special Tests Spurling's Test Test Results negative Shoulder Special Tests IR/Horizontal ADD Impingement Test Results positive Lift-Off Rotator Cuff Test Results painful but able to lift off completely Isaacs Jovani Impingement Test Results positive Neer Impingement Test Results positive [place] Test Test Results positive Comments reports worse pain with IR than ER Yergason's Biceps Test Results negative Empty Can Test Results positive Comments reports worse pain with IR than ER External Rotation Lag Sign Test Results negative Elevation Impingement Test Results positive Drop Arm Rotator Cuff Test Results negative Clunk Test Test Results negative Biceps Load II Test Test Results negative AC Joint Compression Test Results negative PT-OP-M Strength Start: 09/08/23 08:14 Freq: Status: Active Protocol: Document 09/08/23 08:15 NM (Rec: 09/08/23 09:05 NM [id number]) Scapula Strength Scapula Manual Muscle Testing Left Elevation (C4) 5 Normal Adduction 5 Normal Abduction 5 Normal Depression 5 Normal Right Elevation (C4) 4 Good Adduction 4 Good Abduction 4 Good Depression 4 Good Comments Serratus anterior 4/5, but painful resisted motion Shoulder Strength Shoulder Manual Muscle Testing Left Flexion 5 Normal Extension 5 Normal Abduction (C5) 5 Normal Adduction 5 Normal External Rotation 5 Normal Internal Rotation 5 Normal Horizontal Abduction 5 Normal Horizontal Adduction 5 Normal Right Flexion 4+ Good+ Extension 4 Good Abduction (C5) 4- Good- Adduction 5 Normal External Rotation 4- Good- Internal Rotation 4 Good Horizontal Abduction 4 Good Horizontal Adduction 4 Good Comments Pain with ER and abduction Elbow/Forearm Strength Elbow and Forearm Manual Muscle Testing Left Flexion (C6) 5 Normal Extension (C7) 5 Normal Right Flexion (C6) 4+ Good+ Extension (C7) 4+ Good+ PT-OP-Q Treatments Start: 09/08/23 08:14 Freq: Status: Active Protocol: Document 09/27/23 13:53 NBM (Rec: 09/27/23 14:35 NBM [id number]) Therapeutic Exercises Supine Exercises shldr flexion Supine Exercise Name AROM>AAROM Side bilateral Equipment Used dowel- LUE assisting R at end ROM Reps/Minutes 1x12 with brief hold at top Comments cue to remain in pain free ROM , eyes to follow hands for mobilization Sidelying Exercises open book Side bilateral Resistance AROM Reps/Minutes 1x10 with brief hold Comments cue scapular setting, eyes follow hands; no pain abduction Side right Resistance AROM Equipment Used PT perform inf glide Reps/Minutes 1x10 Comments reports no neck or shldr pain with activity, no UT compensation; 140 deg fwd flexion Side right Resistance AROM Reps/Minutes 1x10 Comments pain-free range improves post manual Sitting Exercises AAROM Sitting Exercise Name 1.flexion 2.abduction Side right Equipment Used christy Reps/Minutes x10 ea Comments 0 deg abduction Cervical spine stretches Sitting Exercise Name UT, LS (reviewed HEP) Side bilateral Equipment Used hand stabilizing opp eloise Reps/Minutes 2x30 ea Comments correction to UT form to sidebending vs rotation Scapular retraction Side bilateral Resistance AROM Reps/Minutes 1x10 Comments reports upper trap pain with retraction, no shoulder pain; good retract Manual Therapy Treatment Soft Tissue Mobilization cervical spine Body Location R paraspinals Mobilization Type Rolling Intensity/Depth Superficial Body Position Supine Comments Rolling of R paraspinals to decrease R neck tightness. Periscapular Body Location UT, LS, rhomboids, RTC, lateral border (Lat and Teres minor insertion focus Mobilization Type Rolling,Strumming,Sustained Pressure,Trigger Point Release Intensity/Depth Moderate Body Position Hooklying Comments Trigger point and spasms at R LS at superior angle of scapula, reported tenderness. Rolling, trigger point release and sustained pressure. Additional less sensitive trigger point at R UT and along lateral edge of scapula. Joint Mobilizations R glenohumeral Direction Inf, post glides Grade II Body Position Supine Reps/Duration 2x30 Comments positive feeback response. R scapulothoracic Direction upwd/dwd rotation, elevation/ depression, pro/retraction Grade II Body Position Sidelying Reps/Duration 1x10 PT-OP-T Assessment and Plan Start: 09/08/23 08:14 Freq: Status: Active Protocol: Document 09/27/23 13:53 NBM (Rec: 09/27/23 14:35 NBM [id number]) Physical Therapy Assessment Goals Six Impairment ROM Impairment R flex AROM 127 deg, R abd AROM 100 deg Short Term Goal (STG) Pt will improve R flex and abd AROM by at least 10 deg without compensation for improved reaching during ADLs. STG Duration 4 weeks Chair Maker Goal (LTG) Pt will improve R flex and abd AROM by at least 20 deg without compensation for improved reaching during ADLs. LTG Duration 8 weeks Five Impairment function Impairment Pt reports pain with sleeping Chair Maker Goal (LTG) Pt will report that he is able to sleep at least 60% of the night without waking due to R shoulder pain. LTG Duration 8 weeks Four Impairment ROM Impairment R apley scratch IR T12 [facility] Goal (LTG) Pt will improve R shoulder apley scratch test IR to at least T8 in order to demonstrate improved ability to reach backward during dressing and grooming. LTG Duration 8 weeks Three Impairment strength Short Term Goal (STG) Pt will improve R shoulder abd /ER/IR strength to at least 4/ 5 within available ROM in order to demonstrate improved strength required for lifting objects. [facility] Goal (LTG) Pt will improve R shoulder abd /ER/IR strength to at least 4+ /5 within available ROM in order to demonstrate improved strength required for lifting objects. LTG Duration 8 weeks Two Impairment ROM Impairment R apley scratch ER C7 [facility] Goal (LTG) Pt will improve R apley scratch test ER to at least T3 in order to demonstrate improved ability to reach and for dressing. LTG Duration 8 weeks One Impairment function Impairment Quickdash 22 or 25% Chair Maker Goal (LTG) Pt will decrease quickdash score by at least 11.2% (1MCD) in order to demonstrate improved activity tolerance. LTG Duration 8 weeks Assessment Summary Assessment Clive requires cues for correct form with cervical stretches; various shoulder stabilzing techniques trialed w/ good demo using opposite hand across chest to stabilize shoulder for UT and LS stretches. Cues needed for UT stretch sidebending instead of cervical rotation. Decreaesd palpable tension and RUE nerve symptoms after manual therapy , as well as improved pain- free range of motion with sidelying R shoulder flexion. Pt requires cues for UT overactivation and scapular setting prior to initiating ex 's and w/ fatigue. He tolerates seated AAROM R shoulder flexion and abduction without pain or increase in baseline symptoms. Physical Therapy Plan Frequency and Duration Frequency of Treatment 2x/Week Duration of treatment (weeks) 8 Plan of Care Start Date 09/08/23 Plan of Care End Date 11/04/23 Therapeutic Interventions Therapeutic Interventions Balance Training,Coordination Training,Gait Training,Home Exercise Program,Joint Mobilizations,Manual Therapy, Neuromuscular Re-education, Orthotic/Prosthetic Management ,Patient/Caregiver Education, Self-Care/Home Management, Sensory Integration,Soft Tissue Mobilization,Taping, Therapeutic Activities, Therapeutic Exercises Modalities Biofeedback,Cold Pack/Ice Massage,Electric Stimulation, Hot Packs,Infrared Therapy, Traction- Mechanical, Ultrasound,Vasopneumatic Devices Next Visit Focus/Plan Next Note Type Treatment Note Next Visit Plan Progress prone periscapular strengthening as tolerated; sidelying flex/abd/ER; Trial AAROM flex/abd with dowel supine vs standing, eccentric abd/add and eccentric flex/ext for ROM Manual: CS STM, scapthoracic, MWM, GHJ negar abd/flex
--- NOTE | 2023-10-03 14:30 | PT.OTN ---
Current Diagnoses Other chronic pain (10/03/23) Pain in right shoulder (10/03/23) Physical Therapy Treatment Note PT-OP-A Visit Information Start: 09/08/23 08:14 Freq: Status: Active Protocol: Document 10/03/23 13:50 SP (Rec: 10/03/23 14:33 SP [id number]) Out-Patient Physical Therapy Visit Information Visit Information Visit Type Treatment Note Visit Start Time 13:50 Visit Stop Time 14:30 Visit Number 5 Number of PHYSICAL THERAPY ASSISTANT Visits 2 Evaluation Information Evaluation Date 09/08/23 PT-OP-B Current Condition Start: 09/08/23 08:14 Freq: Status: Active Protocol: Document 09/08/23 08:15 NM (Rec: 09/08/23 09:05 NM [id number]) Current Condition History of Current Condition Onset Date several years History of Current Condition Pt presents with R shoulder pain. He reports that he has difficulty with sleeping on R shoulder, unable to sleep on it. He reports no known SOCO. He reports tingling at the R neck near upper trapezius, resulting in sore muscles. No numbness/tingling to fingers. Pain feels like it is deep inside the joint. No imaging has been performed. Pt reports that he has difficulty with lifting (about a gallon of milk) and reaching to the side (abd/ER) is painful. No difficulty with dressing of ADLs. No falls but reports that he thinks his balance is worse which he attributes to his sinus. No hx of shoulder injuries, no surgeries. No joint catching or clicking. 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 Pain is worse in morning. 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 Current Functional Impairments (Reported) Functional Limitations- Recreation/ Reports difficulty with Hobbies holding a hammer PT-OP-C Subjective Start: 09/08/23 08:14 Freq: Status: Active Protocol: Document 10/03/23 13:50 SP (Rec: 10/03/23 14:33 SP [id number]) OP-PT Subjective Patient Comments Patient Comments Pt PT-OP-E Functional Tests Start: 09/08/23 08:14 Freq: Status: Active Protocol: Document 09/08/23 08:15 NM (Rec: 09/08/23 09:05 NM [id number]) Functional Tests Apley's Scratch Test Action 1- Left posterior scapula Action 1- Right L clavicle, painful Action 2- Left T4 Action 2- Right C7, painful Action 3- Left T7 Action 3- Right T12, painful PT-OP-F Manual Assessment Start: 09/08/23 08:14 Freq: Status: Active Protocol: Document 09/08/23 08:15 NM (Rec: 09/08/23 09:05 NM [id number]) Manual Assessments Soft Tissue Assessment Soft Tissue Mobility Assessment Soft tissue restrictions of cervical spine paraspinals, especially R upper trapezius and levator scapula. Tenderness to palpation along superlateral humerus near rotator cuff muscle insertion. Pt has a lump on his posterior neck (he reports has been there for years and he gets tests on them every year) Joint Mobility Assessment Joint Mobility Assessment R shoulder AROM more limited in standing and supine. R shoulder AROM more limited than PROM, with nearly full PROM for ER. PROM is still limited for R flex and abd. No clicking or popping of joint with PROM. PT-OP-H Neuro Start: 09/08/23 08:14 Freq: Status: Active Protocol: Document 09/08/23 08:15 NM (Rec: 09/08/23 09:05 NM [id number]) Sensation Evaluation Gross Sensation Gross Sensation WNL Comments Summary Comments BUE dermatomes intact to light touch sensation PT-OP-J Posture/Palpation/Skin Start: 09/08/23 08:14 Freq: Status: Active Protocol: Document 09/08/23 08:15 NM (Rec: 09/08/23 12:13 NM [id number]) Posture Evaluation Position Standing Evaluation View Lateral Head/C-Spine Posture Forward Head T-Spine Posture Increased Kyphosis Shoulder Posture (L) Rounded,(R) Rounded,(L) Elevated Scapula Posture (L) Protracted,(R) Protracted, (L) Elevated,(R) Depressed Arm Posture (L) Internally Rotated,(R) Internally Rotated Pelvis Posture Anteriorly Tilted Weight Distribution Balanced Palpation Assessment Location R shoulder Palpation Location lateral shoulder, AC joint, clavicle, rotator cuff, trapezius Palpation Findings Tenderness Palpation Details Tenderness at lateral R shoulder near rotator cuff insertions and R upper trapezius. No tenderness at LH biceps tendon, AC joint, clavicle. PT-OP-K Range of Motion Start: 09/08/23 08:14 Freq: Status: Active Protocol: Document 09/08/23 08:15 NM (Rec: 09/08/23 09:05 NM [id number]) Shoulder Goniometric Range of Motion Shoulder R PROM Testing Position Supine Flexion 140 Abduction 135 External Rotation at 90 degrees 80 Abduction External Rotation at 45 degrees 80 Abduction External Rotation at 0 degrees Abduction 70 L AROM Testing Position Sitting Flexion 156 Extension 60 Abduction 160 External Rotation at 0 degrees Abduction 55 Internal Rotation 80 Internal Rotation Behind Back (text) T7 R AROM Flexion 127 Extension 60 Abduction 100 External Rotation at 0 degrees Abduction 30 Internal Rotation 65 Internal Rotation Behind Back (text) T12 Comments pain with flex (end range), ext, abd, ER (worse, tingle in upper trap), IR at end range PT-OP-L Special Tests Start: 09/08/23 08:14 Freq: Status: Active Protocol: Document 09/08/23 08:15 NM (Rec: 09/08/23 09:05 NM [id number]) Special Tests Cervical Spine Special Tests Spurling's Test Test Results negative Shoulder Special Tests IR/Horizontal ADD Impingement Test Results positive Lift-Off Rotator Cuff Test Results painful but able to lift off completely Isaacs Jovani Impingement Test Results positive Neer Impingement Test Results positive Emanuel Test Test Results positive Comments reports worse pain with IR than ER Yergason's Biceps Test Results negative Empty Can Test Results positive Comments reports worse pain with IR than ER External Rotation Lag Sign Test Results negative Elevation Impingement Test Results positive Drop Arm Rotator Cuff Test Results negative Clunk Test Test Results negative Biceps Load II Test Test Results negative AC Joint Compression Test Results negative PT-OP-M Strength Start: 09/08/23 08:14 Freq: Status: Active Protocol: Document 09/08/23 08:15 NM (Rec: 09/08/23 09:05 NM [id number]) Scapula Strength Scapula Manual Muscle Testing Left Elevation (C4) 5 Normal Adduction 5 Normal Abduction 5 Normal Depression 5 Normal Right Elevation (C4) 4 Good Adduction 4 Good Abduction 4 Good Depression 4 Good Comments Serratus anterior 4/5, but painful resisted motion Shoulder Strength Shoulder Manual Muscle Testing Left Flexion 5 Normal Extension 5 Normal Abduction (C5) 5 Normal Adduction 5 Normal External Rotation 5 Normal Internal Rotation 5 Normal Horizontal Abduction 5 Normal Horizontal Adduction 5 Normal Right Flexion 4+ Good+ Extension 4 Good Abduction (C5) 4- Good- Adduction 5 Normal External Rotation 4- Good- Internal Rotation 4 Good Horizontal Abduction 4 Good Horizontal Adduction 4 Good Comments Pain with ER and abduction Elbow/Forearm Strength Elbow and Forearm Manual Muscle Testing Left Flexion (C6) 5 Normal Extension (C7) 5 Normal Right Flexion (C6) 4+ Good+ Extension (C7) 4+ Good+ PT-OP-Q Treatments Start: 09/08/23 08:14 Freq: Status: Active Protocol: Document 10/03/23 13:50 SP (Rec: 10/03/23 14:33 SP [id number]) Therapeutic Exercises Sidelying Exercises ER Sidelying Exercise Name trialed Side right Resistance AROM Equipment Used towel roll under arm Reps/Minutes 10 reps Comments cued painfree range open book Side bilateral Resistance AROM Reps/Minutes 1x6 with brief hold Comments cue scapular setting, eyes follow hands; no pain abduction Side right Resistance AROM Equipment Used PT perform inf glide Reps/Minutes 1x10 Comments reports no neck or shldr pain with activity, no UT compensation; 140 deg fwd flexion Sidelying Exercise Name approx 120 deg FF Side right Resistance AROM Reps/Minutes 1x10 Comments pain-free range improves cue long axis ER into FF oH Sitting Exercises AAROM Sitting Exercise Name 1.flexion 2.abduction Side right Equipment Used AAROM dowel & single arm AROM x5 reps Reps/Minutes x10 ea Comments 0 deg abduction, states painfree just sore/tiring Scapular retraction Side bilateral Resistance AROM Reps/Minutes 1x10 Comments no pain today Standing Exercises RTC TB Standing Exercise Name 1. ext 2. IR 3. ER- added to HEP Equipment Used 2-3.towel roll under arm Reps/Minutes 10 reps each Comments cued elongated head/ retract neutral, painfree range, scap set rhomboid& LT self mobilization Standing Exercise Name LS/UT muscle mobilization Side right Equipment Used arm on table scaption positioning Reps/Minutes 1 min- seated in chair Comments reports good weird feeling lessening tension in shld jt Manual Therapy Treatment Soft Tissue Mobilization cervical spine Body Location R paraspinals Mobilization Type Rolling Intensity/Depth Superficial Body Position Supine Comments Rolling of R paraspinals to decrease R neck tightness. Periscapular Body Location UT, LS, rhomboids, RTC, lateral border (Lat and Teres minor insertion focus Mobilization Type Rolling,Strumming,Sustained Pressure,Trigger Point Release Intensity/Depth Moderate Body Position Sidelying Comments R UT, LS distal. Joint Mobilizations R scapulothoracic Direction upwd/dwd rotation, elevation/ depression, pro/retraction, UR Grade II Body Position Sidelying Reps/Duration 1x10 Comments Good feedback manual, MWM abd, ff, habd, cued long axis ER decrease deltoid region strain more post scap tiring. PT-OP-T Assessment and Plan Start: 09/08/23 08:14 Freq: Status: Active Protocol: Document 10/03/23 13:50 SP (Rec: 10/03/23 14:33 SP [id number]) Physical Therapy Assessment Goals Six Impairment ROM Impairment R flex AROM 127 deg, R abd AROM 100 deg Short Term Goal (STG) Pt will improve R flex and abd AROM by at least 10 deg without compensation for improved reaching during ADLs. STG Duration 4 weeks Core Composer Machine Tender Goal (LTG) Pt will improve R flex and abd AROM by at least 20 deg without compensation for improved reaching during ADLs. LTG Duration 8 weeks Five Impairment function Impairment Pt reports pain with sleeping Core Composer Machine Tender Goal (LTG) Pt will report that he is able to sleep at least 60% of the night without waking due to R shoulder pain. LTG Duration 8 weeks Four Impairment ROM Impairment R apley scratch IR T12 Core Composer Machine Tender Goal (LTG) Pt will improve R shoulder apley scratch test IR to at least T8 in order to demonstrate improved ability to reach backward during dressing and grooming. LTG Duration 8 weeks Three Impairment strength Short Term Goal (STG) Pt will improve R shoulder abd /ER/IR strength to at least 4/ 5 within available ROM in order to demonstrate improved strength required for lifting objects. Mcfp Goal (LTG) Pt will improve R shoulder abd /ER/IR strength to at least 4+ /5 within available ROM in order to demonstrate improved strength required for lifting objects. LTG Duration 8 weeks Two Impairment ROM Impairment R apley scratch ER C7 Mcfp Goal (LTG) Pt will improve R apley scratch test ER to at least T3 in order to demonstrate improved ability to reach and for dressing. LTG Duration 8 weeks One Impairment function Impairment Quickdash 22 or 25% Mcfp Goal (LTG) Pt will decrease quickdash score by at least 11.2% (1MCD) in order to demonstrate improved activity tolerance. LTG Duration 8 weeks Assessment Summary Assessment Pt improved decrease superior GH pinch/strain feeling post inferior glide manual and ed self, then carryover tactile cue during shld ABD, FF /c ER, HABD. Good response to added resisted shld ext and IR& ER no pain just muscle tiring with cues for rhomboid and CS retraction postural corrections for HEP. Physical Therapy Plan Frequency and Duration Frequency of Treatment 2x/Week Duration of treatment (weeks) 8 Plan of Care Start Date 09/08/23 Plan of Care End Date 11/04/23 Next Visit Focus/Plan Next Note Type Treatment Note Next Visit Plan Assess response added TB standing. POC: Progress prone periscapular strengthening as tolerated; sidelying flex/abd/ ER; Trial AAROM flex/abd with dowel supine vs standing, eccentric abd/add and eccentric flex/ext for ROM Manual: CS STM, scapthoracic, MWM, GHJ negar abd/flex
--- NOTE | 2023-10-06 13:45 | PT.OTN ---
Current Diagnoses Other chronic pain (10/06/23) Pain in right shoulder (10/06/23) Physical Therapy Treatment Note PT-OP-A Visit Information Start: 09/08/23 08:14 Freq: Status: Active Protocol: Document 10/06/23 13:03 SP (Rec: 10/06/23 13:49 SP [id number]) Out-Patient Physical Therapy Visit Information Visit Information Visit Type Treatment Note Visit Start Time 13:03 Visit Stop Time 13:45 Visit Number 6 Number of BODY LINER Visits 3 Evaluation Information Evaluation Date 09/08/23 PT-OP-B Current Condition Start: 09/08/23 08:14 Freq: Status: Active Protocol: Document 09/08/23 08:15 NM (Rec: 09/08/23 09:05 NM [id number]) Current Condition History of Current Condition Onset Date several years History of Current Condition Pt presents with R shoulder pain. He reports that he has difficulty with sleeping on R shoulder, unable to sleep on it. He reports no known SOCO. He reports tingling at the R neck near upper trapezius, resulting in sore muscles. No numbness/tingling to fingers. Pain feels like it is deep inside the joint. No imaging has been performed. Pt reports that he has difficulty with lifting (about a gallon of milk) and reaching to the side (abd/ER) is painful. No difficulty with dressing of ADLs. No falls but reports that he thinks his balance is worse which he attributes to his sinus. No hx of shoulder injuries, no surgeries. No joint catching or clicking. 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 Pain is worse in morning. 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 Current Functional Impairments (Reported) Functional Limitations- Recreation/ Reports difficulty with Hobbies holding a hammer PT-OP-C Subjective Start: 09/08/23 08:14 Freq: Status: Active Protocol: Document 10/06/23 13:03 SP (Rec: 10/06/23 13:49 SP [id number]) OP-PT Subjective Patient Comments Patient Comments Pt reports did ok after last tx. PT-OP-E Functional Tests Start: 09/08/23 08:14 Freq: Status: Active Protocol: Document 09/08/23 08:15 NM (Rec: 09/08/23 09:05 NM [id number]) Functional Tests Apley's Scratch Test Action 1- Left posterior scapula Action 1- Right L clavicle, painful Action 2- Left T4 Action 2- Right C7, painful Action 3- Left T7 Action 3- Right T12, painful PT-OP-F Manual Assessment Start: 09/08/23 08:14 Freq: Status: Active Protocol: Document 09/08/23 08:15 NM (Rec: 09/08/23 09:05 NM [id number]) Manual Assessments Soft Tissue Assessment Soft Tissue Mobility Assessment Soft tissue restrictions of cervical spine paraspinals, especially R upper trapezius and levator scapula. Tenderness to palpation along superlateral humerus near rotator cuff muscle insertion. Pt has a lump on his posterior neck (he reports has been there for years and he gets tests on them every year) Joint Mobility Assessment Joint Mobility Assessment R shoulder AROM more limited in standing and supine. R shoulder AROM more limited than PROM, with nearly full PROM for ER. PROM is still limited for R flex and abd. No clicking or popping of joint with PROM. PT-OP-H Neuro Start: 09/08/23 08:14 Freq: Status: Active Protocol: Document 09/08/23 08:15 NM (Rec: 09/08/23 09:05 NM [id number]) Sensation Evaluation Gross Sensation Gross Sensation WNL Comments Summary Comments BUE dermatomes intact to light touch sensation PT-OP-J Posture/Palpation/Skin Start: 09/08/23 08:14 Freq: Status: Active Protocol: Document 09/08/23 08:15 NM (Rec: 09/08/23 12:13 NM [id number]) Posture Evaluation Position Standing Evaluation View Lateral Head/C-Spine Posture Forward Head T-Spine Posture Increased Kyphosis Shoulder Posture (L) Rounded,(R) Rounded,(L) Elevated Scapula Posture (L) Protracted,(R) Protracted, (L) Elevated,(R) Depressed Arm Posture (L) Internally Rotated,(R) Internally Rotated Pelvis Posture Anteriorly Tilted Weight Distribution Balanced Palpation Assessment Location R shoulder Palpation Location lateral shoulder, AC joint, clavicle, rotator cuff, trapezius Palpation Findings Tenderness Palpation Details Tenderness at lateral R shoulder near rotator cuff insertions and R upper trapezius. No tenderness at LH biceps tendon, AC joint, clavicle. PT-OP-K Range of Motion Start: 09/08/23 08:14 Freq: Status: Active Protocol: Document 09/08/23 08:15 NM (Rec: 09/08/23 09:05 NM [id number]) Shoulder Goniometric Range of Motion Shoulder R PROM Testing Position Supine Flexion 140 Abduction 135 External Rotation at 90 degrees 80 Abduction External Rotation at 45 degrees 80 Abduction External Rotation at 0 degrees Abduction 70 L AROM Testing Position Sitting Flexion 156 Extension 60 Abduction 160 External Rotation at 0 degrees Abduction 55 Internal Rotation 80 Internal Rotation Behind Back (text) T7 R AROM Flexion 127 Extension 60 Abduction 100 External Rotation at 0 degrees Abduction 30 Internal Rotation 65 Internal Rotation Behind Back (text) T12 Comments pain with flex (end range), ext, abd, ER (worse, tingle in upper trap), IR at end range PT-OP-L Special Tests Start: 09/08/23 08:14 Freq: Status: Active Protocol: Document 09/08/23 08:15 NM (Rec: 09/08/23 09:05 NM [id number]) Special Tests Cervical Spine Special Tests Spurling's Test Test Results negative Shoulder Special Tests IR/Horizontal ADD Impingement Test Results positive Lift-Off Rotator Cuff Test Results painful but able to lift off completely Isaacs Jovani Impingement Test Results positive Neer Impingement Test Results positive [place] Test Test Results positive Comments reports worse pain with IR than ER Yergason's Biceps Test Results negative Empty Can Test Results positive Comments reports worse pain with IR than ER External Rotation Lag Sign Test Results negative Elevation Impingement Test Results positive Drop Arm Rotator Cuff Test Results negative Clunk Test Test Results negative Biceps Load II Test Test Results negative AC Joint Compression Test Results negative PT-OP-M Strength Start: 09/08/23 08:14 Freq: Status: Active Protocol: Document 09/08/23 08:15 NM (Rec: 09/08/23 09:05 NM [id number]) Scapula Strength Scapula Manual Muscle Testing Left Elevation (C4) 5 Normal Adduction 5 Normal Abduction 5 Normal Depression 5 Normal Right Elevation (C4) 4 Good Adduction 4 Good Abduction 4 Good Depression 4 Good Comments Serratus anterior 4/5, but painful resisted motion Shoulder Strength Shoulder Manual Muscle Testing Left Flexion 5 Normal Extension 5 Normal Abduction (C5) 5 Normal Adduction 5 Normal External Rotation 5 Normal Internal Rotation 5 Normal Horizontal Abduction 5 Normal Horizontal Adduction 5 Normal Right Flexion 4+ Good+ Extension 4 Good Abduction (C5) 4- Good- Adduction 5 Normal External Rotation 4- Good- Internal Rotation 4 Good Horizontal Abduction 4 Good Horizontal Adduction 4 Good Comments Pain with ER and abduction Elbow/Forearm Strength Elbow and Forearm Manual Muscle Testing Left Flexion (C6) 5 Normal Extension (C7) 5 Normal Right Flexion (C6) 4+ Good+ Extension (C7) 4+ Good+ PT-OP-Q Treatments Start: 09/08/23 08:14 Freq: Status: Active Protocol: Document 10/06/23 13:03 SP (Rec: 10/06/23 13:49 SP [id number]) Therapeutic Exercises Supine Exercises over noodle Supine Exercise Name trailed in PT/ added to HEP: serratus press, Ts, FF, Side bilateral Resistance AROM Reps/Minutes 10 reps each Comments reports better ROM, doesn't hurt more stretch front R shld Prone Exercises I, Y, W, T Prone Exercise Name T, I Ys palm down (trial thumb up) Side bilateral Resistance AROM Equipment Used over 55cm tball- inPT Reps/Minutes 1x10 ea Comments cue for scap retract/set 1st then lift; reports no pain/ neck tired Sidelying Exercises ER Side right Resistance AROM> 1# DB>2# DB Equipment Used towel roll under arm Reps/Minutes 10 reps each Comments cued painfree range, reports post shld muscle tiring open book Side bilateral Resistance AROM Reps/Minutes 1x6 with brief hold Comments cue scapular setting, eyes follow hands; no pain abduction Side right Resistance AROM Equipment Used PT perform inf glide Reps/Minutes 1x10 Comments reports no neck or shldr pain with activity, no UT compensation; 140 deg fwd flexion Sidelying Exercise Name approx 120 deg FF Side right Resistance AROM Reps/Minutes 1x10 Comments pain-free range improves cue long axis ER into FF oH Standing Exercises AROM Standing Exercise Name trialed inPT: FF, ABD Side right Resistance AROM Reps/Minutes x10 each Comments Reports L UT, deltoid tension tiring last 3 reps Manual Therapy Treatment Soft Tissue Mobilization Periscapular Body Location UT, LS, rhomboids, RTC, Teres Min, DIstal lat, SA, Mobilization Type Rolling,Strumming,Sustained Pressure,Trigger Point Release Intensity/Depth Moderate Body Position Sidelying Comments R MWM humeral IR/ ER pec, prox bicep supine R periscap during MWM abd, FF, HABD, ER Joint Mobilizations R glenohumeral Direction Inf, post glides Grade II Body Position Supine Reps/Duration 2x30 Comments during FF R scapulothoracic Direction upwd/dwd rotation, elevation/ depression, pro/retraction, UR Grade II Body Position Sidelying Reps/Duration 1x10 Comments Good feedback manual, MWM abd, ff, habd, cued long axis ER decrease deltoid region strain more post scap tiring. PT-OP-T Assessment and Plan Start: 09/08/23 08:14 Freq: Status: Active Protocol: Document 10/06/23 13:03 SP (Rec: 10/06/23 13:49 SP [id number]) Physical Therapy Assessment Goals Six Impairment ROM Impairment R flex AROM 127 deg, R abd AROM 100 deg Short Term Goal (STG) Pt will improve R flex and abd AROM by at least 10 deg without compensation for improved reaching during ADLs. STG Duration 4 weeks [facility] Goal (LTG) Pt will improve R flex and abd AROM by at least 20 deg without compensation for improved reaching during ADLs. LTG Duration 8 weeks Five Impairment function Impairment Pt reports pain with sleeping [facility] Goal (LTG) Pt will report that he is able to sleep at least 60% of the night without waking due to R shoulder pain. LTG Duration 8 weeks Four Impairment ROM Impairment R apley scratch IR T12 Pattern Hand Goal (LTG) Pt will improve R shoulder apley scratch test IR to at least T8 in order to demonstrate improved ability to reach backward during dressing and grooming. LTG Duration 8 weeks Three Impairment strength Short Term Goal (STG) Pt will improve R shoulder abd /ER/IR strength to at least 4/ 5 within available ROM in order to demonstrate improved strength required for lifting objects. Pattern Hand Goal (LTG) Pt will improve R shoulder abd /ER/IR strength to at least 4+ /5 within available ROM in order to demonstrate improved strength required for lifting objects. LTG Duration 8 weeks Two Impairment ROM Impairment R apley scratch ER C7 [facility] Goal (LTG) Pt will improve R apley scratch test ER to at least T3 in order to demonstrate improved ability to reach and for dressing. LTG Duration 8 weeks One Impairment function Impairment Quickdash 22 or 25% [facility] Goal (LTG) Pt will decrease quickdash score by at least 11.2% (1MCD) in order to demonstrate improved activity tolerance. LTG Duration 8 weeks Assessment Summary Assessment Pt good feedback response to manual MWM decreased tensoin over anterior R shld. Improved scapualar and R GH ROM post manual and initated over noodle this tx, cues for slow AROM. It doesn't hurt, shoudler is back little more. Tactile cues as needed for no UT recruitment during ther ex . Physical Therapy Plan Frequency and Duration Frequency of Treatment 2x/Week Duration of treatment (weeks) 8 Plan of Care Start Date 09/08/23 Plan of Care End Date 11/04/23 Therapeutic Interventions Therapeutic Interventions Balance Training,Coordination Training,Gait Training,Home Exercise Program,Joint Mobilizations,Manual Therapy, Neuromuscular Re-education, Orthotic/Prosthetic Management ,Patient/Caregiver Education, Self-Care/Home Management, Sensory Integration,Soft Tissue Mobilization,Taping, Therapeutic Activities, Therapeutic Exercises Modalities Biofeedback,Cold Pack/Ice Massage,Electric Stimulation, Hot Packs,Infrared Therapy, Traction- Mechanical, Ultrasound,Vasopneumatic Devices Next Visit Focus/Plan Next Note Type Treatment Note Next Visit Plan check AROM over noodle. Assess response added TB standing. POC: Progress prone periscapular strengthening as tolerated; sidelying flex/abd/ ER; Trial AAROM flex/abd with dowel supine vs standing, eccentric abd/add and eccentric flex/ext for ROM Manual: CS STM, scapthoracic, MWM, GHJ negar abd/flex
--- NOTE | 2023-10-10 16:32 | PT.OTN ---
Current Diagnoses Other chronic pain (10/10/23) Pain in right shoulder (10/10/23) Physical Therapy Treatment Note PT-OP-A Visit Information Start: 09/08/23 08:14 Freq: Status: Active Protocol: Document 10/10/23 09:56 NM (Rec: 10/10/23 10:31 NM [id number]) Out-Patient Physical Therapy Visit Information Visit Information Visit Type Progress Note Visit Start Time 09:52 Visit Stop Time 10:30 Visit Number 7 Evaluation Information Evaluation Date 09/08/23 PT-OP-B Current Condition Start: 09/08/23 08:14 Freq: Status: Active Protocol: Document 09/08/23 08:15 NM (Rec: 09/08/23 09:05 NM [id number]) Current Condition History of Current Condition Onset Date several years History of Current Condition Pt presents with R shoulder pain. He reports that he has difficulty with sleeping on R shoulder, unable to sleep on it. He reports no known SOCO. He reports tingling at the R neck near upper trapezius, resulting in sore muscles. No numbness/tingling to fingers. Pain feels like it is deep inside the joint. No imaging has been performed. Pt reports that he has difficulty with lifting (about a gallon of milk) and reaching to the side (abd/ER) is painful. No difficulty with dressing of ADLs. No falls but reports that he thinks his balance is worse which he attributes to his sinus. No hx of shoulder injuries, no surgeries. No joint catching or clicking. 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 Pain is worse in morning. 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 Current Functional Impairments (Reported) Functional Limitations- Recreation/ Reports difficulty with Hobbies holding a hammer PT-OP-C Subjective Start: 09/08/23 08:14 Freq: Status: Active Protocol: Document 10/10/23 09:56 NM (Rec: 10/10/23 10:31 NM [id number]) OP-PT Subjective Patient Comments Patient Comments Pt 11/05 R shoulder pain, still a little neck tightness. He states he feels improvement after ea session. Reports improvement with stretching. He believes that his R shoulder pain has improved since beginning PT. States that not only are his pain levels improving, but he was able to sleep on his R side last night without waking up and states that he has slept better without waking up due to pain PT-OP-E Functional Tests Start: 09/08/23 08:14 Freq: Status: Active Protocol: Document 09/08/23 08:15 NM (Rec: 09/08/23 09:05 NM [id number]) Functional Tests Apley's Scratch Test Action 1- Left posterior scapula Action 1- Right L clavicle, painful Action 2- Left T4 Action 2- Right C7, painful Action 3- Left T7 Action 3- Right T12, painful PT-OP-F Manual Assessment Start: 09/08/23 08:14 Freq: Status: Active Protocol: Document 09/08/23 08:15 NM (Rec: 09/08/23 09:05 NM [id number]) Manual Assessments Soft Tissue Assessment Soft Tissue Mobility Assessment Soft tissue restrictions of cervical spine paraspinals, especially R upper trapezius and levator scapula. Tenderness to palpation along superlateral humerus near rotator cuff muscle insertion. Pt has a lump on his posterior neck (he reports has been there for years and he gets tests on them every year) Joint Mobility Assessment Joint Mobility Assessment R shoulder AROM more limited in standing and supine. R shoulder AROM more limited than PROM, with nearly full PROM for ER. PROM is still limited for R flex and abd. No clicking or popping of joint with PROM. PT-OP-H Neuro Start: 09/08/23 08:14 Freq: Status: Active Protocol: Document 09/08/23 08:15 NM (Rec: 09/08/23 09:05 NM [id number]) Sensation Evaluation Gross Sensation Gross Sensation WNL Comments Summary Comments BUE dermatomes intact to light touch sensation PT-OP-J Posture/Palpation/Skin Start: 09/08/23 08:14 Freq: Status: Active Protocol: Document 09/08/23 08:15 NM (Rec: 09/08/23 12:13 NM [id number]) Posture Evaluation Position Standing Evaluation View Lateral Head/C-Spine Posture Forward Head T-Spine Posture Increased Kyphosis Shoulder Posture (L) Rounded,(R) Rounded,(L) Elevated Scapula Posture (L) Protracted,(R) Protracted, (L) Elevated,(R) Depressed Arm Posture (L) Internally Rotated,(R) Internally Rotated Pelvis Posture Anteriorly Tilted Weight Distribution Balanced Palpation Assessment Location R shoulder Palpation Location lateral shoulder, AC joint, clavicle, rotator cuff, trapezius Palpation Findings Tenderness Palpation Details Tenderness at lateral R shoulder near rotator cuff insertions and R upper trapezius. No tenderness at LH biceps tendon, AC joint, clavicle. PT-OP-K Range of Motion Start: 09/08/23 08:14 Freq: Status: Active Protocol: Document 10/10/23 09:56 NM (Rec: 10/10/23 10:31 NM [id number]) Shoulder Goniometric Range of Motion Shoulder R PROM Testing Position Supine Flexion 140 Abduction 135 External Rotation at 90 degrees 80 Abduction External Rotation at 45 degrees 80 Abduction External Rotation at 0 degrees Abduction 70 R AROM Flexion 127 Extension 60 Abduction 100 External Rotation at 0 degrees Abduction 30 Internal Rotation 65 Internal Rotation Behind Back (text) T12 Comments pain with flex (end range), ext, abd, ER (worse, tingle in upper trap), IR at end range 10/10/23: flexion 127 deg (no change), abd 125 deg ( improvement) before painful PT-OP-L Special Tests Start: 09/08/23 08:14 Freq: Status: Active Protocol: Document 09/08/23 08:15 NM (Rec: 09/08/23 09:05 NM [id number]) Special Tests Cervical Spine Special Tests Spurling's Test Test Results negative Shoulder Special Tests IR/Horizontal ADD Impingement Test Results positive Lift-Off Rotator Cuff Test Results painful but able to lift off completely Isaacs Jovani Impingement Test Results positive Neer Impingement Test Results positive [place] Test Test Results positive Comments reports worse pain with IR than ER Yergason's Biceps Test Results negative Empty Can Test Results positive Comments reports worse pain with IR than ER External Rotation Lag Sign Test Results negative Elevation Impingement Test Results positive Drop Arm Rotator Cuff Test Results negative Clunk Test Test Results negative Biceps Load II Test Test Results negative AC Joint Compression Test Results negative PT-OP-M Strength Start: 09/08/23 08:14 Freq: Status: Active Protocol: Document 10/10/23 09:56 NM (Rec: 10/10/23 10:31 NM [id number]) Shoulder Strength Shoulder Manual Muscle Testing Right Flexion 4+ Good+ Extension 4 Good Abduction (C5) 4- Good- Adduction 5 Normal External Rotation 4- Good- Internal Rotation 4 Good Horizontal Abduction 4 Good Horizontal Adduction 4 Good Comments Pain with ER and abduction 10/10/23: 4/5 for ER/IR, 4-/5 abd MMT; no pain reported PT-OP-Q Treatments Start: 09/08/23 08:14 Freq: Status: Active Protocol: Document 10/10/23 09:56 NM (Rec: 10/10/23 10:31 NM [id number]) Therapeutic Exercises Supine Exercises over noodle Supine Exercise Name cont next session Prone Exercises I, Y, W, T Prone Exercise Name cont next session Sidelying Exercises ER Side right Resistance AROM>2# DB Equipment Used towel roll under arm Reps/Minutes 1x10 ea Comments reports neck pain with ER toward end range abduction Side right Resistance AROM Equipment Used PT perform inf glide Reps/Minutes 1x10 Comments reports min neck pain toward end range; 120 deg Sitting Exercises Cervical spine stretches Sitting Exercise Name UT, LS (reviewed HEP) Side bilateral Equipment Used hand stabilizing opp eloise Reps/Minutes 2x30 ea Comments correction to UT form to sidebending vs rotation Scapular retraction Sitting Exercise Name with chin tuck Side bilateral Resistance AROM Reps/Minutes 1x5 Comments no pain; difficulty with coordinating chin tuck Standing Exercises wall posture Standing Exercise Name standing with shldrs and head against wall Side bilateral Resistance performing small chin tuck, with slight scap retraction Equipment Used wall for form, BLE slightly out to prevent low back strain Reps/Minutes 1x10 with 1 sec hold for chin tuck Comments cued for form, B shldr relaxation to prevent UT activation rows Standing Exercise Name trialed: scapular rows, mid row Side bilateral Resistance [place] green tb lvl 3 Reps/Minutes 1x10 ea Comments cued scap retraction, shldr relaxation AROM Standing Exercise Name cont next session RTC TB Standing Exercise Name 1. ext 2. IR 3. ER Side bilateral Resistance [place] green Equipment Used 2-3.towel roll under arm; cued for form, decreased UT activation Reps/Minutes 2x10 ea Comments cued elongated head/ retract neutral, painfree range, scap set rhomboid& LT self mobilization Standing Exercise Name re-educated on use at home Manual Therapy Treatment Soft Tissue Mobilization cervical spine Body Location R paraspinals Mobilization Type Rolling Intensity/Depth Superficial Body Position Supine Comments Rolling of R paraspinals to decrease R neck tightness. Added passive stretching into cervical side bend and rotation Periscapular Body Location UT, LS, rhomboids, RTC Mobilization Type Rolling,Strumming Intensity/Depth Moderate Body Position Sidelying Comments R rolling and strumming for pain relief, no MWM Joint Mobilizations R glenohumeral Direction Inf, post glides Grade III Body Position Supine Reps/Duration 4x30 ea Comments Full passive ER. Limited flexion, 127 deg prior to glides, only 130 deg flex after due to pain. 125 deg abd prior to mob, 140 deg abd after mobilization. Limited by pain with elevation Self-Care/Home Management Treatment Education Patient Education Home Exercise Program Other Education HEP: rows added. Instructed to continue with cervical spine stretches at home as pt reports most help with those. Educated on trialing heat with soft tissue mobilization for further muscle relaxation. PT-OP-T Assessment and Plan Start: 09/08/23 08:14 Freq: Status: Active Protocol: Document 10/10/23 09:56 NM (Rec: 10/10/23 10:31 NM [id number]) Physical Therapy Assessment Goals Six Impairment ROM Impairment R flex AROM 127 deg, R abd AROM 100 deg Short Term Goal (STG) Pt will improve R flex and abd AROM by at least 10 deg without compensation for improved reaching during ADLs. 10/10/23: 127 deg flex, 125 deg abd (pain at end range, 3/4) STG Duration 4 weeks PARTIALLY MET Tap Grinder Goal (LTG) Pt will improve R flex and abd AROM by at least 20 deg without compensation for improved reaching during ADLs. LTG Duration 8 weeks Five Impairment function Impairment Pt reports pain with sleeping Tap Grinder Goal (LTG) Pt will report that he is able to sleep at least 60% of the night without waking due to R shoulder pain. 10/10/23: Reports able to sleep throughout last night without waking due to R shoulder pain LTG Duration 8 weeks MET Four Impairment ROM Impairment R apley scratch IR T12 [facility] Goal (LTG) Pt will improve R shoulder apley scratch test IR to at least T8 in order to demonstrate improved ability to reach backward during dressing and grooming. 10/10/23: T10, painful LTG Duration 8 weeks MET, PROGRESSING Three Impairment strength Short Term Goal (STG) Pt will improve R shoulder abd /ER/IR strength to at least 4/ 5 within available ROM in order to demonstrate improved strength required for lifting objects. 10/10/23: 4/5 IR/ER, 4-/5 abd STG Duration 4 weeks, PARTIALLY MET, PROGRESSING Tap Grinder Goal (LTG) Pt will improve R shoulder abd /ER/IR strength to at least 4+ /5 within available ROM in order to demonstrate improved strength required for lifting objects. LTG Duration 8 weeks Two Impairment ROM Impairment R apley scratch ER C7 [facility] Goal (LTG) Pt will improve R apley scratch test ER to at least T3 in order to demonstrate improved ability to reach and for dressing. 10/10/23: T3, reports 4/10 pain LTG Duration 8 weeks MET, PROGRESSING One Impairment function Impairment Quickdash 22 or 25% Tap Grinder Goal (LTG) Pt will decrease quickdash score by at least 11.2% (1MCD) in order to demonstrate improved activity tolerance. 10/10/23: 19, 18.18% LTG Duration 8 weeks Progress Towards Goals Progress Towards Goals Progressing Toward Goals,Goals Met Progress Comments Met sleep goal. Progressing toward AROM and strength goals Assessment Summary Assessment Pt took his 's appt time, so there was a mix up in session attendance therefore decreased session time. He tolerated activity well but reports increased neck pain with any overhead arm elevation. Neck pain improved after stretching; will perform at beginning of future sessions. Currently, pt shoulder flexion AROM is 127 deg (same as IE) but R shoulder abduction has improved to 120 deg before painful. He has tendency to overactivate B upper trapezius and demonstrates forward head posture which limits his ability to reach overhead. Initiated wall posture to address pt fwd head, improve posterior capsule length and decrease strain on shoulders. Pt improving with tolerance and strength. Initiated rows with cues for scapular retraction and shoulder depression for both postural re-education and periscapular strengthening; added to HEP. Continued with rotator cuff and other periscapular strengthening exercises. Progressed to grade III R shoulder mobilizations to improve pt ROM. Flexion limited even after posterior glide. Up to 140 deg abd after mobilization, only 130 deg flex due to pain. Pt has been seen x6 treatment session since IE in August 2023. He reports more consistent reduction in pain since IE, (3/10) now. Pt also reports that he can sleep more consistently without waking due to pain. Pt is progressing toward goals. He contineues to be limited in R flexion, abduction, and internal rotation. Pt is now 4- for abd and 4/5 ER/IR MMT for shoulder strength; however, he would benefit from further rotator cuff and periscapular strengthening, in addition to scapular control exercises. He also reports improvements in activity tolerance per quickdash score, but pt continues to be limited in ability to participate without pain in ADLs and IADLs. Pt would benefit from skilled PT for R shoulder mobility, rotator cuff and periscapular strengthening within pain free ROM, and to decrease pain symptoms for improved activity tolerance and QOL. Physical Therapy Plan Frequency and Duration Frequency of Treatment 2x/Week Duration of treatment (weeks) 8 Plan of Care Start Date 09/08/23 Plan of Care End Date 11/04/23 Therapeutic Interventions Therapeutic Interventions Balance Training,Coordination Training,Gait Training,Home Exercise Program,Joint Mobilizations,Manual Therapy, Neuromuscular Re-education, Orthotic/Prosthetic Management ,Patient/Caregiver Education, Self-Care/Home Management, Sensory Integration,Soft Tissue Mobilization,Taping, Therapeutic Activities, Therapeutic Exercises Modalities Biofeedback,Cold Pack/Ice Massage,Electric Stimulation, Hot Packs,Infrared Therapy, Traction- Mechanical, Ultrasound,Vasopneumatic Devices Next Visit Focus/Plan Next Note Type Treatment Note Next Visit Plan Perform CS stretching first. check AROM over noodle. Assess response added TB standing. Trial over head flexion/flex AAROM or stretch; IR stretch POC: Progress prone periscapular strengthening as tolerated; sidelying flex/abd/ ER; Trial AAROM flex/abd with dowel supine vs standing, eccentric abd/add and eccentric flex/ext for ROM Manual: CS STM, scapthoracic, MWM, GHJ negar abd/flex
--- NOTE | 2023-10-19 16:27 | PT.OTN ---
Current Diagnoses Other chronic pain (10/19/23) Pain in right shoulder (10/19/23) Physical Therapy Treatment Note PT-OP-A Visit Information Start: 09/08/23 08:14 Freq: Status: Active Protocol: Document 10/19/23 13:55 NM (Rec: 10/19/23 14:30 NM [id number]) Out-Patient Physical Therapy Visit Information Visit Information Visit Type Treatment Note Visit Note pt late Visit Start Time 13:55 Visit Stop Time 14:30 Visit Number 8 Evaluation Information Evaluation Date 09/08/23 PT-OP-B Current Condition Start: 09/08/23 08:14 Freq: Status: Active Protocol: Document 09/08/23 08:15 NM (Rec: 09/08/23 09:05 NM [id number]) Current Condition History of Current Condition Onset Date several years History of Current Condition Pt presents with R shoulder pain. He reports that he has difficulty with sleeping on R shoulder, unable to sleep on it. He reports no known SOCO. He reports tingling at the R neck near upper trapezius, resulting in sore muscles. No numbness/tingling to fingers. Pain feels like it is deep inside the joint. No imaging has been performed. Pt reports that he has difficulty with lifting (about a gallon of milk) and reaching to the side (abd/ER) is painful. No difficulty with dressing of ADLs. No falls but reports that he thinks his balance is worse which he attributes to his sinus. No hx of shoulder injuries, no surgeries. No joint catching or clicking. 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 Pain is worse in morning. Before retired, he worked in the [employer] and [employer]. Current Functional Impairments (Reported) Functional Limitations- Recreation/ Reports difficulty with Hobbies holding a hammer PT-OP-C Subjective Start: 09/08/23 08:14 Freq: Status: Active Protocol: Document 10/19/23 13:55 NM (Rec: 10/19/23 14:30 NM [id number]) OP-PT Subjective Patient Comments Patient Comments Pt reports 3/4 neck tightness, none in shoulder. States he has been stretching in the shower with the hot water, but not using heat or other STM. When he was sitting at a basketball game last night in bleachers, reports increased neck discomfort due to position. PT-OP-E Functional Tests Start: 09/08/23 08:14 Freq: Status: Active Protocol: Document 09/08/23 08:15 NM (Rec: 09/08/23 09:05 NM [id number]) Functional Tests Apley's Scratch Test Action 1- Left posterior scapula Action 1- Right L clavicle, painful Action 2- Left T4 Action 2- Right C7, painful Action 3- Left T7 Action 3- Right T12, painful PT-OP-F Manual Assessment Start: 09/08/23 08:14 Freq: Status: Active Protocol: Document 09/08/23 08:15 NM (Rec: 09/08/23 09:05 NM [id number]) Manual Assessments Soft Tissue Assessment Soft Tissue Mobility Assessment Soft tissue restrictions of cervical spine paraspinals, especially R upper trapezius and levator scapula. Tenderness to palpation along superlateral humerus near rotator cuff muscle insertion. Pt has a lump on his posterior neck (he reports has been there for years and he gets tests on them every year) Joint Mobility Assessment Joint Mobility Assessment R shoulder AROM more limited in standing and supine. R shoulder AROM more limited than PROM, with nearly full PROM for ER. PROM is still limited for R flex and abd. No clicking or popping of joint with PROM. PT-OP-H Neuro Start: 09/08/23 08:14 Freq: Status: Active Protocol: Document 09/08/23 08:15 NM (Rec: 09/08/23 09:05 NM [id number]) Sensation Evaluation Gross Sensation Gross Sensation WNL Comments Summary Comments BUE dermatomes intact to light touch sensation PT-OP-J Posture/Palpation/Skin Start: 09/08/23 08:14 Freq: Status: Active Protocol: Document 09/08/23 08:15 NM (Rec: 09/08/23 12:13 NM [id number]) Posture Evaluation Position Standing Evaluation View Lateral Head/C-Spine Posture Forward Head T-Spine Posture Increased Kyphosis Shoulder Posture (L) Rounded,(R) Rounded,(L) Elevated Scapula Posture (L) Protracted,(R) Protracted, (L) Elevated,(R) Depressed Arm Posture (L) Internally Rotated,(R) Internally Rotated Pelvis Posture Anteriorly Tilted Weight Distribution Balanced Palpation Assessment Location R shoulder Palpation Location lateral shoulder, AC joint, clavicle, rotator cuff, trapezius Palpation Findings Tenderness Palpation Details Tenderness at lateral R shoulder near rotator cuff insertions and R upper trapezius. No tenderness at LH biceps tendon, AC joint, clavicle. PT-OP-K Range of Motion Start: 09/08/23 08:14 Freq: Status: Active Protocol: Document 10/10/23 09:56 NM (Rec: 10/10/23 10:31 NM [id number]) Shoulder Goniometric Range of Motion Shoulder R PROM Testing Position Supine Flexion 140 Abduction 135 External Rotation at 90 degrees 80 Abduction External Rotation at 45 degrees 80 Abduction External Rotation at 0 degrees Abduction 70 R AROM Flexion 127 Extension 60 Abduction 100 External Rotation at 0 degrees Abduction 30 Internal Rotation 65 Internal Rotation Behind Back (text) T12 Comments pain with flex (end range), ext, abd, ER (worse, tingle in upper trap), IR at end range 10/10/23: flexion 127 deg (no change), abd 125 deg ( improvement) before painful PT-OP-L Special Tests Start: 09/08/23 08:14 Freq: Status: Active Protocol: Document 09/08/23 08:15 NM (Rec: 09/08/23 09:05 NM [id number]) Special Tests Cervical Spine Special Tests Spurling's Test Test Results negative Shoulder Special Tests IR/Horizontal ADD Impingement Test Results positive Lift-Off Rotator Cuff Test Results painful but able to lift off completely Isaacs Jovani Impingement Test Results positive Neer Impingement Test Results positive Brazos Test Test Results positive Comments reports worse pain with IR than ER Yergason's Biceps Test Results negative Empty Can Test Results positive Comments reports worse pain with IR than ER External Rotation Lag Sign Test Results negative Elevation Impingement Test Results positive Drop Arm Rotator Cuff Test Results negative Clunk Test Test Results negative Biceps Load II Test Test Results negative AC Joint Compression Test Results negative PT-OP-M Strength Start: 09/08/23 08:14 Freq: Status: Active Protocol: Document 10/10/23 09:56 NM (Rec: 10/10/23 10:31 NM [id number]) Shoulder Strength Shoulder Manual Muscle Testing Right Flexion 4+ Good+ Extension 4 Good Abduction (C5) 4- Good- Adduction 5 Normal External Rotation 4- Good- Internal Rotation 4 Good Horizontal Abduction 4 Good Horizontal Adduction 4 Good Comments Pain with ER and abduction 10/10/23: 4/5 for ER/IR, 4-/5 abd MMT; no pain reported PT-OP-Q Treatments Start: 09/08/23 08:14 Freq: Status: Active Protocol: Document 10/19/23 13:55 NM (Rec: 10/19/23 14:30 NM [id number]) Therapeutic Exercises Prone Exercises I, Y, W, T Prone Exercise Name T with thumb up Side bilateral Resistance AROM Equipment Used over 55 cm tball Reps/Minutes 2x10 Comments cued for scap retraction, thumb up in ER Sitting Exercises Cervical spine stretches Sitting Exercise Name UT, LS- beginning of session for improved STM Side bilateral Equipment Used hand stabilizing opp eloise Reps/Minutes 2x30 ea Comments correction to UT form to sidebending vs rotation Standing Exercises Y lift off Standing Exercise Name trialed: lower trap activation Side bilateral Resistance AROM Equipment Used towel against wall for head Reps/Minutes 2x10 Comments cued for Y, execution; no pain with movement wall posture Standing Exercise Name standing with shldrs and head against wall Side bilateral Resistance performing small chin tuck, with slight scap retraction Equipment Used wall for form, BLE slightly out to prevent low back strain Reps/Minutes 1 min with 2x10 B shldr ER Comments cued B shldr relaxation to prevent UT activation rows Standing Exercise Name next session RTC TB Standing Exercise Name 1. IR, 2. ER, 3. ext Side bilateral Resistance lvl 3 [place] green for ER/IR, lvl 4 blue for ext Equipment Used towel roll under arm Reps/Minutes 3x10 ea Comments cued elongated posture, no trunk rot; reports working but no pain self mobilization Standing Exercise Name UT, LS, rhomboids Side bilateral Equipment Used theracane Reps/Minutes 2 minutes Comments due to time Other Exercises thoracic extension Other Exercise Name over hungarian ball with lat stretch Side bilateral Equipment Used large green hungarian ball Reps/Minutes 1x20 with brief 1-2 into end range ext Comments cued for correct form, PT tactile cue at trunk for end range ext PT-OP-T Assessment and Plan Start: 09/08/23 08:14 Freq: Status: Active Protocol: Document 10/19/23 13:55 NM (Rec: 10/19/23 14:30 NM [id number]) Physical Therapy Assessment Goals Six Impairment ROM Impairment R flex AROM 127 deg, R abd AROM 100 deg Short Term Goal (STG) Pt will improve R flex and abd AROM by at least 10 deg without compensation for improved reaching during ADLs. 10/19/23: 145 deg flex, 150 deg abd 10/10/23: 127 deg flex, 125 deg abd (pain at end range, 3/4) STG Duration 4 weeks MET Tin Pourer Goal (LTG) Pt will improve R flex and abd AROM by at least 20 deg without compensation for improved reaching during ADLs. 10/19/23: 145 deg flex, 150 deg abd LTG Duration 8 weeks Five Impairment function Impairment Pt reports pain with sleeping Tin Pourer Goal (LTG) Pt will report that he is able to sleep at least 60% of the night without waking due to R shoulder pain. 10/10/23: Reports able to sleep throughout last night without waking due to R shoulder pain LTG Duration 8 weeks MET Four Impairment ROM Impairment R apley scratch IR T12 Long-Term Goal (LTG) Pt will improve R shoulder apley scratch test IR to at least T8 in order to demonstrate improved ability to reach backward during dressing and grooming. 10/10/23: T10, painful LTG Duration 8 weeks MET, PROGRESSING Three Impairment strength Short Term Goal (STG) Pt will improve R shoulder abd /ER/IR strength to at least 4/ 5 within available ROM in order to demonstrate improved strength required for lifting objects. 10/10/23: 4/5 IR/ER, 4-/5 abd STG Duration 4 weeks, PARTIALLY MET, PROGRESSING Tin Pourer Goal (LTG) Pt will improve R shoulder abd /ER/IR strength to at least 4+ /5 within available ROM in order to demonstrate improved strength required for lifting objects. LTG Duration 8 weeks Two Impairment ROM Impairment R apley scratch ER C7 Tin Pourer Goal (LTG) Pt will improve R apley scratch test ER to at least T3 in order to demonstrate improved ability to reach and for dressing. 10/10/23: T3, reports 4/10 pain LTG Duration 8 weeks MET, PROGRESSING One Impairment function Impairment Quickdash 22 or 25% Tin Pourer Goal (LTG) Pt will decrease quickdash score by at least 11.2% (1MCD) in order to demonstrate improved activity tolerance. 10/10/23: 19, 18.18% LTG Duration 8 weeks Assessment Summary Assessment Pt late to appt so decreased time. Initiated treatment with cervical spine stretches to improve soft tissue extensibility prior to exercise. Pt demos improved tolerance for exercise after stretching. Continued with periscapular strengthening, particularly middle and lower trap strengthening to minimize upper trap overactivation and decrease neck pain. Progressed to standing Y lift off for lower trapezius, but continued with prone T for middle trap due to discomfort at R shoulder with standing middle trap activation. PT cueing pt for correct execution with tactile cues to limit upper trapezius involvement and for B shoulder relaxation. Pt with 145 deg R shoulder flex AROM, 150 deg abd today; pt limited by pain and bony end feel, but demos improved AROM since IE. PT educated pt on performing HEP outside of PT to maximize gains made during session, encouraged use of heat and soft tissue mobilization at home for further pain relief. Pt would benefit from skilled PT to address R shoulder rotator cuff and periscapular strengthening, in addition to R shoulder and cervical spine mobility in order to decrease pain symptoms and improve activity tolerance. Physical Therapy Plan Frequency and Duration Frequency of Treatment 2x/Week Duration of treatment (weeks) 8 Plan of Care Start Date 09/08/23 Plan of Care End Date 11/04/23 Therapeutic Interventions Therapeutic Interventions Balance Training,Coordination Training,Gait Training,Home Exercise Program,Joint Mobilizations,Manual Therapy, Neuromuscular Re-education, Orthotic/Prosthetic Management ,Patient/Caregiver Education, Self-Care/Home Management, Sensory Integration,Soft Tissue Mobilization,Taping, Therapeutic Activities, Therapeutic Exercises Modalities Biofeedback,Cold Pack/Ice Massage,Electric Stimulation, Hot Packs,Infrared Therapy, Traction- Mechanical, Ultrasound,Vasopneumatic Devices Next Visit Focus/Plan Next Note Type Treatment Note Next Visit Plan Perform CS stretching first, cont LT/MT strength, rows, serratus. check AROM over noodle. Assess response added TB standing, ER. Trial over head flexion/flex AAROM or stretch; IR stretch (sleeper) POC: Progress prone periscapular strengthening as tolerated; sidelying flex/abd/ ER; Trial AAROM flex/abd with dowel supine vs standing, eccentric abd/add and eccentric flex/ext for ROM Manual: CS STM, scapthoracic, MWM, GHJ negar abd/flex
--- NOTE | 2023-10-21 16:38 | PT.OTN ---
Current Diagnoses Other chronic pain (10/21/23) Pain in right shoulder (10/21/23) Physical Therapy Treatment Note PT-OP-A Visit Information Start: 09/08/23 08:14 Freq: Status: Active Protocol: Document 10/21/23 13:47 NM (Rec: 10/21/23 14:33 NM [id number]) Out-Patient Physical Therapy Visit Information Visit Information Visit Type Treatment Note Visit Start Time 13:47 Visit Stop Time 14:30 Visit Number 9 Evaluation Information Evaluation Date 09/08/23 PT-OP-B Current Condition Start: 09/08/23 08:14 Freq: Status: Active Protocol: Document 09/08/23 08:15 NM (Rec: 09/08/23 09:05 NM [id number]) Current Condition History of Current Condition Onset Date several years History of Current Condition Pt presents with R shoulder pain. He reports that he has difficulty with sleeping on R shoulder, unable to sleep on it. He reports no known SOCO. He reports tingling at the R neck near upper trapezius, resulting in sore muscles. No numbness/tingling to fingers. Pain feels like it is deep inside the joint. No imaging has been performed. Pt reports that he has difficulty with lifting (about a gallon of milk) and reaching to the side (abd/ER) is painful. No difficulty with dressing of ADLs. No falls but reports that he thinks his balance is worse which he attributes to his sinus. No hx of shoulder injuries, no surgeries. No joint catching or clicking. 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 Pain is worse in morning. 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 Current Functional Impairments (Reported) Functional Limitations- Recreation/ Reports difficulty with Hobbies holding a hammer PT-OP-C Subjective Start: 09/08/23 08:14 Freq: Status: Active Protocol: Document 10/21/23 13:47 NM (Rec: 10/21/23 14:33 NM [id number]) OP-PT Subjective Patient Comments Patient Comments Pt reports 3/10 neck pain. Reports chaya is doing better, feels like he has more ROM compared to before. States shoulder is much better. He says he has difficulty remembering his HEP , so minimal compliance. Reports knot of R rhomboid. PT-OP-E Functional Tests Start: 09/08/23 08:14 Freq: Status: Active Protocol: Document 09/08/23 08:15 NM (Rec: 09/08/23 09:05 NM [id number]) Functional Tests Apley's Scratch Test Action 1- Left posterior scapula Action 1- Right L clavicle, painful Action 2- Left T4 Action 2- Right C7, painful Action 3- Left T7 Action 3- Right T12, painful PT-OP-F Manual Assessment Start: 09/08/23 08:14 Freq: Status: Active Protocol: Document 09/08/23 08:15 NM (Rec: 09/08/23 09:05 NM [id number]) Manual Assessments Soft Tissue Assessment Soft Tissue Mobility Assessment Soft tissue restrictions of cervical spine paraspinals, especially R upper trapezius and levator scapula. Tenderness to palpation along superlateral humerus near rotator cuff muscle insertion. Pt has a lump on his posterior neck (he reports has been there for years and he gets tests on them every year) Joint Mobility Assessment Joint Mobility Assessment R shoulder AROM more limited in standing and supine. R shoulder AROM more limited than PROM, with nearly full PROM for ER. PROM is still limited for R flex and abd. No clicking or popping of joint with PROM. PT-OP-H Neuro Start: 09/08/23 08:14 Freq: Status: Active Protocol: Document 09/08/23 08:15 NM (Rec: 09/08/23 09:05 NM [id number]) Sensation Evaluation Gross Sensation Gross Sensation WNL Comments Summary Comments BUE dermatomes intact to light touch sensation PT-OP-J Posture/Palpation/Skin Start: 09/08/23 08:14 Freq: Status: Active Protocol: Document 09/08/23 08:15 NM (Rec: 09/08/23 12:13 NM [id number]) Posture Evaluation Position Standing Evaluation View Lateral Head/C-Spine Posture Forward Head T-Spine Posture Increased Kyphosis Shoulder Posture (L) Rounded,(R) Rounded,(L) Elevated Scapula Posture (L) Protracted,(R) Protracted, (L) Elevated,(R) Depressed Arm Posture (L) Internally Rotated,(R) Internally Rotated Pelvis Posture Anteriorly Tilted Weight Distribution Balanced Palpation Assessment Location R shoulder Palpation Location lateral shoulder, AC joint, clavicle, rotator cuff, trapezius Palpation Findings Tenderness Palpation Details Tenderness at lateral R shoulder near rotator cuff insertions and R upper trapezius. No tenderness at LH biceps tendon, AC joint, clavicle. PT-OP-K Range of Motion Start: 09/08/23 08:14 Freq: Status: Active Protocol: Document 10/10/23 09:56 NM (Rec: 10/10/23 10:31 NM [id number]) Shoulder Goniometric Range of Motion Shoulder R PROM Testing Position Supine Flexion 140 Abduction 135 External Rotation at 90 degrees 80 Abduction External Rotation at 45 degrees 80 Abduction External Rotation at 0 degrees Abduction 70 R AROM Flexion 127 Extension 60 Abduction 100 External Rotation at 0 degrees Abduction 30 Internal Rotation 65 Internal Rotation Behind Back (text) T12 Comments pain with flex (end range), ext, abd, ER (worse, tingle in upper trap), IR at end range 10/10/23: flexion 127 deg (no change), abd 125 deg ( improvement) before painful PT-OP-L Special Tests Start: 09/08/23 08:14 Freq: Status: Active Protocol: Document 09/08/23 08:15 NM (Rec: 09/08/23 09:05 NM [id number]) Special Tests Cervical Spine Special Tests Spurling's Test Test Results negative Shoulder Special Tests IR/Horizontal ADD Impingement Test Results positive Lift-Off Rotator Cuff Test Results painful but able to lift off completely Isaacs Jovani Impingement Test Results positive Neer Impingement Test Results positive Pe Ell Test Test Results positive Comments reports worse pain with IR than ER Yergason's Biceps Test Results negative Empty Can Test Results positive Comments reports worse pain with IR than ER External Rotation Lag Sign Test Results negative Elevation Impingement Test Results positive Drop Arm Rotator Cuff Test Results negative Clunk Test Test Results negative Biceps Load II Test Test Results negative AC Joint Compression Test Results negative PT-OP-M Strength Start: 09/08/23 08:14 Freq: Status: Active Protocol: Document 10/10/23 09:56 NM (Rec: 10/10/23 10:31 NM [id number]) Shoulder Strength Shoulder Manual Muscle Testing Right Flexion 4+ Good+ Extension 4 Good Abduction (C5) 4- Good- Adduction 5 Normal External Rotation 4- Good- Internal Rotation 4 Good Horizontal Abduction 4 Good Horizontal Adduction 4 Good Comments Pain with ER and abduction 10/10/23: 4/5 for ER/IR, 4-/5 abd MMT; no pain reported PT-OP-Q Treatments Start: 09/08/23 08:14 Freq: Status: Active Protocol: Document 10/21/23 13:47 NM (Rec: 10/21/23 14:33 NM [id number]) Therapeutic Exercises Sidelying Exercises abduction Sidelying Exercise Name following mobilization Side right Resistance AROM Reps/Minutes 1x10 Comments 150 deg, no pain reported Sitting Exercises shldr inferior glide Sitting Exercise Name added to HEP to use as needed Side right Equipment Used L assisting R Reps/Minutes 1x10 Comments cued for execution, pt then performing Cervical spine stretches Sitting Exercise Name UT, LS- beginning of session for improved STM Side bilateral Equipment Used hand stabilizing opp eloise Reps/Minutes 2x30 ea Comments correction to UT form to sidebending vs rotation Standing Exercises scapular protraction Standing Exercise Name ~push up plus on forearms at wall Side bilateral Resistance AROM Reps/Minutes 2x10 with brief hold Comments PT facilitating protract initially shoulder IR stretch Standing Exercise Name with extension Side right Equipment Used using dowel, L hand assist with ext then IR stretch Reps/Minutes 10x 5 Comments reports no pain Y lift off Standing Exercise Name lower trap activation Side bilateral Resistance AROM Equipment Used towel against wall for head Reps/Minutes 2x12 Comments cued for Y, execution; no pain with movement wall posture Standing Exercise Name standing with shldrs and head against wall Side bilateral Resistance performing small chin tuck, with slight scap retraction Equipment Used wall for form, BLE slightly out to prevent low back strain Reps/Minutes 1 min with 2x10 B shldr ER Comments cued B shldr relaxation to prevent UT activation RTC TB Standing Exercise Name 1. W at 45 deg, 2. B ER with shldr flex Side bilateral Resistance 1. lvl 2 teal tb, 2. lvl 1 tb Reps/Minutes 1. 2x10, 2. 1x10 then 1x5 fatiguing Comments cued elongated posture, reports no pain self mobilization Standing Exercise Name rhomboids Side right Equipment Used theracane Reps/Minutes 1 minute Comments after CS stretching Manual Therapy Treatment Soft Tissue Mobilization cervical spine Body Location R paraspinals, UT Mobilization Type Rolling,Strumming Intensity/Depth Moderate Body Position Supine Comments Rolling and strumming of paraspinals for pain reduction , soft tissue relaxation Periscapular Body Location UT, LS, rhomboids, RTC Mobilization Type Rolling,Strumming Intensity/Depth Moderate Body Position Sidelying Comments R rolling and strumming for pain relief. Increased restriction and tenderness at R teres, rhomboid, UT Mob with movement into scap retract/protract, arm abd/add Joint Mobilizations R glenohumeral Direction Inf, post glides Grade III Body Position Supine Reps/Duration 6x30 ea Comments For improved abd and ER/IR. Monitored for pain, tolerates well. Improved AROM post mobilization, 90 deg abd > 165 deg abd post mobilization R scapulothoracic Direction upwd/dwd rotation, elevation/ depression, pro/retraction, UR Grade II Body Position Sidelying Reps/Duration 1x10 Comments Post STM, using MWM during sidelying ABD PT-OP-T Assessment and Plan Start: 09/08/23 08:14 Freq: Status: Active Protocol: Document 10/21/23 13:47 NM (Rec: 10/21/23 14:33 NM [id number]) Physical Therapy Assessment Goals Six Impairment ROM Impairment R flex AROM 127 deg, R abd AROM 100 deg Short Term Goal (STG) Pt will improve R flex and abd AROM by at least 10 deg without compensation for improved reaching during ADLs. 10/19/23: 145 deg flex, 150 deg abd 10/10/23: 127 deg flex, 125 deg abd (pain at end range, 3/4) STG Duration 4 weeks MET Nursing Home Goal (LTG) Pt will improve R flex and abd AROM by at least 20 deg without compensation for improved reaching during ADLs. 10/19/23: 145 deg flex, 150 deg abd LTG Duration 8 weeks MET Five Impairment function Impairment Pt reports pain with sleeping Rn Surgery Goal (LTG) Pt will report that he is able to sleep at least 60% of the night without waking due to R shoulder pain. 10/10/23: Reports able to sleep throughout last night without waking due to R shoulder pain LTG Duration 8 weeks MET Four Impairment ROM Impairment R apley scratch IR T12 Nursing Home Goal (LTG) Pt will improve R shoulder apley scratch test IR to at least T8 in order to demonstrate improved ability to reach backward during dressing and grooming. 10/10/23: T10, painful LTG Duration 8 weeks MET, PROGRESSING Three Impairment strength Short Term Goal (STG) Pt will improve R shoulder abd /ER/IR strength to at least 4/ 5 within available ROM in order to demonstrate improved strength required for lifting objects. 10/10/23: 4/5 IR/ER, 4-/5 abd STG Duration 4 weeks, PARTIALLY MET, PROGRESSING Rn Surgery Goal (LTG) Pt will improve R shoulder abd /ER/IR strength to at least 4+ /5 within available ROM in order to demonstrate improved strength required for lifting objects. LTG Duration 8 weeks Two Impairment ROM Impairment R apley scratch ER C7 Rn Surgery Goal (LTG) Pt will improve R apley scratch test ER to at least T3 in order to demonstrate improved ability to reach and for dressing. 10/10/23: T3, reports 4/10 pain LTG Duration 8 weeks MET, PROGRESSING One Impairment function Impairment Quickdash 22 or 25% Nursing Home Goal (LTG) Pt will decrease quickdash score by at least 11.2% (1MCD) in order to demonstrate improved activity tolerance. 10/10/23: 19, 18.18% LTG Duration 8 weeks Assessment Summary Assessment Pt tolerated session well. Continued with periscapular strengthening to address middle and lower trapezius activation with Y liftoff. Manual treatment to improve pt R shoulder abduction and external rotation. Pt increased R shoulder abduction from 90 deg to 165 deg post mobilization and inferior glide self mobilization. Added self inferior glide to HEP in addition to bilateral shoudler external rotation. Initiated rotator cuff strengthening with W at 45 deg abd and with shoulder flexion ; pt challenged with activity but without pain. Will continue to address rotator cuff and periscapular strengthening in next session. Overall, pt improving with pain levels and activity tolerance; however, minimal compliance with HEP despite education. Pt would benefit from skilled PT for progressive R shoulder mobilization, rotator cuff and periscapular strengthening in order to decrease pain symptoms and improve activity tolerance for return to PLOF. Physical Therapy Plan Frequency and Duration Frequency of Treatment 2x/Week Duration of treatment (weeks) 8 Plan of Care Start Date 09/08/23 Plan of Care End Date 11/04/23 Therapeutic Interventions Therapeutic Interventions Balance Training,Coordination Training,Gait Training,Home Exercise Program,Joint Mobilizations,Manual Therapy, Neuromuscular Re-education, Orthotic/Prosthetic Management ,Patient/Caregiver Education, Self-Care/Home Management, Sensory Integration,Soft Tissue Mobilization,Taping, Therapeutic Activities, Therapeutic Exercises Modalities Biofeedback,Cold Pack/Ice Massage,Electric Stimulation, Hot Packs,Infrared Therapy, Traction- Mechanical, Ultrasound,Vasopneumatic Devices Next Visit Focus/Plan Next Note Type Treatment Note Next Visit Plan Perform CS stretching first, cont LT/MT strength, rows, serratus. check AROM over noodle. Assess response added TB standing, ER. Trial over head flexion/flex AAROM or stretch; IR stretch (sleeper) POC: Progress prone periscapular strengthening as tolerated; sidelying flex/abd/ ER; Trial AAROM flex/abd with dowel supine vs standing, eccentric abd/add and eccentric flex/ext for ROM Manual: CS STM, scapthoracic, MWM, GHJ negar abd/flex
--- NOTE | 2023-10-24 15:14 | PT.OTN ---
Current Diagnoses Other chronic pain (10/24/23) Pain in right shoulder (10/24/23) Physical Therapy Treatment Note PT-OP-A Visit Information Start: 09/08/23 08:14 Freq: Status: Active Protocol: Document 10/24/23 13:49 NM (Rec: 10/24/23 14:31 NM [id number]) Out-Patient Physical Therapy Visit Information Visit Information Visit Type Treatment Note Visit Start Time 13:49 Visit Stop Time 14:30 Visit Number 10 Evaluation Information Evaluation Date 09/08/23 PT-OP-B Current Condition Start: 09/08/23 08:14 Freq: Status: Active Protocol: Document 09/08/23 08:15 NM (Rec: 09/08/23 09:05 NM [id number]) Current Condition History of Current Condition Onset Date several years History of Current Condition Pt presents with R shoulder pain. He reports that he has difficulty with sleeping on R shoulder, unable to sleep on it. He reports no known SOCO. He reports tingling at the R neck near upper trapezius, resulting in sore muscles. No numbness/tingling to fingers. Pain feels like it is deep inside the joint. No imaging has been performed. Pt reports that he has difficulty with lifting (about a gallon of milk) and reaching to the side (abd/ER) is painful. No difficulty with dressing of ADLs. No falls but reports that he thinks his balance is worse which he attributes to his sinus. No hx of shoulder injuries, no surgeries. No joint catching or clicking. 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 Pain is worse in morning. 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 Current Functional Impairments (Reported) Functional Limitations- Recreation/ Reports difficulty with Hobbies holding a hammer PT-OP-C Subjective Start: 09/08/23 08:14 Freq: Status: Active Protocol: Document 10/24/23 13:49 NM (Rec: 10/24/23 14:31 NM [id number]) OP-PT Subjective Patient Comments Patient Comments Pt reports that he was sore in his shoulder after last treatment session. Reports minimal neck soreness; has not tried. PT-OP-E Functional Tests Start: 09/08/23 08:14 Freq: Status: Active Protocol: Document 09/08/23 08:15 NM (Rec: 09/08/23 09:05 NM [id number]) Functional Tests Apley's Scratch Test Action 1- Left posterior scapula Action 1- Right L clavicle, painful Action 2- Left T4 Action 2- Right C7, painful Action 3- Left T7 Action 3- Right T12, painful PT-OP-F Manual Assessment Start: 09/08/23 08:14 Freq: Status: Active Protocol: Document 09/08/23 08:15 NM (Rec: 09/08/23 09:05 NM [id number]) Manual Assessments Soft Tissue Assessment Soft Tissue Mobility Assessment Soft tissue restrictions of cervical spine paraspinals, especially R upper trapezius and levator scapula. Tenderness to palpation along superlateral humerus near rotator cuff muscle insertion. Pt has a lump on his posterior neck (he reports has been there for years and he gets tests on them every year) Joint Mobility Assessment Joint Mobility Assessment R shoulder AROM more limited in standing and supine. R shoulder AROM more limited than PROM, with nearly full PROM for ER. PROM is still limited for R flex and abd. No clicking or popping of joint with PROM. PT-OP-H Neuro Start: 09/08/23 08:14 Freq: Status: Active Protocol: Document 09/08/23 08:15 NM (Rec: 09/08/23 09:05 NM [id number]) Sensation Evaluation Gross Sensation Gross Sensation WNL Comments Summary Comments BUE dermatomes intact to light touch sensation PT-OP-J Posture/Palpation/Skin Start: 09/08/23 08:14 Freq: Status: Active Protocol: Document 09/08/23 08:15 NM (Rec: 09/08/23 12:13 NM [id number]) Posture Evaluation Position Standing Evaluation View Lateral Head/C-Spine Posture Forward Head T-Spine Posture Increased Kyphosis Shoulder Posture (L) Rounded,(R) Rounded,(L) Elevated Scapula Posture (L) Protracted,(R) Protracted, (L) Elevated,(R) Depressed Arm Posture (L) Internally Rotated,(R) Internally Rotated Pelvis Posture Anteriorly Tilted Weight Distribution Balanced Palpation Assessment Location R shoulder Palpation Location lateral shoulder, AC joint, clavicle, rotator cuff, trapezius Palpation Findings Tenderness Palpation Details Tenderness at lateral R shoulder near rotator cuff insertions and R upper trapezius. No tenderness at LH biceps tendon, AC joint, clavicle. PT-OP-K Range of Motion Start: 09/08/23 08:14 Freq: Status: Active Protocol: Document 10/10/23 09:56 NM (Rec: 10/10/23 10:31 NM [id number]) Shoulder Goniometric Range of Motion Shoulder R PROM Testing Position Supine Flexion 140 Abduction 135 External Rotation at 90 degrees 80 Abduction External Rotation at 45 degrees 80 Abduction External Rotation at 0 degrees Abduction 70 R AROM Flexion 127 Extension 60 Abduction 100 External Rotation at 0 degrees Abduction 30 Internal Rotation 65 Internal Rotation Behind Back (text) T12 Comments pain with flex (end range), ext, abd, ER (worse, tingle in upper trap), IR at end range 10/10/23: flexion 127 deg (no change), abd 125 deg ( improvement) before painful PT-OP-L Special Tests Start: 09/08/23 08:14 Freq: Status: Active Protocol: Document 09/08/23 08:15 NM (Rec: 09/08/23 09:05 NM [id number]) Special Tests Cervical Spine Special Tests Spurling's Test Test Results negative Shoulder Special Tests IR/Horizontal ADD Impingement Test Results positive Lift-Off Rotator Cuff Test Results painful but able to lift off completely Isaacs Jovani Impingement Test Results positive Neer Impingement Test Results positive [place] Test Test Results positive Comments reports worse pain with IR than ER Yergason's Biceps Test Results negative Empty Can Test Results positive Comments reports worse pain with IR than ER External Rotation Lag Sign Test Results negative Elevation Impingement Test Results positive Drop Arm Rotator Cuff Test Results negative Clunk Test Test Results negative Biceps Load II Test Test Results negative AC Joint Compression Test Results negative PT-OP-M Strength Start: 09/08/23 08:14 Freq: Status: Active Protocol: Document 10/10/23 09:56 NM (Rec: 10/10/23 10:31 NM [id number]) Shoulder Strength Shoulder Manual Muscle Testing Right Flexion 4+ Good+ Extension 4 Good Abduction (C5) 4- Good- Adduction 5 Normal External Rotation 4- Good- Internal Rotation 4 Good Horizontal Abduction 4 Good Horizontal Adduction 4 Good Comments Pain with ER and abduction 10/10/23: 4/5 for ER/IR, 4-/5 abd MMT; no pain reported PT-OP-Q Treatments Start: 01/11/24 08:14 Freq: Status: Active Protocol: Document 10/24/23 13:49 NM (Rec: 10/24/23 14:31 NM [id number]) Therapeutic Exercises Sidelying Exercises ER Side right Resistance AROM>1# DB Equipment Used towel roll under arm Reps/Minutes 1x10 ea Comments cued no fwd rotation of shoulder abduction Sidelying Exercise Name 150 deg abd Side right Resistance AROM Equipment Used PT initially facilitate long axis and inf glide at humeral head Reps/Minutes 1x10 Comments 150 deg, no pain reported when cued for inf glide fwd flexion Sidelying Exercise Name full AROM Side right Resistance AROM Reps/Minutes 1x10 Comments pain-free range improves cue long axis ER into FF oH Sitting Exercises shldr inferior glide Sitting Exercise Name review of HEP Side right Equipment Used L assisting R with towel Reps/Minutes 1x10 with brief hold Comments cued for execution, pt then performing Cervical spine stretches Sitting Exercise Name UT, LS- beginning of session for improved STM Side bilateral Equipment Used hand stabilizing opp eloise Reps/Minutes 1x30 ea Comments cued to prevent pushing into cervical flexion during UT stretch Standing Exercises scapular protraction Standing Exercise Name ~push up plus on forearms at wall Side bilateral Resistance AROM Reps/Minutes 2x10 with brief hold Comments PT facilitating protract shoulder IR stretch Standing Exercise Name initiated with towel today; added to hEP Side right Equipment Used using dowel, L hand assist with ext then IR stretch Reps/Minutes 5x5 Comments reports no pain but very stiff/tight Y lift off Standing Exercise Name lower trap activation Side bilateral Resistance AROM Equipment Used towel against wall for head Reps/Minutes 2x12 Comments cued for Y, execution; no pain with movement RTC TB Standing Exercise Name 1. W at 45 deg, 2. B ER with shldr flex Side bilateral Resistance 1. lvl 2 teal tb, 2. lvl 1 tb Reps/Minutes 1. 2x12, 2. 2x10 Comments cued elongated posture, reports no pain Manual Therapy Treatment Soft Tissue Mobilization cervical spine Body Location R paraspinals, UT Mobilization Type Rolling,Strumming Intensity/Depth Moderate Body Position Supine Comments Rolling and strumming of paraspinals for pain reduction , soft tissue relaxation Joint Mobilizations R AC joint Direction A-P on scapula, P-A on clavicle Grade III Body Position Sidelying Reps/Duration 1x15 with brief hold Comments for improved mobility during overhead elevation R glenohumeral Direction Inf, post glides Grade III Body Position Supine Reps/Duration 6x30 ea Comments For improved abd and ER/IR. Monitored for pain, tolerates well. Emphasis on inferior glide to improved mobility. Demos bony block with decreased humeral gliding at 150 deg today. Improved AROM post mobilization, 90 deg abd > 150 deg abd post mobilization R scapulothoracic Direction upwd/dwd rotation, elevation/ depression, pro/retraction, UR Grade II Body Position Sidelying Reps/Duration 1x10 Comments MWM during sidelying ABD, ER Self-Care/Home Management Treatment Education Patient Education Home Exercise Program Other Education HEP: sidelying ER with towel, add small weight as able; towel IR stretch PT-OP-T Assessment and Plan Start: 09/08/23 08:14 Freq: Status: Active Protocol: Document 10/24/23 13:49 NM (Rec: 10/24/23 14:31 NM [id number]) Physical Therapy Assessment Goals Six Impairment ROM Impairment R flex AROM 127 deg, R abd AROM 100 deg Short Term Goal (STG) Pt will improve R flex and abd AROM by at least 10 deg without compensation for improved reaching during ADLs. 10/19/23: 145 deg flex, 150 deg abd 10/10/23: 127 deg flex, 125 deg abd (pain at end range, 3/4) STG Duration 4 weeks MET Alf Goal (LTG) Pt will improve R flex and abd AROM by at least 20 deg without compensation for improved reaching during ADLs. 10/19/23: 145 deg flex, 150 deg abd LTG Duration 8 weeks MET Five Impairment function Impairment Pt reports pain with sleeping Engagement Mgr Goal (LTG) Pt will report that he is able to sleep at least 60% of the night without waking due to R shoulder pain. 10/10/23: Reports able to sleep throughout last night without waking due to R shoulder pain LTG Duration 8 weeks MET Four Impairment ROM Impairment R apley scratch IR T12 Engagement Mgr Goal (LTG) Pt will improve R shoulder apley scratch test IR to at least T8 in order to demonstrate improved ability to reach backward during dressing and grooming. 10/10/23: T10, painful LTG Duration 8 weeks MET, PROGRESSING Three Impairment strength Short Term Goal (STG) Pt will improve R shoulder abd /ER/IR strength to at least 4/ 5 within available ROM in order to demonstrate improved strength required for lifting objects. 10/10/23: 4/5 IR/ER, 4-/5 abd STG Duration 4 weeks, PARTIALLY MET, PROGRESSING Engagement Mgr Goal (LTG) Pt will improve R shoulder abd /ER/IR strength to at least 4+ /5 within available ROM in order to demonstrate improved strength required for lifting objects. LTG Duration 8 weeks Two Impairment ROM Impairment R apley scratch ER C7 Engagement Mgr Goal (LTG) Pt will improve R apley scratch test ER to at least T3 in order to demonstrate improved ability to reach and for dressing. 10/10/23: T3, reports 4/10 pain LTG Duration 8 weeks MET, PROGRESSING One Impairment function Impairment Quickdash 22 or 25% Engagement Mgr Goal (LTG) Pt will decrease quickdash score by at least 11.2% (1MCD) in order to demonstrate improved activity tolerance. 10/10/23: 19, 18.18% LTG Duration 8 weeks Assessment Summary Assessment Pt tolerated session well. However, he has difficulty with facilitating an inferior glide of his R humeral head during abduction, which limits his arm elevation movement occasionally. Improved after mobilization and self mobilization (reviewed for HEP , with performing correctly). Manual treatment to decrease soft tissue restrictions of R shoulder and cervical spine, in addition to improve R humeral mobility. Continued with rotator cuff, periscapular and serratus strengthening to improve pt scapular control. Pt fatigues quickly with rotator cuff exercises, particularly into ER; requires consistent cues for correct execution and to prevent compensation using upper trapezius or forward shoulder compensation. PT also cueing pt on not performing cervical spine stretches with cervical spine flexion with overpressure at head. Pt with poor awareness of scapular position, humeral control; PT educated pt during exercises on purpose of strengthening rotator cuff to assist with improving R shoulder mobility. Pt would benefit from skilled PT for progressive rotator cuff and periscapular strengthening, R shoulder mobility with improved scapulohumeral mechanics, and activity tolerance for improved QOL. Physical Therapy Plan Frequency and Duration Frequency of Treatment 2x/Week Duration of treatment (weeks) 8 Plan of Care Start Date 09/08/23 Plan of Care End Date 11/04/23 Therapeutic Interventions Therapeutic Interventions Balance Training,Coordination Training,Gait Training,Home Exercise Program,Joint Mobilizations,Manual Therapy, Neuromuscular Re-education, Orthotic/Prosthetic Management ,Patient/Caregiver Education, Self-Care/Home Management, Sensory Integration,Soft Tissue Mobilization,Taping, Therapeutic Activities, Therapeutic Exercises Modalities Biofeedback,Cold Pack/Ice Massage,Electric Stimulation, Hot Packs,Infrared Therapy, Traction- Mechanical, Ultrasound,Vasopneumatic Devices Next Visit Focus/Plan Next Note Type Treatment Note Next Visit Plan Perform CS stretching first, cont LT/MT strength, rows, serratus. check AROM over noodle. Assess response added TB standing, ER. Trial over head flexion/flex AAROM or stretch; IR stretch (sleeper) POC: Progress prone periscapular strengthening as tolerated; sidelying flex/abd/ ER; Trial AAROM flex/abd with dowel supine vs standing, eccentric abd/add and eccentric flex/ext for ROM Manual: CS STM, scapthoracic, MWM, GHJ negar abd/flex Update POC vs discharge in 2-3 visits
--- NOTE | 2023-10-27 11:49 | PT.OTN ---
Current Diagnoses Other chronic pain (10/27/23) Pain in right shoulder (10/27/23) Physical Therapy Treatment Note PT-OP-A Visit Information Start: 09/08/23 08:14 Freq: Status: Active Protocol: Document 10/27/23 09:48 NM (Rec: 10/27/23 11:44 NM [id number]) Out-Patient Physical Therapy Visit Information Visit Information Visit Type Treatment Note Visit Start Time 09:48 Visit Stop Time 10:30 Visit Number 11 Evaluation Information Evaluation Date 09/08/23 PT-OP-B Current Condition Start: 09/08/23 08:14 Freq: Status: Active Protocol: Document 09/08/23 08:15 NM (Rec: 09/08/23 09:05 NM [id number]) Current Condition History of Current Condition Onset Date several years History of Current Condition Pt presents with R shoulder pain. He reports that he has difficulty with sleeping on R shoulder, unable to sleep on it. He reports no known SOCO. He reports tingling at the R neck near upper trapezius, resulting in sore muscles. No numbness/tingling to fingers. Pain feels like it is deep inside the joint. No imaging has been performed. Pt reports that he has difficulty with lifting (about a gallon of milk) and reaching to the side (abd/ER) is painful. No difficulty with dressing of ADLs. No falls but reports that he thinks his balance is worse which he attributes to his sinus. No hx of shoulder injuries, no surgeries. No joint catching or clicking. 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 Pain is worse in morning. 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 Current Functional Impairments (Reported) Functional Limitations- Recreation/ Reports difficulty with Hobbies holding a hammer PT-OP-C Subjective Start: 09/08/23 08:14 Freq: Status: Active Protocol: Document 10/27/23 09:48 NM (Rec: 10/27/23 11:44 NM [id number]) OP-PT Subjective Patient Comments Patient Comments Pt reports no shoulder pain except at end range abduction. Reports shoulder is gliding well. He continues to sleep without pain in R shoulder. Pt reports 3-4/10 R neck tightness. Trialed heat without relief. Reports soreness after last session due to exercises but has not tried HEP PT-OP-E Functional Tests Start: 09/08/23 08:14 Freq: Status: Active Protocol: Document 09/08/23 08:15 NM (Rec: 09/08/23 09:05 NM [id number]) Functional Tests Apley's Scratch Test Action 1- Left posterior scapula Action 1- Right L clavicle, painful Action 2- Left T4 Action 2- Right C7, painful Action 3- Left T7 Action 3- Right T12, painful PT-OP-F Manual Assessment Start: 09/08/23 08:14 Freq: Status: Active Protocol: Document 09/08/23 08:15 NM (Rec: 09/08/23 09:05 NM [id number]) Manual Assessments Soft Tissue Assessment Soft Tissue Mobility Assessment Soft tissue restrictions of cervical spine paraspinals, especially R upper trapezius and levator scapula. Tenderness to palpation along superlateral humerus near rotator cuff muscle insertion. Pt has a lump on his posterior neck (he reports has been there for years and he gets tests on them every year) Joint Mobility Assessment Joint Mobility Assessment R shoulder AROM more limited in standing and supine. R shoulder AROM more limited than PROM, with nearly full PROM for ER. PROM is still limited for R flex and abd. No clicking or popping of joint with PROM. PT-OP-H Neuro Start: 09/08/23 08:14 Freq: Status: Active Protocol: Document 09/08/23 08:15 NM (Rec: 09/08/23 09:05 NM [id number]) Sensation Evaluation Gross Sensation Gross Sensation WNL Comments Summary Comments BUE dermatomes intact to light touch sensation PT-OP-J Posture/Palpation/Skin Start: 09/08/23 08:14 Freq: Status: Active Protocol: Document 09/08/23 08:15 NM (Rec: 09/08/23 12:13 NM [id number]) Posture Evaluation Position Standing Evaluation View Lateral Head/C-Spine Posture Forward Head T-Spine Posture Increased Kyphosis Shoulder Posture (L) Rounded,(R) Rounded,(L) Elevated Scapula Posture (L) Protracted,(R) Protracted, (L) Elevated,(R) Depressed Arm Posture (L) Internally Rotated,(R) Internally Rotated Pelvis Posture Anteriorly Tilted Weight Distribution Balanced Palpation Assessment Location R shoulder Palpation Location lateral shoulder, AC joint, clavicle, rotator cuff, trapezius Palpation Findings Tenderness Palpation Details Tenderness at lateral R shoulder near rotator cuff insertions and R upper trapezius. No tenderness at LH biceps tendon, AC joint, clavicle. PT-OP-K Range of Motion Start: 09/08/23 08:14 Freq: Status: Active Protocol: Document 10/10/23 09:56 NM (Rec: 10/10/23 10:31 NM [id number]) Shoulder Goniometric Range of Motion Shoulder R PROM Testing Position Supine Flexion 140 Abduction 135 External Rotation at 90 degrees 80 Abduction External Rotation at 45 degrees 80 Abduction External Rotation at 0 degrees Abduction 70 R AROM Flexion 127 Extension 60 Abduction 100 External Rotation at 0 degrees Abduction 30 Internal Rotation 65 Internal Rotation Behind Back (text) T12 Comments pain with flex (end range), ext, abd, ER (worse, tingle in upper trap), IR at end range 10/10/23: flexion 127 deg (no change), abd 125 deg ( improvement) before painful PT-OP-L Special Tests Start: 09/08/23 08:14 Freq: Status: Active Protocol: Document 09/08/23 08:15 NM (Rec: 09/08/23 09:05 NM [id number]) Special Tests Cervical Spine Special Tests Spurling's Test Test Results negative Shoulder Special Tests IR/Horizontal ADD Impingement Test Results positive Lift-Off Rotator Cuff Test Results painful but able to lift off completely Isaacs Jovani Impingement Test Results positive Neer Impingement Test Results positive [place] Test Test Results positive Comments reports worse pain with IR than ER Yergason's Biceps Test Results negative Empty Can Test Results positive Comments reports worse pain with IR than ER External Rotation Lag Sign Test Results negative Elevation Impingement Test Results positive Drop Arm Rotator Cuff Test Results negative Clunk Test Test Results negative Biceps Load II Test Test Results negative AC Joint Compression Test Results negative PT-OP-M Strength Start: 09/08/23 08:14 Freq: Status: Active Protocol: Document 10/10/23 09:56 NM (Rec: 10/10/23 10:31 NM [id number]) Shoulder Strength Shoulder Manual Muscle Testing Right Flexion 4+ Good+ Extension 4 Good Abduction (C5) 4- Good- Adduction 5 Normal External Rotation 4- Good- Internal Rotation 4 Good Horizontal Abduction 4 Good Horizontal Adduction 4 Good Comments Pain with ER and abduction 10/10/23: 4/5 for ER/IR, 4-/5 abd MMT; no pain reported PT-OP-Q Treatments Start: 09/08/23 08:14 Freq: Status: Active Protocol: Document 10/27/23 09:48 NM (Rec: 10/27/23 11:44 NM [id number]) Therapeutic Exercises Prone Exercises I, Y, W, T Prone Exercise Name T with thumb up, full ABD at 90 deg Side bilateral Resistance 2# for I only, AROM for all other motions Equipment Used over 55 cm tball Reps/Minutes 2x12 ea Comments cued for scap retraction, thumb up in ER Sidelying Exercises sleeper stretch Sidelying Exercise Name trialed today Side right Equipment Used left assisting R Reps/Minutes 5x10 Comments minimal AROM ER Side right Resistance 1# DB Equipment Used towel roll under arm Reps/Minutes 1x10 ea Comments cued no fwd rotation of shoulder abduction Sidelying Exercise Name 145 deg abd Side right Resistance AROM> 1# db Equipment Used PT initially facilitate long axis and inf glide at humeral head Reps/Minutes 1x10 fwd flexion Sidelying Exercise Name 150 deg flex Side right Resistance AROM > 1# db post mob Reps/Minutes 1x10, 1x10 Comments pain-free range improves cue long axis ER into FF oH Standing Exercises rows Standing Exercise Name high row and mid row with scap protraction/retraction Side bilateral Resistance blue tb lvl 4 Reps/Minutes 2x10 ea Comments cued for execution, full scapular motion throughout range; fatigues,no pain Manual Therapy Treatment Soft Tissue Mobilization cervical spine Body Location R paraspinals, UT, LS Mobilization Type Rolling,Strumming,Trigger Point Release Intensity/Depth Moderate Body Position Sitting Comments Rolling and strumming of paraspinals for pain reduction , soft tissue relaxation. Decreased UT restrictions compared to previous session. Trigger point R LS Periscapular Body Location UT, LS, rhomboids, RTC Mobilization Type Rolling,Strumming Intensity/Depth Moderate Body Position Sidelying Comments R rolling and strumming for pain relief. Increased restriction and tenderness at B UT, infraspinatus Mob with movement into scap retract/protract for rhomboid, arm abd/add for middle trap/ lower trap Joint Mobilizations R glenohumeral Direction Inf, post glides Grade III Body Position Supine Reps/Duration 4x30 ea Comments For improved abd and flex/IR to end range. Improved inferior glide, up to 145 deg before block from ACJ. More impingement with end range flexion today, up to 150 deg. Post glides for assistance with GHJ rollling in flexion. Monitored for pain, tolerates well. R scapulothoracic Direction upwd/dwd rotation, elevation/ depression, pro/retraction, UR Grade II Body Position Sidelying Reps/Duration 2x8 ea motion Comments Mobilization with movement during sidelying ABD and flexion Manual Techniques Mobilization with Movement Comments Levator Scap, MWM with soft tissue mobilization,1x5; then followed by arm behind back with shrug, 1x5 ea side PT-OP-T Assessment and Plan Start: 09/08/23 08:14 Freq: Status: Active Protocol: Document 10/27/23 09:48 NM (Rec: 10/27/23 11:44 NM [id number]) Physical Therapy Assessment Goals Six Impairment ROM Impairment R flex AROM 127 deg, R abd AROM 100 deg Short Term Goal (STG) Pt will improve R flex and abd AROM by at least 10 deg without compensation for improved reaching during ADLs. 10/19/23: 145 deg flex, 150 deg abd 10/10/23: 127 deg flex, 125 deg abd (pain at end range, 3/4) STG Duration 4 weeks MET Mcc Goal (LTG) Pt will improve R flex and abd AROM by at least 20 deg without compensation for improved reaching during ADLs. 10/19/23: 145 deg flex, 150 deg abd LTG Duration 8 weeks MET Five Impairment function Impairment Pt reports pain with sleeping It Generalist Goal (LTG) Pt will report that he is able to sleep at least 60% of the night without waking due to R shoulder pain. 10/10/23: Reports able to sleep throughout last night without waking due to R shoulder pain LTG Duration 8 weeks MET Four Impairment ROM Impairment R apley scratch IR T12 Mcc Goal (LTG) Pt will improve R shoulder apley scratch test IR to at least T8 in order to demonstrate improved ability to reach backward during dressing and grooming. 10/10/23: T10, painful LTG Duration 8 weeks MET, PROGRESSING Three Impairment strength Short Term Goal (STG) Pt will improve R shoulder abd /ER/IR strength to at least 4/ 5 within available ROM in order to demonstrate improved strength required for lifting objects. 10/10/23: 4/5 IR/ER, 4-/5 abd STG Duration 4 weeks, PARTIALLY MET, PROGRESSING It Generalist Goal (LTG) Pt will improve R shoulder abd /ER/IR strength to at least 4+ /5 within available ROM in order to demonstrate improved strength required for lifting objects. 10/27/23: 4/5 for all LTG Duration 8 weeks Two Impairment ROM Impairment R apley scratch ER C7 It Generalist Goal (LTG) Pt will improve R apley scratch test ER to at least T3 in order to demonstrate improved ability to reach and for dressing. 10/10/23: T3, reports 4/10 pain LTG Duration 8 weeks MET, PROGRESSING One Impairment function Impairment Quickdash 22 or 25% It Generalist Goal (LTG) Pt will decrease quickdash score by at least 11.2% (1MCD) in order to demonstrate improved activity tolerance. 10/10/23: 19, 18.18% LTG Duration 8 weeks Assessment Summary Assessment Pt tolerated session well. He continues to have occasional impingement signs occuring with R shoulder abduction due to decreased humeral inferior glide and end range flexion. Manual treatment consisting of joint mobilization and soft tissue mobilization for pain reduction. Performed posterior and inferior glides for improved R shoulder mobility. Improved glenohumeral glide and roll post mobilization. Continues to have more soft tissue limitations in cervical spine paraspinals compared to R shoulder. Decreased carryover between sessions; pt with occasional compliance with HEP. Pt continues to lack awareness of scapulur mobility and control without cueing. However, he demonstrates improved strength and tolerance for strengthening exercises. Session emphasis on strengthening periscapular muscles for improved scapular control and strength. PT facilitating at scapula for control during prone periscapular and sidelying R shoulder elevation exercises. Trialed sleeper stretch for increased R shoulder IR; pt tolerates well when cued to remain within pain free range. PT and pt discussed continuing PT vs discharging as POC will be ending soon; PT and pt agreed to continue PT as pt is making progress but has not met all goals. Pt would benefit from skilled PT to address R shoulder mobility and strength within available range in order to return to PLOF Physical Therapy Plan Frequency and Duration Frequency of Treatment 2x/Week Duration of treatment (weeks) 8 Plan of Care Start Date 09/08/23 Plan of Care End Date 11/04/23 Therapeutic Interventions Therapeutic Interventions Balance Training,Coordination Training,Gait Training,Home Exercise Program,Joint Mobilizations,Manual Therapy, Neuromuscular Re-education, Orthotic/Prosthetic Management ,Patient/Caregiver Education, Self-Care/Home Management, Sensory Integration,Soft Tissue Mobilization,Taping, Therapeutic Activities, Therapeutic Exercises Modalities Biofeedback,Cold Pack/Ice Massage,Electric Stimulation, Hot Packs,Infrared Therapy, Traction- Mechanical, Ultrasound,Vasopneumatic Devices Next Visit Focus/Plan Next Note Type Progress Note Next Visit Plan Perform CS stretching first, cont LT/MT strength, rows, serratus. check AROM over noodle. Assess response added TB standing, ER. Trial over head flexion/flex AAROM or stretch; IR stretch (sleeper) POC: Progress prone periscapular strengthening as tolerated; sidelying flex/abd/ ER; Trial AAROM flex/abd with dowel supine vs standing, eccentric abd/add and eccentric flex/ext for ROM Manual: CS STM, scapthoracic, MWM, GHJ negar abd/flex Update POC vs discharge in 2-3 visits
--- NOTE | 2023-10-31 16:40 | PT.OTN ---
Current Diagnoses Other chronic pain (10/31/23) Pain in right shoulder (10/31/23) Physical Therapy Treatment Note PT-OP-A Visit Information Start: 09/08/23 08:14 Freq: Status: Active Protocol: Document 10/31/23 13:46 NM (Rec: 10/31/23 14:30 NM [id number]) Out-Patient Physical Therapy Visit Information Visit Information Visit Type Progress Note Visit Start Time 13:46 Visit Stop Time 14:27 Visit Number 12 Evaluation Information Evaluation Date 09/08/23 PT-OP-B Current Condition Start: 09/08/23 08:14 Freq: Status: Active Protocol: Document 09/08/23 08:15 NM (Rec: 09/08/23 09:05 NM [id number]) Current Condition History of Current Condition Onset Date several years History of Current Condition Pt presents with R shoulder pain. He reports that he has difficulty with sleeping on R shoulder, unable to sleep on it. He reports no known SOCO. He reports tingling at the R neck near upper trapezius, resulting in sore muscles. No numbness/tingling to fingers. Pain feels like it is deep inside the joint. No imaging has been performed. Pt reports that he has difficulty with lifting (about a gallon of milk) and reaching to the side (abd/ER) is painful. No difficulty with dressing of ADLs. No falls but reports that he thinks his balance is worse which he attributes to his sinus. No hx of shoulder injuries, no surgeries. No joint catching or clicking. 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 Pain is worse in morning. 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 Current Functional Impairments (Reported) Functional Limitations- Recreation/ Reports difficulty with Hobbies holding a hammer PT-OP-C Subjective Start: 09/08/23 08:14 Freq: Status: Active Protocol: Document 10/31/23 13:46 NM (Rec: 10/31/23 14:30 NM [id number]) OP-PT Subjective Patient Comments Patient Comments Pt reports no R shoulder pain. 2/10 neck soreness in neck. No difficulty with HEP. He has been using heat, which he reports that been helping. PT-OP-E Functional Tests Start: 09/08/23 08:14 Freq: Status: Active Protocol: Document 09/08/23 08:15 NM (Rec: 09/08/23 09:05 NM [id number]) Functional Tests Apley's Scratch Test Action 1- Left posterior scapula Action 1- Right L clavicle, painful Action 2- Left T4 Action 2- Right C7, painful Action 3- Left T7 Action 3- Right T12, painful PT-OP-F Manual Assessment Start: 09/08/23 08:14 Freq: Status: Active Protocol: Document 09/08/23 08:15 NM (Rec: 09/08/23 09:05 NM [id number]) Manual Assessments Soft Tissue Assessment Soft Tissue Mobility Assessment Soft tissue restrictions of cervical spine paraspinals, especially R upper trapezius and levator scapula. Tenderness to palpation along superlateral humerus near rotator cuff muscle insertion. Pt has a lump on his posterior neck (he reports has been there for years and he gets tests on them every year) Joint Mobility Assessment Joint Mobility Assessment R shoulder AROM more limited in standing and supine. R shoulder AROM more limited than PROM, with nearly full PROM for ER. PROM is still limited for R flex and abd. No clicking or popping of joint with PROM. PT-OP-H Neuro Start: 09/08/23 08:14 Freq: Status: Active Protocol: Document 09/08/23 08:15 NM (Rec: 09/08/23 09:05 NM [id number]) Sensation Evaluation Gross Sensation Gross Sensation WNL Comments Summary Comments BUE dermatomes intact to light touch sensation PT-OP-J Posture/Palpation/Skin Start: 09/08/23 08:14 Freq: Status: Active Protocol: Document 09/08/23 08:15 NM (Rec: 09/08/23 12:13 NM [id number]) Posture Evaluation Position Standing Evaluation View Lateral Head/C-Spine Posture Forward Head T-Spine Posture Increased Kyphosis Shoulder Posture (L) Rounded,(R) Rounded,(L) Elevated Scapula Posture (L) Protracted,(R) Protracted, (L) Elevated,(R) Depressed Arm Posture (L) Internally Rotated,(R) Internally Rotated Pelvis Posture Anteriorly Tilted Weight Distribution Balanced Palpation Assessment Location R shoulder Palpation Location lateral shoulder, AC joint, clavicle, rotator cuff, trapezius Palpation Findings Tenderness Palpation Details Tenderness at lateral R shoulder near rotator cuff insertions and R upper trapezius. No tenderness at LH biceps tendon, AC joint, clavicle. PT-OP-K Range of Motion Start: 09/08/23 08:14 Freq: Status: Active Protocol: Document 10/31/23 13:46 NM (Rec: 10/31/23 14:30 NM [id number]) Shoulder Goniometric Range of Motion Shoulder R AROM Flexion 127 Extension 60 Abduction 100 External Rotation at 0 degrees Abduction 30 Internal Rotation 65 Internal Rotation Behind Back (text) T12 Comments pain with flex (end range), ext, abd, ER (worse, tingle in upper trap), IR at end range 10/10/23: flexion 127 deg (no change), abd 125 deg ( improvement) before painful 10/31/23: 145 deg flex, 140 deg abd PT-OP-L Special Tests Start: 09/08/23 08:14 Freq: Status: Active Protocol: Document 09/08/23 08:15 NM (Rec: 09/08/23 09:05 NM [id number]) Special Tests Cervical Spine Special Tests Spurling's Test Test Results negative Shoulder Special Tests IR/Horizontal ADD Impingement Test Results positive Lift-Off Rotator Cuff Test Results painful but able to lift off completely Isaacs Jovani Impingement Test Results positive Neer Impingement Test Results positive [place] Test Test Results positive Comments reports worse pain with IR than ER Yergason's Biceps Test Results negative Empty Can Test Results positive Comments reports worse pain with IR than ER External Rotation Lag Sign Test Results negative Elevation Impingement Test Results positive Drop Arm Rotator Cuff Test Results negative Clunk Test Test Results negative Biceps Load II Test Test Results negative AC Joint Compression Test Results negative PT-OP-M Strength Start: 09/08/23 08:14 Freq: Status: Active Protocol: Document 10/31/23 13:46 NM (Rec: 10/31/23 16:15 NM [id number]) Shoulder Strength Shoulder Manual Muscle Testing Right Flexion 4+ Good+ Extension 4 Good Abduction (C5) 4- Good- Adduction 5 Normal External Rotation 4- Good- Internal Rotation 4 Good Horizontal Abduction 4 Good Horizontal Adduction 4 Good Comments Pain with ER and abduction 10/10/23: 4/5 for ER/IR, 4-/5 abd MMT; no pain reported 10/31/23: 4/5 for ER/IR/Abd/Flex PT-OP-Q Treatments Start: 09/08/23 08:14 Freq: Status: Active Protocol: Document 10/31/23 13:46 NM (Rec: 10/31/23 14:30 NM [id number]) Therapeutic Exercises Sidelying Exercises ER Side right Resistance 1# DB Equipment Used towel roll under arm Reps/Minutes 1x10 ea Comments cued posterior scap setting abduction Side right Resistance 1# db Equipment Used PT initially facilitate long axis and inf glide at humeral head Reps/Minutes 2x8 Comments cued post scap setting fwd flexion Side right Resistance 1# db post mob Reps/Minutes 2x8 Comments cued post scap setting Standing Exercises middle trapezius Standing Exercise Name B ER/ABD>IR/ADD Side bilateral Reps/Minutes 2x8 with 2 hold Comments cueing with fingers scapular protraction Standing Exercise Name wall slides with forearms and scap protraction Side bilateral Resistance AROM Reps/Minutes 2x8 Comments PT facilitating at scap for protraction RTC TB Standing Exercise Name 1. W at 45 deg, 2. B ER with flex Side bilateral Resistance lvl 2 teal tb Reps/Minutes 2x10 ea Comments cued elongated posture, chin tuck self mobilization Standing Exercise Name upper trapezius Side right Resistance 5# db in R hand Equipment Used head SB twd R hand with shrug, then relax away with SB away Reps/Minutes 1x10 Comments no pain, reports looser after Manual Therapy Treatment Soft Tissue Mobilization cervical spine Body Location R paraspinals, UT, LS, DNF Mobilization Type Rolling Intensity/Depth Moderate Body Position Sitting Comments Rolling paraspinals for soft tissue relaxation after sidelying activities Periscapular Body Location UT, LS, rhomboids, RTC Mobilization Type Rolling,Sustained Pressure Intensity/Depth Moderate Body Position Sidelying Comments R rolling and sustained pressure for pain relief. Increased restriction R upper trap Joint Mobilizations R AC joint Direction A-P on scapula, P-A on clavicle Grade III Body Position Sidelying Reps/Duration 1x15 with brief hold Comments for improved mobility during overhead elevation R glenohumeral Direction Inf, post glides Grade III Body Position Supine Reps/Duration 4x30 ea Comments For improved abd and flex/IR to end range. Post glides for assistance with GHJ rollling in flexion. Monitored for pain , tolerates well. PT-OP-T Assessment and Plan Start: 09/08/23 08:14 Freq: Status: Active Protocol: Document 10/31/23 13:46 NM (Rec: 10/31/23 14:30 NM [id number]) Physical Therapy Assessment Goals Six Impairment ROM Impairment R flex AROM 127 deg, R abd AROM 100 deg Short Term Goal (STG) Pt will improve R flex and abd AROM by at least 10 deg without compensation for improved reaching during ADLs. 10/19/23: 145 deg flex, 150 deg abd 10/10/23: 127 deg flex, 125 deg abd (pain at end range, 10/30) STG Duration 4 weeks MET [facility] Goal (LTG) Pt will improve R flex and abd AROM by at least 20 deg without compensation for improved reaching during ADLs. 10/19/23: 145 deg flex, 150 deg abd 10/31/23: 145 deg flex, 140 deg abd LTG Duration 8 weeks MET Five Impairment function Impairment Pt reports pain with sleeping Dining Manager Goal (LTG) Pt will report that he is able to sleep at least 60% of the night without waking due to R shoulder pain. 10/10/23: Reports able to sleep throughout last night without waking due to R shoulder pain LTG Duration 8 weeks MET Four Impairment ROM Impairment R apley scratch IR T12 Dining Manager Goal (LTG) Pt will improve R shoulder apley scratch test IR to at least T8 in order to demonstrate improved ability to reach backward during dressing and grooming. 10/10/23: T10, painful 10/31/23: T10, no pain but tight LTG Duration 8 weeks NOT MET, PROGRESSING Three Impairment strength Short Term Goal (STG) Pt will improve R shoulder abd /ER/IR strength to at least 4/ 5 within available ROM in order to demonstrate improved strength required for lifting objects. 10/10/23: 4/5 IR/ER, 4-/5 abd 10/31/23: 4/5 for all, min pain inside joint STG Duration 4 weeks, MET [facility] Goal (LTG) Pt will improve R shoulder abd /ER/IR strength to at least 4+ /5 within available ROM in order to demonstrate improved strength required for lifting objects. 10/27/23: 4/5 for all 10/31/23: 4/5 for all, min pain inside joint LTG Duration 8 weeks NOT MET Two Impairment ROM Impairment R apley scratch ER C7 [facility] Goal (LTG) Pt will improve R apley scratch test ER to at least T3 in order to demonstrate improved ability to reach and for dressing. 10/10/23: T3, reports 4/10 pain 10/31/23: T5, no pain LTG Duration 8 weeks MET One Impairment function Impairment Quickdash 22 or 25% Dining Manager Goal (LTG) Pt will decrease quickdash score to <18% in order to demonstrate improved activity tolerance. 10/10/23: 19, 18.18% 10/27/23, NOT MET: 19, 18% (no change) LTG Duration 8 weeks goal updated Progress Towards Goals Progress Towards Goals Progressing Toward Goals,Goals Met Progress Comments Progressing toward AROM, strength, and QOL/activity tolerance goals Assessment Summary Assessment Pt tolerated treatment well without any increase in R shoulder. Reports pulling in R shoulder with sidelying activities prior to soft tissue mobilization, none post mobilization. Pt continues to be limited in R shoulder mobility with end range flexion and abduction; however , demonstrates improvements since IE. Pt demonstrates impingement signs of R shoulder with abduction that are decreased only with inferior glide mobilization, which limits his ability to perform ADLs involving arm elevation. Pt reports that self-inferior glide mobilization is helpful for him prior to activity at home, but he is still limited. Pt would benefit from further rotator cuff strengthening in order to improved scapulohumeral mechanics for improved activity tolerance. Due to consistent pt reports of tightness in R upper traps, trialed self mobilization utilizing contract-relax with R upper traps; pt reports no change in symptoms post mobilization. Continued with periscapular strengthening, progressing resistance of rotator cuff exercises and level of difficulty with serratus rolling. Pt has been seen x 11 visits since IE in August 2023 for R shoulder pain and concomitant neck pain. Pt is progressing toward goals and has met several LTGs. Right shoulder pain has most resolved with exception of impingement symptoms with reaching. Neck pain is primarily related to posture and compensations from R shoulder weakness. Pt's R shoulder AROM has significantly improved since IE; however, he continues to require mobilization in order to maintain R shoulder mobility. Pt reports difficulty with ADLs/IADLs due to R shoulder AROM and strength; however, reports improvement in ability to perform most ADLs since IE. He no longer has pain with sleeping. Pt's R shoulder strength, especially his rotator cuff and periscapular muscles, continue to be weak and would benefit from further strengthening, particularly to address scapular mechanics. Pt is improved with compliance to HEP. Goals updated to reflect progression . Pt would benefit from further skilled PT for R rotator cuff and periscapular strengthening, R shoulder mobility, and education regarding activity modification in order to improve activity tolerance, ability to perform ADLs, and QOL. Physical Therapy Plan Frequency and Duration Frequency of Treatment 2x/Week Duration of treatment (weeks) 6 Plan of Care Start Date 10/31/23 Plan of Care End Date 12/16/23 Therapeutic Interventions Therapeutic Interventions Balance Training,Coordination Training,Gait Training,Home Exercise Program,Joint Mobilizations,Manual Therapy, Neuromuscular Re-education, Orthotic/Prosthetic Management ,Patient/Caregiver Education, Self-Care/Home Management, Sensory Integration,Soft Tissue Mobilization,Taping, Therapeutic Activities, Therapeutic Exercises Modalities Biofeedback,Cold Pack/Ice Massage,Electric Stimulation, Hot Packs,Infrared Therapy, Traction- Mechanical, Ultrasound,Vasopneumatic Devices Next Visit Focus/Plan Next Note Type Treatment Note Next Visit Plan CS stretching, Lt/MT/ periscapular strengthening. Rotator cuff mobility and strength, scapular control. Inferior glide (trial with band) POC: Progress prone periscapular strengthening as tolerated; sidelying flex/abd/ ER; Trial AAROM flex/abd with dowel supine vs standing, eccentric abd/add and eccentric flex/ext for ROM Manual: CS STM, scapthoracic, MWM, GHJ negar abd/flex Update POC vs discharge in 2-3 visits
--- NOTE | 2023-11-02 14:47 | PT.OTN ---
Current Diagnoses Other chronic pain (11/02/23) Pain in right shoulder (11/02/23) Physical Therapy Treatment Note PT-OP-A Visit Information Start: 09/08/23 08:14 Freq: Status: Active Protocol: Document 11/02/23 12:57 AB (Rec: 11/02/23 14:45 AB [id number]) Out-Patient Physical Therapy Visit Information Visit Information Visit Type Progress Note Visit Note Access Code: [email or web address] Visit Start Time 13:48 Visit Stop Time 14:30 Visit Number 13 Number of ACCOUNT INSTALLATION SPECIALIST Visits 1 Evaluation Information Evaluation Date 09/08/23 PT-OP-B Current Condition Start: 09/08/23 08:14 Freq: Status: Active Protocol: Document 09/08/23 08:15 NM (Rec: 09/08/23 09:05 NM [id number]) Current Condition History of Current Condition Onset Date several years History of Current Condition Pt presents with R shoulder pain. He reports that he has difficulty with sleeping on R shoulder, unable to sleep on it. He reports no known SOCO. He reports tingling at the R neck near upper trapezius, resulting in sore muscles. No numbness/tingling to fingers. Pain feels like it is deep inside the joint. No imaging has been performed. Pt reports that he has difficulty with lifting (about a gallon of milk) and reaching to the side (abd/ER) is painful. No difficulty with dressing of ADLs. No falls but reports that he thinks his balance is worse which he attributes to his sinus. No hx of shoulder injuries, no surgeries. No joint catching or clicking. 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 Pain is worse in morning. 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 Current Functional Impairments (Reported) Functional Limitations- Recreation/ Reports difficulty with Hobbies holding a hammer PT-OP-C Subjective Start: 09/08/23 08:14 Freq: Status: Active Protocol: Document 11/02/23 12:57 AB (Rec: 11/02/23 14:45 AB [id number]) OP-PT Subjective Patient Comments Patient Comments Patient reports he was worse yesterday, felt like someone slugged him, so he didn't do the exercises yesterday. Patient attributes the pain to the exercises performed previous session. PT-OP-E Functional Tests Start: 09/08/23 08:14 Freq: Status: Active Protocol: Document 09/08/23 08:15 NM (Rec: 09/08/23 09:05 NM [id number]) Functional Tests Apley's Scratch Test Action 1- Left posterior scapula Action 1- Right L clavicle, painful Action 2- Left T4 Action 2- Right C7, painful Action 3- Left T7 Action 3- Right T12, painful PT-OP-F Manual Assessment Start: 09/08/23 08:14 Freq: Status: Active Protocol: Document 09/08/23 08:15 NM (Rec: 09/08/23 09:05 NM [id number]) Manual Assessments Soft Tissue Assessment Soft Tissue Mobility Assessment Soft tissue restrictions of cervical spine paraspinals, especially R upper trapezius and levator scapula. Tenderness to palpation along superlateral humerus near rotator cuff muscle insertion. Pt has a lump on his posterior neck (he reports has been there for years and he gets tests on them every year) Joint Mobility Assessment Joint Mobility Assessment R shoulder AROM more limited in standing and supine. R shoulder AROM more limited than PROM, with nearly full PROM for ER. PROM is still limited for R flex and abd. No clicking or popping of joint with PROM. PT-OP-H Neuro Start: 09/08/23 08:14 Freq: Status: Active Protocol: Document 09/08/23 08:15 NM (Rec: 09/08/23 09:05 NM [id number]) Sensation Evaluation Gross Sensation Gross Sensation WNL Comments Summary Comments BUE dermatomes intact to light touch sensation PT-OP-J Posture/Palpation/Skin Start: 09/08/23 08:14 Freq: Status: Active Protocol: Document 09/08/23 08:15 NM (Rec: 09/08/23 12:13 NM [id number]) Posture Evaluation Position Standing Evaluation View Lateral Head/C-Spine Posture Forward Head T-Spine Posture Increased Kyphosis Shoulder Posture (L) Rounded,(R) Rounded,(L) Elevated Scapula Posture (L) Protracted,(R) Protracted, (L) Elevated,(R) Depressed Arm Posture (L) Internally Rotated,(R) Internally Rotated Pelvis Posture Anteriorly Tilted Weight Distribution Balanced Palpation Assessment Location R shoulder Palpation Location lateral shoulder, AC joint, clavicle, rotator cuff, trapezius Palpation Findings Tenderness Palpation Details Tenderness at lateral R shoulder near rotator cuff insertions and R upper trapezius. No tenderness at LH biceps tendon, AC joint, clavicle. PT-OP-K Range of Motion Start: 09/08/23 08:14 Freq: Status: Active Protocol: Document 10/31/23 13:46 NM (Rec: 10/31/23 14:30 NM [id number]) Shoulder Goniometric Range of Motion Shoulder R AROM Flexion 127 Extension 60 Abduction 100 External Rotation at 0 degrees Abduction 30 Internal Rotation 65 Internal Rotation Behind Back (text) T12 Comments pain with flex (end range), ext, abd, ER (worse, tingle in upper trap), IR at end range 10/10/23: flexion 127 deg (no change), abd 125 deg ( improvement) before painful 10/31/23: 145 deg flex, 140 deg abd PT-OP-L Special Tests Start: 09/08/23 08:14 Freq: Status: Active Protocol: Document 09/08/23 08:15 NM (Rec: 09/08/23 09:05 NM [id number]) Special Tests Cervical Spine Special Tests Spurling's Test Test Results negative Shoulder Special Tests IR/Horizontal ADD Impingement Test Results positive Lift-Off Rotator Cuff Test Results painful but able to lift off completely Isaacs Jovani Impingement Test Results positive Neer Impingement Test Results positive [place] Test Test Results positive Comments reports worse pain with IR than ER Yergason's Biceps Test Results negative Empty Can Test Results positive Comments reports worse pain with IR than ER External Rotation Lag Sign Test Results negative Elevation Impingement Test Results positive Drop Arm Rotator Cuff Test Results negative Clunk Test Test Results negative Biceps Load II Test Test Results negative AC Joint Compression Test Results negative PT-OP-M Strength Start: 09/08/23 08:14 Freq: Status: Active Protocol: Document 10/31/23 13:46 NM (Rec: 10/31/23 16:15 NM [id number]) Shoulder Strength Shoulder Manual Muscle Testing Right Flexion 4+ Good+ Extension 4 Good Abduction (C5) 4- Good- Adduction 5 Normal External Rotation 4- Good- Internal Rotation 4 Good Horizontal Abduction 4 Good Horizontal Adduction 4 Good Comments Pain with ER and abduction 10/10/23: 4/5 for ER/IR, 4-/5 abd MMT; no pain reported 10/31/23: 4/5 for ER/IR/Abd/Flex PT-OP-Q Treatments Start: 09/08/23 08:14 Freq: Status: Active Protocol: Document 11/02/23 12:57 AB (Rec: 11/02/23 14:45 AB [id number]) Therapeutic Exercises Supine Exercises mini band Supine Exercise Name shoulder ER with band with flexion Side bilateral Resistance level one light blue band Reps/Minutes X10 Comments verbal cues monitored for pain over noodle Supine Exercise Name pec stretch and alternating UE flexion Side bilateral Reps/Minutes 3 min pec stretch, X 10 alternating UE flexion Comments verbal cues Sidelying Exercises sidelying shoulder ER Side right Reps/Minutes X3 then discontinued due to reports of pain Comments reports increased pain sub deltoid area Standing Exercises wall push up plus Side bilateral Reps/Minutes X10 Comments Verbal and visual cues wall slide Standing Exercise Name stepping fwd, wall slide flexion, lift off and lower without use of wall Side right Reps/Minutes X10 Comments Verbal and visual cues rows Standing Exercise Name row Side bilateral Resistance green band level 3 Reps/Minutes 2x10 ea Comments tactile cues at scapula, visual cues for UE position and verbal cues Manual Therapy Treatment Soft Tissue Mobilization Periscapular Body Location UT, LS, rhomboids, RTC,pec right UE Mobilization Type Cross-Friction,Rolling,Other Intensity/Depth Moderate Body Position Prone Comments monitored for pain Joint Mobilizations R glenohumeral Direction Inf, ant to post Grade III Body Position Hooklying Reps/Duration X15 each Comments monitored for pain R scapulothoracic Direction into adduction and depression Grade IV Body Position Sidelying Reps/Duration X15 each Comments monitored for pain Self-Care/Home Management Treatment Activities Self-Care/Home Management Activities wall slide flexion with lift off and lower without use of wall, push up plus on wall, and mini band single thickness shoulder ER with flexion added to HEP PT-OP-T Assessment and Plan Start: 09/08/23 08:14 Freq: Status: Active Protocol: Document 11/02/23 12:57 AB (Rec: 11/02/23 14:45 AB [id number]) Physical Therapy Assessment Goals Six Impairment ROM Impairment R flex AROM 127 deg, R abd AROM 100 deg Short Term Goal (STG) Pt will improve R flex and abd AROM by at least 10 deg without compensation for improved reaching during ADLs. 10/19/23: 145 deg flex, 150 deg abd 10/10/23: 127 deg flex, 125 deg abd (pain at end range, 3/4) STG Duration 4 weeks MET Skilled Nursing Goal (LTG) Pt will improve R flex and abd AROM by at least 20 deg without compensation for improved reaching during ADLs. 10/19/23: 145 deg flex, 150 deg abd 10/31/23: 145 deg flex, 140 deg abd LTG Duration 8 weeks MET Five Impairment function Impairment Pt reports pain with sleeping W[facility] Care Center Consultant Goal (LTG) Pt will report that he is able to sleep at least 60% of the night without waking due to R shoulder pain. 10/10/23: Reports able to sleep throughout last night without waking due to R shoulder pain LTG Duration 8 weeks MET Four Impairment ROM Impairment R apley scratch IR T12 Wound Care Center Consultant Goal (LTG) Pt will improve R shoulder apley scratch test IR to at least T8 in order to demonstrate improved ability to reach backward during dressing and grooming. 10/10/23: T10, painful 10/31/23: T10, no pain but tight LTG Duration 8 weeks NOT MET, PROGRESSING Three Impairment strength Short Term Goal (STG) Pt will improve R shoulder abd /ER/IR strength to at least 4/ 5 within available ROM in order to demonstrate improved strength required for lifting objects. 10/10/23: 4/5 IR/ER, 4-/5 abd 10/31/23: 4/5 for all, min pain inside joint STG Duration 4 weeks, MET W[facility] Care Center Consultant Goal (LTG) Pt will improve R shoulder abd /ER/IR strength to at least 4+ /5 within available ROM in order to demonstrate improved strength required for lifting objects. 10/27/23: 4/5 for all 10/31/23: 4/5 for all, min pain inside joint LTG Duration 8 weeks NOT MET Two Impairment ROM Impairment R apley scratch ER C7 Skilled Nursing Goal (LTG) Pt will improve R apley scratch test ER to at least T3 in order to demonstrate improved ability to reach and for dressing. 10/10/23: T3, reports 4/10 pain 10/31/23: T5, no pain LTG Duration 8 weeks MET One Impairment function Impairment Quickdash 22 or 25% Wound Care Center Consultant Goal (LTG) Pt will decrease quickdash score to <18% in order to demonstrate improved activity tolerance. 10/10/23: 19, 18.18% 10/27/23, NOT MET: 19, 18% (no change) LTG Duration 8 weeks goal updated Progress Towards Goals Progress Towards Goals Progressing Toward Goals,Goals Met Progress Comments Progressing toward AROM, strength, and QOL/activity tolerance goals Assessment Summary Assessment 120 deg AROM right shoulder flexion start of session to 130 deg end of session with patient reporting the shoulder feels good. Physical Therapy Plan Frequency and Duration Frequency of Treatment 2x/Week Duration of treatment (weeks) 6 Plan of Care Start Date 10/31/23 Plan of Care End Date 12/16/23 Therapeutic Interventions Therapeutic Interventions Balance Training,Coordination Training,Gait Training,Home Exercise Program,Joint Mobilizations,Manual Therapy, Neuromuscular Re-education, Orthotic/Prosthetic Management ,Patient/Caregiver Education, Self-Care/Home Management, Sensory Integration,Soft Tissue Mobilization,Taping, Therapeutic Activities, Therapeutic Exercises Modalities Biofeedback,Cold Pack/Ice Massage,Electric Stimulation, Hot Packs,Infrared Therapy, Traction- Mechanical, Ultrasound,Vasopneumatic Devices Next Visit Focus/Plan Next Note Type Treatment Note Next Visit Plan CS stretching, Lt/MT/ periscapular strengthening. Rotator cuff mobility and strength, scapular control. Inferior glide (trial with band) POC: Progress prone periscapular strengthening as tolerated; sidelying flex/abd/ ER; Trial AAROM flex/abd with dowel supine vs standing, eccentric abd/add and eccentric flex/ext for ROM Manual: CS STM, scapthoracic, MWM, GHJ negar abd/flex Update POC vs discharge in 2-3 visits
--- NOTE | 2023-11-09 16:32 | PT.OTN ---
Current Diagnoses Other chronic pain (11/09/23) Pain in right shoulder (11/09/23) Physical Therapy Treatment Note PT-OP-A Visit Information Start: 09/08/23 08:14 Freq: Status: Active Protocol: Document 11/09/23 12:05 AB (Rec: 11/09/23 16:32 AB [id number]) Out-Patient Physical Therapy Visit Information Visit Information Visit Type Progress Note Visit Note Access Code: [email or web address] Visit Start Time 15:19 Visit Stop Time 16:00 Visit Number 14 Number of SAFETY ADVISOR Visits 2 Evaluation Information Evaluation Date 09/08/23 PT-OP-B Current Condition Start: 09/08/23 08:14 Freq: Status: Active Protocol: Document 09/08/23 08:15 NM (Rec: 09/08/23 09:05 NM [id number]) Current Condition History of Current Condition Onset Date several years History of Current Condition Pt presents with R shoulder pain. He reports that he has difficulty with sleeping on R shoulder, unable to sleep on it. He reports no known SOCO. He reports tingling at the R neck near upper trapezius, resulting in sore muscles. No numbness/tingling to fingers. Pain feels like it is deep inside the joint. No imaging has been performed. Pt reports that he has difficulty with lifting (about a gallon of milk) and reaching to the side (abd/ER) is painful. No difficulty with dressing of ADLs. No falls but reports that he thinks his balance is worse which he attributes to his sinus. No hx of shoulder injuries, no surgeries. No joint catching or clicking. 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 Pain is worse in morning. 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 Current Functional Impairments (Reported) Functional Limitations- Recreation/ Reports difficulty with Hobbies holding a hammer PT-OP-C Subjective Start: 09/08/23 08:14 Freq: Status: Active Protocol: Document 11/09/23 12:05 AB (Rec: 11/09/23 16:32 AB [id number]) OP-PT Subjective Patient Comments Patient Comments Patient reports he is pretty good, has been doing a lot of the exercises, comments the shoulder feels better, but the neck is still painful, more than the shoulder now. PT-OP-E Functional Tests Start: 09/08/23 08:14 Freq: Status: Active Protocol: Document 09/08/23 08:15 NM (Rec: 09/08/23 09:05 NM [id number]) Functional Tests Apley's Scratch Test Action 1- Left posterior scapula Action 1- Right L clavicle, painful Action 2- Left T4 Action 2- Right C7, painful Action 3- Left T7 Action 3- Right T12, painful PT-OP-F Manual Assessment Start: 09/08/23 08:14 Freq: Status: Active Protocol: Document 09/08/23 08:15 NM (Rec: 09/08/23 09:05 NM [id number]) Manual Assessments Soft Tissue Assessment Soft Tissue Mobility Assessment Soft tissue restrictions of cervical spine paraspinals, especially R upper trapezius and levator scapula. Tenderness to palpation along superlateral humerus near rotator cuff muscle insertion. Pt has a lump on his posterior neck (he reports has been there for years and he gets tests on them every year) Joint Mobility Assessment Joint Mobility Assessment R shoulder AROM more limited in standing and supine. R shoulder AROM more limited than PROM, with nearly full PROM for ER. PROM is still limited for R flex and abd. No clicking or popping of joint with PROM. PT-OP-H Neuro Start: 09/08/23 08:14 Freq: Status: Active Protocol: Document 09/08/23 08:15 NM (Rec: 09/08/23 09:05 NM [id number]) Sensation Evaluation Gross Sensation Gross Sensation WNL Comments Summary Comments BUE dermatomes intact to light touch sensation PT-OP-J Posture/Palpation/Skin Start: 09/08/23 08:14 Freq: Status: Active Protocol: Document 09/08/23 08:15 NM (Rec: 09/08/23 12:13 NM [id number]) Posture Evaluation Position Standing Evaluation View Lateral Head/C-Spine Posture Forward Head T-Spine Posture Increased Kyphosis Shoulder Posture (L) Rounded,(R) Rounded,(L) Elevated Scapula Posture (L) Protracted,(R) Protracted, (L) Elevated,(R) Depressed Arm Posture (L) Internally Rotated,(R) Internally Rotated Pelvis Posture Anteriorly Tilted Weight Distribution Balanced Palpation Assessment Location R shoulder Palpation Location lateral shoulder, AC joint, clavicle, rotator cuff, trapezius Palpation Findings Tenderness Palpation Details Tenderness at lateral R shoulder near rotator cuff insertions and R upper trapezius. No tenderness at LH biceps tendon, AC joint, clavicle. PT-OP-K Range of Motion Start: 09/08/23 08:14 Freq: Status: Active Protocol: Document 10/31/23 13:46 NM (Rec: 10/31/23 14:30 NM [id number]) Shoulder Goniometric Range of Motion Shoulder R AROM Flexion 127 Extension 60 Abduction 100 External Rotation at 0 degrees Abduction 30 Internal Rotation 65 Internal Rotation Behind Back (text) T12 Comments pain with flex (end range), ext, abd, ER (worse, tingle in upper trap), IR at end range 10/10/23: flexion 127 deg (no change), abd 125 deg ( improvement) before painful 10/31/23: 145 deg flex, 140 deg abd PT-OP-L Special Tests Start: 09/08/23 08:14 Freq: Status: Active Protocol: Document 09/08/23 08:15 NM (Rec: 09/08/23 09:05 NM [id number]) Special Tests Cervical Spine Special Tests Spurling's Test Test Results negative Shoulder Special Tests IR/Horizontal ADD Impingement Test Results positive Lift-Off Rotator Cuff Test Results painful but able to lift off completely Isaacs Jovani Impingement Test Results positive Neer Impingement Test Results positive [place] Test Test Results positive Comments reports worse pain with IR than ER Yergason's Biceps Test Results negative Empty Can Test Results positive Comments reports worse pain with IR than ER External Rotation Lag Sign Test Results negative Elevation Impingement Test Results positive Drop Arm Rotator Cuff Test Results negative Clunk Test Test Results negative Biceps Load II Test Test Results negative AC Joint Compression Test Results negative PT-OP-M Strength Start: 09/08/23 08:14 Freq: Status: Active Protocol: Document 10/31/23 13:46 NM (Rec: 10/31/23 16:15 NM [id number]) Shoulder Strength Shoulder Manual Muscle Testing Right Flexion 4+ Good+ Extension 4 Good Abduction (C5) 4- Good- Adduction 5 Normal External Rotation 4- Good- Internal Rotation 4 Good Horizontal Abduction 4 Good Horizontal Adduction 4 Good Comments Pain with ER and abduction 10/10/23: 4/5 for ER/IR, 4-/5 abd MMT; no pain reported 10/31/23: 4/5 for ER/IR/Abd/Flex PT-OP-Q Treatments Start: 09/08/23 08:14 Freq: Status: Active Protocol: Document 11/09/23 12:05 AB (Rec: 11/09/23 16:32 AB [id number]) Therapeutic Exercises Supine Exercises mini band Supine Exercise Name shoulder ER with band with flexion Side bilateral Resistance level one light blue band Reps/Minutes X10 Comments verbal cues monitored for pain over noodle Supine Exercise Name pec stretch and alternating UE flexion Side bilateral Reps/Minutes 3 min pec stretch, X 10 alternating UE flexion Comments verbal cues Sitting Exercises Cervical spine stretches Sitting Exercise Name UT, LS- beginning of session for improved STM Side bilateral Equipment Used hand stabilizing opp eloise Reps/Minutes 30 sec X 3 UT 30 sec X 2 lev scap Comments cued to prevent pushing into cervical flexion during UT stretch Standing Exercises wall push up plus Side bilateral Reps/Minutes [id number] Comments Verbal and visual cues wall slide Standing Exercise Name stepping fwd, wall slide flexion, lift off and lower without use of wall Side right Reps/Minutes X10 Comments Verbal and visual cues shoulder IR stretch Standing Exercise Name initiated with towel today; added to hEP Side right Equipment Used using dowel, L hand assist with ext then IR stretch Reps/Minutes 60 sec X 2 Comments reports no pain but very stiff/tight Manual Therapy Treatment Soft Tissue Mobilization Periscapular Body Location UT, LS, rhomboids, RTC,pec right UE Mobilization Type Cross-Friction,Rolling,Other Intensity/Depth Moderate Body Position Prone Comments monitored for pain PT-OP-T Assessment and Plan Start: 09/08/23 08:14 Freq: Status: Active Protocol: Document 11/09/23 12:05 AB (Rec: 11/09/23 16:32 AB [id number]) Physical Therapy Assessment Goals Six Impairment ROM Impairment R flex AROM 127 deg, R abd AROM 100 deg Short Term Goal (STG) Pt will improve R flex and abd AROM by at least 10 deg without compensation for improved reaching during ADLs. 10/19/23: 145 deg flex, 150 deg abd 10/10/23: 127 deg flex, 125 deg abd (pain at end range, 3/4) STG Duration 4 weeks MET Intermediate Goal (LTG) Pt will improve R flex and abd AROM by at least 20 deg without compensation for improved reaching during ADLs. 10/19/23: 145 deg flex, 150 deg abd 10/31/23: 145 deg flex, 140 deg abd LTG Duration 8 weeks MET Five Impairment function Impairment Pt reports pain with sleeping Intermediate Goal (LTG) Pt will report that he is able to sleep at least 60% of the night without waking due to R shoulder pain. 10/10/23: Reports able to sleep throughout last night without waking due to R shoulder pain LTG Duration 8 weeks MET Four Impairment ROM Impairment R apley scratch IR T12 Intermediate Goal (LTG) Pt will improve R shoulder apley scratch test IR to at least T8 in order to demonstrate improved ability to reach backward during dressing and grooming. 10/10/23: T10, painful 10/31/23: T10, no pain but tight 11/09/2023 T10 reports he stopped when it started hurting LTG Duration 8 weeks NOT MET, PROGRESSING Three Impairment strength Short Term Goal (STG) Pt will improve R shoulder abd /ER/IR strength to at least 4/ 5 within available ROM in order to demonstrate improved strength required for lifting objects. 10/10/23: 4/5 IR/ER, 4-/5 abd 10/31/23: 4/5 for all, min pain inside joint STG Duration 4 weeks, MET Intermediate Goal (LTG) Pt will improve R shoulder abd /ER/IR strength to at least 4+ /5 within available ROM in order to demonstrate improved strength required for lifting objects. 10/27/23: 4/5 for all 10/31/23: 4/5 for all, min pain inside joint LTG Duration 8 weeks NOT MET Two Impairment ROM Impairment R apley scratch ER C7 Blower Installer Goal (LTG) Pt will improve R apley scratch test ER to at least T3 in order to demonstrate improved ability to reach and for dressing. 10/10/23: T3, reports 4/10 pain 10/31/23: T5, no pain LTG Duration 8 weeks MET One Impairment function Impairment Quickdash 22 or 25% Blower Installer Goal (LTG) Pt will decrease quickdash score to <18% in order to demonstrate improved activity tolerance. 10/10/23: 19, 18.18% 10/27/23, NOT MET: 19, 18% (no change) LTG Duration 8 weeks goal updated Assessment Summary Assessment Clive reports the neck feels better end of session. Patient comments he had stopped performing the exercise with the towel, but will return to doing it post shower. Physical Therapy Plan Frequency and Duration Frequency of Treatment 2x/Week Duration of treatment (weeks) 6 Plan of Care Start Date 10/31/23 Plan of Care End Date 12/16/23 Next Visit Focus/Plan Next Note Type Treatment Note Next Visit Plan CS stretching, Lt/MT/ periscapular strengthening. Rotator cuff mobility and strength, scapular control. Inferior glide (trial with band) POC: Progress prone periscapular strengthening as tolerated; sidelying flex/abd/ ER; Trial AAROM flex/abd with dowel supine vs standing, eccentric abd/add and eccentric flex/ext for ROM Manual: CS STM, scapthoracic, MWM, GHJ negar abd/flex Update POC vs discharge in 2-3 visits Possibly condense HEP
--- NOTE | 2023-11-11 15:34 | PT.OTN ---
Current Diagnoses Other chronic pain (11/11/23) Pain in right shoulder (11/11/23) Physical Therapy Treatment Note PT-OP-A Visit Information Start: 09/08/23 08:14 Freq: Status: Active Protocol: Document 11/11/23 14:35 NM (Rec: 11/11/23 15:33 NM [id number]) Out-Patient Physical Therapy Visit Information Visit Information Visit Type Treatment Note Visit Start Time 14:35 Visit Stop Time 15:15 Visit Number 15 PT-OP-B Current Condition Start: 09/08/23 08:14 Freq: Status: Active Protocol: Document 09/08/23 08:15 NM (Rec: 09/08/23 09:05 NM [id number]) Current Condition History of Current Condition Onset Date several years History of Current Condition Pt presents with R shoulder pain. He reports that he has difficulty with sleeping on R shoulder, unable to sleep on it. He reports no known SOCO. He reports tingling at the R neck near upper trapezius, resulting in sore muscles. No numbness/tingling to fingers. Pain feels like it is deep inside the joint. No imaging has been performed. Pt reports that he has difficulty with lifting (about a gallon of milk) and reaching to the side (abd/ER) is painful. No difficulty with dressing of ADLs. No falls but reports that he thinks his balance is worse which he attributes to his sinus. No hx of shoulder injuries, no surgeries. No joint catching or clicking. 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 Pain is worse in morning. 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 Current Functional Impairments (Reported) Functional Limitations- Recreation/ Reports difficulty with Hobbies holding a hammer PT-OP-C Subjective Start: 09/08/23 08:14 Freq: Status: Active Protocol: Document 11/11/23 14:35 NM (Rec: 11/11/23 15:33 NM [id number]) OP-PT Subjective Patient Comments Patient Comments Pt reports that his R neck is bothering him. Reports 5/10 R neck pain, 3/10 shoulder lateral posterior cuff. He states he said had an easy day so unsure why it bothers him so much PT-OP-E Functional Tests Start: 09/08/23 08:14 Freq: Status: Active Protocol: Document 09/08/23 08:15 NM (Rec: 09/08/23 09:05 NM [id number]) Functional Tests Apley's Scratch Test Action 1- Left posterior scapula Action 1- Right L clavicle, painful Action 2- Left T4 Action 2- Right C7, painful Action 3- Left T7 Action 3- Right T12, painful PT-OP-F Manual Assessment Start: 09/08/23 08:14 Freq: Status: Active Protocol: Document 09/08/23 08:15 NM (Rec: 09/08/23 09:05 NM [id number]) Manual Assessments Soft Tissue Assessment Soft Tissue Mobility Assessment Soft tissue restrictions of cervical spine paraspinals, especially R upper trapezius and levator scapula. Tenderness to palpation along superlateral humerus near rotator cuff muscle insertion. Pt has a lump on his posterior neck (he reports has been there for years and he gets tests on them every year) Joint Mobility Assessment Joint Mobility Assessment R shoulder AROM more limited in standing and supine. R shoulder AROM more limited than PROM, with nearly full PROM for ER. PROM is still limited for R flex and abd. No clicking or popping of joint with PROM. PT-OP-H Neuro Start: 09/08/23 08:14 Freq: Status: Active Protocol: Document 09/08/23 08:15 NM (Rec: 09/08/23 09:05 NM [id number]) Sensation Evaluation Gross Sensation Gross Sensation WNL Comments Summary Comments BUE dermatomes intact to light touch sensation PT-OP-J Posture/Palpation/Skin Start: 09/08/23 08:14 Freq: Status: Active Protocol: Document 09/08/23 08:15 NM (Rec: 09/08/23 12:13 NM [id number]) Posture Evaluation Position Standing Evaluation View Lateral Head/C-Spine Posture Forward Head T-Spine Posture Increased Kyphosis Shoulder Posture (L) Rounded,(R) Rounded,(L) Elevated Scapula Posture (L) Protracted,(R) Protracted, (L) Elevated,(R) Depressed Arm Posture (L) Internally Rotated,(R) Internally Rotated Pelvis Posture Anteriorly Tilted Weight Distribution Balanced Palpation Assessment Location R shoulder Palpation Location lateral shoulder, AC joint, clavicle, rotator cuff, trapezius Palpation Findings Tenderness Palpation Details Tenderness at lateral R shoulder near rotator cuff insertions and R upper trapezius. No tenderness at LH biceps tendon, AC joint, clavicle. PT-OP-K Range of Motion Start: 09/08/23 08:14 Freq: Status: Active Protocol: Document 10/31/23 13:46 NM (Rec: 10/31/23 14:30 NM [id number]) Shoulder Goniometric Range of Motion Shoulder R AROM Flexion 127 Extension 60 Abduction 100 External Rotation at 0 degrees Abduction 30 Internal Rotation 65 Internal Rotation Behind Back (text) T12 Comments pain with flex (end range), ext, abd, ER (worse, tingle in upper trap), IR at end range 10/10/23: flexion 127 deg (no change), abd 125 deg ( improvement) before painful 10/31/23: 145 deg flex, 140 deg abd PT-OP-L Special Tests Start: 09/08/23 08:14 Freq: Status: Active Protocol: Document 09/08/23 08:15 NM (Rec: 09/08/23 09:05 NM [id number]) Special Tests Cervical Spine Special Tests Spurling's Test Test Results negative Shoulder Special Tests IR/Horizontal ADD Impingement Test Results positive Lift-Off Rotator Cuff Test Results painful but able to lift off completely Isaacs Jovani Impingement Test Results positive Neer Impingement Test Results positive Tift Test Test Results positive Comments reports worse pain with IR than ER Yergason's Biceps Test Results negative Empty Can Test Results positive Comments reports worse pain with IR than ER External Rotation Lag Sign Test Results negative Elevation Impingement Test Results positive Drop Arm Rotator Cuff Test Results negative Clunk Test Test Results negative Biceps Load II Test Test Results negative AC Joint Compression Test Results negative PT-OP-M Strength Start: 09/08/23 08:14 Freq: Status: Active Protocol: Document 10/31/23 13:46 NM (Rec: 10/31/23 16:15 NM [id number]) Shoulder Strength Shoulder Manual Muscle Testing Right Flexion 4+ Good+ Extension 4 Good Abduction (C5) 4- Good- Adduction 5 Normal External Rotation 4- Good- Internal Rotation 4 Good Horizontal Abduction 4 Good Horizontal Adduction 4 Good Comments Pain with ER and abduction 10/10/23: 4/5 for ER/IR, 4-/5 abd MMT; no pain reported 10/31/23: 4/5 for ER/IR/Abd/Flex PT-OP-Q Treatments Start: 09/08/23 08:14 Freq: Status: Active Protocol: Document 11/11/23 14:35 NM (Rec: 11/11/23 15:33 NM [id number]) Therapeutic Exercises Supine Exercises mini band Supine Exercise Name shoulder ER with band with flexion Side bilateral Resistance level one light blue band Reps/Minutes 1x10 Comments cued for arms parallel to body for form shldr flexion Supine Exercise Name 1. resisted flexion overhead, 2. resisted eccentric flexion Side bilateral Resistance lvl 1 tb Equipment Used dowel with theraband Reps/Minutes 1x8 ea Comments pain free; limited flexion AROM Pectoralis stretch Supine Exercise Name to open chest- arms to side Side bilateral Resistance over noodle Reps/Minutes 1x60 Comments reports good stretch, no pain in shoulder or neck Prone Exercises I, Y, W, T Prone Exercise Name T with thumb up, full ABD at 90 deg; I Side bilateral Resistance 1# db all Equipment Used over 55 cm tball Reps/Minutes 1x10 ea Comments cued for scap retraction, thumb up in ER Sitting Exercises Cervical spine stretches Sitting Exercise Name UT, LS- beginning of session for improved STM Side bilateral Equipment Used hand stabilizing opp shoulder Reps/Minutes 2x30 ea Comments cue to prevent compensation with stretch; reports tingling in R shldr post Standing Exercises wall push up plus Standing Exercise Name 1. push up plus, 2. marshall ( IR), 3. field goal Side bilateral Reps/Minutes 1x10 ea Comments tactile cue at scap for protraction, core stab; pain free wall slide Standing Exercise Name cont next session as needed shoulder IR stretch Standing Exercise Name initiated with towel today Side right Equipment Used using dowel, L hand assist with ext then IR stretch Reps/Minutes 2x30 Comments reports no pain but very stiff/tight in ant shldr Manual Therapy Treatment Soft Tissue Mobilization cervical spine Body Location R paraspinals, UT, LS, DNF, SCM, scalenes Mobilization Type Myofascial Release,Rolling, Sustained Pressure Intensity/Depth Moderate Body Position Supine Comments Soft tissue restrictions of R paraspinals and upper trap, scalenes. Reports decrease in tightness and symptom relief post STM. First rib also elevated Periscapular Body Location UT, LS, rhomboids, RTC Mobilization Type Myofascial Release,Rolling, Sustained Pressure,Trigger Point Release Intensity/Depth Moderate Body Position Sidelying Comments Trigger point release of supraspinatus and levator scapula. Reports decrease in tingling after release. Increased soft tissue restriction of rotator cuff, near insertion as well. Monitored for pain, none reported Joint Mobilizations R 1st rib Direction caudal Grade III Body Position Sidelying Reps/Duration 1x10 Comments Post soft tissue mobilization of paraspinals and periscapulars R glenohumeral Direction Inf, ant to post Grade III Body Position Hooklying Reps/Duration 1x10 ea Comments monitored for pain R scapulothoracic Direction upward/downward rotation Grade III Body Position Sidelying Reps/Duration 1x10 Comments Mobilization with movement in sidelying flexion and abduction, post soft tissue mobilization. Manual Traction cervical spine Details trialed to address tingling post stretching Body Position Supine Reps/Duration 2x30 Comments Reports decrease in R shoulder /neck tingling, completely resolved post soft tissue mobilization to periscapulars PT-OP-T Assessment and Plan Start: 09/08/23 08:14 Freq: Status: Active Protocol: Document 11/11/23 14:35 NM (Rec: 11/11/23 15:33 NM [id number]) Physical Therapy Assessment Goals Six Impairment ROM Impairment R flex AROM 127 deg, R abd AROM 100 deg Short Term Goal (STG) Pt will improve R flex and abd AROM by at least 10 deg without compensation for improved reaching during ADLs. 10/19/23: 145 deg flex, 150 deg abd 10/10/23: 127 deg flex, 125 deg abd (pain at end range, 3/4) STG Duration 4 weeks MET Halfway Goal (LTG) Pt will improve R flex and abd AROM by at least 20 deg without compensation for improved reaching during ADLs. 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 10/10/23: Reports able to sleep throughout last night without waking due to R shoulder pain LTG Duration 8 weeks MET Four Impairment ROM Impairment R apley scratch IR T12 Halfway Goal (LTG) Pt will improve R shoulder apley scratch test IR to at least T8 in order to demonstrate improved ability to reach backward during dressing and grooming. 10/10/23: T10, painful 10/31/23: T10, no pain but tight 11/09/2023 T10 reports he stopped when it started hurting LTG Duration 8 weeks NOT MET, PROGRESSING Three Impairment strength Short Term Goal (STG) Pt will improve R shoulder abd /ER/IR strength to at least 4/ 5 within available ROM in order to demonstrate improved strength required for lifting objects. 10/10/23: 4/5 IR/ER, 4-/5 abd 10/31/23: 4/5 for all, min pain inside joint STG Duration 4 weeks, MET Reel Cart Operator Goal (LTG) Pt will improve R shoulder abd /ER/IR strength to at least 4+ /5 within available ROM in order to demonstrate improved strength required for lifting objects. 10/27/23: 4/5 for all 10/31/23: 4/5 for all, min pain inside joint LTG Duration 8 weeks NOT MET Two Impairment ROM Impairment R apley scratch ER C7 Halfway Goal (LTG) Pt will improve R apley scratch test ER to at least T3 in order to demonstrate improved ability to reach and for dressing. 10/10/23: T3, reports 4/10 pain 10/31/23: T5, no pain LTG Duration 8 weeks MET One Impairment function Impairment Quickdash 22 or 25% Halfway Goal (LTG) Pt will decrease quickdash score to <18% in order to demonstrate improved activity tolerance. 10/10/23: 19, 18.18% 10/27/23, NOT MET: 19, 18% (no change) LTG Duration 8 weeks goal updated Assessment Summary Assessment Pt reports that his pain levels decreased to 3/10 in both neck and R shoulder post session. During cervical spine stretches, pt reports tingling in R shoulder which only decreased post manual treatment. Right first rib is elevated. Initiated cervical spine traction and performed extensive soft tissue mobilization and trigger point release to decrease numbness and reduce muscle tightness. Initiated push up progression to further strengthen scapular stabilizers and improve UE strength. Pt continues to have limited R shoulder AROM that is painful at end range flexion and abduction. Continued with lightly resisted rotator cuff and periscapular strenghtening to decrease upper trap overactivation with R arm elevation and improve scapular mechanics. Pt has little carryover between sessions; reports compliance with HEP but only performs the same 5 exercises so I remember them. PT asked pt to bring in previous HEP to consolidate in next session. Pt would benefit from skilled PT for R shoulder strengthening and mobility in order to improve ROM, activity tolerance, and improve ability to participate in ADLs. Physical Therapy Plan Frequency and Duration Frequency of Treatment 2x/Week Duration of treatment (weeks) 6 Plan of Care Start Date 10/31/23 Plan of Care End Date 12/16/23 Therapeutic Interventions Therapeutic Interventions Balance Training,Coordination Training,Gait Training,Home Exercise Program,Joint Mobilizations,Manual Therapy, Neuromuscular Re-education, Orthotic/Prosthetic Management ,Patient/Caregiver Education, Self-Care/Home Management, Sensory Integration,Soft Tissue Mobilization,Taping, Therapeutic Activities, Therapeutic Exercises Modalities Biofeedback,Cold Pack/Ice Massage,Electric Stimulation, Hot Packs,Infrared Therapy, Traction- Mechanical, Ultrasound,Vasopneumatic Devices Next Visit Focus/Plan Next Note Type Treatment Note Next Visit Plan CS stretching, Lt/MT/ periscapular strengthening. Rotator cuff mobility and strength, scapular control. Inferior glide (trial with band). POC: Progress prone periscapular strengthening as tolerated; sidelying flex/abd/ ER; Trial AAROM flex/abd with dowel supine vs standing, eccentric abd/add and eccentric flex/ext for ROM Possibly condense HEP
--- NOTE | 2023-11-15 16:26 | PT.OTN ---
Current Diagnoses Other chronic pain (11/15/23) Pain in right shoulder (11/15/23) Physical Therapy Treatment Note PT-OP-A Visit Information Start: 09/08/23 08:14 Freq: Status: Active Protocol: Document 11/15/23 14:02 AB (Rec: 11/15/23 16:25 AB [id number]) Out-Patient Physical Therapy Visit Information Visit Information Visit Type Treatment Note Visit Note Access Code: [email or web address] Visit Start Time 15:20 Visit Stop Time 16:03 Visit Number 16 Number of SNOWMOBILE MECHANIC Visits 1 Evaluation Information Evaluation Date 09/08/23 PT-OP-B Current Condition Start: 09/08/23 08:14 Freq: Status: Active Protocol: Document 09/08/23 08:15 NM (Rec: 09/08/23 09:05 NM [id number]) Current Condition History of Current Condition Onset Date several years History of Current Condition Pt presents with R shoulder pain. He reports that he has difficulty with sleeping on R shoulder, unable to sleep on it. He reports no known SOCO. He reports tingling at the R neck near upper trapezius, resulting in sore muscles. No numbness/tingling to fingers. Pain feels like it is deep inside the joint. No imaging has been performed. Pt reports that he has difficulty with lifting (about a gallon of milk) and reaching to the side (abd/ER) is painful. No difficulty with dressing of ADLs. No falls but reports that he thinks his balance is worse which he attributes to his sinus. No hx of shoulder injuries, no surgeries. No joint catching or clicking. 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 Pain is worse in morning. 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 Current Functional Impairments (Reported) Functional Limitations- Recreation/ Reports difficulty with Hobbies holding a hammer PT-OP-C Subjective Start: 09/08/23 08:14 Freq: Status: Active Protocol: Document 11/15/23 14:02 AB (Rec: 11/15/23 16:25 AB [id number]) OP-PT Subjective Patient Comments Patient Comments Patient reports the shoulder is better, neck is sore, towel stretch gets painful beyond a certain point. Hand ( thumb ) behind back to T7. Patient reports he had an MD appt this morning and was told not to worry about the fatty cyst on the back of his neck. PT-OP-E Functional Tests Start: 09/08/23 08:14 Freq: Status: Active Protocol: Document 09/08/23 08:15 NM (Rec: 09/08/23 09:05 NM [id number]) Functional Tests Apley's Scratch Test Action 1- Left posterior scapula Action 1- Right L clavicle, painful Action 2- Left T4 Action 2- Right C7, painful Action 3- Left T7 Action 3- Right T12, painful PT-OP-F Manual Assessment Start: 09/08/23 08:14 Freq: Status: Active Protocol: Document 09/08/23 08:15 NM (Rec: 09/08/23 09:05 NM [id number]) Manual Assessments Soft Tissue Assessment Soft Tissue Mobility Assessment Soft tissue restrictions of cervical spine paraspinals, especially R upper trapezius and levator scapula. Tenderness to palpation along superlateral humerus near rotator cuff muscle insertion. Pt has a lump on his posterior neck (he reports has been there for years and he gets tests on them every year) Joint Mobility Assessment Joint Mobility Assessment R shoulder AROM more limited in standing and supine. R shoulder AROM more limited than PROM, with nearly full PROM for ER. PROM is still limited for R flex and abd. No clicking or popping of joint with PROM. PT-OP-H Neuro Start: 09/08/23 08:14 Freq: Status: Active Protocol: Document 09/08/23 08:15 NM (Rec: 09/08/23 09:05 NM [id number]) Sensation Evaluation Gross Sensation Gross Sensation WNL Comments Summary Comments BUE dermatomes intact to light touch sensation PT-OP-J Posture/Palpation/Skin Start: 09/08/23 08:14 Freq: Status: Active Protocol: Document 09/08/23 08:15 NM (Rec: 09/08/23 12:13 NM [id number]) Posture Evaluation Position Standing Evaluation View Lateral Head/C-Spine Posture Forward Head T-Spine Posture Increased Kyphosis Shoulder Posture (L) Rounded,(R) Rounded,(L) Elevated Scapula Posture (L) Protracted,(R) Protracted, (L) Elevated,(R) Depressed Arm Posture (L) Internally Rotated,(R) Internally Rotated Pelvis Posture Anteriorly Tilted Weight Distribution Balanced Palpation Assessment Location R shoulder Palpation Location lateral shoulder, AC joint, clavicle, rotator cuff, trapezius Palpation Findings Tenderness Palpation Details Tenderness at lateral R shoulder near rotator cuff insertions and R upper trapezius. No tenderness at LH biceps tendon, AC joint, clavicle. PT-OP-K Range of Motion Start: 09/08/23 08:14 Freq: Status: Active Protocol: Document 10/31/23 13:46 NM (Rec: 10/31/23 14:30 NM [id number]) Shoulder Goniometric Range of Motion Shoulder R AROM Flexion 127 Extension 60 Abduction 100 External Rotation at 0 degrees Abduction 30 Internal Rotation 65 Internal Rotation Behind Back (text) T12 Comments pain with flex (end range), ext, abd, ER (worse, tingle in upper trap), IR at end range 10/10/23: flexion 127 deg (no change), abd 125 deg ( improvement) before painful 10/31/23: 145 deg flex, 140 deg abd PT-OP-L Special Tests Start: 09/08/23 08:14 Freq: Status: Active Protocol: Document 09/08/23 08:15 NM (Rec: 09/08/23 09:05 NM [id number]) Special Tests Cervical Spine Special Tests Spurling's Test Test Results negative Shoulder Special Tests IR/Horizontal ADD Impingement Test Results positive Lift-Off Rotator Cuff Test Results painful but able to lift off completely Isaacs Jovani Impingement Test Results positive Neer Impingement Test Results positive [place] Test Test Results positive Comments reports worse pain with IR than ER Yergason's Biceps Test Results negative Empty Can Test Results positive Comments reports worse pain with IR than ER External Rotation Lag Sign Test Results negative Elevation Impingement Test Results positive Drop Arm Rotator Cuff Test Results negative Clunk Test Test Results negative Biceps Load II Test Test Results negative AC Joint Compression Test Results negative PT-OP-M Strength Start: 09/08/23 08:14 Freq: Status: Active Protocol: Document 10/31/23 13:46 NM (Rec: 10/31/23 16:15 NM [id number]) Shoulder Strength Shoulder Manual Muscle Testing Right Flexion 4+ Good+ Extension 4 Good Abduction (C5) 4- Good- Adduction 5 Normal External Rotation 4- Good- Internal Rotation 4 Good Horizontal Abduction 4 Good Horizontal Adduction 4 Good Comments Pain with ER and abduction 10/10/23: 4/5 for ER/IR, 4-/5 abd MMT; no pain reported 10/31/23: 4/5 for ER/IR/Abd/Flex PT-OP-Q Treatments Start: 09/08/23 08:14 Freq: Status: Active Protocol: Document 11/15/23 14:02 AB (Rec: 11/15/23 16:25 AB [id number]) Therapeutic Exercises Supine Exercises shoulder IR with towel Side right Reps/Minutes 60 sec X 2 Comments post manual therapy row Side bilateral Resistance light gree band Reps/Minutes X15 alternating UE flexion over 1/2 foam roller Side bilateral Reps/Minutes X10 Comments Visual cues Pectoralis stretch Supine Exercise Name to open chest- arms to side Side bilateral Resistance over 1/2 soft foam roller Reps/Minutes 3 min Comments Verbal cues for UE position Sidelying Exercises shoulder IR AROM Side right Reps/Minutes X10 Comments verbal and tactile cues Sitting Exercises Cervical spine stretches Sitting Exercise Name UT Side bilateral Equipment Used hand stabilizing opp shoulder Reps/Minutes 60 sec X1 each direction Comments verbal cues Standing Exercises shoulder IR with band Side right Resistance peach level one band Reps/Minutes X15 Comments monitored for pain, Verbal cues for UE position direction of movement scapular depression Standing Exercise Name hands clasped behind back Side bilateral Reps/Minutes X10 Comments Verbal and visual cues rows Standing Exercise Name row Side bilateral Resistance green band level 3 Reps/Minutes 1 X15ea Comments verbal cues for stagger stance Manual Therapy Treatment Soft Tissue Mobilization Periscapular Body Location UT, LS, rhomboids, RTC Mobilization Type Cross-Friction,Rolling Intensity/Depth Moderate Body Position Sidelying Comments prior to exercise Joint Mobilizations R glenohumeral Direction Inf, ant to post Grade IV Body Position Hooklying Reps/Duration 1x10 ea Comments monitored for pain R scapulothoracic Direction into adduction and depression Grade III Body Position Sidelying Reps/Duration 1x10 Comments Mobilization with movement in sidelying flexion and abduction, post soft tissue mobilization. Self-Care/Home Management Treatment Activities Self-Care/Home Management Activities IR with level one band added to HEP PT-OP-T Assessment and Plan Start: 09/08/23 08:14 Freq: Status: Active Protocol: Document 11/15/23 14:02 AB (Rec: 11/15/23 16:25 AB [id number]) Physical Therapy Assessment Goals Six Impairment ROM Impairment R flex AROM 127 deg, R abd AROM 100 deg Short Term Goal (STG) Pt will improve R flex and abd AROM by at least 10 deg without compensation for improved reaching during ADLs. 10/19/23: 145 deg flex, 150 deg abd 10/10/23: 127 deg flex, 125 deg abd (pain at end range, 3/4) STG Duration 4 weeks MET [facility] Goal (LTG) Pt will improve R flex and abd AROM by at least 20 deg without compensation for improved reaching during ADLs. 10/19/23: 145 deg flex, 150 deg abd 10/31/23: 145 deg flex, 140 deg abd LTG Duration 8 weeks MET Five Impairment function Impairment Pt reports pain with sleeping [facility] Goal (LTG) Pt will report that he is able to sleep at least 60% of the night without waking due to R shoulder pain. 10/10/23: Reports able to sleep throughout last night without waking due to R shoulder pain LTG Duration 8 weeks MET Four Impairment ROM Impairment R apley scratch IR T12 Operations Consultant Goal (LTG) Pt will improve R shoulder apley scratch test IR to at least T8 in order to demonstrate improved ability to reach backward during dressing and grooming. 10/10/23: T10, painful 10/31/23: T10, no pain but tight 11/09/2023 T10 reports he stopped when it started hurting LTG Duration 8 weeks NOT MET, PROGRESSING Three Impairment strength Short Term Goal (STG) Pt will improve R shoulder abd /ER/IR strength to at least 4/ 5 within available ROM in order to demonstrate improved strength required for lifting objects. 10/10/23: 4/5 IR/ER, 4-/5 abd 10/31/23: 4/5 for all, min pain inside joint STG Duration 4 weeks, MET [facility] Goal (LTG) Pt will improve R shoulder abd /ER/IR strength to at least 4+ /5 within available ROM in order to demonstrate improved strength required for lifting objects. 10/27/23: 4/5 for all 10/31/23: 4/5 for all, min pain inside joint LTG Duration 8 weeks NOT MET Two Impairment ROM Impairment R apley scratch ER C7 [facility] Goal (LTG) Pt will improve R apley scratch test ER to at least T3 in order to demonstrate improved ability to reach and for dressing. 10/10/23: T3, reports 4/10 pain 10/31/23: T5, no pain LTG Duration 8 weeks MET One Impairment function Impairment Quickdash 22 or 25% [facility] Goal (LTG) Pt will decrease quickdash score to <18% in order to demonstrate improved activity tolerance. 10/10/23: 19, 18.18% 10/27/23, NOT MET: 19, 18% (no change) LTG Duration 8 weeks goal updated Assessment Summary Assessment Patient reports the right UE feels looser when reaching behind back end of session. Physical Therapy Plan Frequency and Duration Frequency of Treatment 2x/Week Duration of treatment (weeks) 6 Plan of Care Start Date 10/31/23 Plan of Care End Date 12/16/23 Next Visit Focus/Plan Next Note Type Treatment Note Next Visit Plan CS stretching, Lt/MT/ periscapular strengthening. Rotator cuff mobility and strength, scapular control. Inferior glide (trial with band). POC: Progress prone periscapular strengthening as tolerated; sidelying flex/abd/ ER; Trial AAROM flex/abd with dowel supine vs standing, eccentric abd/add and eccentric flex/ext for ROM scapular depression to HEP
--- NOTE | 2023-11-17 12:15 | PT.OTN ---
Current Diagnoses Other chronic pain (11/17/23) Pain in right shoulder (11/17/23) Physical Therapy Treatment Note PT-OP-A Visit Information Start: 09/08/23 08:14 Freq: Status: Active Protocol: Document 11/17/23 08:06 AB (Rec: 11/17/23 12:15 AB [id number]) Out-Patient Physical Therapy Visit Information Visit Information Visit Type Treatment Note Visit Note Access Code: [email or web address] Visit Start Time 10:31 Visit Stop Time 11:15 Visit Number 17 Number of MASSAGE THERAPIST Visits 2 Evaluation Information Evaluation Date 09/08/23 PT-OP-B Current Condition Start: 09/08/23 08:14 Freq: Status: Active Protocol: Document 09/08/23 08:15 NM (Rec: 09/08/23 09:05 NM [id number]) Current Condition History of Current Condition Onset Date several years History of Current Condition Pt presents with R shoulder pain. He reports that he has difficulty with sleeping on R shoulder, unable to sleep on it. He reports no known SOCO. He reports tingling at the R neck near upper trapezius, resulting in sore muscles. No numbness/tingling to fingers. Pain feels like it is deep inside the joint. No imaging has been performed. Pt reports that he has difficulty with lifting (about a gallon of milk) and reaching to the side (abd/ER) is painful. No difficulty with dressing of ADLs. No falls but reports that he thinks his balance is worse which he attributes to his sinus. No hx of shoulder injuries, no surgeries. No joint catching or clicking. 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 Pain is worse in morning. 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 Current Functional Impairments (Reported) Functional Limitations- Recreation/ Reports difficulty with Hobbies holding a hammer PT-OP-C Subjective Start: 09/08/23 08:14 Freq: Status: Active Protocol: Document 11/17/23 08:06 AB (Rec: 11/17/23 12:15 AB [id number]) OP-PT Subjective Patient Comments Patient Comments Patient reports right UT area had increased pain yesterday, this occured while eating and he had to take Tylenol yesterday. Patient reports it feels tight today. PT-OP-E Functional Tests Start: 09/08/23 08:14 Freq: Status: Active Protocol: Document 09/08/23 08:15 NM (Rec: 09/08/23 09:05 NM [id number]) Functional Tests Apley's Scratch Test Action 1- Left posterior scapula Action 1- Right L clavicle, painful Action 2- Left T4 Action 2- Right C7, painful Action 3- Left T7 Action 3- Right T12, painful PT-OP-F Manual Assessment Start: 09/08/23 08:14 Freq: Status: Active Protocol: Document 09/08/23 08:15 NM (Rec: 09/08/23 09:05 NM [id number]) Manual Assessments Soft Tissue Assessment Soft Tissue Mobility Assessment Soft tissue restrictions of cervical spine paraspinals, especially R upper trapezius and levator scapula. Tenderness to palpation along superlateral humerus near rotator cuff muscle insertion. Pt has a lump on his posterior neck (he reports has been there for years and he gets tests on them every year) Joint Mobility Assessment Joint Mobility Assessment R shoulder AROM more limited in standing and supine. R shoulder AROM more limited than PROM, with nearly full PROM for ER. PROM is still limited for R flex and abd. No clicking or popping of joint with PROM. PT-OP-H Neuro Start: 09/08/23 08:14 Freq: Status: Active Protocol: Document 09/08/23 08:15 NM (Rec: 09/08/23 09:05 NM [id number]) Sensation Evaluation Gross Sensation Gross Sensation WNL Comments Summary Comments BUE dermatomes intact to light touch sensation PT-OP-J Posture/Palpation/Skin Start: 09/08/23 08:14 Freq: Status: Active Protocol: Document 09/08/23 08:15 NM (Rec: 09/08/23 12:13 NM [id number]) Posture Evaluation Position Standing Evaluation View Lateral Head/C-Spine Posture Forward Head T-Spine Posture Increased Kyphosis Shoulder Posture (L) Rounded,(R) Rounded,(L) Elevated Scapula Posture (L) Protracted,(R) Protracted, (L) Elevated,(R) Depressed Arm Posture (L) Internally Rotated,(R) Internally Rotated Pelvis Posture Anteriorly Tilted Weight Distribution Balanced Palpation Assessment Location R shoulder Palpation Location lateral shoulder, AC joint, clavicle, rotator cuff, trapezius Palpation Findings Tenderness Palpation Details Tenderness at lateral R shoulder near rotator cuff insertions and R upper trapezius. No tenderness at LH biceps tendon, AC joint, clavicle. PT-OP-K Range of Motion Start: 09/08/23 08:14 Freq: Status: Active Protocol: Document 10/31/23 13:46 NM (Rec: 10/31/23 14:30 NM [id number]) Shoulder Goniometric Range of Motion Shoulder R AROM Flexion 127 Extension 60 Abduction 100 External Rotation at 0 degrees Abduction 30 Internal Rotation 65 Internal Rotation Behind Back (text) T12 Comments pain with flex (end range), ext, abd, ER (worse, tingle in upper trap), IR at end range 10/10/23: flexion 127 deg (no change), abd 125 deg ( improvement) before painful 10/31/23: 145 deg flex, 140 deg abd PT-OP-L Special Tests Start: 09/08/23 08:14 Freq: Status: Active Protocol: Document 09/08/23 08:15 NM (Rec: 09/08/23 09:05 NM [id number]) Special Tests Cervical Spine Special Tests Spurling's Test Test Results negative Shoulder Special Tests IR/Horizontal ADD Impingement Test Results positive Lift-Off Rotator Cuff Test Results painful but able to lift off completely Isaacs Jovani Impingement Test Results positive Neer Impingement Test Results positive Coffey Test Test Results positive Comments reports worse pain with IR than ER Yergason's Biceps Test Results negative Empty Can Test Results positive Comments reports worse pain with IR than ER External Rotation Lag Sign Test Results negative Elevation Impingement Test Results positive Drop Arm Rotator Cuff Test Results negative Clunk Test Test Results negative Biceps Load II Test Test Results negative AC Joint Compression Test Results negative PT-OP-M Strength Start: 09/08/23 08:14 Freq: Status: Active Protocol: Document 10/31/23 13:46 NM (Rec: 10/31/23 16:15 NM [id number]) Shoulder Strength Shoulder Manual Muscle Testing Right Flexion 4+ Good+ Extension 4 Good Abduction (C5) 4- Good- Adduction 5 Normal External Rotation 4- Good- Internal Rotation 4 Good Horizontal Abduction 4 Good Horizontal Adduction 4 Good Comments Pain with ER and abduction 10/10/23: 4/5 for ER/IR, 4-/5 abd MMT; no pain reported 3/4/24: 4/5 for ER/IR/Abd/Flex PT-OP-Q Treatments Start: 09/08/23 08:14 Freq: Status: Active Protocol: Document 11/17/23 08:06 AB (Rec: 11/17/23 12:15 AB [id number]) Therapeutic Exercises Supine Exercises shoulder IR with towel Side right Reps/Minutes 60 sec X 2 Comments post manual therapy row Side bilateral Resistance light green band Reps/Minutes X15 mini band Supine Exercise Name shoulder ER with band with flexion Side bilateral Resistance level one light blue band Reps/Minutes 1x10 Comments verbal and visual cues Sidelying Exercises open book Side bilateral Resistance AROM Reps/Minutes X5 Comments verbal cues to hold for 5 breaths Sitting Exercises Cervical spine stretches Sitting Exercise Name UT Side bilateral Equipment Used hand stabilizing opp shoulder Reps/Minutes 60 sec X2 each direction Comments verbal cues Standing Exercises shoulder IR with band Side right Resistance peach level one band Reps/Minutes X15 Comments monitored for pain, Verbal cues for UE position direction of movement scapular depression Standing Exercise Name hands clasped behind back Side bilateral Reps/Minutes X5 X 2 wall push up plus Standing Exercise Name 1. push up plus, 2. marshall ( IR), 3. field goal Side bilateral Reps/Minutes 1x10 ea Comments tactile cue at scap for protraction, core stab; pain free rows Standing Exercise Name row Side bilateral Resistance green band level 3 Reps/Minutes 1 X15ea Comments verbal cues for stagger stance Manual Therapy Treatment Soft Tissue Mobilization right pec Mobilization Type Cross-Friction,Rolling Intensity/Depth Moderate Body Position Hooklying Comments postioned in chest knotting machine operator portable without foam roller Periscapular Body Location UT, LS, rhomboids, RTC, scalenes at lateral clavicle Mobilization Type Cross-Friction,Rolling Intensity/Depth Moderate Body Position Sidelying and seated Comments prior to exercise Joint Mobilizations R glenohumeral Direction Inf, ant to post Grade IV Body Position Hooklying Reps/Duration 1x10 ea Comments monitored for pain R scapulothoracic Direction into adduction and depression Grade III Body Position Sidelying Reps/Duration 1x15 Comments Mobilization with movement in sidelying flexion and abduction, post soft tissue mobilization. Neuro Re-Education Treatment Other Activities rhythmic stablization with yellow therabar Details modified statue of liberty ie ~30 deg abdu Reps/Duration 30 sec post set up and instruction Comments Verbal and visual cues Self-Care/Home Management Treatment Activities Self-Care/Home Management Activities scapular depression with hands clasped behind back added to HEP PT-OP-T Assessment and Plan Start: 09/08/23 08:14 Freq: Status: Active Protocol: Document 11/17/23 08:06 AB (Rec: 11/17/23 12:15 AB [id number]) Physical Therapy Assessment Goals Six Impairment ROM Impairment R flex AROM 127 deg, R abd AROM 100 deg Short Term Goal (STG) Pt will improve R flex and abd AROM by at least 10 deg without compensation for improved reaching during ADLs. 10/19/23: 145 deg flex, 150 deg abd 10/10/23: 127 deg flex, 125 deg abd (pain at end range, 10/30) STG Duration 4 weeks MET Etcher Machine Goal (LTG) Pt will improve R flex and abd AROM by at least 20 deg without compensation for improved reaching during ADLs. 10/19/23: 145 deg flex, 150 deg abd 10/31/23: 145 deg flex, 140 deg abd LTG Duration 8 weeks MET Five Impairment function Impairment Pt reports pain with sleeping Etcher Machine Goal (LTG) Pt will report that he is able to sleep at least 60% of the night without waking due to R shoulder pain. 10/10/23: Reports able to sleep throughout last night without waking due to R shoulder pain LTG Duration 8 weeks MET Four Impairment ROM Impairment R apley scratch IR T12 Residential Goal (LTG) Pt will improve R shoulder apley scratch test IR to at least T8 in order to demonstrate improved ability to reach backward during dressing and grooming. 10/10/23: T10, painful 10/31/23: T10, no pain but tight 11/09/2023 T10 reports he stopped when it started hurting LTG Duration 8 weeks NOT MET, PROGRESSING Three Impairment strength Short Term Goal (STG) Pt will improve R shoulder abd /ER/IR strength to at least 4/ 5 within available ROM in order to demonstrate improved strength required for lifting objects. 10/10/23: 4/5 IR/ER, 4-/5 abd 10/31/23: 4/5 for all, min pain inside joint STG Duration 4 weeks, MET Etcher Machine Goal (LTG) Pt will improve R shoulder abd /ER/IR strength to at least 4+ /5 within available ROM in order to demonstrate improved strength required for lifting objects. 10/27/23: 4/5 for all 10/31/23: 4/5 for all, min pain inside joint LTG Duration 8 weeks NOT MET Two Impairment ROM Impairment R apley scratch ER C7 Etcher Machine Goal (LTG) Pt will improve R apley scratch test ER to at least T3 in order to demonstrate improved ability to reach and for dressing. 10/10/23: T3, reports 4/10 pain 10/31/23: T5, no pain LTG Duration 8 weeks MET One Impairment function Impairment Quickdash 22 or 25% Etcher Machine Goal (LTG) Pt will decrease quickdash score to <18% in order to demonstrate improved activity tolerance. 10/10/23: 19, 18.18% 10/27/23, NOT MET: 19, 18% (no change) LTG Duration 8 weeks goal updated Assessment Summary Assessment AROM right shoulder flexion 135 deg end of session with patient reporting the right side of his neck feels better. Physical Therapy Plan Frequency and Duration Frequency of Treatment 2x/Week Duration of treatment (weeks) 6 Plan of Care Start Date 10/31/23 Plan of Care End Date 12/16/23 Next Visit Focus/Plan Next Note Type Treatment Note Next Visit Plan CS stretching, Lt/MT/ periscapular strengthening. Rotator cuff mobility and strength, scapular control. Inferior glide (trial with band). POC: Progress prone periscapular strengthening as tolerated; sidelying flex/abd/ ER; Trial AAROM flex/abd with dowel supine vs standing, eccentric abd/add and eccentric flex/ext for ROM
--- NOTE | 2023-11-22 09:16 | PT.OTN ---
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 He reports that he has difficulty with sleeping on R shoulder, unable to sleep on it. He reports no known SOCO. He reports tingling at the R neck near upper trapezius, resulting in sore muscles. No numbness/tingling to fingers. Pain feels like it is deep inside the joint. No imaging has been performed. Pt reports that he has difficulty with lifting (about a gallon of milk) and reaching to the side (abd/ER) is painful. No difficulty with dressing of ADLs. No falls but reports that he thinks his balance is worse which he attributes to his sinus. No hx of shoulder injuries, no surgeries. No joint catching or clicking. 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 Pain is worse in morning. Before retired, he worked in the [employer]. Current Functional Impairments (Reported) Functional Limitations- Recreation/ Reports difficulty with Hobbies holding a hammer PT-OP-C Subjective Start: 09/08/23 08:14 Freq: Status: Active Protocol: Document 11/22/23 07:59 AB (Rec: 11/22/23 09:16 AB [id number]) OP-PT Subjective Patient Comments Patient Comments Pt reports right UT persists rates pain 3/10 today, 5/10 yesterday unable to attribute to specific activity. PT-OP-E Functional Tests Start: 09/08/23 08:14 Freq: Status: Active Protocol: Document 09/08/23 08:15 NM (Rec: 09/08/23 09:05 NM [id number]) Functional Tests Apley's Scratch Test Action 1- Left posterior scapula Action 1- Right L clavicle, painful Action 2- Left T4 Action 2- Right C7, painful Action 3- Left T7 Action 3- Right T12, painful PT-OP-F Manual Assessment Start: 09/08/23 08:14 Freq: Status: Active Protocol: Document 09/08/23 08:15 NM (Rec: 09/08/23 09:05 NM [id number]) Manual Assessments Soft Tissue Assessment Soft Tissue Mobility Assessment Soft tissue restrictions of cervical spine paraspinals, especially R upper trapezius and levator scapula. Tenderness to palpation along superlateral humerus near rotator cuff muscle insertion. Pt has a lump on his posterior neck (he reports has been there for years and he gets tests on them every year) Joint Mobility Assessment Joint Mobility Assessment R shoulder AROM more limited in standing and supine. R shoulder AROM more limited than PROM, with nearly full PROM for ER. PROM is still limited for R flex and abd. No clicking or popping of joint with PROM. PT-OP-H Neuro Start: 09/08/23 08:14 Freq: Status: Active Protocol: Document 09/08/23 08:15 NM (Rec: 09/08/23 09:05 NM [id number]) Sensation Evaluation Gross Sensation Gross Sensation WNL Comments Summary Comments BUE dermatomes intact to light touch sensation PT-OP-J Posture/Palpation/Skin Start: 09/08/23 08:14 Freq: Status: Active Protocol: Document 09/08/23 08:15 NM (Rec: 09/08/23 12:13 NM [id number]) Posture Evaluation Position Standing Evaluation View Lateral Head/C-Spine Posture Forward Head T-Spine Posture Increased Kyphosis Shoulder Posture (L) Rounded,(R) Rounded,(L) Elevated Scapula Posture (L) Protracted,(R) Protracted, (L) Elevated,(R) Depressed Arm Posture (L) Internally Rotated,(R) Internally Rotated Pelvis Posture Anteriorly Tilted Weight Distribution Balanced Palpation Assessment Location R shoulder Palpation Location lateral shoulder, AC joint, clavicle, rotator cuff, trapezius Palpation Findings Tenderness Palpation Details Tenderness at lateral R shoulder near rotator cuff insertions and R upper trapezius. No tenderness at LH biceps tendon, AC joint, clavicle. PT-OP-K Range of Motion Start: 09/08/23 08:14 Freq: Status: Active Protocol: Document 10/31/23 13:46 NM (Rec: 10/31/23 14:30 NM [id number]) Shoulder Goniometric Range of Motion Shoulder R AROM Flexion 127 Extension 60 Abduction 100 External Rotation at 0 degrees Abduction 30 Internal Rotation 65 Internal Rotation Behind Back (text) T12 Comments pain with flex (end range), ext, abd, ER (worse, tingle in upper trap), IR at end range 10/10/23: flexion 127 deg (no change), abd 125 deg ( improvement) before painful 10/31/23: 145 deg flex, 140 deg abd PT-OP-L Special Tests Start: 09/08/23 08:14 Freq: Status: Active Protocol: Document 09/08/23 08:15 NM (Rec: 09/08/23 09:05 NM [id number]) Special Tests Cervical Spine Special Tests Spurling's Test Test Results negative Shoulder Special Tests IR/Horizontal ADD Impingement Test Results positive Lift-Off Rotator Cuff Test Results painful but able to lift off completely Isaacs Jovani Impingement Test Results positive Neer Impingement Test Results positive [place] Test Test Results positive Comments reports worse pain with IR than ER Yergason's Biceps Test Results negative Empty Can Test Results positive Comments reports worse pain with IR than ER External Rotation Lag Sign Test Results negative Elevation Impingement Test Results positive Drop Arm Rotator Cuff Test Results negative Clunk Test Test Results negative Biceps Load II Test Test Results negative AC Joint Compression Test Results negative PT-OP-M Strength Start: 09/08/23 08:14 Freq: Status: Active Protocol: Document 10/31/23 13:46 NM (Rec: 10/31/23 16:15 NM [id number]) Shoulder Strength Shoulder Manual Muscle Testing Right Flexion 4+ Good+ Extension 4 Good Abduction (C5) 4- Good- Adduction 5 Normal External Rotation 4- Good- Internal Rotation 4 Good Horizontal Abduction 4 Good Horizontal Adduction 4 Good Comments Pain with ER and abduction 10/10/23: 4/5 for ER/IR, 4-/5 abd MMT; no pain reported 3/4/24: 4/5 for ER/IR/Abd/Flex PT-OP-Q Treatments Start: 09/08/23 08:14 Freq: Status: Active Protocol: Document 11/22/23 07:59 AB (Rec: 11/22/23 09:16 AB [id number]) Therapeutic Exercises Supine Exercises supine shoulder IR Side right Reps/Minutes X10 Comments Pt ed use of self tactile cues to avoid ant translation of humerus Sidelying Exercises shoulder IR AROM Side right Reps/Minutes X10 Comments verbal and tactile cues open book Side bilateral Resistance AROM Reps/Minutes X5 Comments verbal cues to hold for 5 breaths Standing Exercises shoulder IR with band Side right Resistance peach level one band Reps/Minutes X15 X2 Comments monitored for pain, Verbal cues for UE position direction of movement scapular depression Standing Exercise Name hands clasped behind back Side bilateral Reps/Minutes X5 X 2 wall push up plus Standing Exercise Name 1. push up plus, 2. marshall ( IR), Side bilateral Reps/Minutes 1x10 ea Comments tactile cue at scap for protraction, core stab; pain free wall slide Standing Exercise Name step to the wall, wall slide flexion, lift UE off wall and lower w/o wall Side right Reps/Minutes X10 Comments facilitation at scapula Therapeutic Activity Therapeutic Activity posture check back to wall Reps/Minutes X1 Comments Pt standing with back to wall, VC to retract shoulders 10 % then step away from wall and hold the posture as long as able, Patient ed to perform through out the day. 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 Manual Techniques PROM right shoulder IR Type contract relax Reps/Duration X2 with 60 sec holds Self-Care/Home Management Treatment Education Other Education Pt advised to bring HEP into session in order to condense prev programs prior to adding additional exercises. PT-OP-T Assessment and Plan Start: 09/08/23 08:14 Freq: Status: Active Protocol: Document 11/22/23 07:59 AB (Rec: 11/22/23 09:16 AB [id number]) Physical Therapy Assessment Goals Six Impairment ROM Impairment R flex AROM 127 deg, R abd AROM 100 deg Short Term Goal (STG) Pt will improve R flex and abd AROM by at least 10 deg without compensation for improved reaching during ADLs. 10/19/23: 145 deg flex, 150 deg abd 10/10/23: 127 deg flex, 125 deg abd (pain at end range, 10/30) STG Duration 4 weeks MET Penitentiary Goal (LTG) Pt will improve R flex and abd AROM by at least 20 deg without compensation for improved reaching during ADLs. 10/19/23: 145 deg flex, 150 deg abd 10/31/23: 145 deg flex, 140 deg abd LTG Duration 8 weeks MET Five Impairment function Impairment Pt reports pain with sleeping Lace Burn Out Tender Goal (LTG) Pt will report that he is able to sleep at least 60% of the night without waking due to R shoulder pain. 10/10/23: Reports able to sleep throughout last night without waking due to R shoulder pain LTG Duration 8 weeks MET Four Impairment ROM Impairment R apley scratch IR T12 Penitentiary Goal (LTG) Pt will improve R shoulder apley scratch test IR to at least T8 in order to demonstrate improved ability to reach backward during dressing and grooming. 10/10/23: T10, painful 10/31/23: T10, no pain but tight 11/09/2023 T10 reports he stopped when it started hurting 11/22/23 hand behind back to L1 decreased start of this session compared to previous sessions, able to reach T10 end of session. LTG Duration 8 weeks NOT MET, PROGRESSING Three Impairment strength Short Term Goal (STG) Pt will improve R shoulder abd /ER/IR strength to at least 4/ 5 within available ROM in order to demonstrate improved strength required for lifting objects. 10/10/23: 4/5 IR/ER, 4-/5 abd 10/31/23: 4/5 for all, min pain inside joint STG Duration 4 weeks, MET Penitentiary Goal (LTG) Pt will improve R shoulder abd /ER/IR strength to at least 4+ /5 within available ROM in order to demonstrate improved strength required for lifting objects. 10/27/23: 4/5 for all 10/31/23: 4/5 for all, min pain inside joint LTG Duration 8 weeks NOT MET Two Impairment ROM Impairment R apley scratch ER C7 Lace Burn Out Tender Goal (LTG) Pt will improve R apley scratch test ER to at least T3 in order to demonstrate improved ability to reach and for dressing. 10/10/23: T3, reports 4/10 pain 10/31/23: T5, no pain LTG Duration 8 weeks MET One Impairment function Impairment Quickdash 22 or 25% Lace Burn Out Tender Goal (LTG) Pt will decrease quickdash score to <18% in order to demonstrate improved activity tolerance. 10/10/23: 19, 18.18% 10/27/23, NOT MET: 19, 18% (no change) LTG Duration 8 weeks goal updated Assessment Summary Assessment Increased AROM right shoulder IR with thumb to T10 end of session. Patient reports ( gestures to ) right UT and reports pain persists. Physical Therapy Plan Frequency and Duration Frequency of Treatment 2x/Week Duration of treatment (weeks) 6 Plan of Care Start Date 10/31/23 Plan of Care End Date 12/16/23 Therapeutic Interventions Therapeutic Interventions Balance Training,Coordination Training,Gait Training,Home Exercise Program,Joint Mobilizations,Manual Therapy, Neuromuscular Re-education, Orthotic/Prosthetic Management ,Patient/Caregiver Education, Self-Care/Home Management, Sensory Integration,Soft Tissue Mobilization,Taping, Therapeutic Activities, Therapeutic Exercises Modalities Biofeedback,Cold Pack/Ice Massage,Electric Stimulation, Hot Packs,Infrared Therapy, Traction- Mechanical, Ultrasound,Vasopneumatic Devices Next Visit Focus/Plan Next Note Type Treatment Note Next Visit Plan CS stretching, Lt/MT/ periscapular strengthening. Rotator cuff mobility and strength, scapular control. Inferior glide (trial with band). POC: Progress prone periscapular strengthening as tolerated; sidelying flex/abd/ ER; Trial AAROM flex/abd with dowel supine vs standing, eccentric abd/add and eccentric flex/ext for ROM Next session: begin condensing earlier exercise programs, in order to progress exercises that work toward goals not yet met. Possibly taping to unload UT/levator scap and for posture/position of GH joint.
--- NOTE | 2023-11-25 10:20 | PT.OTN ---
Current Diagnoses Other chronic pain (11/25/23) Pain in right shoulder (11/25/23) Physical Therapy Treatment Note PT-OP-A Visit Information Start: 09/08/23 08:14 Freq: Status: Active Protocol: Document 11/25/23 08:01 AB (Rec: 11/25/23 10:20 AB [id number]) Out-Patient Physical Therapy Visit Information Visit Information Visit Type Treatment Note Visit Note Access Code: [email or web address] 04/07 for PN Visit Start Time 08:17 Visit Stop Time 08:59 Visit Number 19 Number of [facility] Visits 4 Evaluation Information Evaluation Date 09/08/23 PT-OP-B Current Condition Start: 09/08/23 08:14 Freq: Status: Active Protocol: Document 09/08/23 08:15 NM (Rec: 09/08/23 09:05 NM [id number]) Current Condition History of Current Condition Onset Date several years History of Current Condition Pt presents with R shoulder pain. He reports that he has difficulty with sleeping on R shoulder, unable to sleep on it. He reports no known SOCO. He reports tingling at the R neck near upper trapezius, resulting in sore muscles. No numbness/tingling to fingers. Pain feels like it is deep inside the joint. No imaging has been performed. Pt reports that he has difficulty with lifting (about a gallon of milk) and reaching to the side (abd/ER) is painful. No difficulty with dressing of ADLs. No falls but reports that he thinks his balance is worse which he attributes to his sinus. No hx of shoulder injuries, no surgeries. No joint catching or clicking. 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 Pain is worse in morning. Before retired, he worked in the [employer] and [employer]. Current Functional Impairments (Reported) Functional Limitations- Recreation/ Reports difficulty with Hobbies holding a hammer PT-OP-C Subjective Start: 09/08/23 08:14 Freq: Status: Active Protocol: Document 11/25/23 08:01 AB (Rec: 11/25/23 10:20 AB [id number]) OP-PT Subjective Patient Comments Patient Comments Patient reports the shoulder isn't bothering as much during the day when doing stuff, soreness right UT area persists. AROM right thumb to T10 PT-OP-E Functional Tests Start: 09/08/23 08:14 Freq: Status: Active Protocol: Document 09/08/23 08:15 NM (Rec: 09/08/23 09:05 NM [id number]) Functional Tests Apley's Scratch Test Action 1- Left posterior scapula Action 1- Right L clavicle, painful Action 2- Left T4 Action 2- Right C7, painful Action 3- Left T7 Action 3- Right T12, painful PT-OP-F Manual Assessment Start: 09/08/23 08:14 Freq: Status: Active Protocol: Document 09/08/23 08:15 NM (Rec: 09/08/23 09:05 NM [id number]) Manual Assessments Soft Tissue Assessment Soft Tissue Mobility Assessment Soft tissue restrictions of cervical spine paraspinals, especially R upper trapezius and levator scapula. Tenderness to palpation along superlateral humerus near rotator cuff muscle insertion. Pt has a lump on his posterior neck (he reports has been there for years and he gets tests on them every year) Joint Mobility Assessment Joint Mobility Assessment R shoulder AROM more limited in standing and supine. R shoulder AROM more limited than PROM, with nearly full PROM for ER. PROM is still limited for R flex and abd. No clicking or popping of joint with PROM. PT-OP-H Neuro Start: 09/08/23 08:14 Freq: Status: Active Protocol: Document 09/08/23 08:15 NM (Rec: 09/08/23 09:05 NM [id number]) Sensation Evaluation Gross Sensation Gross Sensation WNL Comments Summary Comments BUE dermatomes intact to light touch sensation PT-OP-J Posture/Palpation/Skin Start: 09/08/23 08:14 Freq: Status: Active Protocol: Document 09/08/23 08:15 NM (Rec: 09/08/23 12:13 NM [id number]) Posture Evaluation Position Standing Evaluation View Lateral Head/C-Spine Posture Forward Head T-Spine Posture Increased Kyphosis Shoulder Posture (L) Rounded,(R) Rounded,(L) Elevated Scapula Posture (L) Protracted,(R) Protracted, (L) Elevated,(R) Depressed Arm Posture (L) Internally Rotated,(R) Internally Rotated Pelvis Posture Anteriorly Tilted Weight Distribution Balanced Palpation Assessment Location R shoulder Palpation Location lateral shoulder, AC joint, clavicle, rotator cuff, trapezius Palpation Findings Tenderness Palpation Details Tenderness at lateral R shoulder near rotator cuff insertions and R upper trapezius. No tenderness at LH biceps tendon, AC joint, clavicle. PT-OP-K Range of Motion Start: 09/08/23 08:14 Freq: Status: Active Protocol: Document 10/31/23 13:46 NM (Rec: 10/31/23 14:30 NM [id number]) Shoulder Goniometric Range of Motion Shoulder R AROM Flexion 127 Extension 60 Abduction 100 External Rotation at 0 degrees Abduction 30 Internal Rotation 65 Internal Rotation Behind Back (text) T12 Comments pain with flex (end range), ext, abd, ER (worse, tingle in upper trap), IR at end range 10/10/23: flexion 127 deg (no change), abd 125 deg ( improvement) before painful 10/31/23: 145 deg flex, 140 deg abd PT-OP-L Special Tests Start: 09/08/23 08:14 Freq: Status: Active Protocol: Document 09/08/23 08:15 NM (Rec: 09/08/23 09:05 NM [id number]) Special Tests Cervical Spine Special Tests Spurling's Test Test Results negative Shoulder Special Tests IR/Horizontal ADD Impingement Test Results positive Lift-Off Rotator Cuff Test Results painful but able to lift off completely Isaacs Jovani Impingement Test Results positive Neer Impingement Test Results positive [place] Test Test Results positive Comments reports worse pain with IR than ER Yergason's Biceps Test Results negative Empty Can Test Results positive Comments reports worse pain with IR than ER External Rotation Lag Sign Test Results negative Elevation Impingement Test Results positive Drop Arm Rotator Cuff Test Results negative Clunk Test Test Results negative Biceps Load II Test Test Results negative AC Joint Compression Test Results negative PT-OP-M Strength Start: 09/08/23 08:14 Freq: Status: Active Protocol: Document 10/31/23 13:46 NM (Rec: 10/31/23 16:15 NM [id number]) Shoulder Strength Shoulder Manual Muscle Testing Right Flexion 4+ Good+ Extension 4 Good Abduction (C5) 4- Good- Adduction 5 Normal External Rotation 4- Good- Internal Rotation 4 Good Horizontal Abduction 4 Good Horizontal Adduction 4 Good Comments Pain with ER and abduction 10/10/23: 4/5 for ER/IR, 4-/5 abd MMT; no pain reported 10/31/23: 4/5 for ER/IR/Abd/Flex PT-OP-Q Treatments Start: 09/08/23 08:14 Freq: Status: Active Protocol: Document 11/25/23 08:01 AB (Rec: 11/25/23 10:20 AB [id number]) Therapeutic Exercises Sidelying Exercises ER Side right Resistance 1# DB Equipment Used towel roll under arm Reps/Minutes 1x10 ea Comments cued posterior scap setting open book Side bilateral Resistance AROM Reps/Minutes X5 Comments verbal cues to hold for 5 breaths abduction Side right Resistance 1# db Equipment Used PT initially facilitate long axis and inf glide at humeral head Reps/Minutes 2x8 Comments cued post scap setting Standing Exercises shoulder IR with band Side right Resistance peach level one band Reps/Minutes X15 Comments monitored for pain, scapular depression Standing Exercise Name hands clasped behind back Side bilateral Reps/Minutes X5 X 2 rows Standing Exercise Name row and sh ext with scap squeeze Side bilateral Resistance green band level 3 Reps/Minutes 1 X15ea Comments verbal cues for stagger stance Manual Therapy Treatment Soft Tissue Mobilization right pec Mobilization Type Cross-Friction,Rolling Intensity/Depth Moderate Body Position Hooklying 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 Taping right UE for posture and to unload UT/levator scap Treatment Focus posture and unloading UT/ levator scap Type of Tape Kinesio Tape Skin Inspection small scab scapular area Comments Avoided tape over scap Self-Care/Home Management Treatment Activities Self-Care/Home Management Activities HEP revised for every other day strengthening, stretching to remain every day until Apr 2024, and duplicate exercises removed. PT-OP-T Assessment and Plan Start: 09/08/23 08:14 Freq: Status: Active Protocol: Document 11/25/23 08:01 AB (Rec: 11/25/23 10:20 AB [id number]) Physical Therapy Assessment Goals Six Impairment ROM Impairment R flex AROM 127 deg, R abd AROM 100 deg Short Term Goal (STG) Pt will improve R flex and abd AROM by at least 10 deg without compensation for improved reaching during ADLs. 10/19/23: 145 deg flex, 150 deg abd 10/10/23: 127 deg flex, 125 deg abd (pain at end range, /) STG Duration 4 weeks MET [place] Goal (LTG) Pt will improve R flex and abd AROM by at least 20 deg without compensation for improved reaching during ADLs. 10/19/23: 145 deg flex, 150 deg abd 10/31/23: 145 deg flex, 140 deg abd LTG Duration 8 weeks MET Five Impairment function Impairment Pt reports pain with sleeping [facility] Goal (LTG) Pt will report that he is able to sleep at least 60% of the night without waking due to R shoulder pain. 10/10/23: Reports able to sleep throughout last night without waking due to R shoulder pain LTG Duration 8 weeks MET Four Impairment ROM Impairment R apley scratch IR T12 [facility] Goal (LTG) Pt will improve R shoulder apley scratch test IR to at least T8 in order to demonstrate improved ability to reach backward during dressing and grooming. 10/10/23: T10, painful 10/31/23: T10, no pain but tight 11/09/2023 T10 reports he stopped when it started hurting 11/22/23 hand behind back to L1 decreased start of this session compared to previous sessions, able to reach T10 end of session. LTG Duration 8 weeks NOT MET, PROGRESSING Three Impairment strength Short Term Goal (STG) Pt will improve R shoulder abd /ER/IR strength to at least 4/ 5 within available ROM in order to demonstrate improved strength required for lifting objects. 10/10/23: 4/5 IR/ER, 4-/5 abd 10/31/23: 4/5 for all, min pain inside joint STG Duration 4 weeks, MET [facility] Goal (LTG) Pt will improve R shoulder abd /ER/IR strength to at least 4+ /5 within available ROM in order to demonstrate improved strength required for lifting objects. 10/27/23: 4/5 for all 10/31/23: 4/5 for all, min pain inside joint LTG Duration 8 weeks NOT MET Two Impairment ROM Impairment R apley scratch ER C7 [facility] Goal (LTG) Pt will improve R apley scratch test ER to at least T3 in order to demonstrate improved ability to reach and for dressing. 10/10/23: T3, reports 4/10 pain 10/31/23: T5, no pain LTG Duration 8 weeks MET One Impairment function Impairment Quickdash 22 or 25% [facility] Goal (LTG) Pt will decrease quickdash score to <18% in order to demonstrate improved activity tolerance. 10/10/23: 19, 18.18% 10/27/23, NOT MET: 19, 18% (no change) LTG Duration 8 weeks goal updated Progress Towards Goals Progress Towards Goals Progressing Toward Goals,Goals Met Progress Comments Progressing toward AROM, strength, and QOL/activity tolerance goals Assessment Summary Assessment Patient reports the neck feels better end of session. Darvin into session with shoulder AROM IR thumb to T10, ie maintained gains achieved end of previous session. Physical Therapy Plan Frequency and Duration Frequency of Treatment 2x/Week Duration of treatment (weeks) 6 Plan of Care Start Date 10/31/23 Plan of Care End Date 12/16/23 Next Visit Focus/Plan Next Note Type Treatment Note Next Visit Plan Assess damien to tape and changes to HEP. *9th and 10th visit sched with PT CS stretching, Lt/MT/ periscapular strengthening. Rotator cuff mobility and strength, scapular control. Inferior glide (trial with band). POC: Progress prone periscapular strengthening as tolerated; sidelying flex/abd/ ER; Trial AAROM flex/abd with dowel supine vs standing, eccentric abd/add and eccentric flex/ext for ROM Next session: begin
--- NOTE | 2023-11-29 13:47 | PT.OTN ---
Current Diagnoses Other chronic pain (11/29/23) Pain in right shoulder (11/29/23) Physical Therapy Treatment Note PT-OP-A Visit Information Start: 09/08/23 08:14 Freq: Status: Active Protocol: Document 11/29/23 08:19 NM (Rec: 11/29/23 08:59 NM [id number]) Out-Patient Physical Therapy Visit Information Visit Information Visit Type Treatment Note Visit Note 05/08 for PN Visit Start Time 08:18 Visit Stop Time 08:58 Visit Number 20 Evaluation Information Evaluation Date 09/08/23 PT-OP-B Current Condition Start: 09/08/23 08:14 Freq: Status: Active Protocol: Document 09/08/23 08:15 NM (Rec: 09/08/23 09:05 NM [id number]) Current Condition History of Current Condition Onset Date several years History of Current Condition Pt presents with R shoulder pain. He reports that he has difficulty with sleeping on R shoulder, unable to sleep on it. He reports no known SOCO. He reports tingling at the R neck near upper trapezius, resulting in sore muscles. No numbness/tingling to fingers. Pain feels like it is deep inside the joint. No imaging has been performed. Pt reports that he has difficulty with lifting (about a gallon of milk) and reaching to the side (abd/ER) is painful. No difficulty with dressing of ADLs. No falls but reports that he thinks his balance is worse which he attributes to his sinus. No hx of shoulder injuries, no surgeries. No joint catching or clicking. 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 Pain is worse in morning. Before retired, he worked in the [employer]. Current Functional Impairments (Reported) Functional Limitations- Recreation/ Reports difficulty with Hobbies holding a hammer PT-OP-C Subjective Start: 09/08/23 08:14 Freq: Status: Active Protocol: Document 11/29/23 08:19 NM (Rec: 11/29/23 08:59 NM [id number]) OP-PT Subjective Patient Comments Patient Comments Pt reports that he continues to have neck stiffness, no pain; states improved R shoulder mobility and pain levels. He report prn inside R shoulder joint but decreased overall. He has good exercise routine with HEP, but reports good compliance every night. He has to cancel next several appt but is open to discharge because he's doing well PT-OP-E Functional Tests Start: 09/08/23 08:14 Freq: Status: Active Protocol: Document 09/08/23 08:15 NM (Rec: 09/08/23 09:05 NM [id number]) Functional Tests Apley's Scratch Test Action 1- Left posterior scapula Action 1- Right L clavicle, painful Action 2- Left T4 Action 2- Right C7, painful Action 3- Left T7 Action 3- Right T12, painful PT-OP-F Manual Assessment Start: 09/08/23 08:14 Freq: Status: Active Protocol: Document 09/08/23 08:15 NM (Rec: 09/08/23 09:05 NM [id number]) Manual Assessments Soft Tissue Assessment Soft Tissue Mobility Assessment Soft tissue restrictions of cervical spine paraspinals, especially R upper trapezius and levator scapula. Tenderness to palpation along superlateral humerus near rotator cuff muscle insertion. Pt has a lump on his posterior neck (he reports has been there for years and he gets tests on them every year) Joint Mobility Assessment Joint Mobility Assessment R shoulder AROM more limited in standing and supine. R shoulder AROM more limited than PROM, with nearly full PROM for ER. PROM is still limited for R flex and abd. No clicking or popping of joint with PROM. PT-OP-H Neuro Start: 09/08/23 08:14 Freq: Status: Active Protocol: Document 09/08/23 08:15 NM (Rec: 09/08/23 09:05 NM [id number]) Sensation Evaluation Gross Sensation Gross Sensation WNL Comments Summary Comments BUE dermatomes intact to light touch sensation PT-OP-J Posture/Palpation/Skin Start: 09/08/23 08:14 Freq: Status: Active Protocol: Document 09/08/23 08:15 NM (Rec: 09/08/23 12:13 NM [id number]) Posture Evaluation Position Standing Evaluation View Lateral Head/C-Spine Posture Forward Head T-Spine Posture Increased Kyphosis Shoulder Posture (L) Rounded,(R) Rounded,(L) Elevated Scapula Posture (L) Protracted,(R) Protracted, (L) Elevated,(R) Depressed Arm Posture (L) Internally Rotated,(R) Internally Rotated Pelvis Posture Anteriorly Tilted Weight Distribution Balanced Palpation Assessment Location R shoulder Palpation Location lateral shoulder, AC joint, clavicle, rotator cuff, trapezius Palpation Findings Tenderness Palpation Details Tenderness at lateral R shoulder near rotator cuff insertions and R upper trapezius. No tenderness at LH biceps tendon, AC joint, clavicle. PT-OP-K Range of Motion Start: 09/08/23 08:14 Freq: Status: Active Protocol: Document 11/29/23 08:19 NM (Rec: 11/29/23 09:00 NM [id number]) Shoulder Goniometric Range of Motion Shoulder R AROM Flexion 140 Extension 60 Abduction 150 External Rotation at 0 degrees Abduction 75 Internal Rotation 75 Internal Rotation Behind Back (text) T10 Comments 09/08/23 (IE): 127 deg flex, 100 deg abd, 30 deg ER at 0 deg abd, 65 deg IR at 0 deg abd; pain with flex (end range ), ext, abd, ER (worse, tingle in upper trap), IR at end range 10/10/23: flexion 127 deg (no change), abd 125 deg ( improvement) before painful 10/31/23: 145 deg flex, 140 deg abd 11/29/23: 140 deg flex, 150 deg abd, ER 75 deg at 0 deg abd, 75 deg IR at 0 deg abd PT-OP-L Special Tests Start: 09/08/23 08:14 Freq: Status: Active Protocol: Document 09/08/23 08:15 NM (Rec: 09/08/23 09:05 NM [id number]) Special Tests Cervical Spine Special Tests Spurling's Test Test Results negative Shoulder Special Tests IR/Horizontal ADD Impingement Test Results positive Lift-Off Rotator Cuff Test Results painful but able to lift off completely Isaacs Jovani Impingement Test Results positive Neer Impingement Test Results positive [place] Test Test Results positive Comments reports worse pain with IR than ER Yergason's Biceps Test Results negative Empty Can Test Results positive Comments reports worse pain with IR than ER External Rotation Lag Sign Test Results negative Elevation Impingement Test Results positive Drop Arm Rotator Cuff Test Results negative Clunk Test Test Results negative Biceps Load II Test Test Results negative AC Joint Compression Test Results negative PT-OP-M Strength Start: 09/08/23 08:14 Freq: Status: Active Protocol: Document 11/29/23 08:19 NM (Rec: 11/29/23 09:00 NM [id number]) Shoulder Strength Shoulder Manual Muscle Testing Right Flexion 4+ Good+ Extension 4+ Good+ Abduction (C5) 4+ Good+ Adduction 4+ Good+ External Rotation 4+ Good+ Internal Rotation 4+ Good+ Horizontal Abduction 4+ Good+ Horizontal Adduction 4+ Good+ Comments Pain with ER and abduction 09/08/23: 4/5 IR, HABD, HADD; 4 -/5 Abd, ER; flex 4+/5 10/10/23: 4/5 for ER/IR, 4-/5 abd MMT; no pain reported 10/31/23: 4/5 for ER/IR/Abd/Flex 11/29/23: 4+/5 all; pain free against resistance PT-OP-Q Treatments Start: 09/08/23 08:14 Freq: Status: Active Protocol: Document 11/29/23 08:19 NM (Rec: 11/29/23 08:59 NM [id number]) Therapeutic Exercises Sitting Exercises Cervical spine stretches Sitting Exercise Name UT Side bilateral Equipment Used hand stabilizing opp shoulder Reps/Minutes 60 x2 each direction Comments verbal cues Standing Exercises shoulder IR with band Side right Resistance peach level one band Equipment Used towel roll btwn arm Reps/Minutes 2x10 Comments monitored for pain, cued for form, post scap set scapular depression Standing Exercise Name hands clasped behind back Side bilateral Reps/Minutes 2x5 Comments pain free but feels it in shoulder joint shoulder IR stretch Standing Exercise Name initiated with towel today Side right Equipment Used using dowel, L hand assist with ext then IR stretch Reps/Minutes 2x30 Comments reports no pain but very stiff/tight in ant shldr rows Standing Exercise Name 1. low row, 2. mid row Side bilateral Resistance green band level 3 Reps/Minutes 2x15 Comments verbal cues for stagger stance , PT cue scap dep/retract, pnfree RTC TB Standing Exercise Name ER Side bilateral Resistance lvl 1 peach tb Equipment Used towel roll Reps/Minutes 2x10 ea Comments cued elongated posture, chin tuck Manual Therapy Treatment Soft Tissue Mobilization cervical spine Body Location R paraspinals, UT, LS, DNF, SCM, scalenes Mobilization Type Myofascial Release,Rolling, Sustained Pressure Intensity/Depth Moderate Body Position Supine Comments Soft tissue restrictions of R paraspinals and upper trap, scalenes. Reports decrease in tightness and symptom relief post STM. First rib also elevated Periscapular Body Location rhomboids, rotator cuff Mobilization Type Cross-Friction,Rolling Intensity/Depth Moderate Body Position Sidelying and seated Comments Tenderness along R rotator cuff near supraspinatus and teres major/minor. No trigger point; improved with soft tissue mobility, discomfort in R shoulder prior to exercise Joint Mobilizations R 1st rib Direction caudal Grade III Body Position Sidelying Reps/Duration 1x10 Comments Post soft tissue mobilization of paraspinals, UT R glenohumeral Direction Inf, ant to post Grade IV Body Position Hooklying Reps/Duration 1x15 ea Comments monitored for pain. Biased into R shoulder IR during P-A glides to decrease stiffness, improve mobility. Improved inf glide and scapular mobility with abd post mobilization R scapulothoracic Direction into adduction and depression Grade IV Body Position Sidelying Reps/Duration 1x10 Comments Post soft tissue mobilization. Improved shoulder mobility PT-OP-T Assessment and Plan Start: 09/08/23 08:14 Freq: Status: Active Protocol: Document 11/29/23 08:19 NM (Rec: 11/29/23 08:59 NM [id number]) Physical Therapy Assessment Goals Six Impairment ROM Impairment R flex AROM 127 deg, R abd AROM 100 deg Short Term Goal (STG) Pt will improve R flex and abd AROM by at least 10 deg without compensation for improved reaching during ADLs. 10/19/23: 145 deg flex, 150 deg abd 10/10/23: 127 deg flex, 125 deg abd (pain at end range, 10/30) STG Duration 4 weeks MET [facility] Goal (LTG) Pt will improve R flex and abd AROM by at least 20 deg without compensation for improved reaching during ADLs. 10/19/23: 145 deg flex, 150 deg abd 10/31/23: 145 deg flex, 140 deg abd 11/29/23: 140 deg flex, 150 deg abd LTG Duration 8 weeks MET Five Impairment function Impairment Pt reports pain with sleeping [facility] Goal (LTG) Pt will report that he is able to sleep at least 60% of the night without waking due to R shoulder pain. 10/10/23: Reports able to sleep throughout last night without waking due to R shoulder pain LTG Duration 8 weeks MET Four Impairment ROM Impairment R apley scratch IR T12 [employer] Goal (LTG) Pt will improve R shoulder apley scratch test IR to at least T8 in order to demonstrate improved ability to reach backward during dressing and grooming. 10/10/23: T10, painful 10/31/23: T10, no pain but tight 11/09/2023 T10 reports he stopped when it started hurting 11/22/23 hand behind back to L1 decreased start of this session compared to previous sessions, able to reach T10 end of session. 11/29/23: T10, no pain, tight LTG Duration 8 weeks NOT MET Three Impairment strength Short Term Goal (STG) Pt will improve R shoulder abd /ER/IR strength to at least 4/ 5 within available ROM in order to demonstrate improved strength required for lifting objects. 10/10/23: 4/5 IR/ER, 4-/5 abd 10/31/23: 4/5 for all, min pain inside joint STG Duration 4 weeks, MET [employer] Goal (LTG) Pt will improve R shoulder abd /ER/IR strength to at least 4+ /5 within available ROM in order to demonstrate improved strength required for lifting objects. 10/27/23: 4/5 for all 10/31/23: 4/5 for all, min pain inside joint 11/29/23: 4+/5 for all, no pain with resisted motion LTG Duration 8 weeks MET Two Impairment ROM Impairment R apley scratch ER C7 [facility] Goal (LTG) Pt will improve R apley scratch test ER to at least T3 in order to demonstrate improved ability to reach and for dressing. 10/10/23: T3, reports 4/10 pain 10/31/23: T5, no pain LTG Duration 8 weeks MET One Impairment function Impairment Quickdash 22 or 25% [facility] Goal (LTG) Pt will decrease quickdash score to <18% in order to demonstrate improved activity tolerance. 10/10/23: 19, 18.18% 10/27/23, NOT MET: 19, 18% (no change) 11/29/23: 20, not met, 20% LTG Duration 8 weeks goal updated Assessment Summary Assessment Pt tolerated session well. Emphasis on improving R rotator cuff and periscapular strength while maintaining good scapular control as BUE elevates. Pt demos improved scapular mobility including depression, protraction/ retraction during rows. Continues to have limitations in R IR mobility, T10 post mobilization and stretching. PT and pt discussed discharge vs continuing PT as pt will be going out of town; planning to discharge on 12/04 as long as pt continues to make progressions with managing symptoms. Pt verbalizes agreement. Overall, pt reports that he is able to perform all ADLs/IADLs without limitations, but he is cautious about returning to PLOF with yardwork due to fear of aggravting symptoms. Pt would benefit from skilled PT for R shoulder mobility, strengthening, and pain management in order to improve activity tolerance. Physical Therapy Plan Frequency and Duration Frequency of Treatment 2x/Week Duration of treatment (weeks) 6 Plan of Care Start Date 10/31/23 Plan of Care End Date 12/16/23 Therapeutic Interventions Therapeutic Interventions Balance Training,Coordination Training,Gait Training,Home Exercise Program,Joint Mobilizations,Manual Therapy, Neuromuscular Re-education, Orthotic/Prosthetic Management ,Patient/Caregiver Education, Self-Care/Home Management, Sensory Integration,Soft Tissue Mobilization,Taping, Therapeutic Activities, Therapeutic Exercises Modalities Biofeedback,Cold Pack/Ice Massage,Electric Stimulation, Hot Packs,Infrared Therapy, Traction- Mechanical, Ultrasound,Vasopneumatic Devices Next Visit Focus/Plan Next Note Type Treatment Note Next Visit Plan Next session: review HEP, cont periscapular strengthening Assess damien to tape and changes to HEP. *9th and 10th visit sched with PT, PN/ext POC vs DC next visit CS stretching, Lt/MT/ periscapular strengthening. Rotator cuff mobility and strength, scapular control. Inferior glide (trial with band). POC: Progress prone periscapular strengthening as tolerated; sidelying flex/abd/ ER; Trial AAROM flex/abd with dowel supine vs standing, eccentric abd/add and eccentric flex/ext for ROM Extend POC vs discharge
--- NOTE | 2023-12-05 15:46 | PT.OTN ---
Current Diagnoses Other chronic pain (12/05/23) Pain in right shoulder (12/05/23) Physical Therapy Treatment Note PT-OP-A Visit Information Start: 09/08/23 08:14 Freq: Status: Active Protocol: Document 12/05/23 11:22 NM (Rec: 12/05/23 12:02 NM [id number]) Out-Patient Physical Therapy Visit Information Visit Information Visit Type Discharge Summary Visit Start Time 11:20 Visit Stop Time 12:00 Visit Number 21 Evaluation Information Evaluation Date 09/08/23 PT-OP-B Current Condition Start: 09/08/23 08:14 Freq: Status: Active Protocol: Document 09/08/23 08:15 NM (Rec: 09/08/23 09:05 NM [id number]) Current Condition History of Current Condition Onset Date several years History of Current Condition Pt presents with R shoulder pain. He reports that he has difficulty with sleeping on R shoulder, unable to sleep on it. He reports no known SOCO. He reports tingling at the R neck near upper trapezius, resulting in sore muscles. No numbness/tingling to fingers. Pain feels like it is deep inside the joint. No imaging has been performed. Pt reports that he has difficulty with lifting (about a gallon of milk) and reaching to the side (abd/ER) is painful. No difficulty with dressing of ADLs. No falls but reports that he thinks his balance is worse which he attributes to his sinus. No hx of shoulder injuries, no surgeries. No joint catching or clicking. 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 Pain is worse in morning. 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 Current Functional Impairments (Reported) Functional Limitations- Recreation/ Reports difficulty with Hobbies holding a hammer PT-OP-C Subjective Start: 09/08/23 08:14 Freq: Status: Active Protocol: Document 12/05/23 11:22 NM (Rec: 12/05/23 12:02 NM [id number]) OP-PT Subjective Patient Comments Patient Comments Pt reports 2/10 neck pain, stiffness. Reports Tuesday very stiff and painful neck/ shoulder. Reports compliance with HEP. Tape still intact PT-OP-E Functional Tests Start: 09/08/23 08:14 Freq: Status: Active Protocol: Document 09/08/23 08:15 NM (Rec: 09/08/23 09:05 NM [id number]) Functional Tests Apley's Scratch Test Action 1- Left posterior scapula Action 1- Right L clavicle, painful Action 2- Left T4 Action 2- Right C7, painful Action 3- Left T7 Action 3- Right T12, painful PT-OP-F Manual Assessment Start: 09/08/23 08:14 Freq: Status: Active Protocol: Document 09/08/23 08:15 NM (Rec: 09/08/23 09:05 NM [id number]) Manual Assessments Soft Tissue Assessment Soft Tissue Mobility Assessment Soft tissue restrictions of cervical spine paraspinals, especially R upper trapezius and levator scapula. Tenderness to palpation along superlateral humerus near rotator cuff muscle insertion. Pt has a lump on his posterior neck (he reports has been there for years and he gets tests on them every year) Joint Mobility Assessment Joint Mobility Assessment R shoulder AROM more limited in standing and supine. R shoulder AROM more limited than PROM, with nearly full PROM for ER. PROM is still limited for R flex and abd. No clicking or popping of joint with PROM. PT-OP-H Neuro Start: 09/08/23 08:14 Freq: Status: Active Protocol: Document 09/08/23 08:15 NM (Rec: 09/08/23 09:05 NM [id number]) Sensation Evaluation Gross Sensation Gross Sensation WNL Comments Summary Comments BUE dermatomes intact to light touch sensation PT-OP-J Posture/Palpation/Skin Start: 09/08/23 08:14 Freq: Status: Active Protocol: Document 09/08/23 08:15 NM (Rec: 09/08/23 12:13 NM [id number]) Posture Evaluation Position Standing Evaluation View Lateral Head/C-Spine Posture Forward Head T-Spine Posture Increased Kyphosis Shoulder Posture (L) Rounded,(R) Rounded,(L) Elevated Scapula Posture (L) Protracted,(R) Protracted, (L) Elevated,(R) Depressed Arm Posture (L) Internally Rotated,(R) Internally Rotated Pelvis Posture Anteriorly Tilted Weight Distribution Balanced Palpation Assessment Location R shoulder Palpation Location lateral shoulder, AC joint, clavicle, rotator cuff, trapezius Palpation Findings Tenderness Palpation Details Tenderness at lateral R shoulder near rotator cuff insertions and R upper trapezius. No tenderness at LH biceps tendon, AC joint, clavicle. PT-OP-K Range of Motion Start: 09/08/23 08:14 Freq: Status: Active Protocol: Document 12/05/23 11:22 NM (Rec: 12/05/23 12:02 NM [id number]) Shoulder Goniometric Range of Motion Shoulder R AROM Flexion 148 Extension 60 Abduction 156 External Rotation at 0 degrees Abduction 75 Internal Rotation 75 Internal Rotation Behind Back (text) T10 Comments 09/08/23 (IE): 127 deg flex, 100 deg abd, 30 deg ER at 0 deg abd, 65 deg IR at 0 deg abd; pain with flex (end range ), ext, abd, ER (worse, tingle in upper trap), IR at end range 10/10/23: flexion 127 deg (no change), abd 125 deg ( improvement) before painful 10/31/23: 145 deg flex, 140 deg abd 11/29/23: 140 deg flex, 150 deg abd, ER 75 deg at 0 deg abd, 75 deg IR at 0 deg abd 12/05/23: 148 deg flex, 154 deg abd, 75 deg ER and IR at 0 deg abd PT-OP-L Special Tests Start: 09/08/23 08:14 Freq: Status: Active Protocol: Document 09/08/23 08:15 NM (Rec: 09/08/23 09:05 NM [id number]) Special Tests Cervical Spine Special Tests Spurling's Test Test Results negative Shoulder Special Tests IR/Horizontal ADD Impingement Test Results positive Lift-Off Rotator Cuff Test Results painful but able to lift off completely Isaacs Jovani Impingement Test Results positive Neer Impingement Test Results positive Cross Test Test Results positive Comments reports worse pain with IR than ER Yergason's Biceps Test Results negative Empty Can Test Results positive Comments reports worse pain with IR than ER External Rotation Lag Sign Test Results negative Elevation Impingement Test Results positive Drop Arm Rotator Cuff Test Results negative Clunk Test Test Results negative Biceps Load II Test Test Results negative AC Joint Compression Test Results negative PT-OP-M Strength Start: 09/08/23 08:14 Freq: Status: Active Protocol: Document 12/05/23 11:22 NM (Rec: 12/05/23 12:02 NM [id number]) Shoulder Strength Shoulder Manual Muscle Testing Right Flexion 4+ Good+ Extension 4+ Good+ Abduction (C5) 4+ Good+ Adduction 4+ Good+ External Rotation 4+ Good+ Internal Rotation 4+ Good+ Horizontal Abduction 4+ Good+ Horizontal Adduction 4+ Good+ Comments Pain with ER and abduction 09/08/23: 4/5 IR, HABD, HADD; 4 -/5 Abd, ER; flex 4+/5 10/10/23: 4/5 for ER/IR, 4-/5 abd MMT; no pain reported 10/31/23: 4/5 for ER/IR/Abd/Flex 11/29/23: 4+/5 all; pain free against resistance 12/05/23: 4+/5, reports pain free for all, slight pain with resisted IR PT-OP-Q Treatments Start: 09/08/23 08:14 Freq: Status: Active Protocol: Document 12/05/23 11:22 NM (Rec: 12/05/23 12:02 NM [id number]) Therapeutic Exercises Sitting Exercises shldr inferior glide Sitting Exercise Name review of HEP Side right Equipment Used L assisting R Reps/Minutes 1x10 with brief hold Comments improved form; no pain; reports good relief with abd at R GHJ Standing Exercises shoulder extension Side bilateral Resistance lvl 4 tb Reps/Minutes 3x10 Comments staggered stance; pain free R ER with band Side right Resistance lvl 2 orange tb Equipment Used towel roll between arm Reps/Minutes 3x10 Comments pain free, but feels it working shoulder IR with band Side right Resistance lvl 2 orange band Equipment Used towel roll btwn arm Reps/Minutes 3x10 Comments monitored for pain, improved post scap setting scapular depression Standing Exercise Name hands clasped behind back Side bilateral Reps/Minutes 1x10 Comments pain free rows Standing Exercise Name 1. mid row, 2. lat pull down/ high row Side bilateral Resistance lvl 4 tb Reps/Minutes 3x10 ea Comments pain free, reminder stagger stance RTC TB Standing Exercise Name 1. B ER at 0 deg abd, 2. B ER @ 45 deg abd W Side bilateral Resistance lvl 1 tb Reps/Minutes 2x10 ea Comments pain free Manual Therapy Treatment Soft Tissue Mobilization cervical spine Body Location R paraspinals, UT, LS, DNF, SCM, scalenes Mobilization Type Myofascial Release,Rolling, Sustained Pressure Intensity/Depth Moderate Body Position Supine Comments Soft tissue restrictions of R paraspinals and upper trap, fewer than previous sessions. Reports decreased feelings of tightness post mobilization. Education on soft tissue mobilization of cervical spine with stretching as part of maintenance HEP Periscapular Body Location rhomboids, rotator cuff Mobilization Type Cross-Friction,Rolling Intensity/Depth Moderate Body Position Sidelying Comments Minimal tenderness at posterior rotator cuff R shoulder near rhomboid, monitored for pain. Reports decreased tenderness post mobilization Joint Mobilizations R glenohumeral Direction Inf, ant to post Grade IV Body Position Hooklying Reps/Duration 1x10 ea Comments Monitored for pain. Biased into R shoulder IR during posterior glides to decrease stiffness, improve mobility. Good, pain free inferior glide . Educated on continuing inferior glide as part of HEP Self-Care/Home Management Treatment Education Patient Education Home Exercise Program Other Education HEP review to condense past HEP, create final HEP. Added to HEP: lat pull down, shoulder ext, W B ER Education on maintenance program 3x/wk to continue with progression with HEP, recommended pt choose different exercises ea time, perform for 20 min max/day. Educated to not use massage gun on neck, continue with soft tissue mobilization; follow up with PCP if symptoms return/worsen or for new PT referral PT-OP-T Assessment and Plan Start: 09/08/23 08:14 Freq: Status: Active Protocol: Document 12/05/23 11:22 NM (Rec: 12/05/23 12:02 NM [id number]) Physical Therapy Assessment Goals Six Impairment ROM Impairment R flex AROM 127 deg, R abd AROM 100 deg Short Term Goal (STG) Pt will improve R flex and abd AROM by at least 10 deg without compensation for improved reaching during ADLs. 10/19/23: 145 deg flex, 150 deg abd 10/10/23: 127 deg flex, 125 deg abd (pain at end range, 3/) STG Duration 4 weeks MET Quality Control Engineer Goal (LTG) Pt will improve R flex and abd AROM by at least 20 deg without compensation for improved reaching during ADLs. 10/19/23: 145 deg flex, 150 deg abd 10/31/23: 145 deg flex, 140 deg abd 11/29/23: 140 deg flex, 150 deg abd 12/05/23: 148 deg flex, 156 deg abd LTG Duration 8 weeks MET Five Impairment function Impairment Pt reports pain with sleeping Quality Control Engineer Goal (LTG) Pt will report that he is able to sleep at least 60% of the night without waking due to R shoulder pain. 10/10/23: Reports able to sleep throughout last night without waking due to R shoulder pain LTG Duration 8 weeks MET Four Impairment ROM Impairment R apley scratch IR T12 Alf Goal (LTG) Pt will improve R shoulder apley scratch test IR to at least T8 in order to demonstrate improved ability to reach backward during dressing and grooming. 10/10/23: T10, painful 10/31/23: T10, no pain but tight 11/09/2023 T10 reports he stopped when it started hurting 11/22/23 hand behind back to L1 decreased start of this session compared to previous sessions, able to reach T10 end of session. 11/29/23: T10, no pain, tight 12/05/23: T10, not painful but tight LTG Duration 8 weeks NOT MET Three Impairment strength Short Term Goal (STG) Pt will improve R shoulder abd /ER/IR strength to at least 4/ 5 within available ROM in order to demonstrate improved strength required for lifting objects. 10/10/23: 4/5 IR/ER, 4-/5 abd 10/31/23: 4/5 for all, min pain inside joint STG Duration 4 weeks, MET Alf Goal (LTG) Pt will improve R shoulder abd /ER/IR strength to at least 4+ /5 within available ROM in order to demonstrate improved strength required for lifting objects. 10/27/23: 4/5 for all 10/31/23: 4/5 for all, min pain inside joint 11/29/23: 4+/5 for all, no pain with resisted motion LTG Duration 8 weeks MET Two Impairment ROM Impairment R apley scratch ER C7 Quality Control Engineer Goal (LTG) Pt will improve R apley scratch test ER to at least T3 in order to demonstrate improved ability to reach and for dressing. 10/10/23: T3, reports 4/10 pain 10/31/23: T5, no pain LTG Duration 8 weeks MET One Impairment function Impairment Quickdash 22 or 25% Quality Control Engineer Goal (LTG) Pt will decrease quickdash score to <18% in order to demonstrate improved activity tolerance. 10/10/23: 19, 18.18% 10/27/23, NOT MET: 19, 18% (no change) 11/29/23: 20, not met, 20% 12/05/23: score 18, 15% - PARTIALLY MET, MOST IMPROVEMENT INDICATOR OF QOL SINCE IE LTG Duration 8 weeks goal updated, PARTIALLY MET Progress Towards Goals Progress Towards Goals Goals Met Progress Comments All goals met, Partially met quickdash goal, reports improvement. Assessment Summary Assessment Pt tolerated session well without increased pain. Pt wanting to d/c from PT vs extend POC due to traveling, current plateau in progress. Reviewed past HEP to condense exercises into final HEP, added few exercise progressions to HEP. Education on maintenance program 3x/wk to maintain progress and maximize results. During manual treatment, pt continues to demonstrate tightness and less tenderness of B upper trapezius muscle and rotator cuff. Continued with grade III R glenohumeral mobilizations with IR bias to improve mobility. Pt has fewer restrictions and pain reports in anterior shoulder with IR post mobilization. Progressed rotator cuff strengthening with banded W and increased resistance levels for R shoulder ER/IR. During rows and lat pull downs, pt requires cues initially for staggered stance to improve stability and facilitate improved rhomboid/lat activation. PT and pt discussed discharge vs continuing POC due to plateau in progress since last PN. Pt has several upcoming trips and is requesting to take break from PT with maintenance program. PT in agreement and educated pt about performing maintenance program 3x/wk. PT also educated pt on following up with PCP if symptoms return /worsen or for new PT referral . Pt verbalizes agreement, safe to discharge to maintenance program. Physical Therapy Plan Frequency and Duration Frequency of Treatment 2x/Week Duration of treatment (weeks) 6 Plan of Care Start Date 10/31/23 Plan of Care End Date 12/16/23 Therapeutic Interventions Therapeutic Interventions Balance Training,Coordination Training,Gait Training,Home Exercise Program,Joint Mobilizations,Manual Therapy, Neuromuscular Re-education, Orthotic/Prosthetic Management ,Patient/Caregiver Education, Self-Care/Home Management, Sensory Integration,Soft Tissue Mobilization,Taping, Therapeutic Activities, Therapeutic Exercises Modalities Biofeedback,Cold Pack/Ice Massage,Electric Stimulation, Hot Packs,Infrared Therapy, Traction- Mechanical, Ultrasound,Vasopneumatic Devices Discharge Physical Therapy Discharge Reasons Patient Request Discharge Comments Pt requesting d/c vs continuing PT as POC about to , pt going on vacation for several weeks. No longer making progress in PT Next Visit Focus/Plan Next Visit Plan discharge from PT services
== END 2023-12-16 13:24 ==
LOC: PHYS 11:15
PROVIDERS: Family Provider Internal Medicine; PCP Internal Medicine; Referring Provider Internal Medicine; Visit Provider Internal Medicine
DX: M25.511 Pain in right shoulder (principal); G89.29 Other chronic pain
CPT/HCPCS: 97110; 97140; 97162

== ENCOUNTER → 2024-02-06 12:38 | Outpatient (CLI) | payer MEDICARE, OTHER, SELFPAY ==
--- NOTE | 2024-02-06 12:42 | DI.RAD.S_ITS ---
PROCEDURE: XR SHOULDER RT MIN 2V INDICATIONS: SHOULDER PAIN TECHNIQUE: 3 views of the shoulder were acquired. COMPARISON: None. FINDINGS: Bones: No fractures or dislocations. No suspicious bony lesions. Mild acromioclavicular and glenohumeral joint degeneration. Visualized ribs appear intact. Soft tissues: No suspicious soft tissue calcifications. IMPRESSION: 1. No acute bony abnormality. 2. Mild degenerative joint disease. 3. If clinical symptoms persist or clinical suspicion for internal derangement is high, consider MRI for further evaluation. Dictated by: Carlos Velasquez M.D. on 02/06/2024 at 13:51 Approved by: Carlos Velasquez M.D. on 02/06/2024 at 13:52
== END ==
LOC: RAD 12:39
PROVIDERS: Family Provider Internal Medicine; PCP Internal Medicine; Referring Provider Internal Medicine; Visit Provider Internal Medicine
DX: M19.011 Primary osteoarthritis, right shoulder (principal); M25.511 Pain in right shoulder; G89.29 Other chronic pain
CPT/HCPCS: 73030

== ENCOUNTER → 2024-05-14 09:16 | Outpatient (CLI) | payer MEDICARE, OTHER, SELFPAY ==
--- NOTE | 2024-05-14 09:20 | DI.RAD.S_ITS ---
PROCEDURE: XR CHEST 2V INDICATIONS: COUGH TECHNIQUE: 2 views of the chest were acquired. COMPARISON: [facility], CR, XR CHEST 2V, 12/18/2021, 9:04. FINDINGS: Surgical changes and devices: None. Lungs and pleura: New mild to moderate bilateral diffuse peribronchial thickening with patchy lower lobe opacities some of which may be related expiratory result however given the history of cough, bronchitis, viral infection, bronchopneumonia or other process should be considered. No pneumothorax, no pleural effusion, no lobar consolidation. Mediastinum: New mildly prominent suzy, mildly prominent pulmonary vessels and/or hilar lymph nodes.Cardiopericardial silhouette within normal limits in size. Bones and chest wall: Mild degenerative changes of the thoracic spine and shoulders unchanged. IMPRESSION: New mild to moderate bilateral peribronchial thickening with patchy lower lobe opacities as discussed above. New mildly prominent suzy, mildly prominent pulmonary vessels and/or hilar lymph nodes. Follow-up suggested Dictated by: Ajit Perla M.D. on 05/14/2024 at 10:13 Approved by: Ajit Perla M.D. on 05/14/2024 at 10:18
== END ==
PROVIDERS: Family Provider Internal Medicine; PCP Internal Medicine; Referring Provider Internal Medicine; Visit Provider Internal Medicine
DX: R05.3 Chronic cough (principal)
CPT/HCPCS: 71046

== ENCOUNTER → 2024-10-09 09:28 | Outpatient (CLI) | payer MEDICARE, OTHER, SELFPAY ==
--- NOTE | 2024-10-09 09:31 | DI.RAD.S_ITS ---
PROCEDURE: XR HAND LT MIN 3V INDICATIONS: HAND PAIN TECHNIQUE: 3 views of the hand(s) acquired. COMPARISON: None. 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 No fractures or dislocations. Carpal bones are normally aligned. No suspicious bony lesions. 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 Soft tissues: No suspicious soft tissue calcifications. 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 Dictated by: María Carpenter MD, PhD on 10/09/2024 at 10:46 Approved by: María Carpenter MD, PhD on 10/09/2024 at 10:47
--- NOTE | 2024-10-09 09:31 | DI.RAD.S_ITS ---
PROCEDURE: XR HAND RT MIN 3V INDICATIONS: HAND PAIN TECHNIQUE: 3 views of the hand(s) acquired. COMPARISON: None. FINDINGS: Bones: Extensive degenerative change is noted throughout the interphalangeal joints with diffuse joint space destruction and pencil in cup deformities. Periarticular erosive changes are noted throughout all of the interphalangeal joints except the 2nd PIP. A large periarticular cystic deformity is noted along the posterior distal aspect of the proximal 3rd phalanx. No fractures or dislocations. Carpal bones are normally aligned. No suspicious bony lesions. Soft tissues: No suspicious soft tissue calcifications. IMPRESSION: Advanced diffuse interphalangeal erosive arthritic articular change of the hand consistent with probable inflammatory arthritis. Dictated by: Lucho Miller M.D. on 10/09/2024 at 15:04 Approved by: Lucho Miller M.D. on 10/09/2024 at 15:09
== END ==
PROVIDERS: Family Provider Internal Medicine; PCP Internal Medicine; Referring Provider Internal Medicine; Visit Provider Internal Medicine
DX: M19.042 Primary osteoarthritis, left hand (principal); M19.041 Primary osteoarthritis, right hand; Z89.022 Acquired absence of left finger(s)
CPT/HCPCS: 73130

== ENCOUNTER → 2024-11-01 11:44 | Outpatient (CLI) | payer MEDICARE, OTHER, SELFPAY ==
--- NOTE | 2024-11-01 11:50 | DI.RAD.S_ITS ---
PROCEDURE: XR CERVICAL SPINE 2V OR 3V INDICATIONS: NECK PAIN TECHNIQUE: Five views (s) of the cervical spine were acquired. COMPARISON: None. FINDINGS: Cervical spine curvature and alignment: There is 3 millimeters of C4 anterior subluxation due to degenerate facet disease. Bones: There are no osseous abnormalities. Disc spaces: Mild C2-3, moderate C3-4 C4-5 severe C5-6 and C6-7 degenerative disc disease noted. Moderate C2-3 through C7-T1 degenerative facet disease also noted. Soft tissues: No soft tissue swelling, calcification or mass. IMPRESSION: Degeneration. Dictated by: Huy Correia M.D. on 11/01/2024 at 12:20 Approved by: Huy Correia M.D. on 11/01/2024 at 12:21
== END ==
LOC: RAD 11:47
PROVIDERS: Family Provider Internal Medicine; PCP Internal Medicine; Referring Provider Internal Medicine; Visit Provider Internal Medicine
DX: M50.31 Other cervical disc degeneration, high cervical region (principal); M47.812 Spondylosis without myelopathy or radiculopathy, cervical region
CPT/HCPCS: 72040

== ENCOUNTER → 2024-12-19 08:12 | Outpatient (CLI) | payer MEDICARE, OTHER, SELFPAY ==
--- NOTE | 2024-12-19 08:14 | DI.MRI.S_ITS ---
PROCEDURE: MR CERVICAL SPINE WO CON INDICATIONS: BACK PAIN TECHNIQUE: Noncontrast sagittal T1 spin echo and T2 fast spin echo, sagittal STIR, foraminal oblique sagittal T2 fast spin echo, and axial gradient echo or T2 fast spin echo through the cervical spine. COMPARISON: None. FINDINGS: Image quality: Excellent. Alignment and Curvature: There is overall straightening of the normal cervical lordosis. There is minimal anterolisthesis at C2-C3, with minimal retrolisthesis at C3-C4. Minimal anterolisthesis is seen at C4-C5. There is minimal retrolisthesis at C5-C6 and C6-C7. Minimal anterolisthesis is seen at C7-T1. Bone Marrow: Marrow demonstrates normal overall signal. Spinal Cord: Visualized spinal cord has normal size and signal. No cerebellar tonsillar herniation. Paraspinous Soft Tissues: No paravertebral masses. Prevertebral soft tissues are normal in thickness. A 5.5 cm subcutaneous lipoma can be seen posteriorly, to the right of the midline. C2-C3: At least moderate loss of disc height and disc signal can be seen. Moderate generalized disc osteophyte complex is seen. There is a superimposed central disc osteophyte protrusion. Moderate facet joint hypertrophy is seen. There is moderate left-sided and mild right-sided neural foraminal narrowing. No significant central canal narrowing is seen. C3-C4: At least moderate loss of disc height and disc signal can be seen. Moderate disc osteophyte complex is seen, which is eccentric to the right. There is a superimposed central disc osteophyte protrusion. There is moderate facet hypertrophy, left worse than right. There is moderate to severe bilateral neural foraminal narrowing. Mild central canal narrowing is seen. C4-C5: At least moderate loss of disc height and disc signal can be seen. Moderate generalized disc osteophyte complex is seen. There is a superimposed central disc osteophyte protrusion. There is prominent right-sided and moderate left-sided facet hypertrophy. There is moderate to severe bilateral neural foraminal narrowing, right worse than left. At least moderate central canal narrowing is seen. There is associated mass effect upon the ventral spinal cord. C5-C6: At least moderate loss of disc height and disc signal can be seen. Moderate disc osteophyte complex is seen. There is a superimposed central disc osteophyte protrusion. Moderate facet joint hypertrophy is seen. Moderate to severe bilateral neural foraminal narrowing is seen. Moderate central canal narrowing is seen. Minimal mass effect can be seen upon the ventral spinal cord. C6-C7: At least moderate loss of disc height and disc signal can be seen. Moderate generalized disc osteophyte complex is seen. There is a superimposed central disc osteophyte protrusion. Moderate facet joint hypertrophy is seen. Moderate to severe bilateral neural foraminal narrowing is seen. Moderate central canal narrowing is seen. C7-T1: Mild to moderate loss of disc height and disc signal can be seen. A mild degree of generalized disc osteophyte complex is seen. Mild bilateral neural foraminal narrowing is seen. No central canal narrowing is seen. IMPRESSION: Multiple levels of significant cervical spine degenerative change can be seen, which are worst inferiorly. Additional findings: Posterior right neck lipoma, 5.5 cm Dictated by: Miguel Duckworth M.D. on 12/19/2024 at 15:56 Approved by: Miguel Duckworth M.D. on 12/19/2024 at 16:00
== END ==
PROVIDERS: Family Provider Internal Medicine; PCP Internal Medicine; Referring Provider Physician Assistant Surgical; Visit Provider Physician Assistant Surgical
DX: M47.812 Spondylosis without myelopathy or radiculopathy, cervical region (principal); D17.0 Benign lipomatous neoplasm of skin and subcutaneous tissue of head, face and neck; M54.2 Cervicalgia
CPT/HCPCS: 72141

== ENCOUNTER → 2025-06-19 10:35 | Outpatient (CLI) | payer MEDICARE, OTHER, SELFPAY ==
--- NOTE | 2025-06-19 10:38 | DI.RAD.S_ITS ---
PROCEDURE: XR CHEST 2V INDICATIONS: Chronic cough TECHNIQUE: 2 views of the chest were acquired. COMPARISON: [facility], CR, XR CHEST 2V, 05/14/2024, 9:36. FINDINGS: Heart, mediastinum and pulmonary vascular: Heart is normal in size and configuration. Mediastinum is unremarkable. Pulmonary vascular is normal. Lungs: Clear Pleural spaces: Normal-no effusions or pneumothorax. IMPRESSION: Normal chest. Dictated by: Huy Correia M.D. on 06/20/2025 at 11:39 Approved by: Huy Correia M.D. on 06/20/2025 at 11:39
== END ==
PROVIDERS: Family Provider Internal Medicine; PCP Internal Medicine; Referring Provider Internal Medicine; Visit Provider Internal Medicine
DX: R05.3 Chronic cough (principal)
CPT/HCPCS: 71046